=== PATIENT | male | born 1950 | race Caucasian/White ===

== ENCOUNTER 2018-07-05 18:50 | Inpatient (IN) ==
[2018-07-05] MEDS ORDERED: Sod Chloride 0.9% Inj 1,000 ML IV.SIG ONE ×2 (19:10→19:57)
--- NOTE | 2018-07-05 19:36 | ED ---
HPI General Chief complaint: Abdominal Pain Stated complaint: weakness and abdominal pain Time Seen by Provider: 07/05/18 19:10 Source: patient Mode of arrival: EMS Limitations: no limitations History of Present Illness HPI narrative: The patient is a 68 year old male who presents to the [facility] emergency department with a history of abdominal pain and diarrhea that he reports began 1 month ago. He reports that he had diarrhea approximately 20 times per day. He reports that the stool is light brown in color. He denies having any mucus or blood in his stool. He denies any recent foreign travel, camping, or unusual food intake. However, the patient does recall that in March he had a course of antibiotic for a dental infection. He denies having any nausea or vomiting associated with this. He reports that the abdominal pain is present in the lower abdomen and suprapubic area and is worse just before he has to move his bowels. He reports that the pain is a cramping/sharp sensation. He reports that it is coming and going. He reports having a subjective fever associated with this which was treated with Tylenol. He reports that he also took Imodium, however the symptoms recur with the Imodium wears off. He denies having any dysuria, urinary frequency, or urinary urgency. He denies having any prior history of similar symptoms. The patient is unsure who his primary care physician is. He has not seen a primary care physician for the last few years. He denies ever having colonoscopy previously. On review of systems otherwise, the patient denies having any cough , congestion, neck pain, chest pain, shortness of breath, or neurologic symptoms. Related Data Home Medications Medication Instructions Recorded Confirmed No Known Home Medications 07/05/18 07/05/18 Allergies Allergy/AdvReac Type Severity Reaction Status Date / Time No Known Allergies Allergy Verified 07/05/18 18:59 Review of Systems ROS: all other systems reviewed are negative [facility] Medical History Medical History Patient denies medical problems (Acute) Surgical History Surgical History No history of previous surgery (Acute) Social History Social History Substance History: No History of Abuse Second Hand Smoke Exposure: No Smoking Status: Never smoker How Often Do You Have a Drink Containing Alcohol: Never Recent Travel in [place] within the Last 8 Weeks: No Recent Out of Country Travel within the Last 8 Weeks: No Immunization History Tetanus Immunization: >5 Years Exam Const General: cooperative, no acute distress and well developed Nutritional Appearance: well nourished Orientation: alert, awake and oriented x3 [facility] Head: normocephalic and atraumatic Nose: no nasal discharge and no epistaxis Mouth: other Eyes Sclera: normal sclerae Pupils: PERRL Neck Neck: no meningeal signs, trachea midline and no JVD Resp Effort & Inspection: no use of accessory muscles Auscultation: clear to auscultation bilaterally Cardio Rate: tachycardic (Sinus tachycardia in the low 100s. No pulse deficits to the extremities on simultaneous auscultation and palpation of his radial artery) Rhythm: regular rhythm Heart Sounds: no gallops, no murmurs and no rubs GI Inspection: non-distended Palpation: soft, no hepatosplenomegaly, no guarding, not rigid and tender suprapubicly; not in the epigastrum, not in the LLQ, not in the RLQ, not in the LUQ, not in the RUQ, not at McBurney's point and with no rebound tenderness Back/Spine/Pelvis Back: no CVA tenderness Skin General: dry skin (warm) Neuro General: alert, awake, oriented x3 and other (Grossly nonfocal.) Speech: speech normal Motor: no movement abnormalities noted Extrem General: normal to inspection, no clubbing, no cyanosis and no edema Psych Mood: congruent mood Affect: blunted Judgment: judgment good Course Consultations Consultation #1: The patient's case including history, pertinent physical examination findings, and laboratory studies were discussed with Dr. Ba. It was agreed that the patient would be admitted to the hospitalist service. Initial Documented Vital Signs Temperature 98.9 F 07/05/18 18:59 Pulse Rate 99 H 07/05/18 18:59 Respiratory Rate 18 07/05/18 18:59 Blood Pressure 92/56 L 07/05/18 18:59 Pulse Oximetry 96 07/05/18 18:59 Last Documented Vital Signs Temperature 98.9 F 07/05/18 18:59 Pulse Rate 100 H 07/05/18 20:28 Respiratory Rate 18 07/05/18 20:28 Blood Pressure 92/62 L 07/05/18 20:28 Pulse Oximetry 96 07/05/18 20:28 Critical Care Time Critical Care Time: Yes Total Critical Care Time: 34 Attestation: Aggregate critical care time was 34 minutes. Time to perform other separately billable procedures was not included in the critical care time. My time did not include minutes spent treating any other patients simultaneously or on activities that did not directly contribute to the patient's treatment. The services I provided to this patient were to treat and/or prevent clinically significant deterioration that could result in: Cardiovascular collapse from sepsis, versus fluid overload with respiratory failure from crystalloid resuscitation. I provided critical care services requiring my management, as noted below: Chart data review, documentation time, medication orders and management, vital sign assessments/reviewing monitor data, ordering and reviewing lab tests, ordering and interpreting/reviewing x-rays and diagnostic studies, care of the patient and discussion of the patient with the admitting physicians. Medical Decision Making MDM Narrative Medical decision making narrative: During the course of the patient's emergency department visit, the patient's history, examination, and differential diagnosis were reviewed with the patient. The patient was placed on a monitoring specialist with oximetry and frequent blood pressure monitoring. The patient had IV access obtained and blood work sent for analysis. A diagnostic evaluation was started regarding the patient's abdominal pain and diarrhea. The patient was initially provided normal saline 1 L IV fluid bolus. The patient's diagnostic evaluation is remarkable for a white count of 27.7, the patient was started on broad-spectrum antibiotic coverage, blood cultures x2 were ordered. The patient was given Zosyn and Flagyl. The patient had a normal hemoglobin of 15.1, platelets 250 with neutrophils 81, bands 18toxic granulation present, PT 13.7, PTT 28.7, Chemistries remarkable for sodium of 131 , potassium 3.1, BUN 69, creatinine 1.75 consistent with dehydration, glucose 120. The patient was given a second liter of normal saline IV fluids, lactic acid was noted to be elevated at 2.3, protein corrected calcium is 7.7, cardiac enzymes are within normal limits. Total protein 5.4, albumin 1.5, lipase 48. Urinalysis shows 2 urobilinogen, hazy urine few mucus otherwise unremarkable. CHEST X-RAY: No infiltrate, pneumothorax or mediastinal widening. Shows no acute abnormality, CT scan of the abdomen and pelvis shows diffuse mural thickening and edema throughout the colon characteristic of a diffuse colitis. There is associated mild ascites, multiple small hepatic cyst, no obstruction. The patient's results were discussed with the patient, including the plan of care. I explained that further testing and/ or monitoring is indicated based on the patient's history, examination, and/ or laboratory findings. Therefore, I recommended admission for additional evaluation. The patient expressed understanding and was agreeable with this plan. The patient was admitted to the hospital in guarded condition and sent to a bed under the care of the [facility] service. Medical Screen Exam Complete: Yes Emergency Medical Condition: Yes Differential Diagnosis Differential Diagnosis: Diverticulitis, versus colitis, versus C. difficile colitis, versus prostatitis, versus ischemic bowel Medical Records Medical records reviewed: Yes I reviewed the patient's medical records. Lab Data Lab results reviewed: Yes I reviewed the patient's lab results. Result diagrams: 07/05/18 19:45 07/05/18 19:45 Lab Results 07/05/18 07/05/18 07/05/18 Range/Units 19:45 19:45 19:45 WBC 27.7 H (4.0-11.0) th/mm3 RBC 4.52 (4.50-5.90) mil/mm3 Hgb 15.1 (13.0-17.0) gm/dL Hct 43.3 (39.0-51.0) % MCV 95.8 (80.0-100.0) fL MCH 33.4 (27.0-34.0) pg MCHC 34.9 (32.0-36.0) % RDW 12.7 (11.6-17.2) % Plt Count 250 (150-450) th/mm3 MPV 6.7 L (7.0-11.0) fL Prelim Diff (Auto) Manual diff required WBC Differential Manual diff final Seg Neuts % (Manual) 81 H (16-70) % Band Neuts % (Manual) 18 H (0-6) % Monocytes % (Manual) 1 (0-8) % Abs Neuts (Manual) 27.4 H (1.8-7.7) th/mm3 Differential Comment . Toxic Granulation 1+ H (None) Platelet Estimate Normal (Normal) Platelet Morphology Normal (Normal) PT 13.7 H (9.8-11.6) sec INR 1.4 Ratio APTT 28.7 (24.3-30.1) sec Sodium 131 L (136-145) meq/L Potassium 3.1 L (3.5-5.1) meq/L Chloride 93 L (98-107) meq/L Carbon Dioxide 25.3 (21.0-32.0) meq/L Anion Gap 13 (5-15) meq/L BUN 69 H (7-18) mg/dL Creatinine 1.75 H (0.60-1.30) mg/dL Estimated GFR 39 L (>89) mL/min Random Glucose 120 H (74-106) mg/dL Lactic Acid (0.4-2.0) mmol/L Calcium 6.8 L* (8.5-10.1) mg/dL Prot Corrected Calcium 7.7 L (8.5-10.1) mg/dL Magnesium 2.5 (1.5-2.5) mg/dL Total Bilirubin 0.5 (0.2-1.0) mg/dL AST 28 (15-37) U/L ALT 25 (12-78) U/L Alkaline Phosphatase 93 (45-117) U/L Total Creatine Kinase 34 L (39-308) U/L Troponin I Less than 0.02 L (0.02-0.05) ng/mL Total Protein 5.4 L (6.4-8.2) g/dL Albumin 1.5 L (3.4-5.0) g/dL Lipase 48 L (73-393) U/L Urine Color (Yellw/Straw) Urine Clarity (Clear) Urine pH (5.0-8.5) Ur Specific [place] (1.002-1.035) Urine Protein (Neg-Trace) mg/dL Urine Glucose (UA) (Negative) mg/dL Urine Ketones (Negative) mg/dL Urine Occult Blood (Negative) Urine Nitrate (Negative) Urine Bilirubin (Negative) Urine Urobilinogen (Less than 2) mg/dL Ur Leukocyte Esterase (Negative) Urine RBC (0-3) /hpf Urine WBC (0-5) /hpf Ur Squamous Epith Cells (0-5) /hpf Hyaline Casts (0-3) /lpf Urine Mucus (Occasional) /lpf Micro UA Comment Ur Microscopic Review Urine Culture Comments 07/05/18 07/05/18 Range/Units 19:45 20:20 WBC (4.0-11.0) th/mm3 RBC (4.50-5.90) mil/mm3 Hgb (13.0-17.0) gm/dL Hct (39.0-51.0) % MCV (80.0-100.0) fL MCH (27.0-34.0) pg MCHC (32.0-36.0) % RDW (11.6-17.2) % Plt Count (150-450) th/mm3 MPV (7.0-11.0) fL Prelim Diff (Auto) WBC Differential Seg Neuts % (Manual) (16-70) % Band Neuts % (Manual) (0-6) % Monocytes % (Manual) (0-8) % Abs Neuts (Manual) (1.8-7.7) th/mm3 Differential Comment Toxic Granulation (None) Platelet Estimate (Normal) Platelet Morphology (Normal) PT (9.8-11.6) sec INR Ratio APTT (24.3-30.1) sec Sodium (136-145) meq/L Potassium (3.5-5.1) meq/L Chloride (98-107) meq/L Carbon Dioxide (21.0-32.0) meq/L Anion Gap (5-15) meq/L BUN (7-18) mg/dL Creatinine (0.60-1.30) mg/dL Estimated GFR (>89) mL/min Random Glucose (74-106) mg/dL Lactic Acid 2.3 H (0.4-2.0) mmol/L Calcium (8.5-10.1) mg/dL Prot Corrected Calcium (8.5-10.1) mg/dL Magnesium (1.5-2.5) mg/dL Total Bilirubin (0.2-1.0) mg/dL AST (15-37) U/L ALT (12-78) U/L Alkaline Phosphatase (45-117) U/L Total Creatine Kinase (39-308) U/L Troponin I (0.02-0.05) ng/mL Total Protein (6.4-8.2) g/dL Albumin (3.4-5.0) g/dL Lipase (73-393) U/L Urine Color Analy (Yellw/Straw) Urine Clarity Hazy H (Clear) Urine pH 5.0 (5.0-8.5) Ur Specific [place] 1.023 (1.002-1.035) Urine Protein Negative (Neg-Trace) mg/dL Urine Glucose (UA) Negative (Negative) mg/dL Urine Ketones Negative (Negative) mg/dL Urine Occult Blood Negative (Negative) Urine Nitrate Negative (Negative) Urine Bilirubin Negative (Negative) Urine Urobilinogen 2.0 H (Less than 2) mg/dL Ur Leukocyte Esterase Negative (Negative) Urine RBC 1 (0-3) /hpf Urine WBC 4 (0-5) /hpf Ur Squamous Epith Cells 1 (0-5) /hpf Hyaline Casts 27 (0-3) /lpf Urine Mucus Few H (Occasional) /lpf Micro UA Comment Culture not ind Ur Microscopic Review Not Reportable Urine Culture Comments Culture not ind Imaging Data Radiologist's impression: Abdomen/Pelvis CT 07/05/18 19:10 CONCLUSION: 1. Diffuse mural thickening and edema throughout the colon characteristic of a diffuse colitis. There is associated mild ascites. 2. Multiple small hepatic cysts. No obstruction. Chest X-Ray 07/05/18 19:10 CONCLUSION: No acute findings. ECG Data Attestation: I personally reviewed and interpreted this ECG as follows: Interpretation: The patient had a EKG done on arrival. The patient's EKG shows a sinus rhythm heart rate of 95, QRS duration 85 ms, QTC [address] segment elevation is noted. Discharge Plan Discharge Disposition Patient Disposition: 30 Still Patient Discharge Details Diagnosis: Colitis, Acute dehydration, SIRS (systemic inflammatory response syndrome) Physicians Team ED Provider: Santa Cole Primary Care Provider: Primary Care Kathrine Low Attending Provider: Blanca Ba Other Providers: [employer] Discharge Interventions Interventions: Vital Signs Last Done: 07/05/18 20:28 Status ED Status: Admitted Patient
--- NOTE | 2018-07-05 19:44 | XR ---
EXAM DATE: 07/05/2018 7:10 PM EDT AGE/SEX: 68 years / Male INDICATIONS: Evaluate for free air, abdomen pain CLINICAL DATA: This is the patient's initial encounter. Patient reports that signs and symptoms have been present for 1 month and indicates a pain score of 4/10. MEDICAL/SURGICAL HISTORY: None. None. COMPARISON: No prior exams available for comparison. FINDINGS: A single AP view of the chest demonstrates the lungs to be symmetrically aerated without evidence of mass, infiltrate or effusion. The cardiomediastinal contours are unremarkable. Osseous structures a re intact. CONCLUSION: No acute findings. Electronically signed by: Parth Dove MD 07/05/2018 7:43 PM EDT
[2018-07-05 19:56] LABS: Hematocrit 43.3 % (39.0-51.0); Hemoglobin 15.1 gm/dL (13.0-17.0); Mean Corpuscular HGB Conc 34.9 % (32.0-36.0); Mean Corpuscular Hemoglobin 33.4 pg (27.0-34.0); Mean Corpuscular Volume 95.8 fL (80.0-100.0); Mean Platelet Volume 6.7 fL (7.0-11.0); Platelet Count 250 th/mm3 (150-450); Red Blood Count 4.52 mil/mm3 (4.50-5.90); Red Cell Distribution Width 12.7 % (11.6-17.2); White Blood Count 27.7 th/mm3 (4.0-11.0)
[2018-07-05] MEDS ORDERED: Piperacil/Tazo 3.375 GM Premix 50 ML IV.SIG ONE (19:57)
[2018-07-05 20:05] LABS: Activated Partial Thrombo Time 28.7 sec (24.3-30.1); INR 1.4 Ratio; Prothrombin Time 13.7 sec (9.8-11.6)
[2018-07-05 20:17] LABS: Alanine Aminotransferase 25 U/L (12-78); Albumin 1.5 g/dL (3.4-5.0); Alkaline Phosphatase 93 U/L (45-117); Anion Gap 13 meq/L (5-15); Aspartate Aminotransferase 28 U/L (15-37); Blood Urea Nitrogen 69 mg/dL (7-18); Calcium 6.8 mg/dL (8.5-10.1); Carbon Dioxide 25.3 meq/L (21.0-32.0); Chloride 93 meq/L (98-107); Glomerular Filtration Rate 39 mL/min (>89); Glucose,Random 120 mg/dL (74-106); Lipase 48 U/L (73-393); Magnesium 2.5 mg/dL (1.5-2.5); Potassium 3.1 meq/L (3.5-5.1); Sodium 131 meq/L (136-145); Total Protein 5.4 g/dL (6.4-8.2)
[2018-07-05 20:25] LABS: Creatine Kinase 34 U/L (39-308)
[2018-07-05 20:31] LABS: Monocytes 1 % (0-8)
[2018-07-05 20:35] LABS: Platelet Estimate Normal (Normal); Platelet Morphology Normal (Normal); Toxic Granulation 1+
[2018-07-05 20:52] LABS: Bilirubin,Urine Negative (Negative); Clarity,Urine Hazy (Clear); Color,Urine Amber (Yellw/Straw); Glucose,Urine (UA) Negative (Negative); Hyaline Casts,Urine 27 /lpf (0-3); Leukocyte Esterase,Urine Negative (Negative); Mucus,Urine Few /lpf (Occasional); Nitrite,Urine Negative (Negative); Specific Gravity,Urine 1.023 (1.002-1.035); Squamous Epithelial Cell,Urine 1 /hpf (0-5)
--- NOTE | 2018-07-05 21:04 | CT ---
EXAM DATE: 07/05/2018 8:27 PM EDT AGE/SEX: 68 years / Male INDICATIONS: Lower abdominal pain and diarrhea. CLINICAL DATA: This is the patient's initial encounter. Patient reports that signs and symptoms have been present for 1 month and indicates a pain score of 5/10. MEDICAL/SURGICAL HISTORY: None. None. ORAL CONTRAST: No oral contrast ingested. RADIATION DOSE: 13.00 CTDI (mGy) COMPARISON: No prior exams available for comparison. TECHNIQUE: Multiple contiguous axial images were obtained through the abdomen and pelvis following b olus infusion of 46 ml Visipaque 320 (iodixanol) nonionic water-soluble contrast as a single exam d ose. No oral contrast ingested. Using automated exposure control and adjustment of the mA and/or kV according to patient size, radiation dose was kept as low as reasonably achievable to obtain optimal diagnostic quality images. DICOM format image data is available electronically for review and compar raul. FINDINGS: Lung bases are clear. Multiple small hepatic cysts present. Spleen, adrenals, kidneys and pancreas unremarkable. No calcifi ed gallstones or biliary ductal dilatation. There is diffuse mural thickening throughout the colon characteristic of a diffuse colitis. There is mild ascites. No small bowel obstruction. No free air. No pelvic masses or adenopathy. No acute bony abnormalities. CONCLUSION: 1. Diffuse mural thickening and edema throughout the colon characteristic of a diffuse colitis. Ther e is associated mild ascites. 2. Multiple small hepatic cysts. No obstruction. Electronically signed by: Parth Dove MD 07/05/2018 9:03 PM EDT
[2018-07-05] MEDS ORDERED: Morphine Sulfate Inj 2 MG/ML Vial IV.PUSH PRN (21:27)
[2018-07-05] MEDS ORDERED: Acetaminophen 325 MG Tablet PO PRN (21:28)
[2018-07-05] MEDS ORDERED: Bisacodyl 10 MG Supp RECTAL PRN (21:28)
--- NOTE | 2018-07-05 21:29 | P.HPIM ---
History of Present Illness Primary Care Physician: No Primary Care Physician History of Present Illness: This is a 68-year-old male with no significant PMH who presents the ER with complaints of abdominal pain in addition to diarrhea. States symptoms have been intermittent for the last 1mo, however now progressively worse w/ increased episodes of diarrhea today. Pain is generalized, cramping, intermittent, 7/10, non-radiating. Denies fever, chills, sick contacts or recent travel. Today reports approx 20 episodes of loose stool/diarrhea. No recent antibiotic use. On arrival, BP 92/56, HR 99, O2 sat 96% on RA, Afebrile. WBC 27.7, bands 18%. INR 1.4. K+ 3.1. Creatinine 1.75, no previous labs for comparison. Lactic Acid 2.3. Calcium 6.8. Troponin negative. Lipase 48. UA negative for UTI. C. difficile pending. CT Abdomen/ Pelvis diffuse mural thickening and edema throughout the colon consistent with colitis, associated mild ascites. CXR with no acute findings. S/p Zosyn/ Flagyl in ER. - Diagnosis (1) Sepsis (2) Colitis (3) NEGRITO (acute kidney injury) (4) Hypocalcemia Inpatient Certification: I certify that the inpatient services were ordered in accordance with Medicare regulations governing the order. This includes certification that hospital inpatient services are reasonable and necessary and in the case of services not specified as inpatient-only under 42 CFR 419.22(n), that they are appropriately provided as inpatient services in accordance to with the 2-midnight benchmark under 43 CFR 412.3(e) Estimated Total Length of Stay (Days): 2 Plans for Post Hospital Care: Not yet determined Review of Systems PAST FAMILY HISTORY: Reviewed. No h/o DM or CAD All other systems reviewed negative except as stated in HPI PMFSH - History History Provided By: Patient - Medical History Medical History: Medical History (Last Reviewed 07/05/18 @ 19:33 by Santa Cole MD) Patient denies medical problems - Surgical History Surgical History: Surgical History (Last Reviewed 07/05/18 @ 19:33 by Santa Cole MD) No history of previous surgery - Tobacco History Second Hand Smoke Exposure: No Smoking Status: Never smoker - Alcohol History How Often Do You Have a Drink Containing Alcohol: Never - Substance Use History Substance History: No History of Abuse - Travel History Recent Travel in the [place] Within the Last 8 Weeks: No Recent Travel Out of the Country Within the Last 8 Weeks: No - Immunization History Tetanus Immunization: >5 Years Medications and Allergies Active Medications: Active Medications Metronidazole/Sodium Chloride (Flagyl 500 Mg Inj) 100 mls @ 100 mls/hr IV.SIG ONCE ONE Stop: 07/05/18 21:36 Last Admin: 07/05/18 21:01 Dose: 100 mls/hr Sodium Chloride (Ns Flush) 2 ml IV.FLUSH PRN PRN PRN Reason: FLUSH AFTER USING IV ACCESS Allergies Allergy/AdvReac Type Severity Reaction Status Date / Time No Known Allergies Allergy Verified 07/05/18 18:59 Home Medications Medication Instructions Recorded Confirmed Type No Known Home Medications 07/05/18 07/05/18 History Exam Vital signs: Vital Signs 07/05/18 18:59 07/05/18 19:10 07/05/18 20:28 Temperature 98.9 F Pulse Rate 99 H 100 H Respiratory Rate 18 18 Blood Pressure 92/56 L 92/62 L Pulse Oximetry 96 97 96 Intake & Output 07/05/18 07/05/18 07/06/18 06:59 18:59 06:59 Intake Total 1050 / 1050 Balance 1050 / 1050 Weight 81.647 kg Intake: IV 1050 / 1050 Zosyn 3.375 GM Premix 50 ML @ 50 / 50 100 mls/hr IV.SIG ONCE ONE Rx#: [id number] NS Inj 1,000 ML @ Wide Open IV. 1000 / 1000 SIG BOLUS ONE Rx#:[id number] Narrative: PE: GENERAL: Pleasant elderly white male in no acute distress, appears weak/tired. SKIN: Focused skin assessment warm and dry. HEENT: PERRLA, EOMI. No scleral icterus or conjunctival pallor. No lid lag or facial droop. CARDIOVASCULAR: Regular rate and rhythm. No obvious murmurs to auscultation. No chest tenderness to palpation. RESPIRATORY: No obvious rhonchi or wheezing. Clear to auscultation. Breath sounds equal bilaterally. GASTROINTESTINAL: Abdomen soft, non-tender, nondistended. BS normal. MUSCULOSKELETAL: Extremities without clubbing, cyanosis, or edema. No obvious deformities. NEUROLOGICAL: Awake, alert and oriented x4. No focal neurologic deficits. Moving both upper and lower extremities spontaneously. PSYCHIATRIC: Appropriate mood and affect. Insight and judgment normal. Results - Labs CBC & Chem 7: 07/05/18 19:45 07/05/18 19:45 Labs: Short CBC 07/05/18 Range/Units 19:45 WBC 27.7 H (4.0-11.0) th/mm3 Hgb 15.1 (13.0-17.0) gm/dL Hct 43.3 (39.0-51.0) % Plt Count 250 (150-450) th/mm3 BMP 07/05/18 19:45 Sodium 131 L Potassium 3.1 L Chloride 93 L Carbon Dioxide 25.3 BUN 69 H Creatinine 1.75 H Calcium 6.8 L* Cardiac Enzymes 07/05/18 Range/Units 19:45 Total Creatine Kinase 34 L (39-308) U/L Troponin I Less than 0.02 L (0.02-0.05) ng/mL Liver Function 07/05/18 Range/Units 19:45 Total Bilirubin 0.5 (0.2-1.0) mg/dL AST 28 (15-37) U/L ALT 25 (12-78) U/L Alkaline Phosphatase 93 (45-117) U/L Albumin 1.5 L (3.4-5.0) g/dL Urine 07/05/18 Range/Units 20:20 Urine Color Analy (Yellw/Straw) Urine Clarity Hazy H (Clear) Urine pH 5.0 (5.0-8.5) Ur Specific [place] 1.023 (1.002-1.035) Urine Protein Negative (Neg-Trace) mg/dL Urine Glucose (UA) Negative (Negative) mg/dL - Imaging Impressions Abdomen/Pelvis CT 07/05/18 19:10 CONCLUSION: 1. Diffuse mural thickening and edema throughout the colon characteristic of a diffuse colitis. There is associated mild ascites. 2. Multiple small hepatic cysts. No obstruction. Chest X-Ray 07/05/18 19:10 CONCLUSION: No acute findings. Caprini VTE Risk Assessment Caprini VTE Risk Assessment: No/Low Risk (score <= 1) Caprini Risk Assessment Model: Point Value = 1 Point Value = 2 Point Value = 3 Point Value = 5 Age 41-60 Minor surgery BMI > 25 kg/m2 Swollen legs Varicose veins or History of unexplained or recurrent spontaneous Oral contraceptives or hormone replacement Sepsis (< 1 month) Serious lung disease, including pneumonia (< 1 month) Abnormal pulmonary function Acute myocardial infarction Congestive heart failure (< 1 month) History of inflammatory bowel disease Medical patient at bed rest Age 61-74 Arthroscopic surgery Major open surgery (> 45 min) Laparoscopic surgery (> 45 min) Malignancy Confined to bed (> 72 hours) Immobilizing plaster cast Central venous access Age >= 75 History of VTE Family history of VTE Factor V Leiden Prothrombin [id number] Lupus anticoagulant Anticardiolipin antibodies Elevated serum homocysteine Heparin-induced thrombocytopenia Other congenital or acquired thrombophilia Stroke (< 1 month) Elective arthroplasty Hip, pelvis, or leg fracture Acute spinal cord injury (< 1 month) Prophylaxis Regimen: Total Risk Factor Score Risk Level Prophylaxis Regimen 0-1 Low Early ambulation 2 Moderate Order ONE of the following: *Sequential Compression Device (SCD) *Heparin 5000 units SQ BID 3-4 Higher Order ONE of the following medications: *Heparin 5000 units SQ TID *Enoxaparin/Lovenox 40 mg SQ daily (WT < 150 kg, CrCl > 30 mL/min) *Enoxaparin/Lovenox 30 mg SQ daily (WT < 150 kg, CrCl > 10-29 mL/min) *Enoxaparin/Lovenox 30 mg SQ BID (WT < 150 kg, CrCl > 30 mL/min) AND/OR *Sequential Compression Device (SCD) 5 or more Highest Order ONE of the following medications: *Heparin 5000 units SQ TID (Preferred with Epidurals) *Enoxaparin/Lovenox 40 mg SQ daily (WT < 150 kg, CrCl > 30 mL/min) *Enoxaparin/Lovenox 30 mg SQ daily (WT < 150 kg, CrCl > 10-29 mL/min) *Enoxaparin/Lovenox 30 mg SQ BID (WT < 150 kg, CrCl > 30 mL/min) AND *Sequential Compression Device (SCD) Assessment and Plan - Assessment (1) Sepsis Code(s): A41.9 - Sepsis, unspecified organism Status: Acute (2) Colitis Code(s): K52.9 - Noninfective gastroenteritis and colitis, unspecified Status : Acute (3) NEGRITO (acute kidney injury) Code(s): N17.9 - Acute kidney failure, unspecified Status: Acute (4) Hypocalcemia Code(s): E83.51 - Hypocalcemia Status: Acute - Plan A/P: 1. Sepsis: HR 99, WBC 27, Bandemia 18%, Lactic Acid 2.3, Source-Colitis. S/p blood cultures, Zosyn/Flagyl in ER, will follow up cultures, continue IV Abx, repeat Lactic Acid, IVF for hydration, monitor BP closely in light of hypotension w/ BP 90's systolic. 2. Colitis: CT Abd/Pelvis w/ diffuse colitis, images reviewed, +diarrhea, C diff pending, will follow, continue w/ IV Abx, IVF for hydration, diet as tolerated. 3. NEGRITO: Creatinine 1.75, no previous labs for comparison, presumably new, IVF for hydration, monitor I/O, repeat labs in am. 4. Hypocalcemia: Ca 6.8, will give replacement and repeat in am. 5. DVT Prophylaxis: SCD/Teds 6. Social work for d/c planning as needed. 7. Case discussed w/ ER physician at length, labs/records/imaging reviewed by me.
[2018-07-05] MEDS ORDERED: Potassium Chloride 25 MEQ Effervescent Tablet PO ONE (21:42)
[2018-07-05] MEDS ORDERED: Calcium Gluconate Inj 1 GM in Sodium Chlor 0.9% Inj 100 ML IV.SIG ONE (22:00)
[2018-07-05] MEDS: Pantoprazole Inj 40 MG Vial IV.PUSH SCH (22:00)
[2018-07-05] MEDS: Sod Chloride 0.9% Inj 1,000 ML IV.CONT SCH (22:00)
[2018-07-06] MEDS: Sod Chloride 0.9% Inj 1,000 ML IV.CONT SCH ×3 (04:00→18:30)
[2018-07-06 07:02] LABS: Hematocrit 45.3 % (39.0-51.0); Hemoglobin 15.3 gm/dL (13.0-17.0); Mean Corpuscular HGB Conc 33.7 % (32.0-36.0); Mean Corpuscular Hemoglobin 33.1 pg (27.0-34.0); Mean Platelet Volume 6.7 fL (7.0-11.0); Platelet Count 242 th/mm3 (150-450); Red Blood Count 4.62 mil/mm3 (4.50-5.90); Red Cell Distribution Width 12.7 % (11.6-17.2); White Blood Count 28.7 th/mm3 (4.0-11.0)
[2018-07-06 07:30] LABS: Albumin 1.5 g/dL (3.4-5.0); Calcium 7.3 mg/dL (8.5-10.1); Potassium 3.9 meq/L (3.5-5.1); Total Protein 5.5 g/dL (6.4-8.2)
[2018-07-06 09:08] LABS: Monocytes 3 % (0-8); Platelet Estimate Normal (Normal); Platelet Morphology Normal (Normal)
[2018-07-06 09:09] LABS: RBC Morphology Normal (Normal)
[2018-07-06] MEDS: Senna/Docusate Sodium 8.6/50 MG Tablet PO SCH ×2 (10:09→21:00)
[2018-07-06] MEDS: Pantoprazole Inj 40 MG Vial IV.PUSH SCH ×2 (10:09→21:01)
--- NOTE | 2018-07-06 11:35 | P.PN ---
Subjective Interval history: Follow up for sepsis, colitis: pt. seen and examined, continues with significant watery stools, approximately 8-9. No abdominal pain. No nausea, no vomiting. States he wants to eat. Feels weak. No chest pain, no shortness of breath. Blood pressure remains low, 90/54, slightly tachycardic, 90s-100s. Febrile, temperature 100.1. Physical Exam Vital signs: Vital Signs 07/05/18 18:59 07/05/18 19:10 07/05/18 20:28 Temperature 98.9 F Pulse Rate 99 H 100 H Respiratory Rate 18 18 Blood Pressure 92/56 L 92/62 L Pulse Oximetry 96 97 96 07/05/18 21:28 07/05/18 23:07 07/05/18 23:08 Temperature 97.5 F L Pulse Rate 75 95 H Respiratory Rate 18 18 Blood Pressure 90/54 L 111/65 Pulse Oximetry 100 100 100 07/06/18 04:00 07/06/18 05:23 07/06/18 08:00 Temperature 100.1 F H 98.4 F Pulse Rate 105 H 96 H Respiratory Rate 18 20 20 Blood Pressure 100/56 L 90/54 L Pulse Oximetry 98 97 Intake & Output 07/05/18 07/06/18 07/06/18 18:59 06:59 18:59 Intake Total 3360 / 3360 Balance 3360 / 3360 Weight 81.647 kg 84.5 kg Intake: IV 3360 / 3360 NS Inj 1,000 ML @ 100 mls/hr IV 1000 / 1000 .CONT .Q10H [facility] Rx#:[id number] Calcium Gluconate Inj 1 GM In 110 / 110 NS Inj 100 ML @ 110 mls/hr IV. SIG ONCE ONE Rx#:[id number] Zosyn 3.375 GM Premix 50 ML @ 50 / 50 100 mls/hr IV.SIG ONCE ONE Rx#: [id number] NS Inj 1,000 ML @ Wide Open IV. 1999 SIG BOLUS ONE Rx#:[id number] Flagyl 500 MG Inj 100 ML @ 100 200 / 200 mls/hr IV.SIG Q8H [facility] Rx#: [id number] Other: # Voids 2 Date of Last Bowel Movement 07/05/18 07/06/18 # Bowel Movements 2 2 Weight On Admission 84.5 kg Narrative: GENERAL: Ill-appearing male. SKIN: Focused skin assessment warm and dry. HEENT: No scleral icterus or conjunctival pallor. No lid lag or facial droop. CARDIOVASCULAR: Regular rate and rhythm. No obvious murmurs to auscultation. No chest tenderness to palpation. RESPIRATORY: No obvious rhonchi or wheezing. Clear to auscultation. Breath sounds equal bilaterally. GASTROINTESTINAL: Abdomen soft, non-tender, nondistended. BS normal. MUSCULOSKELETAL: Extremities without clubbing, cyanosis, or edema. No obvious deformities. NEUROLOGICAL: Awake, alert and oriented x4. No focal neurologic deficits. Moving both upper and lower extremities spontaneously. PSYCHIATRIC: Appropriate mood and affect. Insight and judgment normal. Results - Labs CBC & Chem 7: 07/06/18 06:23 07/06/18 06:23 Laboratory Results - last 24 hr 07/05/18 07/05/18 07/05/18 19:45 19:45 19:45 WBC 27.7 H RBC 4.52 Hgb 15.1 Hct 43.3 MCV 95.8 MCH 33.4 MCHC 34.9 RDW 12.7 Plt Count 250 MPV 6.7 L Prelim Diff (Auto) Manual diff required WBC Differential Manual diff final Seg Neuts % (Manual) 81 H Band Neuts % (Manual) 18 H Monocytes % (Manual) 1 Abs Neuts (Manual) 27.4 H Differential Comment . Toxic Granulation 1+ H Platelet Estimate Normal Platelet Morphology Normal RBC Morphology PT 13.7 H INR 1.4 APTT 28.7 Sodium 131 L Potassium 3.1 L Chloride 93 L Carbon Dioxide 25.3 Anion Gap 13 BUN 69 H Creatinine 1.75 H Estimated GFR 39 L Random Glucose 120 H Lactic Acid Calcium 6.8 L* Prot Corrected Calcium 7.7 L Magnesium 2.5 Total Bilirubin 0.5 AST 28 ALT 25 Alkaline Phosphatase 93 Total Creatine Kinase 34 L Troponin I Less than 0.02 L Total Protein 5.4 L Albumin 1.5 L Lipase 48 L Urine Color Urine Clarity Urine pH Ur Specific [place] Urine Protein Urine Glucose (UA) Urine Ketones Urine Occult Blood Urine Nitrate Urine Bilirubin Urine Urobilinogen Ur Leukocyte Esterase Urine RBC Urine WBC Ur Squamous Epith Cells Hyaline Casts Urine Mucus Micro UA Comment Ur Microscopic Review Urine Culture Comments Stool C.difficile Ag Stool C.difficile Toxin Stl C.difficile DNA Amp St C. diff Tox Epid 027 07/05/18 07/05/18 07/05/18 19:45 20:20 20:20 WBC RBC Hgb Hct MCV MCH MCHC RDW Plt Count MPV Prelim Diff (Auto) WBC Differential Seg Neuts % (Manual) Band Neuts % (Manual) Monocytes % (Manual) Abs Neuts (Manual) Differential Comment Toxic Granulation Platelet Estimate Platelet Morphology RBC Morphology PT INR APTT Sodium Potassium Chloride Carbon Dioxide Anion Gap BUN Creatinine Estimated GFR Random Glucose Lactic Acid 2.3 H Calcium Prot Corrected Calcium Magnesium Total Bilirubin AST ALT Alkaline Phosphatase Total Creatine Kinase Troponin I Total Protein Albumin Lipase Urine Color Analy Urine Clarity Hazy H Urine pH 5.0 Ur Specific [place] 1.023 Urine Protein Negative Urine Glucose (UA) Negative Urine Ketones Negative Urine Occult Blood Negative Urine Nitrate Negative Urine Bilirubin Negative Urine Urobilinogen 2.0 H Ur Leukocyte Esterase Negative Urine RBC 1 Urine WBC 4 Ur Squamous Epith Cells 1 Hyaline Casts 27 Urine Mucus Few H Micro UA Comment Culture not ind Ur Microscopic Review Not Reportable Urine Culture Comments Culture not ind Stool C.difficile Ag Positive H Stool C.difficile Toxin Negative Stl C.difficile DNA Amp Positive H St C. diff Tox Epid 027 Negative 07/05/18 07/06/18 07/06/18 21:43 06:23 06:23 WBC 28.7 H RBC 4.62 Hgb 15.3 Hct 45.3 MCV 98.0 MCH 33.1 MCHC 33.7 RDW 12.7 Plt Count 242 MPV 6.7 L Prelim Diff (Auto) Manual diff required WBC Differential Manual diff final Seg Neuts % (Manual) 72 H Band Neuts % (Manual) 25 H Monocytes % (Manual) 3 Abs Neuts (Manual) 27.8 H Differential Comment . Toxic Granulation Platelet Estimate Normal Platelet Morphology Normal RBC Morphology Normal PT INR APTT Sodium 134 L Potassium 3.9 D Chloride 100 Carbon Dioxide 23.0 Anion Gap 11 BUN 64 H Creatinine 1.64 H Estimated GFR 42 L Random Glucose 103 Lactic Acid 2.2 H Calcium 7.3 L* Prot Corrected Calcium 8.2 L Magnesium Total Bilirubin 0.5 AST 31 ALT 23 Alkaline Phosphatase 106 Total Creatine Kinase Troponin I Total Protein 5.5 L Albumin 1.5 L Lipase Urine Color Urine Clarity Urine pH Ur Specific [place] Urine Protein Urine Glucose (UA) Urine Ketones Urine Occult Blood Urine Nitrate Urine Bilirubin Urine Urobilinogen Ur Leukocyte Esterase Urine RBC Urine WBC Ur Squamous Epith Cells Hyaline Casts Urine Mucus Micro UA Comment Ur Microscopic Review Urine Culture Comments Stool C.difficile Ag Stool C.difficile Toxin Stl C.difficile DNA Amp St C. diff Tox Epid 027 Microbiology 07/05/18 19:45 Blood - Peripheral Aerobic Blood Culture - Preliminary No growth in 1 day 07/05/18 19:45 Blood - Peripheral Anaerobic Blood Culture - Preliminary No growth in 1 day 07/05/18 19:40 Blood - Peripheral Aerobic Blood Culture - Preliminary No growth in 1 day 07/05/18 19:40 Blood - Peripheral Anaerobic Blood Culture - Preliminary No growth in 1 day 07/05/18 20:20 Stool Stool for WBCs - Final Rare WBC's - Imaging Impressions Abdomen/Pelvis CT 07/05/18 19:10 CONCLUSION: 1. Diffuse mural thickening and edema throughout the colon characteristic of a diffuse colitis. There is associated mild ascites. 2. Multiple small hepatic cysts. No obstruction. Chest X-Ray 07/05/18 19:10 CONCLUSION: No acute findings. Assessment and Plan - Assessment (1) Sepsis Code(s): A41.9 - Sepsis, unspecified organism Status: Acute (2) Colitis Code(s): K52.9 - Noninfective gastroenteritis and colitis, unspecified Status : Acute (3) NEGRITO (acute kidney injury) Code(s): N17.9 - Acute kidney failure, unspecified Status: Acute (4) Hypocalcemia Code(s): E83.51 - Hypocalcemia Status: Acute - Plan 68-year-old male with no significant PMH who presents the ER with complaints of abdominal pain in addition to diarrhea. States symptoms have been intermittent for the last 1mo, however now progressively worse w/ increased episodes of diarrhea today. Pain is generalized, cramping, intermittent, 7/10, non- radiating. Denies fever, chills, sick contacts or recent travel. Today reports approx 20 episodes of loose stool/diarrhea. No recent antibiotic use. On arrival, BP 92/56, HR 99, O2 sat 96% on RA, Afebrile. WBC 27.7, bands 18%. INR 1.4. K+ 3.1. Creatinine 1.75, no previous labs for comparison. Lactic Acid 2.3. Calcium 6.8. Troponin negative. Lipase 48. UA negative for UTI. C. difficile pending. CT Abdomen/Pelvis diffuse mural thickening and edema throughout the colon consistent with colitis, associated mild ascites. CXR with no acute findings. S/p Zosyn/Flagyl in ER. Sepsis-on admit HR 99, WBC 27, Bandemia 18%, Lactic Acid 2.3, Source-Colitis. S/p blood cultures, Zosyn/Flagyl in ER Remains with significant leukocytosis, fever overnight and hypotension 90/54. Lactic acid 2.2 -continue to follow cultures -repeat CBC and lactic acid in am -Continue with aggressive hydration, inc. IVF to 125/hr -Continue with empiric antibiotics-Levaquin, Flagyl Colitis-CT Abd/Pelvis w/ diffuse colitis, images reviewed, +diarrhea -Stool C. difficile antigen positive, toxin negative DNA positive. Negative for EPID 027 -Continue with Flagyl -Considering patient is symptomatic with significant leukocytosis and findings of colitis, we will add Vanco 250 mg p.o. 4 times daily We will add Lactinex 3 times daily -Replace electrolytes as needed -We will start on clear liquid diet NEGRITO- Creatinine 1.75 creat 1.64 today -continue IVF -follow BMP Hypocalcemia: Ca 6.8 S/P replacement -calcium better today DVT Prophylaxis: SCD/Teds Continue morphine as needed for pain management Antiemetics PRN Repeat labs in the morning Code Status: Full code Discussed Condition With: RN, pt., CM Discharge Planning: Not ready for dc, still with fever and leukocytosis
--- NOTE | 2018-07-06 16:46 | ECG ---
Date Performed: 07/05/2018 Time Performed: 19:56:49 PTAGE: 68 years EKG: Sinus rhythm POSSIBLE ANTERIOR MYOCARDIAL INFARCTION INFERIOR MYOCARDIAL INFARCTION ABNORMAL ECG NO PREVIOUS TRACING DOCTOR: Kelly Valverde Interpretating Date/Time 07/06/2018 16:42:07
[2018-07-06] MEDS: Lactobacillus Acidophilus/L. Spores Tablet PO SCH (18:28)
[2018-07-07] MEDS: Sod Chloride 0.9% Inj 1,000 ML IV.CONT SCH ×4 (00:04→17:09)
[2018-07-07 07:36] LABS: Hematocrit 38.4 % (39.0-51.0); Hemoglobin 13.1 gm/dL (13.0-17.0); Mean Corpuscular Hemoglobin 33.6 pg (27.0-34.0); Mean Platelet Volume 6.1 fL (7.0-11.0); Platelet Count 140 th/mm3 (150-450); Red Blood Count 3.88 mil/mm3 (4.50-5.90); Red Cell Distribution Width 12.7 % (11.6-17.2); White Blood Count 11.2 th/mm3 (4.0-11.0)
[2018-07-07 08:01] LABS: Calcium 6.7 mg/dL (8.5-10.1); Potassium 3.5 meq/L (3.5-5.1)
[2018-07-07 08:13] LABS: Total Protein 4.4 g/dL (6.4-8.2)
[2018-07-07] MEDS: Senna/Docusate Sodium 8.6/50 MG Tablet PO SCH (08:40)
[2018-07-07] MEDS: Pantoprazole Inj 40 MG Vial IV.PUSH SCH (09:22)
[2018-07-07] MEDS: Lactobacillus Acidophilus/L. Spores Tablet PO SCH ×3 (09:22→17:09)
--- NOTE | 2018-07-07 11:39 | P.PNIM ---
Subjective Interval history: Patient reports breathing is better. Less loose stools. No abdominal pain. He is feeling better and tolerating his diet. Physical Exam Vital signs: Vital Signs 07/06/18 12:00 07/06/18 16:00 07/06/18 20:00 Temperature 98.4 F 97.9 F 97.6 F Pulse Rate 101 H 105 H 99 H Respiratory Rate 20 20 18 Blood Pressure 96/52 L 100/64 95/54 L Pulse Oximetry 95 97 95 07/06/18 23:53 07/07/18 04:38 07/07/18 08:00 Temperature 97.7 F 97.9 F 97.6 F Pulse Rate 86 91 H 95 H Respiratory Rate 18 17 18 Blood Pressure 107/64 118/63 97/59 L Pulse Oximetry 97 96 98 Intake & Output 07/06/18 07/07/18 07/07/18 18:59 06:59 18:59 Intake Total 1100 / 1100 830 / 830 1000 / 1000 Balance 1100 / 1100 830 / 830 1000 / 1000 Weight 85 kg Intake: IV 1100 / 1100 350 / 350 1000 / 1000 NS Inj 1,000 ML @ 125 mls/hr IV 1000 / 1000 1000 / 1000 .CONT .Q8H [facility] Rx#:[id number] Levaquin 750 mg Premix Inj 150 150 / 150 ML @ 100 mls/hr IV.SIG Q24H [facility] Rx#:[id number] Flagyl 500 MG Inj 100 ML @ 100 100 / 100 200 / 200 mls/hr IV.SIG Q8H [facility] Rx#: [id number] Oral 480 / 480 Other: # Voids 2 7 Date of Last Bowel Movement 07/06/18 07/07/18 # Bowel Movements 11 7 Narrative: GENERAL: Well-nourished well-developed white male no acute distress SKIN: warm and dry. HEENT: No scleral icterus or conjunctival pallor. No lid lag or facial droop. CARDIOVASCULAR: Regular rate and rhythm. No obvious murmurs to auscultation. No chest tenderness to palpation. RESPIRATORY: No obvious rhonchi or wheezing. Clear to auscultation. Breath sounds equal bilaterally. GASTROINTESTINAL: Abdomen soft, non-tender, nondistended. Normoactive bowel sounds MUSCULOSKELETAL: Extremities without clubbing, cyanosis, or edema. No obvious deformities. NEUROLOGICAL: Awake, alert and oriented x4. No focal neurologic deficits. Moving both upper and lower extremities spontaneously. Results - Labs CBC & Chem 7: 07/07/18 07:25 07/07/18 07:25 Laboratory Results - last 24 hr 07/07/18 07/07/18 07/07/18 07:25 07:25 07:25 WBC 11.2 H RBC 3.88 L Hgb 13.1 D Hct 38.4 L MCV 99.0 MCH 33.6 MCHC 34.0 RDW 12.7 Plt Count 140 L D MPV 6.1 L Sodium 135 L Potassium 3.5 Chloride 103 Carbon Dioxide 23.0 Anion Gap 9 BUN 33 H Creatinine 0.99 Estimated GFR 75 L Random Glucose 96 Lactic Acid 1.1 Calcium 6.7 L* Prot Corrected Calcium 8.1 L Magnesium 2.0 Total Protein 4.4 L D Microbiology 07/05/18 19:40 Blood - Peripheral Aerobic Blood Culture - Preliminary Staphylococcus coag negative 07/05/18 19:40 Blood - Peripheral Anaerobic Blood Culture - Preliminary No growth in 2 days 07/05/18 19:45 Blood - Peripheral Aerobic Blood Culture - Preliminary No growth in 2 days 07/05/18 19:45 Blood - Peripheral Anaerobic Blood Culture - Preliminary No growth in 2 days 07/05/18 20:20 Stool Stool for WBCs - Final Rare WBC's Assessment and Plan - Assessment (1) Sepsis Code(s): A41.9 - Sepsis, unspecified organism Status: Acute (2) Colitis Code(s): K52.9 - Noninfective gastroenteritis and colitis, unspecified Status : Acute (3) NEGRITO (acute kidney injury) Code(s): N17.9 - Acute kidney failure, unspecified Status: Acute (4) Hypocalcemia Code(s): E83.51 - Hypocalcemia Status: Acute - Plan 68-year-old male with no significant PMH who presents the ER with complaints of abdominal pain in addition to diarrhea. States symptoms have been intermittent for the last 1mo, however now progressively worse w/ increased episodes of diarrhea today. Severe sepsis present on admission with tachycardia and leukocytosis HR 99, WBC 27, Bandemia 18%, Lactic Acid 2.3, Source-Colitis. S/p blood cultures, Zosyn/Flagyl Leukocytosis trending down. Lactic acid 2.2 trended down. -continue to follow cultures -Continue with aggressive hydration, inc. IVF to 125/hr -Continue with empiric antibiotics-Levaquin, Flagyl Colitis-CT Abd/Pelvis w/ diffuse colitis, images reviewed, +diarrhea -Stool C. difficile antigen positive, toxin negative DNA positive. Negative for EPID 027 -Continue with Flagyl and Levaquin -Considering patient is symptomatic with significant leukocytosis and findings of colitis, discharge vancomycin due to negative C. difficile toxin. We will add Lactinex 3 times daily -Replace electrolytes as needed -We will start on clear liquid diet advance to soft diet as tolerated. NEGRITO superimposed on chronic kidney disease stage II-creatinine trending down. Likely due to dehydration and diarrhea and sepsis. IV fluid hydration, avoid nephrotoxins. Monitor creatinine. Hypocalcemia: Protein corrected improved. S/P replacement DVT Prophylaxis: SCD/Teds Consult physical therapy Discharge Planning: Possible discharge to home in the next 1-2 days based on clinical status.
--- NOTE | 2018-07-07 12:31 | MB ---
cc: Clarence Bui MD DATE: 07/07/2018 REQUESTING PHYSICIAN: ZAKIYA Cramer. ATTENDING PHYSICIAN: Gris Willoughby MD HISTORY OF PRESENT ILLNESS: This is a 68-year-old white male who was admitted to the hospital on 07/07/2018 because of abdominal pain. The patient was complaining of weakness and abdominal pain. He reports having diarrhea over the past 3 weeks. He states to me that he has up to 10 stools a day and that he was taking Imodium and other antidiarrheal medicines, but it was not helping and he continues to have frequent diarrhea. The workup included blood cultures which were drawn on 07/05/2018 and 09/18 bottles are Staph coagulase negative. The patient's white count was up to 27.7 on admission and now is down to 11.2. He is afebrile. He had maximum temperature of 100.1 degrees yesterday. A CAT scan of the abdomen on 07/05/2018 showed diffuse mural thickening and edema throughout the colon characteristic of a diffuse colitis. Stool sent for C. difficile testing shows positive C. difficile antigen and C. difficile DNA amplification. C. difficile toxin is negative. The patient also had acute renal insufficiency with estimated GFR of 39 on 07/05/2018. He has received fluid rehydration and his estimated GFR is up to 35. He denies chills or fever. He states that his abdominal pain is much better and that he has mostly discomfort at the lower abdomen below the umbilicus. He denies back pain, or chills or sweats. He reports approximately 10-pound weight loss. PAST MEDICAL HISTORY: Denies past medical problems. ALLERGIES: ASPIRIN. MEDICATIONS: 1. Lactinex. 2. Flagyl. 3. P.o. vancomycin 4. Protonix. 5. Levaquin. SOCIAL HISTORY: No tobacco use. The patient is a former smoker, quit many years ago. No alcohol use. No illicit drugs. FAMILY HISTORY: Noncontributory. REVIEW OF SYSTEMS: All systems have been reviewed and are negative, except for features mentioned in history of present illness. PHYSICAL EXAMINATION: GENERAL: This is a slender, well-developed male who is in no acute distress. He is awake and alert and oriented. VITAL SIGNS: Temperature 96.7, BP 97/59, respirations 18, heart rate 95. HEENT: Head is atraumatic. Extraocular movements are grossly intact. Pupils reactive to light. No icterus. Oropharynx moist; no focal lesions. NECK: Supple without adenopathy. LUNGS: Clear to auscultation. HEART: Regular rate and rhythm. No murmurs, rubs or gallops. ABDOMEN: Bowel sounds present. Soft, minimal tenderness at the lower abdomen. RECTAL: Not performed. EXTREMITIES: No clubbing, cyanosis or edema. SKIN: No rash. NEUROLOGIC: Nonfocal. PSYCHIATRIC: Calm and cooperative. LABORATORY DATA: WBC 11.2, platelets 140, hemoglobin 13.1, creatinine 0.99, BUN 33, sodium 135. Liver function test normal. IMPRESSION: 1. Positive blood culture due to Staphylococcus coagulase negative in 1/4 bottles. I think this is likely contamination and not due to sepsis. 2. Diarrhea, along with leukocytosis and positive Clostridium difficile antigen, along with colitis on CT scan. 3. Leukocytosis secondary to colitis, which has improved. The patient continues to have very frequent diarrhea and it does not appear that he has received adequate antibiotics to control the Clostridium difficile. RECOMMENDATIONS: 1. Continue to treat the Clostridium difficile with Flagyl and vancomycin p.o. 2. Discontinue Levaquin. 3. Obtain stool for ova and parasite. 4. Consider gastroenterology input. Thank you for this consultation. The patient's progress well be monitored. MD MARICHUY Goff/jazzy , 12:02 PM , 12:16 PM
[2018-07-07] MEDS: metroNIDAZOLE 500 MG Tablet PO SCH ×2 (12:48→21:37)
--- NOTE | 2018-07-07 21:43 | ECHRPT ---
Indication: POSS SEPSIS, ENDOCARDITIS CONCLUSIONS Normal left ventricular size and wall thickness. The left ventricular systolic function is normal wi th an estimated ejection fraction in the range of 60-65%. No regional wall motion abnormalities are prese nt. No definite valvular abnormalities. BP: / HR: Rhythm: Sinus MEASUREMENTS (Male / Female) Normal Values Technical Quality:Fair 2D ECHO LV Diastolic Diameter PLAX 3.9 cm 4.2 - 5.9 / 3.9 - 5.3 cm LV Systolic Diameter PLAX 2.9 cm IVS Diastolic Thickness 1.3 cm 0.6 - 1.0 / 0.6 - 0.9 cm LVPW Diastolic Thickness 1.3 cm 0.6 - 1.0 / 0.6 - 0.9 cm LV Relative Wall Thickness 0.7 RV Internal Dim ED PLAX 2.9 cm LVOT Diameter 1.9 cm Aortic Root Diameter 3.1 cm LA Systolic Diameter LX 3.8 cm 3.0 - 4.0 / 2.7 - 3.8 cm M-MODE AV Cusp Separation MM 1.6 cm DOPPLER AV Peak Velocity 194.0 cm/s AV Peak Gradient 15.1 mmHg AV Mean Gradient 6.0 mmHg AV Velocity Time Integral 21.7 cm LVOT Peak Velocity 114.0 cm/s LVOT Peak Gradient 5.2 mmHg LVOT Velocity Time Integral 16.7 cm AV Area Cont Eq vti 2.2 cm AV Area Cont Eq pk 1.7 cm Mitral E Point Velocity 79.5 cm/s Mitral A Point Velocity 104.0 cm/s Mitral E to A Ratio 0.8 LV E' Lateral Velocity 12.7 cm/s Mitral E to LV E' Lateral Ratio 6.3 LV E' Septal Velocity 11.8 cm/s Mitral E to LV E' Septal Ratio 6.7 TR Peak Velocity 202.0 cm/s TR Peak Gradient 16.3 mmHg PV Peak Velocity 89.5 cm/s PV Peak Gradient 3.2 mmHg FINDINGS LEFT VENTRICLE Normal left ventricular size and wall thickness. The left ventricular systolic function is normal wi th an estimated ejection fraction in the range of 60-65%. No regional wall motion abnormalities are prese nt. RIGHT VENTRICLE Normal right ventricular size and systolic function. LEFT ATRIUM The left atrial size is normal. RIGHT ATRIUM The right atrial size is normal. ATRIAL SEPTUM No atrial level shunt is demonstrated by color flow Doppler interrogation. AORTA The aortic root and proximal ascending aorta are not well visualized. MITRAL VALVE Structurally normal mitral valve. No mitral valve stenosis or regurgitation. AORTIC VALVE Trileaflet aortic valve. No aortic valve stenosis or regurgitation. TRICUSPID VALVE There is trace tricuspid valve regurgitation. PULMONARY VALVE Trivial pulmonary valve regurgitation. VESSELS The inferior vena cava was not well visualized. PERICARDIUM No pericardial effusion. Junior Collier MD (Electronically Signed) Final Date:07 July 2018 21:42
[2018-07-08] MEDS: Sod Chloride 0.9% Inj 1,000 ML IV.CONT SCH ×2 (04:49→14:54)
[2018-07-08] MEDS: metroNIDAZOLE 500 MG Tablet PO SCH ×3 (05:15→21:29)
[2018-07-08] MEDS: Lactobacillus Acidophilus/L. Spores Tablet PO SCH ×3 (08:40→17:21)
[2018-07-08 09:46] LABS: Baso % (Auto) 0.1 % (0.0-2.0); Eos % (Auto) 0.4 % (0.0-4.0); Hematocrit 43.5 % (39.0-51.0); Hemoglobin 14.8 gm/dL (13.0-17.0); Lymph # (Auto) 0.6 th/mm3 (1.0-4.8); Lymph % (Auto) 5.9 % (9.0-44.0); Mean Corpuscular Hemoglobin 33.3 pg (27.0-34.0); Mean Corpuscular Volume 97.9 fL (80.0-100.0); Mean Platelet Volume 6.4 fL (7.0-11.0); Mono # (Auto) 0.6 th/mm3 (0.0-0.9); Mono % (Auto) 5.9 % (0.0-8.0); Neut # (Auto) 9.5 th/mm3 (1.8-7.7); Neut % (Auto) 87.7 % (16.0-70.0); Platelet Count 149 th/mm3 (150-450); Red Blood Count 4.44 mil/mm3 (4.50-5.90); Red Cell Distribution Width 12.9 % (11.6-17.2); White Blood Count 10.9 th/mm3 (4.0-11.0)
[2018-07-08 10:15] LABS: Calcium 6.9 mg/dL (8.5-10.1); Carbon Dioxide 19.8 meq/L (21.0-32.0); Potassium 3.4 meq/L (3.5-5.1)
[2018-07-08 10:29] LABS: Total Protein 4.9 g/dL (6.4-8.2)
--- NOTE | 2018-07-08 10:50 | P.PNIM ---
Subjective Interval history: Patient still complained of diarrhea however has decreased frequency. Continues to have nausea but tolerating p.o. He has not seen any blood in his stools. He has not had any associated abdominal pain with this. He is feeling better no complaints of fevers or chills. Physical Exam Vital signs: Vital Signs 07/07/18 12:00 07/07/18 16:00 07/07/18 19:59 Temperature 98.0 F 97.6 F 97.8 F Pulse Rate 104 H 83 94 H Respiratory Rate 20 18 17 Blood Pressure 102/63 109/61 107/61 Pulse Oximetry 98 97 95 07/07/18 20:00 07/08/18 00:08 07/08/18 04:00 Temperature 98.0 F Pulse Rate 91 H Respiratory Rate 18 17 18 Blood Pressure 115/68 Pulse Oximetry 96 07/08/18 08:00 Temperature 99.6 F Pulse Rate 106 H Respiratory Rate 15 Blood Pressure 99/58 L Pulse Oximetry 96 Intake & Output 07/07/18 07/08/18 07/08/18 18:59 06:59 18:59 Intake Total 2720 / 2720 1360 / 1360 Balance 2720 / 2720 1360 / 1360 Weight 85 kg Intake: IV 1999 1000 / 1000 NS Inj 1,000 ML @ 100 mls/hr IV 1999 / 1999 1000 / 1000 .CONT .Q10H [facility] Rx#:[id number] Oral 720 / 720 360 / 360 Other: # Voids 4 5 Date of Last Bowel Movement 07/07/18 07/07/18 07/08/18 # Bowel Movements 8 5 Narrative: GENERAL: Well-nourished well-developed white male no acute distress SKIN: warm and dry. CARDIOVASCULAR: Regular rate and rhythm. No obvious murmurs to auscultation. No chest tenderness to palpation. RESPIRATORY: No obvious rhonchi or wheezing. Clear to auscultation. Breath sounds equal bilaterally. GASTROINTESTINAL: Abdomen soft, non-tender, nondistended. Normoactive bowel sounds MUSCULOSKELETAL: Extremities without clubbing, cyanosis, or edema. No obvious deformities. NEUROLOGICAL: Awake, alert and oriented x4. No focal neurologic deficits. Results - Labs CBC & Chem 7: 07/08/18 09:20 07/08/18 09:20 Laboratory Results - last 24 hr 07/08/18 07/08/18 09:20 09:20 WBC 10.9 RBC 4.44 L Hgb 14.8 Hct 43.5 MCV 97.9 MCH 33.3 MCHC 34.0 RDW 12.9 Plt Count 149 L MPV 6.4 L Neut % (Auto) 87.7 H Lymph % (Auto) 5.9 L [place] % (Auto) 5.9 Eos % (Auto) 0.4 Baso % (Auto) 0.1 Neut # (Auto) 9.5 H Lymph # (Auto) 0.6 L [place] # (Auto) 0.6 Eos # (Auto) 0.0 Baso # (Auto) 0.0 WBC Differential . Differential Comment Auto diff final Sodium 137 Potassium 3.4 L Chloride 106 Carbon Dioxide 19.8 L Anion Gap 11 BUN 15 Creatinine 1.00 Estimated GFR 74 L Random Glucose 108 H Calcium 6.9 L* Prot Corrected Calcium 8.1 L Total Protein 4.9 L Microbiology 07/05/18 19:40 Blood - Peripheral Aerobic Blood Culture - Preliminary Staphylococcus coag negative 07/05/18 19:40 Blood - Peripheral Anaerobic Blood Culture - Preliminary No growth in 2 days 07/05/18 19:45 Blood - Peripheral Aerobic Blood Culture - Preliminary No growth in 2 days 07/05/18 19:45 Blood - Peripheral Anaerobic Blood Culture - Preliminary No growth in 2 days Assessment and Plan - Assessment (1) Sepsis Code(s): A41.9 - Sepsis, unspecified organism Status: Resolved (2) Colitis Code(s): K52.9 - Noninfective gastroenteritis and colitis, unspecified Status : Acute (3) NEGRITO (acute kidney injury) Code(s): N17.9 - Acute kidney failure, unspecified Status: Acute (4) Hypocalcemia Code(s): E83.51 - Hypocalcemia Status: Acute (5) Hypokalemia Code(s): E87.6 - Hypokalemia Status: Acute - Plan 68-year-old male with no significant PMH who presents the ER with complaints of abdominal pain in addition to diarrhea. States symptoms have been intermittent for the last 1mo, however now progressively worse w/ increased episodes of diarrhea today. Severe sepsis present on admission with tachycardia and leukocytosis HR 99, WBC 27, Bandemia 18%, Lactic Acid 2.3, Source-Colitis. S/p blood cultures, initially was on Zosyn/Flagyl Leukocytosis trending down. Lactic acid 2.2 trended down. -continue to follow cultures, blood culture showed 1 coag negative likely contaminant -Continue with aggressive hydration, inc. IVF to 125/hr -Continue with antibiotics-Flagyl and vancomycin per ID recommendations. Colitis-CT Abd/Pelvis w/ diffuse colitis, images reviewed, +diarrhea -Stool C. difficile antigen positive, toxin negative DNA positive. Negative for EPID 027 -Continue with Flagyl and vancomycin per ID due to diffuse colitis on CT despite having negative C. difficile toxin -Considering patient is symptomatic with significant leukocytosis and findings of colitis, Vanco was added to Flagyl regimen We will add Lactinex 3 times daily -Replace electrolytes as needed -We will start on clear liquid diet advance to soft diet as tolerated. Obtain GI consultation for evaluation for inpatient versus outpatient colonoscopy. NEGRITO superimposed on chronic kidney disease stage II-creatinine trending down. Likely due to dehydration and diarrhea and sepsis. IV fluid hydration, avoid nephrotoxins. Monitor creatinine. This continues to improve. Hypocalcemia: Protein corrected improved. S/P replacement Hypokalemiareplete DVT Prophylaxis: SCD/Teds Discharge Planning: Possible discharge to home in the next 1-2 days based on clinical status.
--- NOTE | 2018-07-08 12:23 | P.PNID ---
Subjective Remarks: Patient says he feels the same except the stools are about every 2 hours instead of every 1 hour. He denies abdominal pain. No fever. Nausea vomiting. Reports he would feel a lot better if the stools are formed. 68-year-old white male who was admitted to the hospital on 07/07/2018 because of abdominal pain. The patient was complaining of weakness and abdominal pain. He reports having diarrhea over the past 3 weeks. He states to me that he has up to 10 stools a day and that he was taking Imodium and other antidiarrheal medicines, but it was not helping and he continues to have frequent diarrhea. The workup included blood cultures which were drawn on 07/05/2018 and 09/18 bottles are Staph coagulase negative. The patient's white count was up to 27.7 on admission and now is down to 11.2. He is afebrile. He had maximum temperature of 100.1 degrees yesterday. CAT scan of the abdomen on 07/05/2018 showed diffuse mural thickening and edema throughout the colon characteristic of a diffuse colitis. Stool sent for C. difficile testing shows positive C. difficile antigen and C. difficile DNA amplification. C. difficile toxin is negative. The patient also had acute renal insufficiency with estimated GFR of 39 on 07/05/2018. Allergies/Adverse Reactions: Allergies No Known Allergies Allergy (Verified 07/05/18 18:59) Objective Vital Signs 07/07/18 16:00 07/07/18 19:59 07/07/18 20:00 Temperature 97.6 F 97.8 F Pulse Rate 83 94 H Respiratory Rate 18 17 18 Blood Pressure 109/61 107/61 Pulse Oximetry 97 95 07/08/18 00:08 07/08/18 04:00 07/08/18 08:00 Temperature 98.0 F 99.6 F Pulse Rate 91 H 106 H Respiratory Rate 17 18 15 Blood Pressure 115/68 99/58 L Pulse Oximetry 96 96 Intake & Output 07/07/18 07/08/18 07/08/18 18:59 06:59 18:59 Intake Total 2720 / 2720 1360 / 1360 Balance 2720 / 2720 1360 / 1360 Weight 85 kg Intake: IV 1999 / 1999 1000 / 1000 NS Inj 1,000 ML @ 100 mls/hr IV 1999 / 1999 1000 / 1000 .CONT .Q10H [facility] Rx#:[id number] Oral 720 / 720 360 / 360 Other: # Voids 4 5 Date of Last Bowel Movement 07/07/18 07/07/18 07/08/18 # Bowel Movements 8 5 07/05/18 19:45 Blood - Peripheral Aerobic Blood Culture - Preliminary No growth in 3 days 07/05/18 19:45 Blood - Peripheral Anaerobic Blood Culture - Preliminary No growth in 3 days 07/05/18 19:40 Blood - Peripheral Aerobic Blood Culture - Preliminary Staphylococcus coag negative 07/05/18 19:40 Blood - Peripheral Anaerobic Blood Culture - Preliminary No growth in 3 days 07/08/18 00:40 Stool Cryptosporidium Antigen - Pending 07/08/18 00:40 Stool Giardia Antigen (SANTI) - Pending 07/05/18 20:20 Stool Stool for WBCs - Final Rare WBC's Lab - Hematology Results 07/07/18 07/08/18 07:25 09:20 WBC 11.2 H 10.9 RBC 3.88 L 4.44 L Hgb 13.1 D 14.8 Hct 38.4 L 43.5 MCV 99.0 97.9 MCH 33.6 33.3 MCHC 34.0 34.0 RDW 12.7 12.9 Plt Count 140 L D 149 L MPV 6.1 L 6.4 L Neut % (Auto) 87.7 H Lymph % (Auto) 5.9 L [place] % (Auto) 5.9 Eos % (Auto) 0.4 Baso % (Auto) 0.1 Neut # (Auto) 9.5 H Lymph # (Auto) 0.6 L [place] # (Auto) 0.6 Eos # (Auto) 0.0 Baso # (Auto) 0.0 WBC Differential . Differential Comment Auto diff final Lab - Chemistry Results 07/07/18 07/07/18 07/08/18 07:25 07:25 09:20 Sodium 135 L 137 Potassium 3.5 3.4 L Chloride 103 106 Carbon Dioxide 23.0 19.8 L Anion Gap 9 11 BUN 33 H 15 Creatinine 0.99 1.00 Estimated GFR 75 L 74 L Random Glucose 96 108 H Lactic Acid 1.1 Calcium 6.7 L* 6.9 L* Prot Corrected Calcium 8.1 L 8.1 L Magnesium 2.0 Total Protein 4.4 L D 4.9 L Imaging: ITS Impressions Abdomen/Pelvis CT 07/05/18 19:10 CONCLUSION: 1. Diffuse mural thickening and edema throughout the colon characteristic of a diffuse colitis. There is associated mild ascites. 2. Multiple small hepatic cysts. No obstruction. Chest X-Ray 07/05/18 19:10 CONCLUSION: No acute findings. Physical Exam: PHYSICAL EXAMINATION: GENERAL: No acute distress. HEENT: Head is atraumatic. Extraocular movements are grossly intact. Pupils reactive to light. No icterus. Oropharynx moist; no focal lesions. NECK: Supple without adenopathy. LUNGS: Clear to auscultation. HEART: Regular rate and rhythm. No murmurs, rubs or gallops. ABDOMEN: Bowel sounds present. Soft, nontender. EXTREMITIES: No clubbing, cyanosis or edema. SKIN: No rash. NEUROLOGIC: Nonfocal. PSYCHIATRIC: Calm and cooperative. Assessment and Plan - Plan IMPRESSION: 1. Positive blood culture due to Staphylococcus coagulase negative in 1/4 bottles. I think this is likely contamination and not due to sepsis. 2. Diarrhea, along with leukocytosis and positive Clostridium difficile antigen, along with colitis on CT scan. 3. Leukocytosis secondary to colitis, which has improved. RECOMMENDATIONS: 1. Continue to treat the Clostridium difficile with Flagyl and vancomycin p.o. 2. Monitor stools parasites study 3. Consider gastroenterology input.
--- NOTE | 2018-07-08 12:53 | P.CONGI ---
History of Present Illness Consult date: 07/08/18 Consult reason: Colitis Chief complaint: colitis, dehydration History of Present Illness: This is a 5o year-old male with no significant past medical history who presented to the emergency department yesterday with complaints of diarrhea. He states that he has been having severe diarrhea for the past 3 weeks. States that he is having about a bowel movement an hour. Associated fecal urgency an incontinence. States that he researched his symptoms online and spoke with friends and he thought that he might have irritable bowel syndrome so he tried some of the treatments recommended to him. He states that he tried IB rosmery as well as Imodium and he is unsure of the other [id number] treatments. States minor relief in symptoms. Denies any hematochezia or melena. Denies any abdominal pain, nausea, vomiting. Does report some minor abdominal cramping associated with bowel movements. Has had a weight loss of approximately 10 pounds over the past 3 weeks but has had very poor p.o. intake and a lot of stool output. Denies any fevers or chills. Patient denies any recent travel, sick contacts, suspicious food ingestion. He denies any history of C. difficile. He does report being on clindamycin in March for previous tooth extraction. Patient has never had EGD or colonoscopy. He denies any family history significant for GI issues. <Anaya Arteaga - Last Filed: 07/08/18 12:45> Review of Systems Constitutional: Reports weight loss Gastrointestinal: Reports incontinent of stools, Reports loose stools, Denies abdominal pain, Denies black, tarry stools, Denies bloating, Denies bright, red blood in stools, Denies nausea, Denies vomiting <Anaya Arteaga - Last Filed: 07/08/18 12:45> PMFSH - History History Provided By: Patient - Medical History Medical History: Medical History (Last Reviewed 07/07/18 @ 09:23 by Eva Pulido) Patient denies medical problems - Surgical History Surgical History: Surgical History (Last Reviewed 07/07/18 @ 09:23 by Eva Pulido) No history of previous surgery - Tobacco History Second Hand Smoke Exposure: No Tobacco Use In Past 30 Days: No Smoking Status: Former smoker Tobacco Type: Cigarettes - Alcohol History How Often Do You Have a Drink Containing Alcohol: Never - Substance Use History Substance History: No History of Abuse - Travel History Recent Travel in the [place] Within the Last 8 Weeks: No Recent Travel Out of the Country Within the Last 8 Weeks: No - Immunization History Tetanus Immunization: Never Vaccinated Hx Influenza Vaccine This Season: No <RobAnaya lopez - Last Filed: 07/08/18 12:45> - Medical History Medical History: Medical History (Last Reviewed 07/07/18 @ 09:23 by Eva Pulido) Patient denies medical problems - Surgical History Surgical History: Surgical History (Last Reviewed 07/07/18 @ 09:23 by Eva Pulido) No history of previous surgery <Claudy Leigh - Last Filed: 07/08/18 21:23> Medications and Allergies Active Medications: Active Medications Acetaminophen (Tylenol) 650 mg PO Q4H PRN PRN Reason: Temp > 100.4 Al Hydroxide/Mg Hydroxide (Milk Of Magnesia Liq) 30 ml PO Q12H PRN PRN Reason: Mild Constipation Bisacodyl (Dulcolax Supp) 10 mg RECTAL DAILY PRN PRN Reason: SEVERE CONSITIPATION Sodium Chloride (Ns Inj) 1,000 mls @ 100 mls/hr IV.CONT .Q10H [facility] Last Infusion: 07/08/18 04:49 Dose: Infused Lactobacillus Acidophilus (Lactinex) 1 tab PO TID [facility] Last Admin: 07/08/18 08:40 Dose: 1 tab Lactulose (Lactulose Liq) 30 ml PO DAILY PRN PRN Reason: SEVERE CONSITIPATION Metronidazole (Flagyl) 500 mg PO Q8HR [facility] Last Admin: 07/08/18 05:15 Dose: 500 mg Morphine Sulfate (Morphine Inj) 2 mg IV.PUSH Q4H PRN PRN Reason: PAIN 6-10 Ondansetron HCl (Zofran Inj) 4 mg IV.PUSH Q6H PRN PRN Reason: NAUSEA OR VOMITING Pantoprazole Sodium (Protonix) 40 mg PO DAILY [facility] Last Admin: 07/08/18 08:40 Dose: 40 mg Sennosides (Senokot) 17.2 mg PO Q12H PRN PRN Reason: Moderate Constipation Sodium Chloride (Ns Flush) 2 ml IV.FLUSH PRN PRN PRN Reason: FLUSH AFTER USING IV ACCESS Vancomycin HCl (Vancomycin Po) 125 mg PO QID [facility] <Anaya Arteaga - Last Filed: 07/08/18 12:45> Active Medications: Active Medications Acetaminophen (Tylenol) 650 mg PO Q4H PRN PRN Reason: Temp > 100.4 Al Hydroxide/Mg Hydroxide (Milk Of Magnesia Liq) 30 ml PO Q12H PRN PRN Reason: Mild Constipation Bisacodyl (Dulcolax Supp) 10 mg RECTAL DAILY PRN PRN Reason: SEVERE CONSITIPATION Cholestyramine Resin (Questran 4 Gm Pkt) 4 gm PO BID [facility] Sodium Chloride (Ns Inj) 1,000 mls @ 100 mls/hr IV.CONT .Q10H [facility] Last Admin: 07/08/18 14:54 Dose: Not Given Lactobacillus Acidophilus (Lactinex) 1 tab PO TID [facility] Last Admin: 07/08/18 17:21 Dose: 1 tab Lactulose (Lactulose Liq) 30 ml PO DAILY PRN PRN Reason: SEVERE CONSITIPATION Metronidazole (Flagyl) 500 mg PO Q8HR [facility] Last Admin: 07/08/18 12:59 Dose: 500 mg Morphine Sulfate (Morphine Inj) 2 mg IV.PUSH Q4H PRN PRN Reason: PAIN 6-10 Ondansetron HCl (Zofran Inj) 4 mg IV.PUSH Q6H PRN PRN Reason: NAUSEA OR VOMITING Pantoprazole Sodium (Protonix) 40 mg PO DAILY [facility] Last Admin: 07/08/18 08:40 Dose: 40 mg Sennosides (Senokot) 17.2 mg PO Q12H PRN PRN Reason: Moderate Constipation Sodium Chloride (Ns Flush) 2 ml IV.FLUSH PRN PRN PRN Reason: FLUSH AFTER USING IV ACCESS Vancomycin HCl (Vancomycin Po) 125 mg PO QID [facility] Last Admin: 07/08/18 17:33 Dose: 125 mg <Claudy Leigh - Last Filed: 07/08/18 21:23> Allergies Allergy/AdvReac Type Severity Reaction Status Date / Time No Known Allergies Allergy Verified 07/05/18 18:59 Home Medications Medication Instructions Recorded Confirmed Type No Known Home Medications 07/05/18 07/05/18 History Exam Vital signs: Vital Signs 07/07/18 16:00 07/07/18 19:59 07/07/18 20:00 Temperature 97.6 F 97.8 F Pulse Rate 83 94 H Respiratory Rate 18 17 18 Blood Pressure 109/61 107/61 Pulse Oximetry 97 95 07/08/18 00:08 07/08/18 04:00 07/08/18 08:00 Temperature 98.0 F 99.6 F Pulse Rate 91 H 106 H Respiratory Rate 17 18 15 Blood Pressure 115/68 99/58 L Pulse Oximetry 96 96 Intake & Output 07/07/18 07/08/18 07/08/18 18:59 06:59 18:59 Intake Total 2720 / 2720 1360 / 1360 Balance 2720 / 2720 1360 / 1360 Weight 85 kg Intake: IV 1999 1000 / 1000 NS Inj 1,000 ML @ 100 mls/hr IV 1999 1000 / 1000 .CONT .Q10H [facility] Rx#:[id number] Oral 720 / 720 360 / 360 Other: # Voids 4 5 Date of Last Bowel Movement 07/07/18 07/07/18 07/08/18 # Bowel Movements 8 5 - Constitutional no acute distress - Routine HEENT Exam Head: Present: normocephalic, atraumatic - Routine Respiratory Exam Absent: accessory muscle use - Routine Cardiovascular Exam Present: RRR - Routine Abdominal Exam Present: soft, normoactive bowel sounds. Absent: tenderness, distended - Routine Skin Exam Present: dry, warm - Routine Neurological Exam Present: alert, oriented X3 <Anaya Arteaga - Last Filed: 07/08/18 12:45> Vital signs: Vital Signs 07/08/18 00:08 07/08/18 04:00 07/08/18 08:00 Temperature 98.0 F 99.6 F Pulse Rate 91 H 106 H Respiratory Rate 17 18 15 Blood Pressure 115/68 99/58 L Pulse Oximetry 96 96 07/08/18 12:00 07/08/18 16:00 07/08/18 17:26 Temperature 97.7 F 99.4 F Pulse Rate 106 H 100 H Respiratory Rate 15 16 Blood Pressure 112/63 86/52 L 112/67 Pulse Oximetry 97 96 Intake & Output 07/08/18 07/08/18 07/09/18 06:59 18:59 06:59 Intake Total 1360 / 1360 702 / 702 Balance 1360 / 1360 702 / 702 Weight 85 kg Intake: IV 1000 / 1000 NS Inj 1,000 ML @ 100 mls/hr IV 1000 / 1000 .CONT .Q10H [facility] Rx#:[id number] Oral 360 / 360 / 70 Other: # Voids 5 6 Date of Last Bowel Movement 07/07/18 07/08/18 # Bowel Movements 5 6 <Claudy Leigh - Last Filed: 07/08/18 21:23> Results - Labs CBC & Chem 7: 07/08/18 09:20 07/08/18 09:20 Labs: Laboratory Results - last 24 hr 07/08/18 07/08/18 09:20 09:20 WBC 10.9 RBC 4.44 L Hgb 14.8 Hct 43.5 MCV 97.9 MCH 33.3 MCHC 34.0 RDW 12.9 Plt Count 149 L MPV 6.4 L Neut % (Auto) 87.7 H Lymph % (Auto) 5.9 L [place] % (Auto) 5.9 Eos % (Auto) 0.4 Baso % (Auto) 0.1 Neut # (Auto) 9.5 H Lymph # (Auto) 0.6 L [place] # (Auto) 0.6 Eos # (Auto) 0.0 Baso # (Auto) 0.0 WBC Differential . Differential Comment Auto diff final Sodium 137 Potassium 3.4 L Chloride 106 Carbon Dioxide 19.8 L Anion Gap 11 BUN 15 Creatinine 1.00 Estimated GFR 74 L Random Glucose 108 H Calcium 6.9 L* Prot Corrected Calcium 8.1 L Total Protein 4.9 L <Anaya Arteaga - Last Filed: 07/08/18 12:45> - Labs CBC & Chem 7: 07/08/18 09:20 07/08/18 09:20 Labs: Laboratory Results - last 24 hr 07/08/18 07/08/18 07/08/18 09:20 09:20 09:20 WBC 10.9 RBC 4.44 L Hgb 14.8 Hct 43.5 MCV 97.9 MCH 33.3 MCHC 34.0 RDW 12.9 Plt Count 149 L MPV 6.4 L Neut % (Auto) 87.7 H Lymph % (Auto) 5.9 L [place] % (Auto) 5.9 Eos % (Auto) 0.4 Baso % (Auto) 0.1 Neut # (Auto) 9.5 H Lymph # (Auto) 0.6 L [place] # (Auto) 0.6 Eos # (Auto) 0.0 Baso # (Auto) 0.0 WBC Differential . Differential Comment Auto diff final Sodium 137 Potassium 3.4 L Chloride 106 Carbon Dioxide 19.8 L Anion Gap 11 BUN 15 Creatinine 1.00 Estimated GFR 74 L Random Glucose 108 H Calcium 6.9 L* Prot Corrected Calcium 8.1 L Total Protein 4.9 L TSH 3.220 <Claudy Leigh - Last Filed: 07/08/18 21:23> Assessment and Plan - Plan Assessment C. difficile colitis-patient reports 3-week history of diarrhea associated with fecal urgency and incontinence. Denies any hematochezia or melena. Does report some mild abdominal cramping associated with BMs. Denies any nausea, vomiting, abdominal pain. Does report about a 10 pound unintentional weight loss for the past 3 weeks, but has had very poor p.o. intake. Denies any fever or chills Patient denies any sick contacts, recent travel or ingestion of suspicious foods. Patient denies history of C. difficile. Of note, patient was on clindamycin in March for tooth extraction. Has never had EGD or colonoscopy. Denies family history significant for GI issues. CT abdomen/pelvis with IV contrast-> diffuse mural thickening and edema throughout the colon characteristic of a diffuse colitis. There is associated mild ascites. C. Diff positive, epid negative. Plan: Continue vancomycin Continue Flagyl Probiotics We will add cholestyramine Monitor for improvement of symptoms Recommend colonoscopy outpatient when C. difficile resolves Diet as tolerated Continue with supportive care Further recommendations to follow This patient has been seen and examined by myself and Dr. Leigh and this note was written on his behalf <Anaya Arteaga - Last Filed: 07/08/18 12:45> - Plan Patient seen and examined Agree with above Continue with current supportive care Monitor labs We will continue with antibiotics to include vancomycin and Flagyl for about 2 weeks following resolution of the diarrhea Patient will need outpatient colonoscopy in about 3-4 weeks possibly sooner if symptoms persist <Claudy Leigh - Last Filed: 07/08/18 21:23>
[2018-07-08] MEDS ORDERED: Vancomycin 25 MG/ML Oral Liq 100 mL Bottle PO SCH (13:00)
[2018-07-09] MEDS: Sod Chloride 0.9% Inj 1,000 ML IV.CONT SCH ×3 (04:38→19:22)
[2018-07-09] MEDS: metroNIDAZOLE 500 MG Tablet PO SCH (06:29)
[2018-07-09] MEDS: Lactobacillus Acidophilus/L. Spores Tablet PO SCH ×3 (08:43→17:09)
--- NOTE | 2018-07-09 09:53 | P.PNIM ---
Subjective Interval history: Still having multiple bouts of loose stools and frequency has not slowed down. Consistently still having diarrhea. Symptoms are not better. No abdominal pain. Still with nausea tolerating some diet. Does not feel well enough to go home today. Physical Exam Vital signs: Vital Signs 07/08/18 12:00 07/08/18 16:00 07/08/18 17:26 Temperature 97.7 F 99.4 F Pulse Rate 106 H 100 H Respiratory Rate 15 16 Blood Pressure 112/63 86/52 L 112/67 Pulse Oximetry 97 96 07/08/18 20:00 07/09/18 00:00 07/09/18 04:00 Temperature 98.3 F 98.7 F 102.2 F H Pulse Rate 111 H 96 H 120 H Respiratory Rate 20 22 22 Blood Pressure 117/74 102/56 L 104/62 Pulse Oximetry 95 99 93 L 07/09/18 08:00 Temperature 97.8 F Pulse Rate 96 H Respiratory Rate 17 Blood Pressure 103/64 Pulse Oximetry 94 L Intake & Output 07/08/18 07/09/18 07/09/18 18:59 06:59 18:59 Intake Total 702 / 702 220 / 220 1000 / 1000 Balance 702 / 702 220 / 220 1000 / 1000 Intake: IV 1000 / 1000 NS Inj 1,000 ML @ 100 mls/hr IV 1000 / 1000 .CONT .Q10H [facility] Rx#:[id number] Oral 702 / 702 220 / 220 Other: # Voids 6 3 Date of Last Bowel Movement 07/08/18 07/08/18 # Bowel Movements 6 Narrative: GENERAL: Well-nourished well-developed white male no acute distress SKIN: warm and dry. CARDIOVASCULAR: Regular rate and rhythm. No obvious murmurs to auscultation. No chest tenderness to palpation. RESPIRATORY: No obvious rhonchi or wheezing. Clear to auscultation. Breath sounds equal bilaterally. GASTROINTESTINAL: Abdomen soft, non-tender, nondistended. Normoactive bowel sounds MUSCULOSKELETAL: Extremities without clubbing, cyanosis, or edema. No obvious deformities. NEUROLOGICAL: Awake, alert and oriented x4. No focal neurologic deficits. Results - Labs CBC & Chem 7: 07/08/18 09:20 07/08/18 09:20 Laboratory Results - last 24 hr 07/08/18 07/08/18 07/08/18 09:20 09:20 09:20 WBC 10.9 RBC 4.44 L Hgb 14.8 Hct 43.5 MCV 97.9 MCH 33.3 MCHC 34.0 RDW 12.9 Plt Count 149 L MPV 6.4 L Neut % (Auto) 87.7 H Lymph % (Auto) 5.9 L [place] % (Auto) 5.9 Eos % (Auto) 0.4 Baso % (Auto) 0.1 Neut # (Auto) 9.5 H Lymph # (Auto) 0.6 L [place] # (Auto) 0.6 Eos # (Auto) 0.0 Baso # (Auto) 0.0 WBC Differential . Differential Comment Auto diff final Sodium 137 Potassium 3.4 L Chloride 106 Carbon Dioxide 19.8 L Anion Gap 11 BUN 15 Creatinine 1.00 Estimated GFR 74 L Random Glucose 108 H Calcium 6.9 L* Prot Corrected Calcium 8.1 L Total Protein 4.9 L TSH 3.220 Microbiology 07/05/18 19:40 Blood - Peripheral Aerobic Blood Culture - Final Staphylococcus hominis-hominis 07/05/18 19:40 Blood - Peripheral Anaerobic Blood Culture - Preliminary No growth in 3 days 07/05/18 19:45 Blood - Peripheral Aerobic Blood Culture - Preliminary No growth in 3 days 07/05/18 19:45 Blood - Peripheral Anaerobic Blood Culture - Preliminary No growth in 3 days Assessment and Plan - Assessment (1) Sepsis Code(s): A41.9 - Sepsis, unspecified organism Status: Resolved (2) Colitis Code(s): K52.9 - Noninfective gastroenteritis and colitis, unspecified Status : Acute (3) NEGRITO (acute kidney injury) Code(s): N17.9 - Acute kidney failure, unspecified Status: Acute (4) Hypocalcemia Code(s): E83.51 - Hypocalcemia Status: Acute (5) Hypokalemia Code(s): E87.6 - Hypokalemia Status: Acute - Plan 68-year-old male with no significant PMH who presents the ER with complaints of abdominal pain in addition to diarrhea. States symptoms have been intermittent for the last 1mo, however now progressively worse w/ increased episodes of diarrhea Severe sepsis present on admission with tachycardia and leukocytosis HR 99, WBC 27, Bandemia 18%, Lactic Acid 2.3, Source-Colitis. S/p blood cultures, initially was on Zosyn/Flagyl Leukocytosis trending down. Lactic acid 2.2 trended down. -continue to follow cultures, blood culture showed 1 coag negative likely contaminant -Continue with aggressive hydration, inc. IVF to 125/hr -Continue with antibiotics-Flagyl and vancomycin per ID recommendations. Colitis-CT Abd/Pelvis w/ diffuse colitis, images reviewed, +diarrhea -Stool C. difficile antigen positive, toxin negative DNA positive. Negative for EPID 027 Stools for O&P currently pending -Continue with Flagyl and vancomycin per ID due to diffuse colitis on CT despite having negative C. difficile toxin -Considering patient is symptomatic with significant leukocytosis and findings of colitis, Vanco was added to Flagyl regimen We will add Lactinex 3 times daily Questran was started by GI -Replace electrolytes as needed -We will start on clear liquid diet advance to soft diet as tolerated. GI recommended outpatient colonoscopy after colitis treated and resolves. NEGRITO superimposed on chronic kidney disease stage II-creatinine trending down. Likely due to dehydration and diarrhea and sepsis. IV fluid hydration, avoid nephrotoxins. Monitor creatinine. This continues to improve. Hypocalcemia: Protein corrected improved. S/P replacement Hypokalemiareplete DVT Prophylaxis: SCD/Teds Patient still feels weak and had fevers of 103 overnight and not ready to be discharged. Discharge Planning: Possible discharge to home in the next 1-2 days based on clinical status.
--- NOTE | 2018-07-09 10:49 | P.PNGI ---
Subjective Interval history: Pt is sitting on side of bed. States 3 loose BMs so far today. Denies nausea, vomiting, abdominal pain. States he is eating well. <Anaya Arteaga - Last Filed: 07/09/18 10:46> Physical Exam Vital signs: Vital Signs 07/08/18 12:00 07/08/18 16:00 07/08/18 17:26 Temperature 97.7 F 99.4 F Pulse Rate 106 H 100 H Respiratory Rate 15 16 Blood Pressure 112/63 86/52 L 112/67 Pulse Oximetry 97 96 07/08/18 20:00 07/09/18 00:00 07/09/18 04:00 Temperature 98.3 F 98.7 F 102.2 F H Pulse Rate 111 H 96 H 120 H Respiratory Rate 20 22 22 Blood Pressure 117/74 102/56 L 104/62 Pulse Oximetry 95 99 93 L 07/09/18 08:00 Temperature 97.8 F Pulse Rate 96 H Respiratory Rate 17 Blood Pressure 103/64 Pulse Oximetry 94 L Intake & Output 07/08/18 07/09/18 07/09/18 18:59 06:59 18:59 Intake Total 702 / 702 220 / 220 1000 / 1000 Balance 702 / 702 220 / 220 1000 / 1000 Intake: IV 1000 / 1000 NS Inj 1,000 ML @ 100 mls/hr IV 1000 / 1000 .CONT .Q10H [facility] Rx#:[id number] Oral 702 / 702 220 / 220 Other: # Voids 6 3 Date of Last Bowel Movement 07/08/18 07/08/18 # Bowel Movements 6 - Constitutional no acute distress - Routine HEENT Exam Head: Present: normocephalic, atraumatic - Routine Respiratory Exam Absent: accessory muscle use - Routine Abdominal Exam Present: soft, normoactive bowel sounds. Absent: tenderness, distended - Routine Skin Exam Present: dry, warm - Routine Neurological Exam Present: alert, oriented X3 <Anaya Arteaga - Last Filed: 07/09/18 10:46> Vital signs: Vital Signs 07/09/18 00:00 07/09/18 04:00 07/09/18 08:00 Temperature 98.7 F 102.2 F H 97.3 F L Pulse Rate 96 H 120 H 98 H Respiratory Rate 22 22 18 Blood Pressure 102/56 L 104/62 100/64 Pulse Oximetry 99 93 L 94 L 07/09/18 16:00 Temperature 97.4 F L Pulse Rate 88 Respiratory Rate 18 Blood Pressure 101/59 L Pulse Oximetry 97 Intake & Output 07/09/18 07/09/18 07/10/18 06:59 18:59 06:59 Intake Total 220 / 220 1840 / 1840 1000 / 1000 Balance 220 / 220 1840 / 1840 1000 / 1000 Intake: IV 1200 / 1200 1000 / 1000 NS Inj 1,000 ML @ 100 mls/hr IV 1000 / 1000 1000 / 1000 .CONT .Q10H [facility] Rx#:[id number] Flagyl 500 MG Inj 100 ML @ 100 200 / 200 mls/hr IV.SIG Q8H [facility] Rx#: [id number] Oral 220 / 220 640 / 640 Other: # Voids 3 5 Date of Last Bowel Movement 07/08/18 07/09/18 # Bowel Movements 9 <Claudy Leigh - Last Filed: 07/09/18 21:46> Results - Labs CBC & Chem 7: 07/08/18 09:20 07/08/18 09:20 Laboratory Results - last 24 hr 07/08/18 09:20 TSH 3.220 Microbiology 07/05/18 19:40 Blood - Peripheral Aerobic Blood Culture - Final Staphylococcus hominis-hominis 07/05/18 19:40 Blood - Peripheral Anaerobic Blood Culture - Preliminary No growth in 3 days 07/05/18 19:45 Blood - Peripheral Aerobic Blood Culture - Preliminary No growth in 3 days 07/05/18 19:45 Blood - Peripheral Anaerobic Blood Culture - Preliminary No growth in 3 days <Anaya Arteaga - Last Filed: 07/09/18 10:46> - Labs CBC & Chem 7: 07/09/18 20:54 07/08/18 09:20 Laboratory Results - last 24 hr 07/09/18 20:54 Hgb 13.7 Hct 40.4 Microbiology 07/05/18 19:45 Blood - Peripheral Aerobic Blood Culture - Preliminary No growth in 4 days 07/05/18 19:45 Blood - Peripheral Anaerobic Blood Culture - Preliminary No growth in 4 days 07/05/18 19:40 Blood - Peripheral Aerobic Blood Culture - Final Staphylococcus hominis-hominis 07/05/18 19:40 Blood - Peripheral Anaerobic Blood Culture - Preliminary No growth in 4 days <Claudy Leigh - Last Filed: 07/09/18 21:46> Assessment and Plan - Plan Assessment C. difficile colitis-patient reports 3-week history of diarrhea associated with fecal urgency and incontinence. Denies any hematochezia or melena. Does report some mild abdominal cramping associated with BMs. Denies any nausea, vomiting, abdominal pain. Does report about a 10 pound unintentional weight loss for the past 3 weeks, but has had very poor p.o. intake. Denies any fever or chills Patient denies any sick contacts, recent travel or ingestion of suspicious foods. Patient denies history of C. difficile. Of note, patient was on clindamycin in March for tooth extraction. Has never had EGD or colonoscopy. Denies family history significant for GI issues. CT abdomen/pelvis with IV contrast-> diffuse mural thickening and edema throughout the colon characteristic of a diffuse colitis. There is associated mild ascites. C. Diff positive, epid negative. (07/09) Pt still having some loose stools. Plan: Continue vancomycin Continue Flagyl Continue abx for 2 weeks Probiotics We will add cholestyramine Monitor for improvement of symptoms Outpatient colonoscopy in 3-4 weeks, sooner if symptoms persist Diet as tolerated Our service will sign off, continued abx for 2 weeks Follow up with GI outpatient This patient has been seen and examined by myself and Dr. Leigh and this note was written on his behalf <Anaya Arteaga - Last Filed: 07/09/18 10:46> - Plan Patient seen and examined Agree with above Continue with current supportive care Monitor labs Patient and nurse reports large bloody stool patient clinically stable and H&H appears to be unchanged at this point We will repeat labs in a.m. and pending those labs make some decisions whether to discharge home on C. difficile antibiotics or pursue a colonoscopy <Claudy Leigh - Last Filed: 07/09/18 21:46>
--- NOTE | 2018-07-09 12:53 | P.PNID ---
Subjective Remarks: Patient continues to have multiple bouts of stools. He says he feels frustrated. He rm had new episode of elevated temperature up to 102. Reports chills with the elevated temperature. He denies abdominal pain. Reports that he has no interest in food. Notes that the food smells and tastes bad. Reports he would feel a lot better if the stools are formed. 68-year-old white male who was admitted to the hospital on 07/07/2018 because of abdominal pain. The patient was complaining of weakness and abdominal pain. He reports having diarrhea over the past 3 weeks. He states to me that he has up to 10 stools a day and that he was taking Imodium and other antidiarrheal medicines, but it was not helping and he continues to have frequent diarrhea. The workup included blood cultures which were drawn on 07/05/2018 and 09/18 bottles are Staph coagulase negative. The patient's white count was up to 27.7 on admission and now is down to 11.2. He is afebrile. He had maximum temperature of 100.1 degrees yesterday. CAT scan of the abdomen on 07/05/2018 showed diffuse mural thickening and edema throughout the colon characteristic of a diffuse colitis. Stool sent for C. difficile testing shows positive C. difficile antigen and C. difficile DNA amplification. C. difficile toxin is negative. The patient also had acute renal insufficiency with estimated GFR of 39 on 07/05/2018. Allergies/Adverse Reactions: Allergies No Known Allergies Allergy (Verified 07/05/18 18:59) Objective Vital Signs 07/08/18 16:00 07/08/18 17:26 07/08/18 20:00 Temperature 99.4 F 98.3 F Pulse Rate 100 H 111 H Respiratory Rate 16 20 Blood Pressure 86/52 L 112/67 117/74 Pulse Oximetry 96 95 07/09/18 00:00 07/09/18 04:00 07/09/18 08:00 Temperature 98.7 F 102.2 F H 97.8 F Pulse Rate 96 H 120 H 96 H Respiratory Rate 22 22 17 Blood Pressure 102/56 L 104/62 103/64 Pulse Oximetry 99 93 L 94 L Intake & Output 07/08/18 07/09/18 07/09/18 18:59 06:59 18:59 Intake Total 702 / 702 220 / 220 1000 / 1000 Balance 702 / 702 220 / 220 1000 / 1000 Intake: IV 1000 / 1000 NS Inj 1,000 ML @ 100 mls/hr IV 1000 / 1000 .CONT .Q10H [facility] Rx#:[id number] Oral 702 / 702 / Other: # Voids 6 3 Date of Last Bowel Movement 07/08/18 07/08/18 # Bowel Movements 6 07/05/18 19:45 Blood - Peripheral Aerobic Blood Culture - Preliminary No growth in 4 days 07/05/18 19:45 Blood - Peripheral Anaerobic Blood Culture - Preliminary No growth in 4 days 07/05/18 19:40 Blood - Peripheral Aerobic Blood Culture - Final Staphylococcus hominis-hominis 07/05/18 19:40 Blood - Peripheral Anaerobic Blood Culture - Preliminary No growth in 4 days 07/08/18 00:40 Stool Cryptosporidium Antigen - Pending 07/08/18 00:40 Stool Giardia Antigen ([facility]I) - Pending 07/05/18 20:20 Stool Stool for WBCs - Final Rare WBC's Lab - Hematology Results 07/08/18 09:20 WBC 10.9 RBC 4.44 L Hgb 14.8 Hct 43.5 MCV 97.9 MCH 33.3 MCHC 34.0 RDW 12.9 Plt Count 149 L MPV 6.4 L Neut % (Auto) 87.7 H Lymph % (Auto) 5.9 L [place] % (Auto) 5.9 Eos % (Auto) 0.4 Baso % (Auto) 0.1 Neut # (Auto) 9.5 H Lymph # (Auto) 0.6 L [place] # (Auto) 0.6 Eos # (Auto) 0.0 Baso # (Auto) 0.0 WBC Differential . Differential Comment Auto diff final Lab - Chemistry Results 07/08/18 07/08/18 09:20 09:20 Sodium 137 Potassium 3.4 L Chloride 106 Carbon Dioxide 19.8 L Anion Gap 11 BUN 15 Creatinine 1.00 Estimated GFR 74 L Random Glucose 108 H Calcium 6.9 L* Prot Corrected Calcium 8.1 L Total Protein 4.9 L TSH 3.220 Imaging: ITS Impressions Abdomen/Pelvis CT 07/05/18 19:10 CONCLUSION: 1. Diffuse mural thickening and edema throughout the colon characteristic of a diffuse colitis. There is associated mild ascites. 2. Multiple small hepatic cysts. No obstruction. Chest X-Ray 07/05/18 19:10 CONCLUSION: No acute findings. Physical Exam: PHYSICAL EXAMINATION: GENERAL: No acute distress. HEENT: Head is atraumatic. Extraocular movements are grossly intact. Pupils reactive to light. No icterus. Oropharynx moist; no focal lesions. NECK: Supple without adenopathy. LUNGS: Clear to auscultation. HEART: Regular rate and rhythm. No murmurs, rubs or gallops. ABDOMEN: Bowel sounds present. Soft, nontender. EXTREMITIES: No clubbing, cyanosis or edema. SKIN: No rash. NEUROLOGIC: Nonfocal. PSYCHIATRIC: Calm and cooperative. Assessment and Plan - Plan IMPRESSION: 1. Positive blood culture due to Staphylococcus coagulase negative in 1/4 bottles. I think this is likely contamination and not due to sepsis. 2. Diarrhea, along with leukocytosis and positive Clostridium difficile antigen, along with colitis on CT scan. 3. Leukocytosis secondary to colitis. RECOMMENDATIONS: 1. Continue Flagyl. Agree with IV administration. 2. Increase vancomycin to 500 mg p.o. 4 times daily. 3. Monitor stools over and parasites.
[2018-07-09 21:21] LABS: Hematocrit 40.4 % (39.0-51.0); Hemoglobin 13.7 gm/dL (13.0-17.0)
[2018-07-10] MEDS: Sod Chloride 0.9% Inj 1,000 ML IV.CONT SCH ×3 (05:00→19:38)
[2018-07-10 07:44] LABS: Baso % (Auto) 0.1 % (0.0-2.0); Eos # (Auto) 0.1 th/mm3 (0.0-0.4); Eos % (Auto) 0.9 % (0.0-4.0); Hematocrit 39.2 % (39.0-51.0); Hemoglobin 13.3 gm/dL (13.0-17.0); Lymph # (Auto) 0.9 th/mm3 (1.0-4.8); Lymph % (Auto) 12.1 % (9.0-44.0); Mean Corpuscular HGB Conc 33.8 % (32.0-36.0); Mean Corpuscular Hemoglobin 33.4 pg (27.0-34.0); Mean Corpuscular Volume 98.7 fL (80.0-100.0); Mean Platelet Volume 6.6 fL (7.0-11.0); Mono # (Auto) 0.6 th/mm3 (0.0-0.9); Mono % (Auto) 8.5 % (0.0-8.0); Neut # (Auto) 5.9 th/mm3 (1.8-7.7); Neut % (Auto) 78.4 % (16.0-70.0); Platelet Count 111 th/mm3 (150-450); Red Blood Count 3.97 mil/mm3 (4.50-5.90); Red Cell Distribution Width 13.2 % (11.6-17.2); White Blood Count 7.5 th/mm3 (4.0-11.0)
[2018-07-10 08:13] LABS: Anion Gap 10 meq/L (5-15); Blood Urea Nitrogen 8 mg/dL (7-18); Calcium 7.1 mg/dL (8.5-10.1); Carbon Dioxide 19.8 meq/L (21.0-32.0); Chloride 108 meq/L (98-107); Glomerular Filtration Rate Greater Than 89 mL/min (>89); Glucose,Random 86 mg/dL (74-106); Potassium 3.5 meq/L (3.5-5.1); Sodium 138 meq/L (136-145)
[2018-07-10 08:53] LABS: Total Protein 4.3 g/dL (6.4-8.2)
[2018-07-10] MEDS: Lactobacillus Acidophilus/L. Spores Tablet PO SCH ×2 (10:21→14:42)
--- NOTE | 2018-07-10 11:09 | P.PNID ---
Subjective Remarks: Patient continues to have multiple bouts of loose stools. Denies abdominal pain. Temperature normal. Patient had one elevated temp of 102. Denies sweats or chills. 68-year-old white male who was admitted to the hospital on 07/07/2018 because of abdominal pain. The patient was complaining of weakness and abdominal pain. He reports having diarrhea over the past 3 weeks. He states to me that he has up to 10 stools a day and that he was taking Imodium and other antidiarrheal medicines, but it was not helping and he continues to have frequent diarrhea. The workup included blood cultures which were drawn on 07/05/2018 and 09/18 bottles are Staph coagulase negative. The patient's white count was up to 27.7 on admission and now is down to 11.2. He is afebrile. He had maximum temperature of 100.1 [address] CAT scan of the abdomen on 07/05/2018 showed diffuse mural thickening and edema throughout the colon characteristic of a diffuse colitis. Stool sent for C. difficile testing shows positive C. difficile antigen and C. difficile DNA amplification. C. difficile toxin is negative. The patient also had acute renal insufficiency with estimated GFR of 39 on 07/05/2018. Allergies/Adverse Reactions: Allergies No Known Allergies Allergy (Verified 07/05/18 18:59) Objective Vital Signs 07/09/18 16:00 07/09/18 20:00 07/10/18 06:34 Temperature 97.4 F L 97.5 F L Pulse Rate 88 126 H 105 H Respiratory Rate 18 20 Blood Pressure 101/59 L 117/84 Pulse Oximetry 97 95 07/10/18 08:00 Temperature 97.3 F L Pulse Rate 104 H Respiratory Rate 22 Blood Pressure 137/76 Pulse Oximetry 96 Intake & Output 07/09/18 07/10/18 07/10/18 18:59 06:59 18:59 Intake Total 1840 / 1840 1600 / 1600 Balance 1840 / 1840 1600 / 1600 Weight 91.4 kg Intake: IV 1200 / 1200 1600 / 1600 NS Inj 1,000 ML @ 100 mls/hr IV 1000 / 1000 1500 / 1500 .CONT .Q10H [facility] Rx#:[id number] Flagyl 500 MG Inj 100 ML @ 100 200 / 200 100 / 100 mls/hr IV.SIG Q8H [facility] Rx#: [id number] Oral 640 / 640 Other: # Voids 5 6 Date of Last Bowel Movement 07/08/18 07/09/18 # Bowel Movements 9 1 07/05/18 19:45 Blood - Peripheral Aerobic Blood Culture - Final No growth in 5 days 07/05/18 19:45 Blood - Peripheral Anaerobic Blood Culture - Final No growth in 5 days 07/05/18 19:40 Blood - Peripheral Aerobic Blood Culture - Final Staphylococcus hominis-hominis 07/05/18 19:40 Blood - Peripheral Anaerobic Blood Culture - Final No growth in 5 days 07/08/18 00:40 Stool Cryptosporidium Antigen - Final Negative - No Cryptosporicium antigen detected In selected cases of patients with a history of immunosuppression or foreign travel, a full ova and parasites examination may be desired. Contact the microbiology lab if full workup is indicated and subit another specimen for testing. 07/08/18 00:40 Stool Giardia Antigen (SANTI) - Final Negative - No Giardia Antigen detected In selected cases of patients with a history of immunosuppression or foreign travel, a full ova and parasites examination may be desired. Contact the microbiology lab if full workup is indicated and subit another specimen for testing. Lab - Hematology Results 07/09/18 07/10/18 20:54 06:02 WBC 7.5 RBC 3.97 L Hgb 13.7 13.3 Hct 40.4 39.2 MCV 98.7 MCH 33.4 MCHC 33.8 RDW 13.2 Plt Count 111 L MPV 6.6 L Neut % (Auto) 78.4 H Lymph % (Auto) 12.1 [place] % (Auto) 8.5 H Eos % (Auto) 0.9 Baso % (Auto) 0.1 Neut # (Auto) 5.9 Lymph # (Auto) 0.9 L [place] # (Auto) 0.6 Eos # (Auto) 0.1 Baso # (Auto) 0.0 WBC Differential . Differential Comment Auto diff final Lab - Chemistry Results 07/08/18 07/10/18 09:20 06:02 Sodium 138 Potassium 3.5 Chloride 108 H Carbon Dioxide 19.8 L Anion Gap 10 BUN 8 Creatinine 0.82 Estimated GFR Greater than 89 Random Glucose 86 Calcium 7.1 L* Prot Corrected Calcium 8.7 Total Protein 4.3 L D TSH 3.220 Imaging: ITS Impressions Abdomen/Pelvis CT 07/05/18 19:10 CONCLUSION: 1. Diffuse mural thickening and edema throughout the colon characteristic of a diffuse colitis. There is associated mild ascites. 2. Multiple small hepatic cysts. No obstruction. Chest X-Ray 07/05/18 19:10 CONCLUSION: No acute findings. Physical Exam: PHYSICAL EXAMINATION: GENERAL: No acute distress. HEENT: Head is atraumatic. Extraocular movements are grossly intact. Pupils reactive to light. No icterus. Oropharynx moist; no focal lesions. NECK: Supple without adenopathy. LUNGS: Clear breath sounds HEART: Regular rate and rhythm. No murmurs, rubs or gallops. ABDOMEN: Bowel sounds present. Soft, nontender. EXTREMITIES: No clubbing, cyanosis or edema. SKIN: No rash. NEUROLOGIC: Nonfocal. PSYCHIATRIC: Calm and cooperative. Assessment and Plan - Plan IMPRESSION: 1. Colitis, persistent diarrhea, along with leukocytosis and positive Clostridium difficile antigen, along with colitis on CT scan. Diarrhea not improving. 2. Positive blood culture due to Staphylococcus coagulase negative in 1/4 bottles. I think this is likely contamination and not due to sepsis. 3. Leukocytosis secondary to colitis. White blood cell count improved. RECOMMENDATIONS: 1. Continue Flagyl. 2. Continue vancomycin to 500 mg p.o. 4 times daily. 3. Monitor stools. 4. Monitor response to treatment. 5. Consider colonoscopy if he does not show improvement.
--- NOTE | 2018-07-10 12:23 | P.PNIM ---
Subjective Interval history: Follow-up abdominal pain, diarrhea, colitis and AK I. Patient seen and examined laying in bed, still complained of diarrhea x3 this morning. Patient denies any nausea or vomiting, denies any abdominal pain. Patient denies any fever or chills. Patient denies any headache or dizziness, chest pain or shortness of breath. Patient stated he will be happy if he will not have any more diarrhea. States that he has had diarrhea for a long time now and his tired of it. Physical Exam Vital signs: Vital Signs 07/09/18 16:00 07/09/18 20:00 07/10/18 06:34 Temperature 97.4 F L 97.5 F L Pulse Rate 88 126 H 105 H Respiratory Rate 18 20 Blood Pressure 101/59 L 117/84 Pulse Oximetry 97 95 07/10/18 08:00 Temperature 97.3 F L Pulse Rate 104 H Respiratory Rate 22 Blood Pressure 137/76 Pulse Oximetry 96 Intake & Output 07/09/18 07/10/18 07/10/18 18:59 06:59 18:59 Intake Total 1840 / 1840 1600 / 1600 Balance 1840 / 1840 1600 / 1600 Weight 91.4 kg Intake: IV 1200 / 1200 1600 / 1600 NS Inj 1,000 ML @ 100 mls/hr IV 1000 / 1000 1500 / 1500 .CONT .Q10H [facility] Rx#:[id number] Flagyl 500 MG Inj 100 ML @ 100 200 / 200 100 / 100 mls/hr IV.SIG Q8H [facility] Rx#: [id number] Oral 640 / 640 Other: # Voids 5 6 Date of Last Bowel Movement 07/08/18 07/09/18 # Bowel Movements 9 1 Narrative: GENERAL: Well-developed, well-nourished, male in no acute distress SKIN: Warm and dry. HEAD: Atraumatic. Normocephalic. EYES: Pupils equal and round. No scleral icterus. No injection or drainage. ENT: No nasal bleeding or discharge. Mucous membranes pink and moist. NECK: Trachea midline. No JVD. CARDIOVASCULAR: Regular rate and rhythm. RESPIRATORY: No accessory muscle use. Clear to auscultation. Breath sounds equal bilaterally. GASTROINTESTINAL: Abdomen obese, soft, non-tender, nondistended. Hepatic and splenic margins not palpable. MUSCULOSKELETAL: Extremities without clubbing, cyanosis, or edema. No obvious deformities. NEUROLOGICAL: Awake and alert x4. No obvious cranial nerve deficits. Motor grossly within normal limits. Moving all 4 extremities. Normal speech. PSYCHIATRIC: Appropriate mood and affect; insight and judgment normal. Results - Labs CBC & Chem 7: 07/10/18 06:02 07/10/18 06:02 Laboratory Results - last 24 hr 07/09/18 07/10/18 07/10/18 20:54 06:02 06:02 WBC 7.5 RBC 3.97 L Hgb 13.7 13.3 Hct 40.4 39.2 MCV 98.7 MCH 33.4 MCHC 33.8 RDW 13.2 Plt Count 111 L MPV 6.6 L Neut % (Auto) 78.4 H Lymph % (Auto) 12.1 [place] % (Auto) 8.5 H Eos % (Auto) 0.9 Baso % (Auto) 0.1 Neut # (Auto) 5.9 Lymph # (Auto) 0.9 L [place] # (Auto) 0.6 Eos # (Auto) 0.1 Baso # (Auto) 0.0 WBC Differential . Differential Comment Auto diff final Sodium 138 Potassium 3.5 Chloride 108 H Carbon Dioxide 19.8 L Anion Gap 10 BUN 8 Creatinine 0.82 Estimated GFR Greater than 89 Random Glucose 86 Calcium 7.1 L* Prot Corrected Calcium 8.7 Total Protein 4.3 L D Microbiology 07/05/18 19:45 Blood - Peripheral Aerobic Blood Culture - Final No growth in 5 days 07/05/18 19:45 Blood - Peripheral Anaerobic Blood Culture - Final No growth in 5 days 07/05/18 19:40 Blood - Peripheral Aerobic Blood Culture - Final Staphylococcus hominis-hominis 07/05/18 19:40 Blood - Peripheral Anaerobic Blood Culture - Final No growth in 5 days 07/08/18 00:40 Stool Cryptosporidium Antigen - Final Negative - No Cryptosporicium antigen detected In selected cases of patients with a history of immunosuppression or foreign travel, a full ova and parasites examination may be desired. Contact the microbiology lab if full workup is indicated and subit another specimen for testing. 07/08/18 00:40 Stool Giardia Antigen (SANTI) - Final Negative - No Giardia Antigen detected In selected cases of patients with a history of immunosuppression or foreign travel, a full ova and parasites examination may be desired. Contact the microbiology lab if full workup is indicated and subit another specimen for testing. Assessment and Plan - Assessment (1) Sepsis Code(s): A41.9 - Sepsis, unspecified organism Status: Resolved (2) Colitis Code(s): K52.9 - Noninfective gastroenteritis and colitis, unspecified Status : Acute (3) NEGRITO (acute kidney injury) Code(s): N17.9 - Acute kidney failure, unspecified Status: Acute (4) Hypocalcemia Code(s): E83.51 - Hypocalcemia Status: Acute (5) Hypokalemia Code(s): E87.6 - Hypokalemia Status: Acute - Plan 68-year-old male with no significant PMH who presents the ER with complaints of abdominal pain in addition to diarrhea. States symptoms have been intermittent for the last 1 mo, however now progressively worse w/ increased episodes of diarrhea Severe sepsis present on admission with tachycardia and leukocytosis HR 99, WBC 27, Bandemia 18%, Lactic Acid 2.3, Source-Colitis. S/p blood cultures, initially was on Zosyn/Flagyl Leukocytosis trending down. Lactic acid 2.2 trended down. -continue to follow cultures, blood culture showed 1 coag negative likely contaminant -Continue with aggressive hydration, inc. IVF to 125/hr -Continue with antibiotics-Flagyl and vancomycin per ID recommendations. -ID following: Recommended consider colonoscopy if patient symptoms not improving -Fever on 07/09/2018 102.2, had been afebrile since then, monitor temp Colitis-CT Abd/Pelvis w/ diffuse colitis, images reviewed, +diarrhea -Stool C. difficile antigen positive, toxin negative DNA positive. Negative for EPID 027 Stools for O&P currently pending -Continue with Flagyl and vancomycin per ID due to diffuse colitis on CT despite having negative C. difficile toxin -Considering patient is symptomatic with significant leukocytosis and findings of colitis, Vanco was added to Flagyl regimen continue Lactinex 3 times daily -Increase Questran dose -monitor and Replace electrolytes as needed -We will start on clear liquid diet advance to soft diet as tolerated. -GI following: recommended outpatient colonoscopy after colitis treated and resolves. NEGRITO superimposed on chronic kidney disease stage II/hypocalcemia/hypokalemia -creatinine improving, likely due to dehydration and diarrhea and sepsis. -Continue IV fluid hydration - avoid nephrotoxins - Monitor creatinine - Protein corrected calcium improved. -S/P replacement with calcium and potassium, replace as needed -Monitor BMP DVT Prophylaxis: SCD/Teds Code Status: full code Discussed Condition With: Patient, and nurse
--- NOTE | 2018-07-10 15:07 | P.PNGI ---
Subjective Interval history: Patient is sitting on side of the bed fairly restless and upset over uncontrolled diarrhea. States he has never been sick before and feels like he is getting no better. Leukocytosis has improved and normalized so patient does appear to be responding to medication. Patient notes some blood noted in his stools and volumes very and total diarrhea amounts. Continues lower abdominal cramping and some distention <Deborah Simms - Last Filed: 07/10/18 15:19> Physical Exam Vital signs: Vital Signs 07/09/18 16:00 07/09/18 20:00 07/10/18 06:34 Temperature 97.4 F L 97.5 F L Pulse Rate 88 126 H 105 H Respiratory Rate 18 20 Blood Pressure 101/59 L 117/84 Pulse Oximetry 97 95 07/10/18 08:00 07/10/18 12:00 Temperature 97.3 F L 97.9 F Pulse Rate 104 H 94 H Respiratory Rate 22 14 Blood Pressure 137/76 104/66 Pulse Oximetry 96 96 Intake & Output 07/09/18 07/10/18 07/10/18 18:59 06:59 18:59 Intake Total 1840 / 1840 1600 / 1600 500 / 500 Balance 1840 / 1840 1600 / 1600 500 / 500 Weight 91.4 kg Intake: IV 1200 / 1200 1600 / 1600 500 / 500 NS Inj 1,000 ML @ 100 mls/hr IV 1000 / 1000 1500 / 1500 500 / 500 .CONT .Q10H [facility] Rx#:[id number] Flagyl 500 MG Inj 100 ML @ 100 200 / 200 100 / 100 mls/hr IV.SIG Q8H [facility] Rx#: [id number] Oral 640 / 640 Other: # Voids 5 6 Date of Last Bowel Movement 07/08/18 07/09/18 # Bowel Movements 9 1 - Constitutional moderate distress, disheveled, agitated - Routine HEENT Exam Head: Present: normocephalic ENT: Present: mucous membranes dry - Routine Respiratory Exam Present: accessory muscle use - Routine Cardiovascular Exam Present: S1 (Even, unlabored at rest), S2 - Routine Abdominal Exam Present: soft (taut, lower abdominal cramping with diarrhea stools, mild distention) - Routine Skin Exam Present: pallor - Routine Neurological Exam Present: alert <Deborah Simms - Last Filed: 07/10/18 15:19> Vital signs: Vital Signs 07/10/18 06:34 07/10/18 08:00 07/10/18 12:00 Temperature 97.3 F L 97.9 F Pulse Rate 105 H 104 H 94 H Respiratory Rate 22 14 Blood Pressure 137/76 104/66 Pulse Oximetry 96 96 07/10/18 16:00 Temperature 97.8 F Pulse Rate 88 Respiratory Rate 18 Blood Pressure 110/64 Pulse Oximetry 96 Intake & Output 07/10/18 07/10/18 07/11/18 06:59 18:59 06:59 Intake Total 1600 / 1600 2300 / 2300 Balance 1600 / 1600 2300 / 2300 Weight 91.4 kg Intake: IV 1600 / 1600 500 / 500 NS Inj 1,000 ML @ 100 mls/hr IV 1500 / 1500 500 / 500 .CONT .Q10H [facility] Rx#:[id number] Flagyl 500 MG Inj 100 ML @ 100 100 / 100 mls/hr IV.SIG Q8H [facility] Rx#: [id number] Oral 1800 / 1800 Other: # Voids 6 3 Date of Last Bowel Movement 07/09/18 07/10/18 # Bowel Movements 1 10 <Claudy Leigh E - Last Filed: 07/10/18 21:56> Results - Labs CBC & Chem 7: 07/10/18 06:02 07/10/18 06:02 Laboratory Results - last 24 hr 07/09/18 07/10/18 07/10/18 20:54 06:02 06:02 WBC 7.5 RBC 3.97 L Hgb 13.7 13.3 Hct 40.4 39.2 MCV 98.7 MCH 33.4 MCHC 33.8 RDW 13.2 Plt Count 111 L MPV 6.6 L Neut % (Auto) 78.4 H Lymph % (Auto) 12.1 [place] % (Auto) 8.5 H Eos % (Auto) 0.9 Baso % (Auto) 0.1 Neut # (Auto) 5.9 Lymph # (Auto) 0.9 L [place] # (Auto) 0.6 Eos # (Auto) 0.1 Baso # (Auto) 0.0 WBC Differential . Differential Comment Auto diff final Sodium 138 Potassium 3.5 Chloride 108 H Carbon Dioxide 19.8 L Anion Gap 10 BUN 8 Creatinine 0.82 Estimated GFR Greater than 89 Random Glucose 86 Calcium 7.1 L* Prot Corrected Calcium 8.7 Total Protein 4.3 L D Microbiology 07/05/18 19:45 Blood - Peripheral Aerobic Blood Culture - Final No growth in 5 days 07/05/18 19:45 Blood - Peripheral Anaerobic Blood Culture - Final No growth in 5 days 07/05/18 19:40 Blood - Peripheral Aerobic Blood Culture - Final Staphylococcus hominis-hominis 07/05/18 19:40 Blood - Peripheral Anaerobic Blood Culture - Final No growth in 5 days 07/08/18 00:40 Stool Cryptosporidium Antigen - Final Negative - No Cryptosporicium antigen detected In selected cases of patients with a history of immunosuppression or foreign travel, a full ova and parasites examination may be desired. Contact the microbiology lab if full workup is indicated and subit another specimen for testing. 07/08/18 00:40 Stool Giardia Antigen (SANTI) - Final Negative - No Giardia Antigen detected In selected cases of patients with a history of immunosuppression or foreign travel, a full ova and parasites examination may be desired. Contact the microbiology lab if full workup is indicated and subit another specimen for testing. <Deborah Simms - Last Filed: 07/10/18 15:19> - Labs CBC & Chem 7: 07/10/18 06:02 07/10/18 06:02 Laboratory Results - last 24 hr 07/10/18 07/10/18 06:02 06:02 WBC 7.5 RBC 3.97 L Hgb 13.3 Hct 39.2 MCV 98.7 MCH 33.4 MCHC 33.8 RDW 13.2 Plt Count 111 L MPV 6.6 L Neut % (Auto) 78.4 H Lymph % (Auto) 12.1 [place] % (Auto) 8.5 H Eos % (Auto) 0.9 Baso % (Auto) 0.1 Neut # (Auto) 5.9 Lymph # (Auto) 0.9 L [place] # (Auto) 0.6 Eos # (Auto) 0.1 Baso # (Auto) 0.0 WBC Differential . Differential Comment Auto diff final Sodium 138 Potassium 3.5 Chloride 108 H Carbon Dioxide 19.8 L Anion Gap 10 BUN 8 Creatinine 0.82 Estimated GFR Greater than 89 Random Glucose 86 Calcium 7.1 L* Prot Corrected Calcium 8.7 Total Protein 4.3 L D Microbiology 07/05/18 19:45 Blood - Peripheral Aerobic Blood Culture - Final No growth in 5 days 07/05/18 19:45 Blood - Peripheral Anaerobic Blood Culture - Final No growth in 5 days 07/05/18 19:40 Blood - Peripheral Aerobic Blood Culture - Final Staphylococcus hominis-hominis 07/05/18 19:40 Blood - Peripheral Anaerobic Blood Culture - Final No growth in 5 days 07/08/18 00:40 Stool Cryptosporidium Antigen - Final Negative - No Cryptosporicium antigen detected In selected cases of patients with a history of immunosuppression or foreign travel, a full ova and parasites examination may be desired. Contact the microbiology lab if full workup is indicated and subit another specimen for testing. 07/08/18 00:40 Stool Giardia Antigen (SANTI) - Final Negative - No Giardia Antigen detected In selected cases of patients with a history of immunosuppression or foreign travel, a full ova and parasites examination may be desired. Contact the microbiology lab if full workup is indicated and subit another specimen for testing. - Imaging Impressions Abdomen/Pelvis CT 07/10/18 00:00 CONCLUSION: 1. Increased ascitic fluid compared to the recent study 5 days ago. 2. Diffuse mural wall thickening and edema throughout the colon consistent with colitis. This is not significantly changed. 3. New small bilateral pleural effusions right greater than left. 4. Multiple stable cystic structures in the liver. <Claudy Leigh - Last Filed: 07/10/18 21:56> Assessment and Plan - Plan - Plan Assessment C. difficile colitis-patient reports 3-week history of diarrhea associated with fecal urgency and incontinence. Denies any hematochezia or melena. Does report some mild abdominal cramping associated with BMs. Denies any nausea, vomiting, abdominal pain. Does report about a 10 pound unintentional weight loss for the past 3 weeks, but has had very poor p.o. intake. Denies any fever or chills Patient denies any sick contacts, recent travel or ingestion of suspicious foods. Patient denies history of C. difficile. Of note, patient was on clindamycin in March for tooth extraction. Has never had EGD or colonoscopy. Denies family history significant for GI issues. CT abdomen/pelvis with IV contrast-> diffuse mural thickening and edema throughout the colon characteristic of a diffuse colitis. There is associated mild ascites. C. Diff positive, epid negative. 07/10/2018 patient states that diarrhea is not improved at all that he continues to have one bowel movement at least every hour and does notice blood in the stool. Seems to have some increased anxiety around his uncontrolled diarrhea and states that he is never been sick or in the hospital in his life. Currently denies any nausea or vomiting but does note poor appetite. Leukocytosis now resolved currently WBC count 7.5 so appears to be responding to p.o. vancomycin and Flagyl. PT/INR 1.4. We will continue to monitor for diarrhea to stabilize and evaluate medications. Cholestyramine dose was increased today to 4 times a day will evaluate over the 24 hours whether this is effective. Patient will need colonoscopy , but needs improvement of symptoms of C. difficile as well as these diarrhea stools Mild coagulopathy PT/INR 1.4 with some mild ascites noted on initial CT. will consider home treatment of his C. difficile once diarrheal stools are trending down. Hepatic cyst seen on CT scan could represent some fatty liver disease or hepatocellular disease. Plan: Diet, regular diet was DC'd and placed patient back on clear liquids for some bowel rest Vancomycin p.o., Flagyl IV Added Pepto-Bismol before meals and at bedtime Monitor labs with special attention to any acute drops in hemoglobin Will repeat CT scan for comparison with IV contrast Further recommendations to follow Patient was seen per myself and Dr. Leigh, his behalf <Deborah Simms - Last Filed: 07/10/18 15:19> - Plan Patient seen and examined Agree with above history and physical Monitor labs Continue with current supportive care We will need to pursue a colonoscopy so is to verify because of colitis I have a suspicion this may be ulcerative colitis rather than C. difficile <Claudy Leigh - Last Filed: 07/10/18 21:56>
--- NOTE | 2018-07-10 15:58 | P.PN ---
Subjective Interval history: NOT SEEN Physical Exam Vital signs: Vital Signs 07/09/18 16:00 07/09/18 20:00 07/10/18 06:34 Temperature 97.4 F L 97.5 F L Pulse Rate 88 126 H 105 H Respiratory Rate 18 20 Blood Pressure 101/59 L 117/84 Pulse Oximetry 97 95 07/10/18 08:00 07/10/18 12:00 Temperature 97.3 F L 97.9 F Pulse Rate 104 H 94 H Respiratory Rate 22 14 Blood Pressure 137/76 104/66 Pulse Oximetry 96 96 Intake & Output 07/09/18 07/10/18 07/10/18 18:59 06:59 18:59 Intake Total 1840 / 1840 1600 / 1600 500 / 500 Balance 1840 / 1840 1600 / 1600 500 / 500 Weight 91.4 kg Intake: IV 1200 / 1200 1600 / 1600 500 / 500 NS Inj 1,000 ML @ 100 mls/hr IV 1000 / 1000 1500 / 1500 500 / 500 .CONT .Q10H [facility] Rx#:[id number] Flagyl 500 MG Inj 100 ML @ 100 200 / 200 100 / 100 mls/hr IV.SIG Q8H [facility] Rx#: [id number] Oral 640 / 640 Other: # Voids 5 6 Date of Last Bowel Movement 07/08/18 07/09/18 # Bowel Movements 9 1 Narrative: GENERAL: Well-developed, well-nourished, male in no acute distress SKIN: Warm and dry. CARDIOVASCULAR: Regular rate and rhythm. RESPIRATORY: No accessory muscle use. Clear to auscultation. Breath sounds equal bilaterally. GASTROINTESTINAL: Abdomen obese, soft, non-tender, nondistended. MUSCULOSKELETAL: Extremities without clubbing, cyanosis, or edema. No obvious deformities. NEUROLOGICAL: Awake and alert x4. No obvious cranial nerve deficits. Motor grossly within normal limits. Moving all 4 extremities. Normal speech. PSYCHIATRIC: Appropriate mood and affect; insight and judgment normal. Results - Labs CBC & Chem 7: 07/10/18 06:02 07/10/18 06:02 Laboratory Results - last 24 hr 07/09/18 07/10/18 07/10/18 20:54 06:02 06:02 WBC 7.5 RBC 3.97 L Hgb 13.7 13.3 Hct 40.4 39.2 MCV 98.7 MCH 33.4 MCHC 33.8 RDW 13.2 Plt Count 111 L MPV 6.6 L Neut % (Auto) 78.4 H Lymph % (Auto) 12.1 [place] % (Auto) 8.5 H Eos % (Auto) 0.9 Baso % (Auto) 0.1 Neut # (Auto) 5.9 Lymph # (Auto) 0.9 L [place] # (Auto) 0.6 Eos # (Auto) 0.1 Baso # (Auto) 0.0 WBC Differential . Differential Comment Auto diff final Sodium 138 Potassium 3.5 Chloride 108 H Carbon Dioxide 19.8 L Anion Gap 10 BUN 8 Creatinine 0.82 Estimated GFR Greater than 89 Random Glucose 86 Calcium 7.1 L* Prot Corrected Calcium 8.7 Total Protein 4.3 L D Microbiology 07/05/18 19:45 Blood - Peripheral Aerobic Blood Culture - Final No growth in 5 days 07/05/18 19:45 Blood - Peripheral Anaerobic Blood Culture - Final No growth in 5 days 07/05/18 19:40 Blood - Peripheral Aerobic Blood Culture - Final Staphylococcus hominis-hominis 07/05/18 19:40 Blood - Peripheral Anaerobic Blood Culture - Final No growth in 5 days 07/08/18 00:40 Stool Cryptosporidium Antigen - Final Negative - No Cryptosporicium antigen detected In selected cases of patients with a history of immunosuppression or foreign travel, a full ova and parasites examination may be desired. Contact the microbiology lab if full workup is indicated and subit another specimen for testing. 07/08/18 00:40 Stool Giardia Antigen (SANTI) - Final Negative - No Giardia Antigen detected In selected cases of patients with a history of immunosuppression or foreign travel, a full ova and parasites examination may be desired. Contact the microbiology lab if full workup is indicated and subit another specimen for testing. - Imaging ITS Impressions Abdomen/Pelvis CT 07/05/18 19:10 CONCLUSION: 1. Diffuse mural thickening and edema throughout the colon characteristic of a diffuse colitis. There is associated mild ascites. 2. Multiple small hepatic cysts. No obstruction. Chest X-Ray 07/05/18 19:10 CONCLUSION: No acute findings. - Procedures none Assessment and Plan - Assessment (1) Sepsis Code(s): A41.9 - Sepsis, unspecified organism Status: Resolved (2) Colitis Code(s): K52.9 - Noninfective gastroenteritis and colitis, unspecified Status : Acute (3) NEGRITO (acute kidney injury) Code(s): N17.9 - Acute kidney failure, unspecified Status: Acute (4) Hypocalcemia Code(s): E83.51 - Hypocalcemia Status: Acute (5) Hypokalemia Code(s): E87.6 - Hypokalemia Status: Acute - Plan 68-year-old male with no significant PMH who presents the ER with complaints of abdominal pain in addition to diarrhea. States symptoms have been intermittent for the last 1 mo, however now progressively worse w/ increased episodes of diarrhea Severe sepsis present on admission with tachycardia and leukocytosis HR 99, WBC 27, Bandemia 18%, Lactic Acid 2.3, Source-Colitis. S/p blood cultures, initially was on Zosyn/Flagyl Leukocytosis trending down. Lactic acid 2.2 trended down. -continue to follow cultures, blood culture showed 1 coag negative likely contaminant -Continue with aggressive hydration, inc. IVF to 125/hr -Continue with antibiotics-Flagyl and vancomycin per ID recommendations. -consider colonoscopy if patient symptoms not improving Colitis-CT Abd/Pelvis w/ diffuse colitis, images reviewed, +diarrhea -Stool C. difficile antigen positive, toxin negative DNA positive. Negative for EPID 027 Stools for O&P currently pending -Continue with Flagyl and vancomycin per ID due to diffuse colitis on CT despite having negative C. difficile toxin continue Lactinex 3 times daily -Increase Questran dose -monitor and Replace electrolytes as needed -We will start on clear liquid diet advance to soft diet as tolerated. -GI following: recommended outpatient colonoscopy after colitis treated and resolves. NEGRITO superimposed on chronic kidney disease stage II/hypocalcemia/hypokalemia -creatinine improving, likely due to dehydration and diarrhea and sepsis. -Continue IV fluid hydration - avoid nephrotoxins - Monitor creatinine - Protein corrected calcium improved. -S/P replacement with calcium and potassium, replace as needed -Monitor BMP DVT Prophylaxis: SCD/Teds Discharge Planning: [facility]
--- NOTE | 2018-07-10 16:20 | CT ---
EXAM DATE: 07/10/2018 4:13 PM EDT AGE/SEX: 68 years / Male INDICATIONS: Diarrhea CLINICAL DATA: This is the patient's subsequent encounter. Patient reports that signs and symptoms h ave been present for 4 - 6 days and indicates a pain score of 0/10. MEDICAL/SURGICAL HISTORY: None. None. ORAL CONTRAST: No oral contrast ingested. RADIATION DOSE: 13.70 CTDI (mGy) COMPARISON: [facility] – [place], CT ABDOMEN & PELVIS W CONTRAST, 07/05/2018. . TECHNIQUE: Multiple contiguous axial images were obtained through the abdomen and pelvis following b olus infusion of 95ML ml Omnipaque 350 (iohexol) nonionic water-soluble contrast as a single exam d ose. No oral contrast ingested. Using automated exposure control and adjustment of the mA and/or kV according to patient size, radiation dose was kept as low as reasonably achievable to obtain optimal diagnostic quality images. DICOM format image data is available electronically for review and compar raul. FINDINGS: Lower Lungs: There are small bilateral pleural effusions right greater than left. Liver: The liver has a homogeneous density with multiple stable cystic lesions. Ascitic fluid is agai n noted along the lateral aspect of the liver. The gallbladder remains unremarkable. There is no dila tion of the biliary tree. Spleen: Homogeneous density without enlargement. Pancreas: Unremarkable without mass or calcification. Kidneys: Normal in size and shape. No evidence of mass or hydronephrosis. Adrenal Glands: Unremarkable. Aorta: The aorta and proximal iliac vessels are grossly unremarkable without aneurysmal dilation. Bowel/Mesentery: No oral contrast was given limiting the sensitivity. There is increased ascitic flu id compared to the prior study with fluid in both paracolic gutters and pelvis. There are scattered d iverticuli again noted. There is mild diffuse mural wall thickening and edema throughout the colon wi th no focal mass. The small bowel remains unremarkable with several small air-fluid levels. Abdominal Wall: Intact. Retroperitoneum: No evidence of adenopathy in the retrocrural, para-aortic, or deep pelvic regions. Bladder: Contours are smooth. Reproductive Organs: No abnormal masses or calcifications seen. Inguinal: The inguinal region is unremarkable without evidence of adenopathy. Bony Structures: Unremarkable. CONCLUSION: 1. Increased ascitic fluid compared to the recent study 5 days ago. 2. Diffuse mural wall thickening and edema throughout the colon consistent with colitis. This is not significantly changed. 3. New small bilateral pleural effusions right greater than left. 4. Multiple stable cystic structures in the liver. Electronically signed by: Cain Junior MD 07/10/2018 4:19 PM EDT
[2018-07-10] MEDS: Bismuth Subsalicylate Susp 240 ML Bottle PO SCH ×2 (21:38→21:40)
[2018-07-11] MEDS: Sod Chloride 0.9% Inj 1,000 ML IV.CONT SCH ×2 (05:57→15:37)
[2018-07-11 06:44] LABS: Anion Gap 9 meq/L (5-15); Blood Urea Nitrogen 6 mg/dL (7-18); Calcium 6.9 mg/dL (8.5-10.1); Chloride 109 meq/L (98-107); Glomerular Filtration Rate Greater Than 89 mL/min (>89); Glucose,Random 87 mg/dL (74-106); Magnesium 1.3 mg/dL (1.5-2.5); Potassium 3.5 meq/L (3.5-5.1); Sodium 138 meq/L (136-145)
[2018-07-11] MEDS: Lactobacillus Acidophilus/L. Spores Tablet PO SCH ×4 (07:07→18:50)
[2018-07-11 07:14] LABS: Total Protein 4.5 g/dL (6.4-8.2)
[2018-07-11] MEDS: Bismuth Subsalicylate Susp 240 ML Bottle PO SCH ×4 (08:12→21:06)
[2018-07-11] MEDS ORDERED: Magnesium Sulfate Inj 4 GM in Sodium Chlor 0.9% Inj 92 ML IV.SIG ONE ×2 (09:09→15:00)
--- NOTE | 2018-07-11 11:30 | P.PNIM ---
Subjective Interval history: This is a 68-year-old male with no significant PMH who presents the ER with complaints of abdominal pain in addition to diarrhea. States symptoms have been intermittent for the last 1mo, however now progressively worse w/ increased episodes of diarrhea today. Pain is generalized, cramping, intermittent, 7/10, non-radiating. Denies fever, chills, sick contacts or recent travel. Today reports approx 20 episodes of loose stool/diarrhea. No recent antibiotic use. On arrival, BP 92/56, HR 99, O2 sat 96% on RA, Afebrile. WBC 27.7, bands 18%. INR 1.4. K+ 3.1. Creatinine 1.75, no previous labs for comparison. Lactic Acid 2.3. Calcium 6.8. Troponin negative. Lipase 48. UA negative for UTI. C. difficile pending. CT Abdomen/ Pelvis diffuse mural thickening and edema throughout the colon consistent with colitis, associated mild ascites. CXR with no acute findings. S/p Zosyn/ Flagyl in ER. 10- Follow up for sepsis, colitis: pt. seen and examined, continues with significant watery stools, approximately 8-9. No abdominal pain. No nausea, no vomiting. States he wants to eat. Feels weak. No chest pain, no shortness of breath. Blood pressure remains low, 90/54, slightly tachycardic, 90s-100s. Febrile, temperature 100.1. 10-23 Patient reports breathing is better. Less loose stools. No abdominal pain. He is feeling better and tolerating his diet. 10-24 Patient still complained of diarrhea however has decreased frequency. Continues to have nausea but tolerating p.o. He has not seen any blood in his stools. He has not had any associated abdominal pain with this. He is feeling better no complaints of fevers or chills. 10-25 Still having multiple bouts of loose stools and frequency has not slowed down. Consistently still having diarrhea. Symptoms are not better. No abdominal pain. Still with nausea tolerating some diet. Does not feel well enough to go home today. 10-26 Follow-up abdominal pain, diarrhea, colitis and AK I. Patient seen and examined laying in bed, still complained of diarrhea x3 this morning. Patient denies any nausea or vomiting, denies any abdominal pain. Patient denies any fever or chills. Patient denies any headache or dizziness, chest pain or shortness of breath. Patient stated he will be happy if he will not have any more diarrhea. States that he has had diarrhea for a long time now and his tired of it. 07-11 case discussed with gastroenterology. They are backing down on his diet back to clear liquids States he still having diarrhea almost every hour Denies any nausea or vomiting. Abdominal pain at this time denies chills Discussed with patient and RN and gastroenterology Physical Exam Vital signs: Vital Signs 07/10/18 12:00 07/10/18 16:00 07/11/18 00:00 Temperature 97.9 F 97.8 F 98.3 F Pulse Rate 94 H 88 107 H Respiratory Rate 14 18 18 Blood Pressure 104/66 110/64 102/62 Pulse Oximetry 96 96 94 L 07/11/18 04:00 07/11/18 08:00 Temperature 97.9 F 97.9 F Pulse Rate 102 H 100 H Respiratory Rate 18 17 Blood Pressure 99/58 L 113/69 Pulse Oximetry 96 100 Intake & Output 07/10/18 07/11/18 07/11/18 18:59 06:59 18:59 Intake Total 2300 / 2300 1600 / 1600 Balance 2300 / 2300 1600 / 1600 Weight 91.4 kg Intake: IV 500 / 500 1100 / 1100 NS Inj 1,000 ML @ 100 mls/hr IV 500 / 500 1000 / 1000 .CONT .Q10H [facility] Rx#:[id number] Flagyl 500 MG Inj 100 ML @ 100 100 / 100 mls/hr IV.SIG Q8H [facility] Rx#: [id number] Oral 1800 / 1800 500 / 500 Other: # Voids 3 4 Date of Last Bowel Movement 07/10/18 07/11/18 # Bowel Movements 10 4 Narrative: GENERAL: Well-developed, well-nourished, male in no acute distress SKIN: Warm and dry. CARDIOVASCULAR: Regular rate and rhythm. RESPIRATORY: No accessory muscle use. Clear to auscultation. Breath sounds equal bilaterally. GASTROINTESTINAL: Abdomen obese, soft, non-tender, nondistended. MUSCULOSKELETAL: Extremities without clubbing, cyanosis, or edema. No obvious deformities. NEUROLOGICAL: Awake and alert x4. No obvious cranial nerve deficits. Motor grossly within normal limits. Moving all 4 extremities. Normal speech. PSYCHIATRIC: Appropriate mood and affect; insight and judgment normal. Results - Labs CBC & Chem 7: 07/10/18 06:02 07/11/18 05:45 Laboratory Results - last 24 hr 07/11/18 05:45 Sodium 138 Potassium 3.5 Chloride 109 H Carbon Dioxide 20.0 L Anion Gap 9 BUN 6 L Creatinine 0.78 Estimated GFR Greater than 89 Random Glucose 87 Calcium 6.9 L* Prot Corrected Calcium 8.3 L Magnesium 1.3 L Total Protein 4.5 L Microbiology 07/05/18 19:45 Blood - Peripheral Aerobic Blood Culture - Final No growth in 5 days 07/05/18 19:45 Blood - Peripheral Anaerobic Blood Culture - Final No growth in 5 days 07/05/18 19:40 Blood - Peripheral Aerobic Blood Culture - Final Staphylococcus hominis-hominis 07/05/18 19:40 Blood - Peripheral Anaerobic Blood Culture - Final No growth in 5 days 07/08/18 00:40 Stool Cryptosporidium Antigen - Final Negative - No Cryptosporicium antigen detected In selected cases of patients with a history of immunosuppression or foreign travel, a full ova and parasites examination may be desired. Contact the microbiology lab if full workup is indicated and subit another specimen for testing. 07/08/18 00:40 Stool Giardia Antigen (SANTI) - Final Negative - No Giardia Antigen detected In selected cases of patients with a history of immunosuppression or foreign travel, a full ova and parasites examination may be desired. Contact the microbiology lab if full workup is indicated and subit another specimen for testing. - Imaging Impressions Abdomen/Pelvis CT 07/10/18 00:00 CONCLUSION: 1. Increased ascitic fluid compared to the recent study 5 days ago. 2. Diffuse mural wall thickening and edema throughout the colon consistent with colitis. This is not significantly changed. 3. New small bilateral pleural effusions right greater than left. 4. Multiple stable cystic structures in the liver. - Procedures none Assessment and Plan - Assessment (1) Sepsis Code(s): A41.9 - Sepsis, unspecified organism Status: Resolved (2) Colitis Code(s): K52.9 - Noninfective gastroenteritis and colitis, unspecified Status : Acute (3) NEGRITO (acute kidney injury) Code(s): N17.9 - Acute kidney failure, unspecified Status: Acute (4) Hypocalcemia Code(s): E83.51 - Hypocalcemia Status: Acute (5) Hypokalemia Code(s): E87.6 - Hypokalemia Status: Acute - Plan 68-year-old male with no significant PMH who presents the ER with complaints of abdominal pain in addition to diarrhea. States symptoms have been intermittent for the last 1 mo, however now progressively worse w/ increased episodes of diarrhea Severe sepsis present on admission with tachycardia and leukocytosis HR 99, WBC 27, Bandemia 18%, Lactic Acid 2.3, Source-Colitis. S/p blood cultures, initially was on Zosyn/Flagyl Leukocytosis trending down. Lactic acid 2.2 trended down. -continue to follow cultures, blood culture showed 1 coag negative likely contaminant -Continue with aggressive hydration, inc. IVF to 125/hr -Continue with antibiotics-Flagyl and vancomycin per ID recommendations. -ID following: Recommended consider colonoscopy if patient symptoms not improving -Fever on 07/09/2018 102.2, had been afebrile since then, monitor temp Colitis-CT Abd/Pelvis w/ diffuse colitis, images reviewed, +diarrhea -Stool C. difficile antigen positive, toxin negative DNA positive. Negative for EPID 027 Stools for O&P currently pending -Continue with Flagyl and vancomycin per ID due to diffuse colitis on CT despite having negative C. difficile toxin -Considering patient is symptomatic with significant leukocytosis and findings of colitis, Vanco orally was added to Flagyl regimen continue Lactinex 3 times daily -Increase Questran dose -monitor and Replace electrolytes as needed -We will start on clear liquid diet advance to soft diet as tolerated. -GI following: recommended outpatient colonoscopy after colitis treated and resolves. -Diet decreased back to liquid diet per gastroenterology Concern about possible ulcerative colitis NEGRITO superimposed on chronic kidney disease stage II/hypocalcemia/hypokalemia -creatinine improving, likely due to dehydration and diarrhea and sepsis. -Continue IV fluid hydration - avoid nephrotoxins - Monitor creatinine - Protein corrected calcium improved. -S/P replacement with calcium and potassium, replace as needed -Monitor BMP DVT Prophylaxis: SCD/Teds Code Status: Full code Discussed Condition With: RN and patient and case management Discharge Planning: Once cleared by gastroenterology and infectious disease
--- NOTE | 2018-07-11 14:45 | P.DCO ---
- Diagnosis (1) Colitis Status: Acute (2) NEGRITO (acute kidney injury) Status: Acute (3) Hypocalcemia Status: Acute (4) Hypokalemia Status: Acute - Physical Therapy Order: Evaluate and treat, Improve ambulation, Strength and gait training - Home Health Nursing Order: Nursing assessment with vital signs - Case Management Consult No - Certification I have seen patient Paul Gibson on 07/11/18. My clinical findings support the need for the requested home health care services because: Limited mobility due to disease progression, Medication compliance is questionable, Limited ability to care for self, Impaired cognition/judgement, High risk of falls I certify that my clinical findings support that this patient is homebound because: Impaired cognitive ability/safety, Hx COPD - exertion dyspnea/weakness, Unsteady gait/balance, Need for psychosocial assistance
--- NOTE | 2018-07-11 15:20 | P.PNGI ---
Subjective Interval history: Resting in the bed alert answering simple questions does note that he slipped last night for the first time all night since admission Still having loose stools 6 noted this a.m. loose brown with yellow colored and consistent Physical Exam Vital signs: Vital Signs 07/10/18 16:00 07/11/18 00:00 07/11/18 04:00 Temperature 97.8 F 98.3 F 97.9 F Pulse Rate 88 107 H 102 H Respiratory Rate 18 18 18 Blood Pressure 110/64 102/62 99/58 L Pulse Oximetry 96 94 L 96 07/11/18 08:00 07/11/18 12:00 Temperature 97.9 F 97.6 F Pulse Rate 100 H 95 H Respiratory Rate 17 18 Blood Pressure 113/69 106/73 Pulse Oximetry 100 94 L Intake & Output 07/10/18 07/11/18 07/11/18 18:59 06:59 18:59 Intake Total 2300 / 2300 1600 / 1600 Balance 2300 / 2300 1600 / 1600 Weight 91.4 kg Intake: IV 500 / 500 1100 / 1100 NS Inj 1,000 ML @ 100 mls/hr IV 500 / 500 1000 / 1000 .CONT .Q10H [facility] Rx#:[id number] Flagyl 500 MG Inj 100 ML @ 100 100 / 100 mls/hr IV.SIG Q8H [facility] Rx#: [id number] Oral 1800 / 1800 500 / 500 Other: # Voids 3 4 Date of Last Bowel Movement 07/10/18 07/11/18 # Bowel Movements 10 4 Results - Labs CBC & Chem 7: 07/10/18 06:02 07/11/18 05:45 Laboratory Results - last 24 hr 07/11/18 05:45 Sodium 138 Potassium 3.5 Chloride 109 H Carbon Dioxide 20.0 L Anion Gap 9 BUN 6 L Creatinine 0.78 Estimated GFR Greater than 89 Random Glucose 87 Calcium 6.9 L* Prot Corrected Calcium 8.3 L Magnesium 1.3 L Total Protein 4.5 L - Imaging Impressions Abdomen/Pelvis CT 07/10/18 00:00 CONCLUSION: 1. Increased ascitic fluid compared to the recent study 5 days ago. 2. Diffuse mural wall thickening and edema throughout the colon consistent with colitis. This is not significantly changed. 3. New small bilateral pleural effusions right greater than left. 4. Multiple stable cystic structures in the liver. - Procedures none Assessment and Plan - Plan C. difficile colitis-patient reports 3-week history of diarrhea associated with fecal urgency and incontinence. Denies any hematochezia or melena. Does report some mild abdominal cramping associated with BMs. Denies any nausea, vomiting, abdominal pain. Does report about a 10 pound unintentional weight loss for the past 3 weeks, but has had very poor p.o. intake. Denies any fever or chills Patient denies any sick contacts, recent travel or ingestion of suspicious foods. Patient denies history of C. difficile. Of note, patient was on clindamycin in March for tooth extraction. Has never had EGD or colonoscopy. Denies family history significant for GI issues. CT abdomen/pelvis with IV contrast-> diffuse mural thickening and edema throughout the colon characteristic of a diffuse colitis. There is associated mild ascites. C. Diff positive, epid negative. 07/10/2018 patient states that diarrhea is not improved at all that he continues to have one bowel movement at least every hour and does notice blood in the stool. Seems to have some increased anxiety around his uncontrolled diarrhea and states that he is never been sick or in the hospital in his life. Currently denies any nausea or vomiting but does note poor appetite. Leukocytosis now resolved currently WBC count 7.5 so appears to be responding to p.o. vancomycin and Flagyl. PT/INR 1.4. We will continue to monitor for diarrhea to stabilize and evaluate medications. Cholestyramine dose was increased today to 4 times a day will evaluate over the 24 hours whether this is effective. Patient will need colonoscopy , but needs improvement of symptoms of C. difficile as well as these diarrhea stools Mild coagulopathy PT/INR 1.4 with some mild ascites noted on initial CT. will consider home treatment of his C. difficile once diarrheal stools are trending down. Hepatic cyst seen on CT scan could represent some fatty liver disease or hepatocellular disease. 07/11/2018, patient states very small gradual improvement noted in number of stools. Patient was able to sleep last night without being awakened but does note at least 6 small stools over the a.m.. Denies any abdominal pain no nausea no vomiting No EtOH abuse but does note an occasional beer. No alcohol in the past [address] scan shows continued colitis throughout colon, patient will need colonoscopy when he is medically stable hopefully sometime next week To evaluate further colitis, ischemic, versus ulcerative versus C. difficile Plan: Diet, clear liquids Vancomycin p.o., Flagyl IV, Pepto-Bismol Colonoscopy hopefully around the first of the week when patient is able to prep and stable Monitor labs Document number of diarrhea stools Supportive care Encourage up in chair and some mobility is much as patient can tolerate Patient was seen per myself and Dr. Yanes, note was written on his behalf
[2018-07-12] MEDS: Sod Chloride 0.9% Inj 1,000 ML IV.CONT SCH ×3 (01:37→19:00)
[2018-07-12 05:22] LABS: Baso % (Auto) 0.8 % (0.0-2.0); Eos # (Auto) 0.1 th/mm3 (0.0-0.4); Eos % (Auto) 1.4 % (0.0-4.0); Hematocrit 37.4 % (39.0-51.0); Hemoglobin 12.5 gm/dL (13.0-17.0); Lymph # (Auto) 1.5 th/mm3 (1.0-4.8); Lymph % (Auto) 34.1 % (9.0-44.0); Mean Corpuscular HGB Conc 33.5 % (32.0-36.0); Mean Corpuscular Hemoglobin 33.1 pg (27.0-34.0); Mean Corpuscular Volume 98.9 fL (80.0-100.0); Mean Platelet Volume 6.3 fL (7.0-11.0); Mono # (Auto) 0.5 th/mm3 (0.0-0.9); Mono % (Auto) 10.7 % (0.0-8.0); Neut # (Auto) 2.3 th/mm3 (1.8-7.7); Platelet Count 115 th/mm3 (150-450); Red Blood Count 3.78 mil/mm3 (4.50-5.90); Red Cell Distribution Width 13.1 % (11.6-17.2); White Blood Count 4.3 th/mm3 (4.0-11.0)
[2018-07-12 05:50] LABS: Eosinophils 2 % (0-4); Lymphocytes 13 % (9-44); Monocytes 3 % (0-8); Platelet Morphology Normal (Normal); RBC Morphology Normal (Normal)
[2018-07-12 05:54] LABS: Alanine Aminotransferase 9 U/L (12-78); Albumin 1.3 g/dL (3.4-5.0); Alkaline Phosphatase 35 U/L (45-117); Anion Gap 8 meq/L (5-15); Aspartate Aminotransferase 13 U/L (15-37); Blood Urea Nitrogen 5 mg/dL (7-18); Calcium 6.9 mg/dL (8.5-10.1); Carbon Dioxide 20.9 meq/L (21.0-32.0); Chloride 113 meq/L (98-107); Free T4 (Free Thyroxine) 1.07 ng/dL (0.76-1.46); Glomerular Filtration Rate Greater Than 89 mL/min (>89); Glucose,Random 87 mg/dL (74-106); Magnesium 1.7 mg/dL (1.5-2.5); Phosphorus 2.3 mg/dL (2.5-4.9); Sodium 142 meq/L (136-145); Total Protein 4.3 g/dL (6.4-8.2)
[2018-07-12] MEDS: Bismuth Subsalicylate Susp 240 ML Bottle PO SCH ×4 (09:25→21:19)
[2018-07-12] MEDS: Lactobacillus Acidophilus/L. Spores Tablet PO SCH ×3 (09:26→17:21)
--- NOTE | 2018-07-12 13:39 | P.PNIM ---
Subjective Interval history: This is a 68-year-old male with no significant PMH who presents the ER with complaints of abdominal pain in addition to diarrhea. States symptoms have been intermittent for the last 1mo, however now progressively worse w/ increased episodes of diarrhea today. Pain is generalized, cramping, intermittent, 7/10, non-radiating. Denies fever, chills, sick contacts or recent travel. Today reports approx 20 episodes of loose stool/diarrhea. No recent antibiotic use. On arrival, BP 92/56, HR 99, O2 sat 96% on RA, Afebrile. WBC 27.7, bands 18%. INR 1.4. K+ 3.1. Creatinine 1.75, no previous labs for comparison. Lactic Acid 2.3. Calcium 6.8. Troponin negative. Lipase 48. UA negative for UTI. C. difficile pending. CT Abdomen/ Pelvis diffuse mural thickening and edema throughout the colon consistent with colitis, associated mild ascites. CXR with no acute findings. S/p Zosyn/ Flagyl in ER. 10- Follow up for sepsis, colitis: pt. seen and examined, continues with significant watery stools, approximately 8-9. No abdominal pain. No nausea, no vomiting. States he wants to eat. Feels weak. No chest pain, no shortness of breath. Blood pressure remains low, 90/54, slightly tachycardic, 90s-100s. Febrile, temperature 100.1. 10-23 Patient reports breathing is better. Less loose stools. No abdominal pain. He is feeling better and tolerating his diet. 10-24 Patient still complained of diarrhea however has decreased frequency. Continues to have nausea but tolerating p.o. He has not seen any blood in his stools. He has not had any associated abdominal pain with this. He is feeling better no complaints of fevers or chills. 10-25 Still having multiple bouts of loose stools and frequency has not slowed down. Consistently still having diarrhea. Symptoms are not better. No abdominal pain. Still with nausea tolerating some diet. Does not feel well enough to go home today. 10-26 Follow-up abdominal pain, diarrhea, colitis and [place] I. Patient seen and examined laying in bed, still complained of diarrhea x3 this morning. Patient denies any nausea or vomiting, denies any abdominal pain. Patient denies any fever or chills. Patient denies any headache or dizziness, chest pain or shortness of breath. Patient stated he will be happy if he will not have any more diarrhea. States that he has had diarrhea for a long time now and his tired of it. 07-11 case discussed with gastroenterology. They are backing down on his diet back to clear liquids States he still having diarrhea almost every hour Denies any nausea or vomiting. Abdominal pain at this time denies chills Discussed with patient and RN and gastroenterology 07-12 STILL HAVING DIARR[facility] DW RN AND PT AND GI TO HAVE COLONOSCOPY THIS WEEK CONCERNS FOR INFLAMMATORY BOWEL DISEASE AM LABS Physical Exam Vital signs: Vital Signs 07/11/18 20:00 07/12/18 00:00 07/12/18 04:00 Temperature 97.6 F 98.1 F 97.3 F L Pulse Rate 83 86 89 Respiratory Rate 22 20 20 Blood Pressure 122/72 97/55 L 105/69 Pulse Oximetry 98 97 95 07/12/18 08:00 07/12/18 12:00 Temperature 97.6 F 98.2 F Pulse Rate 99 H 96 H Respiratory Rate 17 17 Blood Pressure 107/73 116/73 Pulse Oximetry 94 L 96 Intake & Output 07/11/18 07/12/18 07/12/18 18:59 06:59 18:59 Intake Total 2079 / 2080 1720 / 1720 1100 / 1100 Balance 2079 / 2080 1720 / 1720 1100 / 1100 Weight 93.3 kg Intake: IV 100 / 100 1400 / 1400 1100 / 1100 NS Inj 1,000 ML @ 100 mls/hr IV 1000 / 1000 1000 / 1000 .CONT .Q10H [facility] Rx#:[id number] Magnesium Sulfate Inj 4 GM In 200 / 200 NS Inj 92 ML @ 25 mls/hr IV.SIG ONCE ONE Rx#:[id number] Flagyl 500 MG Inj 100 ML @ 100 100 / 100 200 / 200 100 / 100 mls/hr IV.SIG Q8H [facility] Rx#: [id number] Oral 1979 / 1979 320 / 320 Other: # Voids 10 4 Date of Last Bowel Movement 07/11/18 07/11/18 # Bowel Movements 10 2 Narrative: GENERAL: Well-developed, well-nourished, male in no acute distress SKIN: Warm and dry. CARDIOVASCULAR: Regular rate and rhythm. RESPIRATORY: No accessory muscle use. Clear to auscultation. Breath sounds equal bilaterally. GASTROINTESTINAL: Abdomen obese, soft, non-tender, nondistended. MUSCULOSKELETAL: Extremities without clubbing, cyanosis, or edema. No obvious deformities. NEUROLOGICAL: Awake and alert x4. No obvious cranial nerve deficits. Motor grossly within normal limits. Moving all 4 extremities. Normal speech. PSYCHIATRIC: Appropriate mood and affect; insight and judgment normal. Results - Labs CBC & Chem 7: 07/12/18 04:27 07/12/18 04:21 Laboratory Results - last 24 hr 07/12/18 07/12/18 04:21 04:27 WBC 4.3 RBC 3.78 L Hgb 12.5 L Hct 37.4 L MCV 98.9 MCH 33.1 MCHC 33.5 RDW 13.1 Plt Count 115 L MPV 6.3 L Prelim Diff (Auto) Slide review pending Neut % (Auto) 53.0 Lymph % (Auto) 34.1 [place] % (Auto) 10.7 H Eos % (Auto) 1.4 Baso % (Auto) 0.8 Neut # (Auto) 2.3 Lymph # (Auto) 1.5 [place] # (Auto) 0.5 Eos # (Auto) 0.1 Baso # (Auto) 0.0 WBC Differential Manual diff final Seg Neuts % (Manual) 76 H Band Neuts % (Manual) 6 Lymphocytes % (Manual) 13 Monocytes % (Manual) 3 Eosinophils % (Manual) 2 Abs Neuts (Manual) 3.5 Differential Comment . Platelet Estimate Low L Platelet Morphology Normal RBC Morphology Normal Sodium 142 Potassium 4.0 Chloride 113 H Carbon Dioxide 20.9 L Anion Gap 8 BUN 5 L Creatinine 0.74 Estimated GFR Greater than 89 Random Glucose 87 Calcium 6.9 L* Prot Corrected Calcium 8.4 L Phosphorus 2.3 L Magnesium 1.7 Total Bilirubin 0.3 AST 13 L ALT 9 L Alkaline Phosphatase 35 L Total Protein 4.3 L Albumin 1.3 L TSH 3.830 H Free T4 1.07 - Imaging ITS Impressions Chest X-Ray 07/05/18 19:10 CONCLUSION: No acute findings. Abdomen/Pelvis CT 07/10/18 00:00 CONCLUSION: 1. Increased ascitic fluid compared to the recent study 5 days ago. 2. Diffuse mural wall thickening and edema throughout the colon consistent with colitis. This is not significantly changed. 3. New small bilateral pleural effusions right greater than left. 4. Multiple stable cystic structures in the liver. Assessment and Plan - Assessment (1) Colitis Code(s): K52.9 - Noninfective gastroenteritis and colitis, unspecified Status : Acute (2) NEGRITO (acute kidney injury) Code(s): N17.9 - Acute kidney failure, unspecified Status: Acute (3) Hypocalcemia Code(s): E83.51 - Hypocalcemia Status: Acute (4) Hypokalemia Code(s): E87.6 - Hypokalemia Status: Acute (5) Sepsis Code(s): A41.9 - Sepsis, unspecified organism Status: Resolved - Plan 68-year-old male with no significant PMH who presents the ER with complaints of abdominal pain in addition to diarrhea. States symptoms have been intermittent for the last 1 mo, however now progressively worse w/ increased episodes of diarrhea Severe sepsis present on admission with tachycardia and leukocytosis HR 99, WBC 27, Bandemia 18%, Lactic Acid 2.3, Source-Colitis. S/p blood cultures, initially was on Zosyn/Flagyl Leukocytosis trending down. Lactic acid 2.2 trended down. -continue to follow cultures, blood culture showed 1 coag negative likely contaminant -Continue with aggressive hydration, inc. IVF to 125/hr -Continue with antibiotics-Flagyl and vancomycin per ID recommendations. -ID following: Recommended consider colonoscopy if patient symptoms not improving -Fever on 07/09/2018 102.2, had been afebrile since then, monitor temp Colitis-CT Abd/Pelvis w/ diffuse colitis, images reviewed, +diarrhea -Stool C. difficile antigen positive, toxin negative DNA positive. Negative for EPID 027 Stools for O&P currently pending -Continue with Flagyl and vancomycin per ID due to diffuse colitis on CT despite having negative C. difficile toxin -Considering patient is symptomatic with significant leukocytosis and findings of colitis, Vanco orally was added to Flagyl regimen continue Lactinex 3 times daily -Increase Questran dose -monitor and Replace electrolytes as needed -We will start on clear liquid diet advance to soft diet as tolerated. -GI following: recommended outpatient colonoscopy after colitis treated and resolves. -Diet decreased back to liquid diet per gastroenterology FOR COLONOSCOPY THIS WEEK WITH GI Concern about possible ulcerative colitis NEGRITO superimposed on chronic kidney disease stage II/hypocalcemia/hypokalemia -creatinine improving, likely due to dehydration and diarrhea and sepsis. -Continue IV fluid hydration - avoid nephrotoxins - Monitor creatinine - Protein corrected calcium improved. -S/P replacement with calcium and potassium, replace as needed -Monitor BMP DVT Prophylaxis: SCD/Teds AM LABS DW RN AND PT AND GI Code Status: FULL CODE Discussed Condition With: RN AND PT AND GI AND CM Discharge Planning: Once cleared by gastroenterology and infectious disease
[2018-07-12] MEDS ORDERED: PEG 3350/E-Lyte Soln 4000 ML Bottle PO ONE (15:00)
--- NOTE | 2018-07-12 15:13 | P.PNGI ---
Subjective Interval history: Patient continues with diarrhea multiple times a day states at least every hour lower abdominal cramping minimal and no other overt abdominal pain, minimal responsiveness to medical management, no obvious nausea or vomiting Physical Exam Vital signs: Vital Signs 07/11/18 20:00 07/12/18 00:00 07/12/18 04:00 Temperature 97.6 F 98.1 F 97.3 F L Pulse Rate 83 86 89 Respiratory Rate 22 20 20 Blood Pressure 122/72 97/55 L 105/69 Pulse Oximetry 98 97 95 07/12/18 08:00 07/12/18 12:00 Temperature 97.6 F 98.2 F Pulse Rate 99 H 96 H Respiratory Rate 17 17 Blood Pressure 107/73 116/73 Pulse Oximetry 94 L 96 Intake & Output 07/11/18 07/12/18 07/12/18 18:59 06:59 18:59 Intake Total 2079 / 2080 1720 / 1720 1100 / 1100 Balance 2080 / 2080 1720 / 1720 1100 / 1100 Weight 93.3 kg Intake: IV 100 / 100 1400 / 1400 1100 / 1100 NS Inj 1,000 ML @ 100 mls/hr IV 1000 / 1000 1000 / 1000 .CONT .Q10H [facility] Rx#:[id number] Magnesium Sulfate Inj 4 GM In 200 / 200 NS Inj 92 ML @ 25 mls/hr IV.SIG ONCE ONE Rx#:[id number] Flagyl 500 MG Inj 100 ML @ 100 100 / 100 200 / 200 100 / 100 mls/hr IV.SIG Q8H [facility] Rx#: [id number] Oral 1979 / 1979 320 / 320 Other: # Voids 10 4 Date of Last Bowel Movement 07/11/18 07/11/18 # Bowel Movements 10 2 - Constitutional mild distress, cachectic, disheveled - Routine HEENT Exam Head: Present: normocephalic ENT: Present: mucous membranes moist - Routine Respiratory Exam Present: accessory muscle use (No shortness of breath) - Routine Abdominal Exam Present: soft (Round, audible bowel sounds, mild distention) Results - Labs CBC & Chem 7: 07/12/18 04:27 07/12/18 04:21 Laboratory Results - last 24 hr 07/12/18 07/12/18 07/12/18 04:21 04:21 04:27 WBC 4.3 RBC 3.78 L Hgb 12.5 L Hct 37.4 L MCV 98.9 MCH 33.1 MCHC 33.5 RDW 13.1 Plt Count 115 L MPV 6.3 L Prelim Diff (Auto) Slide review pending Neut % (Auto) 53.0 Lymph % (Auto) 34.1 [place] % (Auto) 10.7 H Eos % (Auto) 1.4 Baso % (Auto) 0.8 Neut # (Auto) 2.3 Lymph # (Auto) 1.5 [place] # (Auto) 0.5 Eos # (Auto) 0.1 Baso # (Auto) 0.0 WBC Differential Manual diff final Seg Neuts % (Manual) 76 H Band Neuts % (Manual) 6 Lymphocytes % (Manual) 13 Monocytes % (Manual) 3 Eosinophils % (Manual) 2 Abs Neuts (Manual) 3.5 Differential Comment . Platelet Estimate Low L Platelet Morphology Normal RBC Morphology Normal Sodium 142 Potassium 4.0 Chloride 113 H Carbon Dioxide 20.9 L Anion Gap 8 BUN 5 L Creatinine 0.74 Estimated GFR Greater than 89 Random Glucose 87 Hemoglobin A1c 6.0 Calcium 6.9 L* Prot Corrected Calcium 8.4 L Phosphorus 2.3 L Magnesium 1.7 Total Bilirubin 0.3 AST 13 L ALT 9 L Alkaline Phosphatase 35 L Total Protein 4.3 L Albumin 1.3 L TSH 3.830 H Free T4 1.07 Assessment and Plan - Plan C. difficile colitis-patient reports 3-week history of diarrhea associated with fecal urgency and incontinence. Denies any hematochezia or melena. Does report some mild abdominal cramping associated with BMs. Denies any nausea, vomiting, abdominal pain. Does report about a 10 pound unintentional weight loss for the past 3 weeks, but has had very poor p.o. intake. Denies any fever or chills Patient denies any sick contacts, recent travel or ingestion of suspicious foods. Patient denies history of C. difficile. Of note, patient was on clindamycin in March for tooth extraction. Has never had EGD or colonoscopy. Denies family history significant for GI issues. CT abdomen/pelvis with IV contrast-> diffuse mural thickening and edema throughout the colon characteristic of a diffuse colitis. There is associated mild ascites. C. Diff positive, epid negative. 07/10/2018 patient states that diarrhea is not improved at all that he continues to have one bowel movement at least every hour and does notice blood in the stool. Seems to have some increased anxiety around his uncontrolled diarrhea and states that he is never been sick or in the hospital in his life. Currently denies any nausea or vomiting but does note poor appetite. Leukocytosis now resolved currently WBC count 7.5 so appears to be responding to p.o. vancomycin and Flagyl. PT/INR 1.4. We will continue to monitor for diarrhea to stabilize and evaluate medications. Cholestyramine dose was increased today to 4 times a day will evaluate over the 24 hours whether this is effective. Patient will need colonoscopy , but needs improvement of symptoms of C. difficile as well as these diarrhea stools Mild coagulopathy PT/INR 1.4 with some mild ascites noted on initial CT. will consider home treatment of his C. difficile once diarrheal stools are trending down. Hepatic cyst seen on CT scan could represent some fatty liver disease or hepatocellular disease. 07/11/2018, patient states very small gradual improvement noted in number of stools. Patient was able to sleep last night without being awakened but does note at least 6 small stools over the a.m.. Denies any abdominal pain no nausea no vomiting No EtOH abuse but does note an occasional beer. No alcohol in the past [address] scan shows continued colitis throughout colon, patient will need colonoscopy when he is medically stable hopefully sometime next week To evaluate further colitis, ischemic, versus ulcerative versus C. difficile 07/12/2018 current hemoglobin 12.5, WBC count normal. Minimal response to current medications and medical management. Discussed with patient the need for colonoscopy to further evaluate and do colon biopsies. Patient agrees. Was able to get up and take a shower today but will continue IV fluids when patient is resting in the bed Plan: Diet, clear liquids Consent for colonoscopy in a.m. Rachel ruiz to start this p.m. N.p.o. at midnight Continue same meds vancomycin p.o., Flagyl, Pepto-Bismol Monitor labs, intake and output Supportive care Further recommendations to follow Patient was seen per myself and Dr. Medina, note was written on his behalf
[2018-07-13] MEDS: Sod Chloride 0.9% Inj 1,000 ML IV.CONT SCH ×5 (01:12→23:25)
[2018-07-13] MEDS ORDERED: Chlorhexidine Gluconate 2% 1 Pack (2 Cloths) TOPICAL ONE (03:32)
--- NOTE | 2018-07-13 09:35 | P.PNGI ---
Subjective Interval history: Patient still having diarrhea, abdominal discomfort, tolerated prep Physical Exam Vital signs: Vital Signs 07/12/18 12:00 07/12/18 16:00 07/12/18 19:59 Temperature 98.2 F 98.0 F Pulse Rate 96 H 104 H 104 H Respiratory Rate 17 17 Blood Pressure 116/73 118/78 Pulse Oximetry 96 97 07/12/18 20:00 07/13/18 00:00 07/13/18 00:01 Temperature 97.6 F 97.8 F Pulse Rate 105 H 101 H 103 H Respiratory Rate 22 22 Blood Pressure 96/69 L 118/85 Pulse Oximetry 99 96 07/13/18 03:50 Temperature Pulse Rate 96 H Respiratory Rate Blood Pressure Pulse Oximetry Intake & Output 07/12/18 07/13/18 07/13/18 18:59 06:59 18:59 Intake Total 2920 / 2920 480 / 480 Output Total 6 / 6 Balance 2920 / 2920 474 / 474 Weight 96 kg Intake: IV 1820 / 1820 480 / 480 NS Inj 1,000 ML @ 100 mls/hr IV 1620 / 1620 380 / 380 .CONT .Q10H [facility] Rx#:[id number] Flagyl 500 MG Inj 100 ML @ 100 200 / 200 100 / 100 mls/hr IV.SIG Q8H [facility] Rx#: [id number] Oral 1100 / 1100 Output: Urine 6 / 6 Other: # Voids 5 Date of Last Bowel Movement 07/12/18 # Bowel Movements 5 7 - Constitutional no acute distress - Routine HEENT Exam Head: Present: normocephalic, atraumatic Eye: Present: EOMI, PERRL ENT: Present: mucous membranes moist - Routine Neck Exam Present: supple, full ROM - Routine Respiratory Exam Present: decreased breath sounds - Routine Cardiovascular Exam Present: RRR, S1, S2 - Routine Abdominal Exam Present: soft, tenderness, guarding Comments: Positive bowel sounds - Routine Extremities Exam Present: full ROM - Routine Neurological Exam Present: alert, oriented X3 - Detailed Neurological Exam: Coma Scale Verbal Response: Oriented Results - Labs CBC & Chem 7: 07/12/18 04:27 07/12/18 04:21 Laboratory Results - last 24 hr 07/12/18 04:21 Hemoglobin A1c 6.0 Assessment and Plan - Plan C. difficile colitis-patient reports 3-week history of diarrhea associated with fecal urgency and incontinence. Denies any hematochezia or melena. Does report some mild abdominal cramping associated with BMs. Denies any nausea, vomiting, abdominal pain. Does report about a 10 pound unintentional weight loss for the past 3 weeks, but has had very poor p.o. intake. Denies any fever or chills Patient denies any sick contacts, recent travel or ingestion of suspicious foods. Patient denies history of C. difficile. Of note, patient was on clindamycin in March for tooth extraction. Has never had EGD or colonoscopy. Denies family history significant for GI issues. CT abdomen/pelvis with IV contrast-> diffuse mural thickening and edema throughout the colon characteristic of a diffuse colitis. There is associated mild ascites. C. Diff positive, epid negative. 07/10/2018 patient states that diarrhea is not improved at all that he continues to have one bowel movement at least every hour and does notice blood in the stool. Seems to have some increased anxiety around his uncontrolled diarrhea and states that he is never been sick or in the hospital in his life. Currently denies any nausea or vomiting but does note poor appetite. Leukocytosis now resolved currently WBC count 7.5 so appears to be responding to p.o. vancomycin and Flagyl. PT/INR 1.4. We will continue to monitor for diarrhea to stabilize and evaluate medications. Cholestyramine dose was increased today to 4 times a day will evaluate over the 24 hours whether this is effective. Patient will need colonoscopy , but needs improvement of symptoms of C. difficile as well as these diarrhea stools Mild coagulopathy PT/INR 1.4 with some mild ascites noted on initial CT. will consider home treatment of his C. difficile once diarrheal stools are trending down. Hepatic cyst seen on CT scan could represent some fatty liver disease or hepatocellular disease. 07/11/2018, patient states very small gradual improvement noted in number of stools. Patient was able to sleep last night without being awakened but does note at least 6 small stools over the a.m.. Denies any abdominal pain no nausea no vomiting No EtOH abuse but does note an occasional beer. No alcohol in the past [address] scan shows continued colitis throughout colon, patient will need colonoscopy when he is medically stable hopefully sometime next week To evaluate further colitis, ischemic, versus ulcerative versus C. difficile 07/12/2018 current hemoglobin 12.5, WBC count normal. Minimal response to current medications and medical management. Discussed with patient the need for colonoscopy to further evaluate and do colon biopsies. Patient agrees. Was able to get up and take a shower today but will continue IV fluids when patient is resting in the bed 07/13/2018 patient still having diarrhea, still having abdominal cramping, he had colonoscopy today which shows severe diffuse colitis consistent with C. difficile, patient is having abdominal discomfort Plan: Diet, full liquids We will add Dificid because with a severe colitis and continue to have diarrhea after 4 days of treatment I do not think the vancomycin is working properly, will DC Flagyl but will continue vancomycin Supportive care Further recommendations to follow
--- NOTE | 2018-07-13 09:37 | P.PCN ---
Date of procedure: 07/13/18 Procedure: THANK YOU FOR THE REFERRAL Indication; severe diarrhea, despite treatment for C. difficile Procedure Performed; Colonoscopy with biopsy After informing the patient about procedure and possible complications consent was signed. history and physical were updated. Patient was taken to the procedure room and placed in position. Time out was completed. Adequate sedation was performed by anesthesia provider. Colonoscopy, rectal exam was performed the scope was placed in the rectum advanced under video guide to the cecum which was identifed by ileo-cecal valve and appendiceal orifice, then the scope withdrawal slowly with examination of the mucosa to the rectum and retro-flexion was performed, the scope was withdrawal without any immediate complication Findings; Colon severe colitis throughout the colon typical for C. difficile, very inflamed and congested mucosa biopsy was done from the sigmoid Rectum changes consistent with C. difficile Recommendations; 1- Supportive care 2- ok to transfer to recovery area then discharge per protocol 3- colonoscopy in 3 years 4-full liquid diet 5-Hemoccult on a yearly basis by primary care physician 6-we will add Dificid since the patient does not seem to be responding well to Vanco and Flagyl, will stop the Flagyl
[2018-07-13 09:42] LABS: Baso # (Auto) 0.1 th/mm3 (0.0-0.2); Baso % (Auto) 1.4 % (0.0-2.0); Eos # (Auto) 0.1 th/mm3 (0.0-0.4); Eos % (Auto) 1.5 % (0.0-4.0); Hemoglobin 12.9 gm/dL (13.0-17.0); Lymph # (Auto) 1.8 th/mm3 (1.0-4.8); Mean Corpuscular HGB Conc 34.9 % (32.0-36.0); Mean Corpuscular Hemoglobin 33.4 pg (27.0-34.0); Mean Corpuscular Volume 95.9 fL (80.0-100.0); Mean Platelet Volume 6.4 fL (7.0-11.0); Mono # (Auto) 0.4 th/mm3 (0.0-0.9); Mono % (Auto) 11.1 % (0.0-8.0); Neut # (Auto) 1.4 th/mm3 (1.8-7.7); Platelet Count 141 th/mm3 (150-450); Red Blood Count 3.86 mil/mm3 (4.50-5.90); Red Cell Distribution Width 13.1 % (11.6-17.2); White Blood Count 3.8 th/mm3 (4.0-11.0)
[2018-07-13 10:35] LABS: Albumin 1.4 g/dL (3.4-5.0); Calcium 6.9 mg/dL (8.5-10.1); Carbon Dioxide 20.5 meq/L (21.0-32.0); Magnesium 1.4 mg/dL (1.5-2.5); Phosphorus 2.4 mg/dL (2.5-4.9); Total Protein 4.4 g/dL (6.4-8.2)
[2018-07-13 10:38] LABS: Platelet Morphology Normal (Normal); Toxic Granulation 1+
--- NOTE | 2018-07-13 13:57 | P.PNID ---
Subjective Remarks: Patient continues to have multiple bouts of loose stools. Says the stool frequency is the same. GI procedure performed. Severe colitis noted. Denies abdominal pain. No fever. Denies sweats or chills. 68-year-old white male who was admitted to the hospital on 07/07/2018 because of abdominal pain. The patient was complaining of weakness and abdominal pain. He reports having diarrhea over the past 3 weeks. He states to me that he has up to 10 stools a day and that he was taking Imodium and other antidiarrheal medicines, but it was not helping and he continues to have frequent diarrhea. The workup included blood cultures which were drawn on 07/05/2018 and 09/18 bottles are Staph coagulase negative. The patient's white count was up to 27.7 on admission and now is down to 11.2. He is afebrile. He had maximum temperature of 100.1 degrees yesterday. CAT scan of the abdomen on 07/05/2018 showed diffuse mural thickening and edema throughout the colon characteristic of a diffuse colitis. Stool sent for C. difficile testing shows positive C. difficile antigen and C. difficile DNA amplification. C. difficile toxin is negative. The patient also had acute renal insufficiency with estimated GFR of 39 on 07/05/2018. Allergies/Adverse Reactions: Allergies No Known Allergies Allergy (Verified 07/05/18 18:59) Objective Vital Signs 07/12/18 16:00 07/12/18 19:59 07/12/18 20:00 Temperature 98.0 F 97.6 F Pulse Rate 104 H 104 H 105 H Respiratory Rate 17 22 Blood Pressure 118/78 96/69 L Pulse Oximetry 97 99 07/13/18 00:00 07/13/18 00:01 07/13/18 03:50 Temperature 97.8 F Pulse Rate 101 H 103 H 96 H Respiratory Rate 22 Blood Pressure 118/85 Pulse Oximetry 96 07/13/18 08:00 Temperature 97.7 F Pulse Rate 100 H Respiratory Rate 20 Blood Pressure 109/69 Pulse Oximetry 96 Intake & Output 07/12/18 07/13/18 07/13/18 18:59 06:59 18:59 Intake Total 2920 / 2920 480 / 480 100 / 100 Output Total 6 / 6 Balance 2920 / 2920 474 / 474 100 / 100 Weight 96 kg Intake: IV 1820 / 1820 480 / 480 NS Inj 1,000 ML @ 100 mls/hr IV 1620 / 1620 380 / 380 .CONT .Q10H [facility] Rx#:[id number] Flagyl 500 MG Inj 100 ML @ 100 200 / 200 100 / 100 mls/hr IV.SIG Q8H [facility] Rx#: [id number] Oral 1100 / 1100 Anesthesia Amount 100 / 100 Output: Urine 6 / 6 Other: # Voids 5 Date of Last Bowel Movement 07/12/18 # Bowel Movements 5 7 07/05/18 19:45 Blood - Peripheral Aerobic Blood Culture - Final No growth in 5 days 07/05/18 19:45 Blood - Peripheral Anaerobic Blood Culture - Final No growth in 5 days 07/05/18 19:40 Blood - Peripheral Aerobic Blood Culture - Final Staphylococcus hominis-hominis 07/05/18 19:40 Blood - Peripheral Anaerobic Blood Culture - Final No growth in 5 days Lab - Hematology Results 07/12/18 07/13/18 04:27 07:29 WBC 4.3 3.8 L RBC 3.78 L 3.86 L Hgb 12.5 L 12.9 L Hct 37.4 L 37.0 L MCV 98.9 95.9 MCH 33.1 33.4 MCHC 33.5 34.9 RDW 13.1 13.1 Plt Count 115 L 141 L MPV 6.3 L 6.4 L Prelim Diff (Auto) Slide review pending Slide review pending Neut % (Auto) 53.0 38.0 Lymph % (Auto) 34.1 48.0 H [place] % (Auto) 10.7 H 11.1 H Eos % (Auto) 1.4 1.5 Baso % (Auto) 0.8 1.4 Neut # (Auto) 2.3 1.4 L Lymph # (Auto) 1.5 1.8 [place] # (Auto) 0.5 0.4 Eos # (Auto) 0.1 0.1 Baso # (Auto) 0.0 0.1 WBC Differential Manual diff final . Diff Scan Auto diff confirmed Seg Neuts % (Manual) 76 H Band Neuts % (Manual) 6 Lymphocytes % (Manual) 13 Monocytes % (Manual) 3 Eosinophils % (Manual) 2 Abs Neuts (Manual) 3.5 Differential Comment . . Toxic Granulation 1+ H Platelet Estimate Low L Low L Platelet Morphology Normal Normal RBC Morphology Normal Lab - Chemistry Results 07/12/18 07/12/18 07/13/18 04:21 04:21 07:29 Sodium 142 143 Potassium 4.0 4.0 Chloride 113 H 112 H Carbon Dioxide 20.9 L 20.5 L Anion Gap 8 11 BUN 5 L 5 L Creatinine 0.74 0.85 Estimated GFR Greater than 89 89 Random Glucose 87 77 Hemoglobin A1c 6.0 Calcium 6.9 L* 6.9 L* Prot Corrected Calcium 8.4 L 8.4 L Phosphorus 2.3 L 2.4 L Magnesium 1.7 1.4 L Total Bilirubin 0.3 0.4 AST 13 L 14 L ALT 9 L 10 L Alkaline Phosphatase 35 L 37 L Total Protein 4.3 L 4.4 L Albumin 1.3 L 1.4 L TSH 3.830 H Free T4 1.07 Imaging: ITS Impressions Chest X-Ray 07/05/18 19:10 CONCLUSION: No acute findings. Abdomen/Pelvis CT 07/10/18 00:00 CONCLUSION: 1. Increased ascitic fluid compared to the recent study 5 days ago. 2. Diffuse mural wall thickening and edema throughout the colon consistent with colitis. This is not significantly changed. 3. New small bilateral pleural effusions right greater than left. 4. Multiple stable cystic structures in the liver. Physical Exam: PHYSICAL EXAMINATION: GENERAL: No acute distress. HEENT: No icterus. Oropharynx moist; no focal lesions. NECK: Supple without adenopathy. LUNGS: Clear breath sounds HEART: Regular rate and rhythm. No murmurs, rubs or gallops. ABDOMEN: Bowel sounds present. Soft, nontender. EXTREMITIES: No clubbing, cyanosis or edema. SKIN: No rash. NEUROLOGIC: Nonfocal. PSYCHIATRIC: Calm and cooperative. Assessment and Plan - Plan IMPRESSION: 1. Severe colitis, persistent diarrhea, along with leukocytosis and positive Clostridium difficile antigen, along with colitis on CT scan. Diarrhea not improving. 2. Positive blood culture due to Staphylococcus coagulase negative in 1/4 bottles. I think this is likely contamination and not due to sepsis. 3. Leukocytosis secondary to colitis. White blood cell count improved. RECOMMENDATIONS: 1. Continue Dificid 2. Continue vancomycin to 500 mg p.o. 4 times daily. 3. Monitor stools. 4. Monitor response to treatment.
--- NOTE | 2018-07-13 14:02 | P.PNIM ---
Subjective Interval history: This is a 68-year-old male with no significant PMH who presents the ER with complaints of abdominal pain in addition to diarrhea. States symptoms have been intermittent for the last 1mo, however now progressively worse w/ increased episodes of diarrhea today. Pain is generalized, cramping, intermittent, 7/10, non-radiating. Denies fever, chills, sick contacts or recent travel. Today reports approx 20 episodes of loose stool/diarrhea. No recent antibiotic use. On arrival, BP 92/56, HR 99, O2 sat 96% on RA, Afebrile. WBC 27.7, bands 18%. INR 1.4. K+ 3.1. Creatinine 1.75, no previous labs for comparison. Lactic Acid 2.3. Calcium 6.8. Troponin negative. Lipase 48. UA negative for UTI. C. difficile pending. CT Abdomen/ Pelvis diffuse mural thickening and edema throughout the colon consistent with colitis, associated mild ascites. CXR with no acute findings. S/p Zosyn/ Flagyl in ER. 10- Follow up for sepsis, colitis: pt. seen and examined, continues with significant watery stools, approximately 8-9. No abdominal pain. No nausea, no vomiting. States he wants to eat. Feels weak. No chest pain, no shortness of breath. Blood pressure remains low, 90/54, slightly tachycardic, 90s-100s. Febrile, temperature 100.1. 10-23 Patient reports breathing is better. Less loose stools. No abdominal pain. He is feeling better and tolerating his diet. 10-24 Patient still complained of diarrhea however has decreased frequency. Continues to have nausea but tolerating p.o. He has not seen any blood in his stools. He has not had any associated abdominal pain with this. He is feeling better no complaints of fevers or chills. 10-25 Still having multiple bouts of loose stools and frequency has not slowed down. Consistently still having diarrhea. Symptoms are not better. No abdominal pain. Still with nausea tolerating some diet. Does not feel well enough to go home today. 10-26 Follow-up abdominal pain, diarrhea, colitis and [place] I. Patient seen and examined laying in bed, still complained of diarrhea x3 this morning. Patient denies any nausea or vomiting, denies any abdominal pain. Patient denies any fever or chills. Patient denies any headache or dizziness, chest pain or shortness of breath. Patient stated he will be happy if he will not have any more diarrhea. States that he has had diarrhea for a long time now and his tired of it. 07-11 case discussed with gastroenterology. They are backing down on his diet back to clear liquids States he still having diarrhea almost every hour Denies any nausea or vomiting. Abdominal pain at this time denies chills Discussed with patient and RN and gastroenterology 07-12 STILL HAVING DIARRHEA DW RN AND PT AND GI TO HAVE COLONOSCOPY THIS WEEK CONCERNS FOR INFLAMMATORY BOWEL DISEASE AM LABS 07-13 COLONOSCOPY SHOWED SEVERE C.DIFFICILE COLITIS- STARTED ON DIFICID AND CONTINUED ON VANCO PER GI FLAGYL STOPPED AM LABS DW RN AND ID AND CM AND PATIENT Physical Exam Vital signs: Vital Signs 07/12/18 16:00 07/12/18 19:59 07/12/18 20:00 Temperature 98.0 F 97.6 F Pulse Rate 104 H 104 H 105 H Respiratory Rate 17 22 Blood Pressure 118/78 96/69 L Pulse Oximetry 97 99 07/13/18 00:00 07/13/18 00:01 07/13/18 03:50 Temperature 97.8 F Pulse Rate 101 H 103 H 96 H Respiratory Rate 22 Blood Pressure 118/85 Pulse Oximetry 96 07/13/18 08:00 Temperature 97.7 F Pulse Rate 100 H Respiratory Rate 20 Blood Pressure 109/69 Pulse Oximetry 96 Intake & Output 07/12/18 07/13/18 07/13/18 18:59 06:59 18:59 Intake Total 2920 / 2920 480 / 480 100 / 100 Output Total 6 / 6 Balance 2920 / 2920 474 / 474 100 / 100 Weight 96 kg Intake: IV 1820 / 1820 480 / 480 NS Inj 1,000 ML @ 100 mls/hr IV 1620 / 1620 380 / 380 .CONT .Q10H [facility] Rx#:[id number] Flagyl 500 MG Inj 100 ML @ 100 200 / 200 100 / 100 mls/hr IV.SIG Q8H [facility] Rx#: [id number] Oral 1100 / 1100 Anesthesia Amount 100 / 100 Output: Urine 6 / 6 Other: # Voids 5 Date of Last Bowel Movement 07/12/18 # Bowel Movements 5 7 Narrative: GENERAL: Well-developed, well-nourished, male in no acute distress SKIN: Warm and dry. CARDIOVASCULAR: Regular rate and rhythm. RESPIRATORY: No accessory muscle use. Clear to auscultation. Breath sounds equal bilaterally. GASTROINTESTINAL: Abdomen obese, soft, non-tender, nondistended. MUSCULOSKELETAL: Extremities without clubbing, cyanosis, or edema. No obvious deformities. NEUROLOGICAL: Awake and alert x4. No obvious cranial nerve deficits. Motor grossly within normal limits. Moving all 4 extremities. Normal speech. PSYCHIATRIC: Appropriate mood and affect; insight and judgment normal. Results - Labs CBC & Chem 7: 07/13/18 07:29 07/13/18 07:29 Laboratory Results - last 24 hr 07/12/18 07/13/18 07/13/18 04:21 07: 07:29 WBC 3.8 L RBC 3.86 L Hgb 12.9 L Hct 37.0 L MCV 95.9 MCH 33.4 MCHC 34.9 RDW 13.1 Plt Count 141 L MPV 6.4 L Prelim Diff (Auto) Slide review pending Neut % (Auto) 38.0 Lymph % (Auto) 48.0 H [place] % (Auto) 11.1 H Eos % (Auto) 1.5 Baso % (Auto) 1.4 Neut # (Auto) 1.4 L Lymph # (Auto) 1.8 [place] # (Auto) 0.4 Eos # (Auto) 0.1 Baso # (Auto) 0.1 WBC Differential . Diff Scan Auto diff confirmed Differential Comment . Toxic Granulation 1+ H Platelet Estimate Low L Platelet Morphology Normal Sodium 143 Potassium 4.0 Chloride 112 H Carbon Dioxide 20.5 L Anion Gap 11 BUN 5 L Creatinine 0.85 Estimated GFR 89 Random Glucose 77 Hemoglobin A1c 6.0 Calcium 6.9 L* Prot Corrected Calcium 8.4 L Phosphorus 2.4 L Magnesium 1.4 L Total Bilirubin 0.4 AST 14 L ALT 10 L Alkaline Phosphatase 37 L Total Protein 4.4 L Albumin 1.4 L - Imaging ITS Impressions Chest X-Ray 07/05/18 19:10 CONCLUSION: No acute findings. Abdomen/Pelvis CT 07/10/18 00:00 CONCLUSION: 1. Increased ascitic fluid compared to the recent study 5 days ago. 2. Diffuse mural wall thickening and edema throughout the colon consistent with colitis. This is not significantly changed. 3. New small bilateral pleural effusions right greater than left. 4. Multiple stable cystic structures in the liver. - Procedures Date of procedure: 07/13/18 Procedure: THANK YOU FOR THE REFERRAL Indication; severe diarrhea, despite treatment for C. difficile Procedure Performed; Colonoscopy with biopsy After informing the patient about procedure and possible complications consent was signed. history and physical were updated. Patient was taken to the procedure room and placed in position. Time out was completed. Adequate sedation was performed by anesthesia provider. Colonoscopy, rectal exam was performed the scope was placed in the rectum advanced under video guide to the cecum which was identifed by ileo-cecal valve and appendiceal orifice, then the scope withdrawal slowly with examination of the mucosa to the rectum and retro-flexion was performed, the scope was withdrawal without any immediate complication Findings; Colon severe colitis throughout the colon typical for C. difficile, very inflamed and congested mucosa biopsy was done from the sigmoid Rectum changes consistent with C. difficile Recommendations; 1- Supportive care 2- ok to transfer to recovery area then discharge per protocol 3- colonoscopy in 3 years 4-full liquid diet 5-Hemoccult on a yearly basis by primary care physician 6-we will add Dificid since the patient does not seem to be responding well to Vanco and Flagyl, will stop the Flagyl Documented By: Hadley Yanes MD Assessment and Plan - Assessment (1) Colitis Code(s): K52.9 - Noninfective gastroenteritis and colitis, unspecified Status : Acute (2) NEGRITO (acute kidney injury) Code(s): N17.9 - Acute kidney failure, unspecified Status: Acute (3) Hypocalcemia Code(s): E83.51 - Hypocalcemia Status: Acute (4) Hypokalemia Code(s): E87.6 - Hypokalemia Status: Acute (5) Sepsis Code(s): A41.9 - Sepsis, unspecified organism Status: Resolved - Plan 68-year-old male with no significant PMH who presents the ER with complaints of abdominal pain in addition to diarrhea. States symptoms have been intermittent for the last 1 mo, however now progressively worse w/ increased episodes of diarrhea Severe sepsis present on admission with tachycardia and leukocytosis HR 99, WBC 27, Bandemia 18%, Lactic Acid 2.3, Source-Colitis. S/p blood cultures, initially was on Zosyn/Flagyl Leukocytosis trending down. Lactic acid 2.2 trended down. -continue to follow cultures, blood culture showed 1 coag negative likely contaminant -Continue with aggressive hydration, inc. IVF to 125/hr -Continue with antibiotics-Flagyl and vancomycin per ID recommendations. -ID following: Recommended consider colonoscopy if patient symptoms not improving -Fever on 07/09/2018 102.2, had been afebrile since then, monitor temp Colitis-CT Abd/Pelvis w/ diffuse colitis, images reviewed, +diarrhea -Stool C. difficile antigen positive, toxin negative DNA positive. Negative for EPID 027 Stools for O&P currently pending -Continue with Flagyl and vancomycin per ID due to diffuse colitis on CT despite having negative C. difficile toxin -Considering patient is symptomatic with significant leukocytosis and findings of colitis, Vanco orally was added to Flagyl regimen continue Lactinex 3 times daily -Increase Questran dose -monitor and Replace electrolytes as needed -We will start on clear liquid diet advance to soft diet as tolerated. -GI following: recommended outpatient colonoscopy after colitis treated and resolves. -Diet decreased back to liquid diet per gastroenterology SEVERE C.DIFFICILE COLITIS PER GI ON COLONOSCOPY-START DIFICID AND CONTINUE VANCO ORALLY HAD COLONOSCOPY 07-13 SEVERE C. DIFFICILE COLITIS Concern about possible ulcerative colitis--RULED OUT NEGRITO superimposed on chronic kidney disease stage II/hypocalcemia/hypokalemia -creatinine improving, likely due to dehydration and diarrhea and sepsis. -Continue IV fluid hydration - avoid nephrotoxins - Monitor creatinine - Protein corrected calcium improved. -S/P replacement with calcium and potassium, replace as needed -Monitor BMP DVT Prophylaxis: SCD/Teds AM LABS DW RN AND PT AND GI Code Status: FULL CODE Discussed Condition With: RN AND PT AND CM AND GI AND ID Discharge Planning: Once cleared by gastroenterology and infectious disease
[2018-07-13] MEDS: Bismuth Subsalicylate Susp 240 ML Bottle PO SCH ×4 (14:07→22:36)
[2018-07-13] MEDS: Lactobacillus Acidophilus/L. Spores Tablet PO SCH ×3 (14:08→19:49)
[2018-07-14 07:23] LABS: Baso # (Auto) 0.1 th/mm3 (0.0-0.2); Baso % (Auto) 1.3 % (0.0-2.0); Eos # (Auto) 0.1 th/mm3 (0.0-0.4); Hematocrit 38.5 % (39.0-51.0); Hemoglobin 13.3 gm/dL (13.0-17.0); Lymph % (Auto) 39.1 % (9.0-44.0); Mean Corpuscular HGB Conc 34.7 % (32.0-36.0); Mean Corpuscular Hemoglobin 33.9 pg (27.0-34.0); Mean Corpuscular Volume 97.7 fL (80.0-100.0); Mean Platelet Volume 6.3 fL (7.0-11.0); Mono # (Auto) 0.5 th/mm3 (0.0-0.9); Mono % (Auto) 8.8 % (0.0-8.0); Neut # (Auto) 2.6 th/mm3 (1.8-7.7); Neut % (Auto) 49.8 % (16.0-70.0); Platelet Count 149 th/mm3 (150-450); Red Blood Count 3.94 mil/mm3 (4.50-5.90); Red Cell Distribution Width 13.2 % (11.6-17.2); White Blood Count 5.2 th/mm3 (4.0-11.0)
[2018-07-14 07:48] LABS: Albumin 1.5 g/dL (3.4-5.0); Anion Gap 10 meq/L (5-15); Aspartate Aminotransferase 19 U/L (15-37); Blood Urea Nitrogen 4 mg/dL (7-18); Carbon Dioxide 19.6 meq/L (21.0-32.0); Chloride 112 meq/L (98-107); Glomerular Filtration Rate Greater Than 89 mL/min (>89); Glucose,Random 72 mg/dL (74-106); Magnesium 1.3 mg/dL (1.5-2.5); Potassium 3.9 meq/L (3.5-5.1); Sodium 142 meq/L (136-145)
[2018-07-14 07:49] LABS: Alanine Aminotransferase 11 U/L (12-78); Alkaline Phosphatase 42 U/L (45-117); Phosphorus 2.7 mg/dL (2.5-4.9); Total Protein 4.6 g/dL (6.4-8.2)
[2018-07-14 08:14] LABS: Platelet Morphology Normal (Normal); Toxic Granulation 1+
[2018-07-14] MEDS: Sod Chloride 0.9% Inj 1,000 ML IV.CONT SCH ×3 (08:31→20:02)
[2018-07-14] MEDS: Bismuth Subsalicylate Susp 240 ML Bottle PO SCH ×4 (08:33→20:06)
[2018-07-14] MEDS: Lactobacillus Acidophilus/L. Spores Tablet PO SCH ×3 (08:33→17:54)
--- NOTE | 2018-07-14 12:43 | P.PNGI ---
Subjective Interval history: Patient laying supine in bed, reports generalized weakness but less frequency loose stools and denies abdominal pain <Cynthia Calles - Last Filed: 07/14/18 12:44> Physical Exam Vital signs: Vital Signs 07/13/18 20:00 07/14/18 00:00 07/14/18 08:00 Temperature 97.9 F 97.9 F 98.1 F Pulse Rate 101 H 105 H 99 H Respiratory Rate 18 18 14 Blood Pressure 118/70 127/74 114/75 Pulse Oximetry 100 96 97 07/14/18 11:51 Temperature 98.2 F Pulse Rate 95 H Respiratory Rate 14 Blood Pressure 102/58 L Pulse Oximetry 97 Intake & Output 07/13/18 07/14/18 07/14/18 18:59 06:59 18:59 Intake Total 1100 / 1100 1000 / 1000 1999 Balance 1100 / 1100 1000 / 1000 1999 Weight 95.3 kg Intake: IV 1000 / 1000 1000 / 1000 1999 NS Inj 1,000 ML @ 100 mls/hr IV 1000 / 1000 1000 / 1000 1999 .CONT .Q10H [facility] Rx#:[id number] Anesthesia Amount 100 / 100 Other: # Voids 2 Date of Last Bowel Movement 07/13/18 07/13/18 # Bowel Movements 1 - Constitutional no acute distress - Routine HEENT Exam Head: Present: normocephalic - Routine Respiratory Exam Present: CTA bilaterally. Absent: accessory muscle use - Routine Abdominal Exam Present: soft, normoactive bowel sounds. Absent: tenderness, guarding, firm - Routine Extremities Exam Present: edema - Routine Skin Exam Present: dry, warm - Routine Neurological Exam Present: alert - Routine Psychiatric Exam Present: normal affect, cooperative <Cynthia Calles - Last Filed: 07/14/18 12:44> Vital signs: Vital Signs 07/13/18 20:00 07/14/18 00:00 07/14/18 08:00 Temperature 97.9 F 97.9 F 98.1 F Pulse Rate 101 H 105 H 99 H Respiratory Rate 18 18 14 Blood Pressure 118/70 127/74 114/75 Pulse Oximetry 100 96 97 07/14/18 11:51 07/14/18 16:00 Temperature 98.2 F 97.7 F Pulse Rate 95 H 106 H Respiratory Rate 14 18 Blood Pressure 102/58 L 122/74 Pulse Oximetry 97 94 L Intake & Output 07/13/18 07/14/18 07/14/18 18:59 06:59 18:59 Intake Total 1100 / 1100 1000 / 1000 1999 Balance 1100 / 1100 1000 / 1000 1999 Weight 95.3 kg Intake: IV 1000 / 1000 1000 / 1000 1999 NS Inj 1,000 ML @ 100 mls/hr IV 1000 / 1000 1000 / 1000 1999 .CONT .Q10H [facility] Rx#:[id number] Anesthesia Amount 100 / 100 Other: # Voids 2 Date of Last Bowel Movement 07/13/18 07/13/18 # Bowel Movements 1 <Hadley Yanes - Last Filed: 07/14/18 16:57> Results - Labs CBC & Chem 7: 07/14/18 06:02 07/14/18 06:02 Laboratory Results - last 24 hr 07/14/18 07/14/18 06:02 06:02 WBC 5.2 RBC 3.94 L Hgb 13.3 Hct 38.5 L MCV 97.7 MCH 33.9 MCHC 34.7 RDW 13.2 Plt Count 149 L MPV 6.3 L Prelim Diff (Auto) Slide review pending Neut % (Auto) 49.8 Lymph % (Auto) 39.1 [place] % (Auto) 8.8 H Eos % (Auto) 1.0 Baso % (Auto) 1.3 Neut # (Auto) 2.6 Lymph # (Auto) 2.0 [place] # (Auto) 0.5 Eos # (Auto) 0.1 Baso # (Auto) 0.1 WBC Differential . Diff Scan Auto diff confirmed Differential Comment . Toxic Granulation 1+ H Platelet Estimate Low L Platelet Morphology Normal Sodium 142 Potassium 3.9 Chloride 112 H Carbon Dioxide 19.6 L Anion Gap 10 BUN 4 L Creatinine 0.82 Estimated GFR Greater than 89 Random Glucose 72 L Calcium 7.0 L* Prot Corrected Calcium 8.4 L Phosphorus 2.7 Magnesium 1.3 L Total Bilirubin 0.4 AST 19 ALT 11 L Alkaline Phosphatase 42 L Total Protein 4.6 L Albumin 1.5 L - Procedures Date of procedure: 07/13/18 Procedure: THANK YOU FOR THE REFERRAL Indication; severe diarrhea, despite treatment for C. difficile Procedure Performed; Colonoscopy with biopsy After informing the patient about procedure and possible complications consent was signed. history and physical were updated. Patient was taken to the procedure room and placed in position. Time out was completed. Adequate sedation was performed by anesthesia provider. Colonoscopy, rectal exam was performed the scope was placed in the rectum advanced under video guide to the cecum which was identifed by ileo-cecal valve and appendiceal orifice, then the scope withdrawal slowly with examination of the mucosa to the rectum and retro-flexion was performed, the scope was withdrawal without any immediate complication Findings; Colon severe colitis throughout the colon typical for C. difficile, very inflamed and congested mucosa biopsy was done from the sigmoid Rectum changes consistent with C. difficile Recommendations; 1- Supportive care 2- ok to transfer to recovery area then discharge per protocol 3- colonoscopy in 3 years 4-full liquid diet 5-Hemoccult on a yearly basis by primary care physician 6-we will add Dificid since the patient does not seem to be responding well to Vanco and Flagyl, will stop the Flagyl Documented By: Hadley Yanes MD <Cynthia Calles - Last Filed: 07/14/18 12:44> - Labs CBC & Chem 7: 07/14/18 06:02 07/14/18 06:02 Laboratory Results - last 24 hr 07/14/18 07/14/18 06:02 06:02 WBC 5.2 RBC 3.94 L Hgb 13.3 Hct 38.5 L MCV 97.7 MCH 33.9 MCHC 34.7 RDW 13.2 Plt Count 149 L MPV 6.3 L Prelim Diff (Auto) Slide review pending Neut % (Auto) 49.8 Lymph % (Auto) 39.1 [place] % (Auto) 8.8 H Eos % (Auto) 1.0 Baso % (Auto) 1.3 Neut # (Auto) 2.6 Lymph # (Auto) 2.0 [place] # (Auto) 0.5 Eos # (Auto) 0.1 Baso # (Auto) 0.1 WBC Differential . Diff Scan Auto diff confirmed Differential Comment . Toxic Granulation 1+ H Platelet Estimate Low L Platelet Morphology Normal Sodium 142 Potassium 3.9 Chloride 112 H Carbon Dioxide 19.6 L Anion Gap 10 BUN 4 L Creatinine 0.82 Estimated GFR Greater than 89 Random Glucose 72 L Calcium 7.0 L* Prot Corrected Calcium 8.4 L Phosphorus 2.7 Magnesium 1.3 L Total Bilirubin 0.4 AST 19 ALT 11 L Alkaline Phosphatase 42 L Total Protein 4.6 L Albumin 1.5 L <Hadley Yanes - Last Filed: 07/14/18 16:57> Assessment and Plan - Plan C. difficile colitis-patient reports 3-week history of diarrhea associated with fecal urgency and incontinence. Denies any hematochezia or melena. Does report some mild abdominal cramping associated with BMs. Denies any nausea, vomiting, abdominal pain. Does report about a 10 pound unintentional weight loss for the past 3 weeks, but has had very poor p.o. intake. Denies any fever or chills Patient denies any sick contacts, recent travel or ingestion of suspicious foods. Patient denies history of C. difficile. Of note, patient was on clindamycin in March for tooth extraction. Has never had EGD or colonoscopy. Denies family history significant for GI issues. CT abdomen/pelvis with IV contrast-> diffuse mural thickening and edema throughout the colon characteristic of a diffuse colitis. There is associated mild ascites. C. Diff positive, epid negative. 07/10/2018 patient states that diarrhea is not improved at all that he continues to have one bowel movement at least every hour and does notice blood in the stool. Seems to have some increased anxiety around his uncontrolled diarrhea and states that he is never been sick or in the hospital in his life. Currently denies any nausea or vomiting but does note poor appetite. Leukocytosis now resolved currently WBC count 7.5 so appears to be responding to p.o. vancomycin and Flagyl. PT/INR 1.4. We will continue to monitor for diarrhea to stabilize and evaluate medications. Cholestyramine dose was increased today to 4 times a day will evaluate over the 24 hours whether this is effective. Patient will need colonoscopy , but needs improvement of symptoms of C. difficile as well as these diarrhea stools Mild coagulopathy PT/INR 1.4 with some mild ascites noted on initial CT. will consider home treatment of his C. difficile once diarrheal stools are trending down. Hepatic cyst seen on CT scan could represent some fatty liver disease or hepatocellular disease. 07/11/2018, patient states very small gradual improvement noted in number of stools. Patient was able to sleep last night without being awakened but does note at least 6 small stools over the a.m.. Denies any abdominal pain no nausea no vomiting No EtOH abuse but does note an occasional beer. No alcohol in the past [address] scan shows continued colitis throughout colon, patient will need colonoscopy when he is medically stable hopefully sometime next week To evaluate further colitis, ischemic, versus ulcerative versus C. difficile 07/12/2018 current hemoglobin 12.5, WBC count normal. Minimal response to current medications and medical management. Discussed with patient the need for colonoscopy to further evaluate and do colon biopsies. Patient agrees. Was able to get up and take a shower today but will continue IV fluids when patient is resting in the bed 07/13/2018 patient still having diarrhea, still having abdominal cramping, he had colonoscopy today which shows severe diffuse colitis consistent with C. difficile, patient is having abdominal discomfort 07/14/2018-patient reports less frequency of diarrhea, denies any abdominal cramping at this time. Colonoscopy results discussed with patient. Diffuse colitis consistent with C. difficile. Flagyl discontinued Dificid started, vancomycin ongoing. Hemoglobin 13.3 hematocrit 38.5 WBC 5.2 Plan: -Full liquid diet -Continue vancomycin -Dificid -PPI, Lactinex, Questran, antiemetic -IV hydration -Monitor labs -Patient advised to have repeat colonoscopy in 3 years and to have Hemoccult done yearly -Supportive care -Further recommendations to follow based on patient status and findings This patient has been seen by myself and Dr. Yanes and this note is written on his behalf - Attending Attestation <Cynthia Calles - Last Filed: 07/14/18 12:44> - Plan Patient was seen and examined, agree with above note, still having significant diarrhea and cramping, seems to be doing a little bit better since starting the Dificid he only had 2 doses, will continue with the current antibiotic, continue hydration and supportive care <Hadley Yanes - Last Filed: 07/14/18 16:57>
--- NOTE | 2018-07-14 16:57 | P.PNIM ---
Subjective Interval history: Follow-up sepsis abdominal pain, diarrhea, C. difficile colitis, [place] I. Patient seen and examined laying in bed, stated still having some diarrhea not as much as before. Patient stated had 6-8 times went for diarrhea today. Denies any abdominal pain, denies any nausea or vomiting. Patient denies any headache or dizziness, denies any fever or chills. Patient stated unable to eat food stated the food does not taste good and does not want any gravy on his food just want to have dry food. Stated does not want any liquid food. Physical Exam Vital signs: Vital Signs 07/13/18 20:00 07/14/18 00:00 07/14/18 08:00 Temperature 97.9 F 97.9 F 98.1 F Pulse Rate 101 H 105 H 99 H Respiratory Rate 18 18 14 Blood Pressure 118/70 127/74 114/75 Pulse Oximetry 100 96 97 07/14/18 11:51 Temperature 98.2 F Pulse Rate 95 H Respiratory Rate 14 Blood Pressure 102/58 L Pulse Oximetry 97 Intake & Output 07/13/18 07/14/18 07/14/18 18:59 06:59 18:59 Intake Total 1100 / 1100 1000 / 1000 1999 / 1999 Balance 1100 / 1100 1000 / 1000 1999 Weight 95.3 kg Intake: IV 1000 / 1000 1000 / 1000 1999 / 1999 NS Inj 1,000 ML @ 100 mls/hr IV 1000 / 1000 1000 / 1000 1999 .CONT .Q10H [facility] Rx#:[id number] Anesthesia Amount 100 / 100 Other: # Voids 2 Date of Last Bowel Movement 07/13/18 07/13/18 # Bowel Movements 1 Narrative: GENERAL: Well-developed, well-nourished, male in no acute distress SKIN: Warm and dry. HEAD: Atraumatic. Normocephalic. EYES: Pupils equal and round. No scleral icterus. No injection or drainage. ENT: No nasal bleeding or discharge. Mucous membranes pink and moist. NECK: Trachea midline. No JVD. CARDIOVASCULAR: Regular rate and rhythm. RESPIRATORY: No accessory muscle use. Clear to auscultation. Breath sounds equal bilaterally. GASTROINTESTINAL: Abdomen soft, non-tender, nondistended. Hepatic and splenic margins not palpable. MUSCULOSKELETAL: Extremities without clubbing, cyanosis, or edema. No obvious deformities. NEUROLOGICAL: Awake and alert. No obvious cranial nerve deficits. Motor grossly within normal limits. Generalized weakness, moving all 4 extremities normal speech. PSYCHIATRIC: Appropriate mood and affect; insight and judgment normal. Results - Labs CBC & Chem 7: 07/14/18 06:02 07/14/18 06:02 Laboratory Results - last 24 hr 07/14/18 07/14/18 06:02 06:02 WBC 5.2 RBC 3.94 L Hgb 13.3 Hct 38.5 L MCV 97.7 MCH 33.9 MCHC 34.7 RDW 13.2 Plt Count 149 L MPV 6.3 L Prelim Diff (Auto) Slide review pending Neut % (Auto) 49.8 Lymph % (Auto) 39.1 [place] % (Auto) 8.8 H Eos % (Auto) 1.0 Baso % (Auto) 1.3 Neut # (Auto) 2.6 Lymph # (Auto) 2.0 [place] # (Auto) 0.5 Eos # (Auto) 0.1 Baso # (Auto) 0.1 WBC Differential . Diff Scan Auto diff confirmed Differential Comment . Toxic Granulation 1+ H Platelet Estimate Low L Platelet Morphology Normal Sodium 142 Potassium 3.9 Chloride 112 H Carbon Dioxide 19.6 L Anion Gap 10 BUN 4 L Creatinine 0.82 Estimated GFR Greater than 89 Random Glucose 72 L Calcium 7.0 L* Prot Corrected Calcium 8.4 L Phosphorus 2.7 Magnesium 1.3 L Total Bilirubin 0.4 AST 19 ALT 11 L Alkaline Phosphatase 42 L Total Protein 4.6 L Albumin 1.5 L - Procedures Date of procedure: 07/13/18 Procedure: THANK YOU FOR THE REFERRAL Indication; severe diarrhea, despite treatment for C. difficile Procedure Performed; Colonoscopy with biopsy After informing the patient about procedure and possible complications consent was signed. history and physical were updated. Patient was taken to the procedure room and placed in position. Time out was completed. Adequate sedation was performed by anesthesia provider. Colonoscopy, rectal exam was performed the scope was placed in the rectum advanced under video guide to the cecum which was identifed by ileo-cecal valve and appendiceal orifice, then the scope withdrawal slowly with examination of the mucosa to the rectum and retro-flexion was performed, the scope was withdrawal without any immediate complication Findings; Colon severe colitis throughout the colon typical for C. difficile, very inflamed and congested mucosa biopsy was done from the sigmoid Rectum changes consistent with C. difficile Recommendations; 1- Supportive care 2- ok to transfer to recovery area then discharge per protocol 3- colonoscopy in 3 years 4-full liquid diet 5-Hemoccult on a yearly basis by primary care physician 6-we will add Dificid since the patient does not seem to be responding well to Vanco and Flagyl, will stop the Flagyl Documented By: Hadley Yanes MD Assessment and Plan - Assessment (1) Colitis Code(s): K52.9 - Noninfective gastroenteritis and colitis, unspecified Status : Acute (2) NEGRITO (acute kidney injury) Code(s): N17.9 - Acute kidney failure, unspecified Status: Acute (3) Hypocalcemia Code(s): E83.51 - Hypocalcemia Status: Acute (4) Hypokalemia Code(s): E87.6 - Hypokalemia Status: Acute - Plan 68-year-old male with no significant PMH who presents the ER with complaints of abdominal pain in addition to diarrhea. States symptoms have been intermittent for the last 1 mo, however now progressively worse w/ increased episodes of diarrhea Severe sepsis present on admission with tachycardia and leukocytosis HR 99, WBC 27, Bandemia 18%, Lactic Acid 2.3, Source-Colitis. S/p blood cultures, initially was on Zosyn/Flagyl Leukocytosis trending down. Lactic acid 2.2 trended down. -continue to follow cultures, blood culture showed 1 coag negative likely contaminant -Continue with aggressive hydration, inc. IVF to 125/hr -Continue with antibiotics-Flagyl and vancomycin per ID recommendations. -ID following: Recommended consider colonoscopy if patient symptoms not improving -Fever on 07/09/2018 102.2, had been afebrile since then, monitor temp Severe C. difficile colitis -Status post colonoscopy 07/13/18 -CT Abd/Pelvis w/ diffuse colitis, images reviewed, +diarrhea -Stool C. difficile antigen positive, toxin negative DNA positive. Negative for EPID 027 Stools for O&P currently pending -Considering patient is symptomatic with significant leukocytosis and findings of colitis, continue Vanco and discontinue Flagyl per GI recommendation continue Lactinex 3 times daily -Increase Questran dose -monitor and Replace electrolytes as needed -We will start on clear liquid diet advance to soft diet as tolerated. -GI following: Status post colonoscopy, resulted severe C. difficile colitis -Start Dificid and continue vancomycin orally per GI recommendation NEGRITO superimposed on chronic kidney disease stage II/hypocalcemia/hypokalemia -creatinine improving, likely due to dehydration and diarrhea and sepsis. -Continue IV fluid hydration - avoid nephrotoxins - Monitor creatinine - Protein corrected calcium improved. -S/P replacement with calcium and potassium, replace as needed -Monitor BMP DVT Prophylaxis: SCD/Teds Code Status: Full code Discussed Condition With: Patient and nurse
[2018-07-15] MEDS: Sod Chloride 0.9% Inj 1,000 ML IV.CONT SCH ×2 (06:39→15:27)
[2018-07-15] MEDS: Lactobacillus Acidophilus/L. Spores Tablet PO SCH ×3 (08:21→17:25)
[2018-07-15] MEDS: Bismuth Subsalicylate Susp 240 ML Bottle PO SCH ×4 (08:23→21:25)
--- NOTE | 2018-07-15 11:25 | P.PNGI ---
Subjective Interval history: Patient is awake alert resting in the bed answering simple questions less anxiety noted today No nausea no vomiting <HartwickDeborah - Last Filed: 07/15/18 15:32> Physical Exam Vital signs: Vital Signs 07/14/18 11:51 07/14/18 16:00 07/14/18 20:00 Temperature 98.2 F 97.7 F 97.6 F Pulse Rate 95 H 106 H 104 H Respiratory Rate 14 18 21 Blood Pressure 102/58 L 122/74 113/81 Pulse Oximetry 97 94 L 97 07/15/18 00:00 07/15/18 08:00 Temperature 98.1 F 97.4 F L Pulse Rate 89 95 H Respiratory Rate 18 17 Blood Pressure 119/73 120/68 Pulse Oximetry 95 95 Intake & Output 07/14/18 07/15/18 07/15/18 18:59 06:59 18:59 Intake Total 1999 2700 / 2700 Balance 1999 2700 / 2700 Weight 95.3 kg Intake: IV 1999 NS Inj 1,000 ML @ 100 mls/hr IV 1999 .CONT .Q10H [facility] Rx#:[id number] Oral 700 / 700 Other: # Voids 6 Date of Last Bowel Movement 07/14/18 07/14/18 07/15/18 # Bowel Movements 6 - Constitutional no acute distress, cooperative - Routine HEENT Exam Head: Present: normocephalic - Routine Neck Exam Present: supple - Routine Respiratory Exam Present: accessory muscle use (No shortness of breath at rest) - Routine Cardiovascular Exam Present: S1, S2 - Routine Abdominal Exam Present: soft, normoactive bowel sounds (No obvious tenderness minimal distention) <Deborah Simms - Last Filed: 07/15/18 15:32> Vital signs: Vital Signs 07/14/18 16:00 07/14/18 20:00 07/15/18 00:00 Temperature 97.7 F 97.6 F 98.1 F Pulse Rate 106 H 104 H 89 Respiratory Rate 18 21 18 Blood Pressure 122/74 113/81 119/73 Pulse Oximetry 94 L 97 95 07/15/18 08:00 07/15/18 12:00 Temperature 97.4 F L 98.1 F Pulse Rate 95 H 92 H Respiratory Rate 17 17 Blood Pressure 120/68 100/60 Pulse Oximetry 95 94 L Intake & Output 07/14/18 07/15/18 07/15/18 18:59 06:59 18:59 Intake Total 1999 2700 / 2700 950 / 950 Balance 1999 2700 / 2700 950 / 950 Weight 95.3 kg Intake: IV 1999 950 / 950 NS Inj 1,000 ML @ 100 mls/hr IV 1999 750 / 750 .CONT .Q10H [facility] Rx#:[id number] Magnesium Sulfate 1 gm/D5W 100 200 / 200 ml Premix 100 ML @ 100 mls/hr IV.SIG Q1H [facility] Rx#:[id number] Oral 700 / 700 Other: # Voids 6 Date of Last Bowel Movement 07/14/18 07/14/18 07/15/18 # Bowel Movements 6 <Hadley Yanes - Last Filed: 07/15/18 15:40> Results - Labs CBC & Chem 7: 07/14/18 06:02 07/14/18 06:02 - Procedures Date of procedure: 07/13/18 Procedure: THANK YOU FOR THE REFERRAL Indication; severe diarrhea, despite treatment for C. difficile Procedure Performed; Colonoscopy with biopsy After informing the patient about procedure and possible complications consent was signed. history and physical were updated. Patient was taken to the procedure room and placed in position. Time out was completed. Adequate sedation was performed by anesthesia provider. Colonoscopy, rectal exam was performed the scope was placed in the rectum advanced under video guide to the cecum which was identifed by ileo-cecal valve and appendiceal orifice, then the scope withdrawal slowly with examination of the mucosa to the rectum and retro-flexion was performed, the scope was withdrawal without any immediate complication Findings; Colon severe colitis throughout the colon typical for C. difficile, very inflamed and congested mucosa biopsy was done from the sigmoid Rectum changes consistent with C. difficile Recommendations; 1- Supportive care 2- ok to transfer to recovery area then discharge per protocol 3- colonoscopy in 3 years 4-full liquid diet 5-Hemoccult on a yearly basis by primary care physician 6-we will add Dificid since the patient does not seem to be responding well to Vanco and Flagyl, will stop the Flagyl Documented By: Hadley Yanes MD <Deborah Simms - Last Filed: 07/15/18 15:32> - Labs CBC & Chem 7: 07/14/18 06:02 07/14/18 06:02 <Hadley Yanes - Last Filed: 07/15/18 15:40> Assessment and Plan - Plan C. difficile colitis-patient reports 3-week history of diarrhea associated with fecal urgency and incontinence. Denies any hematochezia or melena. Does report some mild abdominal cramping associated with BMs. Denies any nausea, vomiting, abdominal pain. Does report about a 10 pound unintentional weight loss for the past 3 weeks, but has had very poor p.o. intake. Denies any fever or chills Patient denies any sick contacts, recent travel or ingestion of suspicious foods. Patient denies history of C. difficile. Of note, patient was on clindamycin in March for tooth extraction. Has never had EGD or colonoscopy. Denies family history significant for GI issues. CT abdomen/pelvis with IV contrast-> diffuse mural thickening and edema throughout the colon characteristic of a diffuse colitis. There is associated mild ascites. C. Diff positive, epid negative. 07/10/2018 patient states that diarrhea is not improved at all that he continues to have one bowel movement at least every hour and does notice blood in the stool. Seems to have some increased anxiety around his uncontrolled diarrhea and states that he is never been sick or in the hospital in his life. Currently denies any nausea or vomiting but does note poor appetite. Leukocytosis now resolved currently WBC count 7.5 so appears to be responding to p.o. vancomycin and Flagyl. PT/INR 1.4. We will continue to monitor for diarrhea to stabilize and evaluate medications. Cholestyramine dose was increased today to 4 times a day will evaluate over the 24 hours whether this is effective. Patient will need colonoscopy , but needs improvement of symptoms of C. difficile as well as these diarrhea stools Mild coagulopathy PT/INR 1.4 with some mild ascites noted on initial CT. will consider home treatment of his C. difficile once diarrheal stools are trending down. Hepatic cyst seen on CT scan could represent some fatty liver disease or hepatocellular disease. 07/11/2018, patient states very small gradual improvement noted in number of stools. Patient was able to sleep last night without being awakened but does note at least 6 small stools over the a.m.. Denies any abdominal pain no nausea no vomiting No EtOH abuse but does note an occasional beer. No alcohol in the past [address] scan shows continued colitis throughout colon, patient will need colonoscopy when he is medically stable hopefully sometime next week To evaluate further colitis, ischemic, versus ulcerative versus C. difficile 07/12/2018 current hemoglobin 12.5, WBC count normal. Minimal response to current medications and medical management. Discussed with patient the need for colonoscopy to further evaluate and do colon biopsies. Patient agrees. Was able to get up and take a shower today but will continue IV fluids when patient is resting in the bed 07/13/2018 patient still having diarrhea, still having abdominal cramping, he had colonoscopy today which shows severe diffuse colitis consistent with C. difficile, patient is having abdominal discomfort 07/14/2018-patient reports less frequency of diarrhea, denies any abdominal cramping at this time. Colonoscopy results discussed with patient. Diffuse colitis consistent with C. difficile. Flagyl discontinued Dificid started, vancomycin ongoing. Hemoglobin 13.3 hematocrit 38.5 WBC 5.2 07/15/2018 patient continues to have diarrhea stools, observed in the bedside commode to be draining and medium brown/orange. States abdominal pain is gradually improving, 6 BMs noted over the past 24 hours. Current hemoglobin 13.2 no obvious bleeding WBC count 5.2 patient is on third day of Dificid and p.o. vancomycin. Mild minimal improvement with Dificid but will continue to monitor. Noted per colonoscopy patient to have severe atypical colitis with typical colitis noted in the rectal area 07/13/2018. Plan Diet full liquids, continue bowel rest Vancomycin p.o. Dificid PPI Continue Questran and Lactinex for now Biopsies pending from colonoscopy reminded patient to repeat colonoscopy in 3 years and to have Hemoccult done yearly Monitor labs Patient was seen per myself and Dr. Yanes, note was written on his behalf <Deborah Simms - Last Filed: 07/15/18 15:32> - Attending Attestation Patient was seen and examined, agree with above note, slightly improving diarrhea but still significant, no abdominal pain, we will continue the vancomycin and Dificid <Hadley Yanes - Last Filed: 07/15/18 15:40>
--- NOTE | 2018-07-15 11:43 | P.PNIM ---
Subjective Interval history: Follow-up sepsis abdominal pain, diarrhea, C. difficile colitis, NEGRITO. Patient seen and examined sitting in the bed stated feeling a lot better, diarrhea improving stated he was going less than before. Patient denies any abdominal pain, nausea or vomiting. Patient denies any fever or chills. Patient complains about lower extremity edema stated he had never had edema leg discussed IV fluid to discontinue however encourage patient to drink a lot of water and increase p.o. diet to replace diarrhea losses. Patient verbalized understanding and agreed. Physical Exam Vital signs: Vital Signs 07/14/18 11:51 07/14/18 16:00 07/14/18 20:00 Temperature 98.2 F 97.7 F 97.6 F Pulse Rate 95 H 106 H 104 H Respiratory Rate 14 18 21 Blood Pressure 102/58 L 122/74 113/81 Pulse Oximetry 97 94 L 97 07/15/18 00:00 07/15/18 08:00 Temperature 98.1 F 97.4 F L Pulse Rate 89 95 H Respiratory Rate 18 17 Blood Pressure 119/73 120/68 Pulse Oximetry 95 95 Intake & Output 07/14/18 07/15/18 07/15/18 18:59 06:59 18:59 Intake Total 1999 2700 / 2700 Balance 1999 2700 / 2700 Weight 95.3 kg Intake: IV 1999 NS Inj 1,000 ML @ 100 mls/hr IV 1999 .CONT .Q10H [facility] Rx#:[id number] Oral 700 / 700 Other: # Voids 6 Date of Last Bowel Movement 07/14/18 07/14/18 07/15/18 # Bowel Movements 6 Results - Labs CBC & Chem 7: 07/14/18 06:02 07/14/18 06:02 - Procedures Date of procedure: 07/13/18 Procedure: THANK YOU FOR THE REFERRAL Indication; severe diarrhea, despite treatment for C. difficile Procedure Performed; Colonoscopy with biopsy After informing the patient about procedure and possible complications consent was signed. history and physical were updated. Patient was taken to the procedure room and placed in position. Time out was completed. Adequate sedation was performed by anesthesia provider. Colonoscopy, rectal exam was performed the scope was placed in the rectum advanced under video guide to the cecum which was identifed by ileo-cecal valve and appendiceal orifice, then the scope withdrawal slowly with examination of the mucosa to the rectum and retro-flexion was performed, the scope was withdrawal without any immediate complication Findings; Colon severe colitis throughout the colon typical for C. difficile, very inflamed and congested mucosa biopsy was done from the sigmoid Rectum changes consistent with C. difficile Recommendations; 1- Supportive care 2- ok to transfer to recovery area then discharge per protocol 3- colonoscopy in 3 years 4-full liquid diet 5-Hemoccult on a yearly basis by primary care physician 6-we will add Dificid since the patient does not seem to be responding well to Vanco and Flagyl, will stop the Flagyl Documented By: Hadley Yanes MD Assessment and Plan - Assessment (1) Colitis Code(s): K52.9 - Noninfective gastroenteritis and colitis, unspecified Status : Acute (2) NEGRITO (acute kidney injury) Code(s): N17.9 - Acute kidney failure, unspecified Status: Acute (3) Hypocalcemia Code(s): E83.51 - Hypocalcemia Status: Acute (4) Hypokalemia Code(s): E87.6 - Hypokalemia Status: Acute - Plan 68-year-old male with no significant PMH who presents the ER with complaints of abdominal pain in addition to diarrhea. States symptoms have been intermittent for the last 1 mo, however now progressively worse w/ increased episodes of diarrhea Severe sepsis present on admission with tachycardia and leukocytosis HR 99, WBC 27, Bandemia 18%, Lactic Acid 2.3, Source-Colitis. S/p blood cultures, initially was on Zosyn/Flagyl Leukocytosis trending down. Lactic acid 2.2 trended down. -continue to follow cultures, blood culture showed 1 coag negative likely contaminant -Continue with aggressive hydration, inc. IVF to 125/hr -Continue with antibiotics-Flagyl and vancomycin per ID recommendations. -ID following: Recommended consider colonoscopy if patient symptoms not improving -Fever on 07/09/2018 102.2, had been afebrile since then, monitor temp Severe C. difficile colitis -Status post colonoscopy 07/13/18 -CT Abd/Pelvis w/ diffuse colitis, images reviewed, +diarrhea -Stool C. difficile antigen positive, toxin negative DNA positive. Negative for EPID 027 Stools for O&P currently pending -Considering patient is symptomatic with significant leukocytosis and findings of colitis, continue Vanco and discontinue Flagyl per GI recommendation continue Lactinex 3 times daily -Increase Questran dose -monitor and Replace electrolytes as needed -We will start on clear liquid diet advance to soft diet as tolerated. -GI following: Status post colonoscopy, resulted severe C. difficile colitis -Start Dificid and continue vancomycin orally per GI recommendation NEGRITO superimposed on chronic kidney disease stage II/hypocalcemia/hypokalemia -creatinine improving, likely due to dehydration and diarrhea and sepsis. -Continue IV fluid hydration - avoid nephrotoxins - Monitor creatinine - Protein corrected calcium improved. -S/P replacement with calcium and potassium, replace as needed -Monitor BMP DVT Prophylaxis: SCD/Teds
[2018-07-15] MEDS ORDERED: Magnesium Sulfate Inj 2 GM in Sodium Chlor 0.9% Inj 96 ML IV.SIG ONE (12:02)
[2018-07-15] MEDS: Mag Sulf 1 gm/100 ml Premix 100 ML IV.SIG SCH ×2 (13:12→13:19)
--- NOTE | 2018-07-15 13:49 | P.PNID ---
Subjective Remarks: Patient says that the stools has slowed down. Less frequent. Complains that his legs are swollen. Denies abdominal pain. No fever. Denies sweats or chills. GI procedure noted severe colitis. 68-year-old white male who was admitted to the hospital on 07/07/2018 because of abdominal pain. The patient was complaining of weakness and abdominal pain. He reports having diarrhea over the past 3 weeks. He states to me that he has up to 10 stools a day and that he was taking Imodium and other antidiarrheal medicines, but it was not helping and he continues to have frequent diarrhea. The workup included blood cultures which were drawn on 07/05/2018 and 09/18 bottles are Staph coagulase negative. The patient's white count was up to 27.7 on admission and now is down to 11.2. He is afebrile. He had maximum temperature of 100.1 degrees yesterday. CAT scan of the abdomen on 07/05/2018 showed diffuse mural thickening and edema throughout the colon characteristic of a diffuse colitis. Stool sent for C. difficile testing shows positive C. difficile antigen and C. difficile DNA amplification. C. difficile toxin is negative. The patient also had acute renal insufficiency with estimated GFR of 39 on 07/05/2018. Antibiotics: Vanco PO Dificid PO. Allergies/Adverse Reactions: Allergies No Known Allergies Allergy (Verified 07/05/18 18:59) Objective Vital Signs 07/14/18 16:00 07/14/18 20:00 07/15/18 00:00 Temperature 97.7 F 97.6 F 98.1 F Pulse Rate 106 H 104 H 89 Respiratory Rate 18 21 18 Blood Pressure 122/74 113/81 119/73 Pulse Oximetry 94 L 97 95 07/15/18 08:00 Temperature 97.4 F L Pulse Rate 95 H Respiratory Rate 17 Blood Pressure 120/68 Pulse Oximetry 95 Intake & Output 07/14/18 07/15/18 07/15/18 18:59 06:59 18:59 Intake Total 1999 2700 / 2700 100 / 100 Balance 1999 2700 / 2700 100 / 100 Weight 95.3 kg Intake: IV 1999 100 / 100 NS Inj 1,000 ML @ 100 mls/hr IV 1999 .CONT .Q10H [facility] Rx#:[id number] Magnesium Sulfate 1 gm/D5W 100 100 / 100 ml Premix 100 ML @ 100 mls/hr IV.SIG Q1H [facility] Rx#:[id number] Oral 700 / 700 Other: # Voids 6 Date of Last Bowel Movement 07/14/18 07/14/18 07/15/18 # Bowel Movements 6 Lab - Hematology Results 07/14/18 06:02 WBC 5.2 RBC 3.94 L Hgb 13.3 Hct 38.5 L MCV 97.7 MCH 33.9 MCHC 34.7 RDW 13.2 Plt Count 149 L MPV 6.3 L Prelim Diff (Auto) Slide review pending Neut % (Auto) 49.8 Lymph % (Auto) 39.1 [place] % (Auto) 8.8 H Eos % (Auto) 1.0 Baso % (Auto) 1.3 Neut # (Auto) 2.6 Lymph # (Auto) 2.0 [place] # (Auto) 0.5 Eos # (Auto) 0.1 Baso # (Auto) 0.1 WBC Differential . Diff Scan Auto diff confirmed Differential Comment . Toxic Granulation 1+ H Platelet Estimate Low L Platelet Morphology Normal Lab - Chemistry Results 07/14/18 06:02 Sodium 142 Potassium 3.9 Chloride 112 H Carbon Dioxide 19.6 L Anion Gap 10 BUN 4 L Creatinine 0.82 Estimated GFR Greater than 89 Random Glucose 72 L Calcium 7.0 L* Prot Corrected Calcium 8.4 L Phosphorus 2.7 Magnesium 1.3 L Total Bilirubin 0.4 AST 19 ALT 11 L Alkaline Phosphatase 42 L Total Protein 4.6 L Albumin 1.5 L Imaging: ITS Impressions Chest X-Ray 07/05/18 19:10 CONCLUSION: No acute findings. Abdomen/Pelvis CT 07/10/18 00:00 CONCLUSION: 1. Increased ascitic fluid compared to the recent study 5 days ago. 2. Diffuse mural wall thickening and edema throughout the colon consistent with colitis. This is not significantly changed. 3. New small bilateral pleural effusions right greater than left. 4. Multiple stable cystic structures in the liver. Physical Exam: PHYSICAL EXAMINATION: GENERAL: No acute distress. HEENT: No icterus. Oropharynx moist; no focal lesions. NECK: Supple without adenopathy. LUNGS: Breath sounds clear. HEART: Regular rate and rhythm. No murmurs, rubs or gallops. ABDOMEN: Bowel sounds present. Soft, nontender. EXTREMITIES: No clubbing, cyanosis or edema. SKIN: No rash. NEUROLOGIC: Nonfocal. PSYCHIATRIC: Calm and cooperative. Assessment and Plan - Plan IMPRESSION: 1. Severe colitis, persistent diarrhea, along with leukocytosis and positive Clostridium difficile antigen, along with colitis on CT scan. Diarrhea not improving. 2. Positive blood culture due to Staphylococcus coagulase negative in 1/4 bottles. I think this is likely contamination and not due to sepsis. 3. Leukocytosis secondary to colitis. White blood cell count improved. 4. Pedal edema from IV fluids. RECOMMENDATIONS: 1. Continue Dificid 2. Continue vancomycin 500 mg p.o. 4 times daily. 3. Monitor stools. 4. Monitor response to treatment. 5. Consider advancing diet to solids.
[2018-07-15] MEDS: Magnesium Oxide 400 MG Tablet PO SCH (21:30)
[2018-07-16] MEDS: Lactobacillus Acidophilus/L. Spores Tablet PO SCH ×3 (09:03→17:00)
[2018-07-16] MEDS: Magnesium Oxide 400 MG Tablet PO SCH ×2 (09:04→18:37)
[2018-07-16] MEDS: Bismuth Subsalicylate Susp 240 ML Bottle PO SCH ×4 (09:05→20:13)
--- NOTE | 2018-07-16 14:06 | P.PNGI ---
Subjective Interval history: Patient sitting up in bed watching TV. Denies any nausea or vomiting, states loose watery stools last frequency. Request diet advancement. Physical Exam Vital signs: Vital Signs 07/15/18 16:00 07/15/18 20:00 07/16/18 08:00 Temperature 98.0 F 97.6 F 97.1 F L Pulse Rate 99 H 111 H 89 Respiratory Rate 17 18 16 Blood Pressure 116/70 115/81 114/74 Pulse Oximetry 95 95 96 Intake & Output 07/15/18 07/16/18 07/16/18 18:59 06:59 18:59 Intake Total 2750 / 2750 Balance 2750 / 2750 Weight 94.8 kg Intake: IV 950 / 950 NS Inj 1,000 ML @ 100 mls/hr IV 750 / 750 .CONT .Q10H [facility] Rx#:[id number] Magnesium Sulfate 1 gm/D5W 100 200 / 200 ml Premix 100 ML @ 100 mls/hr IV.SIG Q1H [facility] Rx#:[id number] Oral 1800 / 1800 Other: # Voids 3 2 Date of Last Bowel Movement 07/15/18 07/15/18 # Bowel Movements 5 - Constitutional no acute distress - Routine HEENT Exam Head: Present: normocephalic - Routine Respiratory Exam Present: CTA bilaterally. Absent: accessory muscle use - Routine Cardiovascular Exam Present: RRR - Routine Abdominal Exam Present: soft, normoactive bowel sounds. Absent: tenderness, distended, guarding, firm - Routine Extremities Exam Present: full ROM - Routine Skin Exam Present: dry, warm - Routine Neurological Exam Present: alert, oriented X3 - Routine Psychiatric Exam Present: normal affect, cooperative Results - Labs CBC & Chem 7: 07/14/18 06:02 07/14/18 06:02 Laboratory Results - last 24 hr 07/16/18 06:49 Magnesium 1.6 - Procedures Date of procedure: 07/13/18 Procedure: THANK YOU FOR THE REFERRAL Indication; severe diarrhea, despite treatment for C. difficile Procedure Performed; Colonoscopy with biopsy After informing the patient about procedure and possible complications consent was signed. history and physical were updated. Patient was taken to the procedure room and placed in position. Time out was completed. Adequate sedation was performed by anesthesia provider. Colonoscopy, rectal exam was performed the scope was placed in the rectum advanced under video guide to the cecum which was identifed by ileo-cecal valve and appendiceal orifice, then the scope withdrawal slowly with examination of the mucosa to the rectum and retro-flexion was performed, the scope was withdrawal without any immediate complication Findings; Colon severe colitis throughout the colon typical for C. difficile, very inflamed and congested mucosa biopsy was done from the sigmoid Rectum changes consistent with C. difficile Recommendations; 1- Supportive care 2- ok to transfer to recovery area then discharge per protocol 3- colonoscopy in 3 years 4-full liquid diet 5-Hemoccult on a yearly basis by primary care physician 6-we will add Dificid since the patient does not seem to be responding well to Vanco and Flagyl, will stop the Flagyl Documented By: Hadley Yanes MD Assessment and Plan - Plan C. difficile colitis-patient reports 3-week history of diarrhea associated with fecal urgency and incontinence. Denies any hematochezia or melena. Does report some mild abdominal cramping associated with BMs. Denies any nausea, vomiting, abdominal pain. Does report about a 10 pound unintentional weight loss for the past 3 weeks, but has had very poor p.o. intake. Denies any fever or chills Patient denies any sick contacts, recent travel or ingestion of suspicious foods. Patient denies history of C. difficile. Of note, patient was on clindamycin in March for tooth extraction. Has never had EGD or colonoscopy. Denies family history significant for GI issues. CT abdomen/pelvis with IV contrast-> diffuse mural thickening and edema throughout the colon characteristic of a diffuse colitis. There is associated mild ascites. C. Diff positive, epid negative. 07/10/2018 patient states that diarrhea is not improved at all that he continues to have one bowel movement at least every hour and does notice blood in the stool. Seems to have some increased anxiety around his uncontrolled diarrhea and states that he is never been sick or in the hospital in his life. Currently denies any nausea or vomiting but does note poor appetite. Leukocytosis now resolved currently WBC count 7.5 so appears to be responding to p.o. vancomycin and Flagyl. PT/INR 1.4. We will continue to monitor for diarrhea to stabilize and evaluate medications. Cholestyramine dose was increased today to 4 times a day will evaluate over the 24 hours whether this is effective. Patient will need colonoscopy , but needs improvement of symptoms of C. difficile as well as these diarrhea stools Mild coagulopathy PT/INR 1.4 with some mild ascites noted on initial CT. will consider home treatment of his C. difficile once diarrheal stools are trending down. Hepatic cyst seen on CT scan could represent some fatty liver disease or hepatocellular disease. 07/11/2018, patient states very small gradual improvement noted in number of stools. Patient was able to sleep last night without being awakened but does note at least 6 small stools over the a.m.. Denies any abdominal pain no nausea no vomiting No EtOH abuse but does note an occasional beer. No alcohol in the past [address] scan shows continued colitis throughout colon, patient will need colonoscopy when he is medically stable hopefully sometime next week To evaluate further colitis, ischemic, versus ulcerative versus C. difficile 07/12/2018 current hemoglobin 12.5, WBC count normal. Minimal response to current medications and medical management. Discussed with patient the need for colonoscopy to further evaluate and do colon biopsies. Patient agrees. Was able to get up and take a shower today but will continue IV fluids when patient is resting in the bed 07/13/2018 patient still having diarrhea, still having abdominal cramping, he had colonoscopy today which shows severe diffuse colitis consistent with C. difficile, patient is having abdominal discomfort 07/14/2018-patient reports less frequency of diarrhea, denies any abdominal cramping at this time. Colonoscopy results discussed with patient. Diffuse colitis consistent with C. difficile. Flagyl discontinued Dificid started, vancomycin ongoing. Hemoglobin 13.3 hematocrit 38.5 WBC 5.2 07/15/2018 patient continues to have diarrhea stools, observed in the bedside commode to be draining and medium brown/orange. States abdominal pain is gradually improving, 6 BMs noted over the past 24 hours. Current hemoglobin 13.2 no obvious bleeding WBC count 5.2 patient is on third day of Dificid and p.o. vancomycin. Mild minimal improvement with Dificid but will continue to monitor. Noted per colonoscopy patient to have severe atypical colitis with typical colitis noted in the rectal area 07/13/2018. 07/16/2018-patient states diarrhea persists, patient reports less frequency, 5 stools recorded as output, denies abdominal pain. Patient states he was able to get up and shower today. 07/14/2018 hemoglobin 13.3 hematocrit 38.5 WBC 5.2. Patient currently on Dificid and vancomycin p.o. Plan -Full liquid diet-advancing to soft diet -Continue vancomycin and Dificid -Continue PPI -Questran and Lactinex biopsies pending -Monitor labs -Monitor output -Supportive care -Further recommendations to follow Patient was seen per myself and Dr. Yanes, note was written on his behalf - Attending Attestation Dr. Yanes
--- NOTE | 2018-07-16 17:23 | P.PNIM ---
Subjective Interval history: Follow-up sepsis,abdominal pain, diarrhea, C. difficile colitis, NEGRITO. Patient seen and examined laying in bed, complains of diarrhea still states that it is getting better have about 5 to 6 loose stools today. Patient denies any nausea or vomiting, patient denies any abdominal pain only complaint of loose stool that has never stopped since he came here. Patient complained about unable to eat much, complains do not like the food. Patient denies any headache pain, chest pain or shortness of breath. Patient denies any fever or chills. Discussed discharge planning, patient stated she he do not want to go home with diarrhea. However he refused to go to SNF or rehab. Patient had numerous personal complaints about the care and issues, discussed will send case reviewer to address concern. Physical Exam Vital signs: Vital Signs 07/15/18 20:00 07/16/18 08:00 07/16/18 12:00 Temperature 97.6 F 97.1 F L 97.5 F L Pulse Rate 111 H 89 89 Respiratory Rate 18 16 16 Blood Pressure 115/81 114/74 98/59 L Pulse Oximetry 95 96 97 Intake & Output 07/15/18 07/16/18 07/16/18 18:59 06:59 18:59 Intake Total 2750 / 2750 Balance 2750 / 2750 Weight 94.8 kg Intake: IV 950 / 950 NS Inj 1,000 ML @ 100 mls/hr IV 750 / 750 .CONT .Q10H [facility] Rx#:[id number] Magnesium Sulfate 1 gm/D5W 100 200 / 200 ml Premix 100 ML @ 100 mls/hr IV.SIG Q1H [facility] Rx#:[id number] Oral 1800 / 1800 Other: # Voids 3 2 Date of Last Bowel Movement 07/15/18 07/15/18 # Bowel Movements 5 Narrative: GENERAL: Well-developed, well-nourished, male in no acute distress SKIN: Warm and dry. HEAD: Atraumatic. Normocephalic. EYES: Pupils equal and round. No scleral icterus. No injection or drainage. ENT: No nasal bleeding or discharge. Mucous membranes pink and moist. NECK: Trachea midline. No JVD. CARDIOVASCULAR: Regular rate and rhythm. RESPIRATORY: No accessory muscle use. Clear to auscultation. Breath sounds equal bilaterally. GASTROINTESTINAL: Abdomen soft, non-tender, nondistended. Hepatic and splenic margins not palpable. MUSCULOSKELETAL: Extremities without clubbing, cyanosis, or edema. No obvious deformities. NEUROLOGICAL: Awake and alert. No obvious cranial nerve deficits. Motor grossly within normal limits. Generalized weakness, moving all 4 extremities normal speech. PSYCHIATRIC: Anxious mood and affect; insight and judgment poor Results - Labs CBC & Chem 7: 07/14/18 06:02 07/14/18 06:02 Laboratory Results - last 24 hr 07/16/18 06:49 Magnesium 1.6 - Procedures Date of procedure: 07/13/18 Procedure: THANK YOU FOR THE REFERRAL Indication; severe diarrhea, despite treatment for C. difficile Procedure Performed; Colonoscopy with biopsy After informing the patient about procedure and possible complications consent was signed. history and physical were updated. Patient was taken to the procedure room and placed in position. Time out was completed. Adequate sedation was performed by anesthesia provider. Colonoscopy, rectal exam was performed the scope was placed in the rectum advanced under video guide to the cecum which was identifed by ileo-cecal valve and appendiceal orifice, then the scope withdrawal slowly with examination of the mucosa to the rectum and retro-flexion was performed, the scope was withdrawal without any immediate complication Findings; Colon severe colitis throughout the colon typical for C. difficile, very inflamed and congested mucosa biopsy was done from the sigmoid Rectum changes consistent with C. difficile Recommendations; 1- Supportive care 2- ok to transfer to recovery area then discharge per protocol 3- colonoscopy in 3 years 4-full liquid diet 5-Hemoccult on a yearly basis by primary care physician 6-we will add Dificid since the patient does not seem to be responding well to Vanco and Flagyl, will stop the Flagyl Documented By: Hadley Yanes MD Assessment and Plan - Assessment (1) Colitis Code(s): K52.9 - Noninfective gastroenteritis and colitis, unspecified Status : Acute (2) NEGRITO (acute kidney injury) Code(s): N17.9 - Acute kidney failure, unspecified Status: Acute (3) Hypocalcemia Code(s): E83.51 - Hypocalcemia Status: Acute (4) Hypokalemia Code(s): E87.6 - Hypokalemia Status: Acute - Plan 68-year-old male with no significant PMH who presents the ER with complaints of abdominal pain in addition to diarrhea. States symptoms have been intermittent for the last 1 mo, however now progressively worse w/ increased episodes of diarrhea Severe sepsis present on admission with tachycardia and leukocytosis HR 99, WBC 27, Bandemia 18%, Lactic Acid 2.3, likely due to severe colitis. S/p blood cultures, initially was on Zosyn/Flagyl Leukocytosis trending down. Lactic acid 2.2 trended down. -continue to follow cultures, blood culture showed 1 coag negative likely contaminant -Continue with aggressive hydration, inc. IVF to 125/hr -Continue with antibiotics-Flagyl and vancomycin per ID recommendations. -Fever on 07/09/2018 102.2, had been afebrile since then, monitor temp -ID following: Recommended continue Dificid and vancomycin p.o. -Leukocytosis secondary to colitis, monitor CBC Severe C. difficile colitis -Status post colonoscopy 07/13/18 -CT Abd/Pelvis w/ diffuse colitis, images reviewed, +diarrhea -Stool C. difficile antigen positive, toxin negative DNA positive. Negative for EPID 027 Stools for O&P currently pending -Considering patient is symptomatic with significant leukocytosis and findings of colitis, continue Vanco and discontinue Flagyl per GI recommendation -monitor and Replace electrolytes as needed -GI following: Status post colonoscopy, resulted severe C. difficile colitis -Continue Dificid and continue vancomycin orally per GI recommendation -continue Lactinex 3 times daily -continue Questran dose -Advance diet as tolerated NEGRITO superimposed on chronic kidney disease stage II/hypocalcemia/hypokalemia -creatinine improving, likely due to dehydration and diarrhea and sepsis. -Continue IV fluid hydration - avoid nephrotoxins - Monitor creatinine - Protein corrected calcium improved. -S/P replacement with calcium and potassium, replace as needed -Monitor BMP Hypomagnesemia Likely from GI losses -Replace IV magnesium -Started magnesium p.o. 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
[2018-07-16] MEDS ORDERED: Magnesium Sulfate Inj 2 GM in Sodium Chlor 0.9% Inj 96 ML IV.SIG ONE (18:00)
[2018-07-17 08:27] LABS: Baso # (Auto) 0.1 th/mm3 (0.0-0.2); Baso % (Auto) 1.7 % (0.0-2.0); Eos # (Auto) 0.1 th/mm3 (0.0-0.4); Eos % (Auto) 3.2 % (0.0-4.0); Hematocrit 34.9 % (39.0-51.0); Hemoglobin 12.2 gm/dL (13.0-17.0); Lymph # (Auto) 1.8 th/mm3 (1.0-4.8); Lymph % (Auto) 53.6 % (9.0-44.0); Mean Corpuscular Hemoglobin 34.1 pg (27.0-34.0); Mean Corpuscular Volume 97.5 fL (80.0-100.0); Mean Platelet Volume 6.7 fL (7.0-11.0); Mono # (Auto) 0.4 th/mm3 (0.0-0.9); Mono % (Auto) 10.7 % (0.0-8.0); Neut % (Auto) 30.8 % (16.0-70.0); Platelet Count 159 th/mm3 (150-450); Red Blood Count 3.58 mil/mm3 (4.50-5.90); Red Cell Distribution Width 13.6 % (11.6-17.2); White Blood Count 3.3 th/mm3 (4.0-11.0)
[2018-07-17 08:56] LABS: Anion Gap 8 meq/L (5-15); Blood Urea Nitrogen 3 mg/dL (7-18); Calcium 7.3 mg/dL (8.5-10.1); Carbon Dioxide 22.8 meq/L (21.0-32.0); Chloride 112 meq/L (98-107); Glomerular Filtration Rate Greater Than 89 mL/min (>89); Glucose,Random 79 mg/dL (74-106); Magnesium 1.8 mg/dL (1.5-2.5); Sodium 143 meq/L (136-145)
[2018-07-17 09:11] LABS: Total Protein 4.7 g/dL (6.4-8.2)
[2018-07-17] MEDS: Lactobacillus Acidophilus/L. Spores Tablet PO SCH ×3 (09:28→17:25)
[2018-07-17] MEDS: Magnesium Oxide 400 MG Tablet PO SCH ×3 (09:28→17:25)
[2018-07-17] MEDS: Furosemide 20 MG Tablet PO SCH (09:28)
[2018-07-17] MEDS: Bismuth Subsalicylate Susp 240 ML Bottle PO SCH ×4 (09:29→21:39)
--- NOTE | 2018-07-17 14:36 | P.PNID ---
Subjective Remarks: Patient still having stools. Complains that his legs are still swollen. Denies abdominal pain. No fever. No nausea or vomiting. Denies sweats or chills. GI procedure noted severe colitis. 68-year-old white male who was admitted to the hospital on 07/07/2018 because of abdominal pain. The patient was complaining of weakness and abdominal pain. He reports having diarrhea over the past 3 weeks. He states to me that he has up to 10 stools a day and that he was taking Imodium and other antidiarrheal medicines, but it was not helping and he continues to have frequent diarrhea. The workup included blood cultures which were drawn on 07/05/2018 and 09/18 bottles are Staph coagulase negative. The patient's white count was up to 27.7 on admission and now is down to 11.2. He is afebrile. He had maximum temperature of 100.1 degrees yesterday. CAT scan of the abdomen on 07/05/2018 showed diffuse mural thickening and edema throughout the colon characteristic of a diffuse colitis. Stool sent for C. difficile testing shows positive C. difficile antigen and C. difficile DNA amplification. C. difficile toxin is negative. The patient also had acute renal insufficiency with estimated GFR of 39 on 07/05/2018. Antibiotics: Vanco PO Dificid PO. Allergies/Adverse Reactions: Allergies No Known Allergies Allergy (Verified 07/05/18 18:59) Objective Vital Signs 07/16/18 16:00 07/16/18 20:00 07/17/18 08:00 Temperature 97.2 F L 97.5 F L 97.1 F L Pulse Rate 88 90 87 Respiratory Rate 17 18 16 Blood Pressure 143/69 H 113/72 126/80 Pulse Oximetry 95 95 96 07/17/18 12:00 Temperature 97.7 F Pulse Rate 98 H Respiratory Rate 16 Blood Pressure 111/74 Pulse Oximetry 95 Intake & Output 07/16/18 07/17/18 07/17/18 18:59 06:59 18:59 Intake Total 2035 3100 / 3100 Balance 2035 3100 / 3100 Weight 94.8 kg Intake: IV 100 / 100 Magnesium Sulfate Inj 2 GM In 100 / 100 NS Inj 96 ML @ 50 mls/hr IV.SIG ONCE ONE Rx#:[id number] Oral 2035 3000 / 3000 Other: # Voids 10 4 Date of Last Bowel Movement 07/16/18 07/16/18 # Bowel Movements 10 4 Lab - Hematology Results 07/17/18 06:38 WBC 3.3 L RBC 3.58 L Hgb 12.2 L Hct 34.9 L MCV 97.5 MCH 34.1 H MCHC 35.0 RDW 13.6 Plt Count 159 MPV 6.7 L Prelim Diff (Auto) Slide review pending Neut % (Auto) 30.8 Lymph % (Auto) 53.6 H Holt % (Auto) 10.7 H Eos % (Auto) 3.2 Baso % (Auto) 1.7 Neut # (Auto) 1.0 L Lymph # (Auto) 1.8 Holt # (Auto) 0.4 Eos # (Auto) 0.1 Baso # (Auto) 0.1 WBC Differential . Diff Scan Auto diff confirmed Differential Comment . Lab - Chemistry Results 07/16/18 07/17/18 06:49 06:38 Sodium 143 Potassium 4.0 Chloride 112 H Carbon Dioxide 22.8 Anion Gap 8 BUN 3 L Creatinine 0.76 Estimated GFR Greater than 89 Random Glucose 79 Calcium 7.3 L* Prot Corrected Calcium 8.7 Magnesium 1.6 1.8 Total Protein 4.7 L Imaging: ITS Impressions Chest X-Ray 07/05/18 19:10 CONCLUSION: No acute findings. Abdomen/Pelvis CT 07/10/18 00:00 CONCLUSION: 1. Increased ascitic fluid compared to the recent study 5 days ago. 2. Diffuse mural wall thickening and edema throughout the colon consistent with colitis. This is not significantly changed. 3. New small bilateral pleural effusions right greater than left. 4. Multiple stable cystic structures in the liver. Physical Exam: PHYSICAL EXAMINATION: GENERAL: No acute distress. HEENT: No icterus. Oropharynx moist; no focal lesions. NECK: Supple without adenopathy. LUNGS: Breath sounds clear. HEART: Regular rate and rhythm. No murmurs, rubs or gallops. ABDOMEN: Bowel sounds present. Soft, nontender. EXTREMITIES: No clubbing, cyanosis or edema. SKIN: No rash. NEUROLOGIC: Nonfocal. PSYCHIATRIC: Calm and cooperative. Assessment and Plan - Plan IMPRESSION: 1. Severe colitis, persistent diarrhea, along with leukocytosis and positive Clostridium difficile antigen, along with colitis on CT scan. Diarrhea not improving. 2. Positive blood culture due to Staphylococcus coagulase negative in 1/4 bottles. I think this is likely contamination and not due to sepsis. 3. Leukocytosis secondary to colitis. White blood cell count improved. 4. Pedal edema from IV fluids. RECOMMENDATIONS: 1. Continue Dificid day 5. 2. Continue vancomycin to 500 mg p.o. 4 times daily. 3. Monitor stools. 4. Monitor response to treatment.
--- NOTE | 2018-07-17 15:43 | P.PNGI ---
Subjective Interval history: Patient ambulating in room Reports 4-5 loose stools today States tolerating meals well without any nausea or vomiting <Cynthia Calles - Last Filed: 07/17/18 16:24> Physical Exam Vital signs: Vital Signs 07/16/18 16:00 07/16/18 20:00 07/17/18 08:00 Temperature 97.2 F L 97.5 F L 97.1 F L Pulse Rate 88 90 87 Respiratory Rate 17 18 16 Blood Pressure 143/69 H 113/72 126/80 Pulse Oximetry 95 95 96 07/17/18 12:00 Temperature 97.7 F Pulse Rate 98 H Respiratory Rate 16 Blood Pressure 111/74 Pulse Oximetry 95 Intake & Output 07/16/18 07/17/18 07/17/18 18:59 06:59 18:59 Intake Total 2035 3100 / 3100 Balance 2035 3100 / 3100 Weight 94.8 kg Intake: IV 100 / 100 Magnesium Sulfate Inj 2 GM In 100 / 100 NS Inj 96 ML @ 50 mls/hr IV.SIG ONCE ONE Rx#:[id number] Oral 2035 3000 / 3000 Other: # Voids 10 4 Date of Last Bowel Movement 07/16/18 07/16/18 # Bowel Movements 10 4 - Constitutional no acute distress - Routine HEENT Exam Head: Present: normocephalic - Routine Respiratory Exam Present: CTA bilaterally. Absent: accessory muscle use - Routine Abdominal Exam Present: soft, normoactive bowel sounds. Absent: tenderness, distended, guarding, firm - Routine Extremities Exam Present: edema, full ROM - Routine Skin Exam Present: dry, warm - Routine Neurological Exam Present: alert, oriented X3 - Routine Psychiatric Exam Present: normal affect, cooperative <Cynthia Calles - Last Filed: 07/17/18 16:24> Vital signs: Vital Signs 07/16/18 20:00 07/17/18 08:00 07/17/18 12:00 Temperature 97.5 F L 97.1 F L 97.7 F Pulse Rate 90 87 98 H Respiratory Rate 18 16 16 Blood Pressure 113/72 126/80 111/74 Pulse Oximetry 95 96 95 Intake & Output 07/16/18 07/17/18 07/17/18 18:59 06:59 18:59 Intake Total 2035 3100 / 3100 Balance 2035 3100 / 3100 Weight 94.8 kg Intake: IV 100 / 100 Magnesium Sulfate Inj 2 GM In 100 / 100 NS Inj 96 ML @ 50 mls/hr IV.SIG ONCE ONE Rx#:[id number] Oral 2035 3000 / 3000 Other: # Voids 10 4 Date of Last Bowel Movement 07/16/18 07/16/18 # Bowel Movements 10 4 <Claudy Leigh E - Last Filed: 07/17/18 17:00> Results - Labs CBC & Chem 7: 07/17/18 06:38 07/17/18 06:38 Laboratory Results - last 24 hr 07/17/18 07/17/18 06:38 06:38 WBC 3.3 L RBC 3.58 L Hgb 12.2 L Hct 34.9 L MCV 97.5 MCH 34.1 H MCHC 35.0 RDW 13.6 Plt Count 159 MPV 6.7 L Prelim Diff (Auto) Slide review pending Neut % (Auto) 30.8 Lymph % (Auto) 53.6 H [place] % (Auto) 10.7 H Eos % (Auto) 3.2 Baso % (Auto) 1.7 Neut # (Auto) 1.0 L Lymph # (Auto) 1.8 [place] # (Auto) 0.4 Eos # (Auto) 0.1 Baso # (Auto) 0.1 WBC Differential . Diff Scan Auto diff confirmed Differential Comment . Sodium 143 Potassium 4.0 Chloride 112 H Carbon Dioxide 22.8 Anion Gap 8 BUN 3 L Creatinine 0.76 Estimated GFR Greater than 89 Random Glucose 79 Calcium 7.3 L* Prot Corrected Calcium 8.7 Magnesium 1.8 Total Protein 4.7 L - Procedures Date of procedure: 07/13/18 Procedure: THANK YOU FOR THE REFERRAL Indication; severe diarrhea, despite treatment for C. difficile Procedure Performed; Colonoscopy with biopsy After informing the patient about procedure and possible complications consent was signed. history and physical were updated. Patient was taken to the procedure room and placed in position. Time out was completed. Adequate sedation was performed by anesthesia provider. Colonoscopy, rectal exam was performed the scope was placed in the rectum advanced under video guide to the cecum which was identifed by ileo-cecal valve and appendiceal orifice, then the scope withdrawal slowly with examination of the mucosa to the rectum and retro-flexion was performed, the scope was withdrawal without any immediate complication Findings; Colon severe colitis throughout the colon typical for C. difficile, very inflamed and congested mucosa biopsy was done from the sigmoid Rectum changes consistent with C. difficile Recommendations; 1- Supportive care 2- ok to transfer to recovery area then discharge per protocol 3- colonoscopy in 3 years 4-full liquid diet 5-Hemoccult on a yearly basis by primary care physician 6-we will add Dificid since the patient does not seem to be responding well to Vanco and Flagyl, will stop the Flagyl Documented By: Hadley Yanes MD <Cynthia Calles - Last Filed: 07/17/18 16:24> - Labs CBC & Chem 7: 07/17/18 06:38 07/17/18 06:38 Laboratory Results - last 24 hr 07/17/18 07/17/18 06:38 06:38 WBC 3.3 L RBC 3.58 L Hgb 12.2 L Hct 34.9 L MCV 97.5 MCH 34.1 H MCHC 35.0 RDW 13.6 Plt Count 159 MPV 6.7 L Prelim Diff (Auto) Slide review pending Neut % (Auto) 30.8 Lymph % (Auto) 53.6 H [place] % (Auto) 10.7 H Eos % (Auto) 3.2 Baso % (Auto) 1.7 Neut # (Auto) 1.0 L Lymph # (Auto) 1.8 [place] # (Auto) 0.4 Eos # (Auto) 0.1 Baso # (Auto) 0.1 WBC Differential . Diff Scan Auto diff confirmed Differential Comment . Sodium 143 Potassium 4.0 Chloride 112 H Carbon Dioxide 22.8 Anion Gap 8 BUN 3 L Creatinine 0.76 Estimated GFR Greater than 89 Random Glucose 79 Calcium 7.3 L* Prot Corrected Calcium 8.7 Magnesium 1.8 Total Protein 4.7 L <Claudy Leigh - Last Filed: 07/17/18 17:00> Assessment and Plan - Plan C. difficile colitis-patient reports 3-week history of diarrhea associated with fecal urgency and incontinence. Denies any hematochezia or melena. Does report some mild abdominal cramping associated with BMs. Denies any nausea, vomiting, abdominal pain. Does report about a 10 pound unintentional weight loss for the past 3 weeks, but has had very poor p.o. intake. Denies any fever or chills Patient denies any sick contacts, recent travel or ingestion of suspicious foods. Patient denies history of C. difficile. Of note, patient was on clindamycin in March for tooth extraction. Has never had EGD or colonoscopy. Denies family history significant for GI issues. CT abdomen/pelvis with IV contrast-> diffuse mural thickening and edema throughout the colon characteristic of a diffuse colitis. There is associated mild ascites. C. Diff positive, epid negative. 07/10/2018 patient states that diarrhea is not improved at all that he continues to have one bowel movement at least every hour and does notice blood in the stool. Seems to have some increased anxiety around his uncontrolled diarrhea and states that he is never been sick or in the hospital in his life. Currently denies any nausea or vomiting but does note poor appetite. Leukocytosis now resolved currently WBC count 7.5 so appears to be responding to p.o. vancomycin and Flagyl. PT/INR 1.4. We will continue to monitor for diarrhea to stabilize and evaluate medications. Cholestyramine dose was increased today to 4 times a day will evaluate over the 24 hours whether this is effective. Patient will need colonoscopy , but needs improvement of symptoms of C. difficile as well as these diarrhea stools Mild coagulopathy PT/INR 1.4 with some mild ascites noted on initial CT. will consider home treatment of his C. difficile once diarrheal stools are trending down. Hepatic cyst seen on CT scan could represent some fatty liver disease or hepatocellular disease. 07/11/2018, patient states very small gradual improvement noted in number of stools. Patient was able to sleep last night without being awakened but does note at least 6 small stools over the a.m.. Denies any abdominal pain no nausea no vomiting No EtOH abuse but does note an occasional beer. No alcohol in the past [address] scan shows continued colitis throughout colon, patient will need colonoscopy when he is medically stable hopefully sometime next week To evaluate further colitis, ischemic, versus ulcerative versus C. difficile 07/12/2018 current hemoglobin 12.5, WBC count normal. Minimal response to current medications and medical management. Discussed with patient the need for colonoscopy to further evaluate and do colon biopsies. Patient agrees. Was able to get up and take a shower today but will continue IV fluids when patient is resting in the bed 07/13/2018 patient still having diarrhea, still having abdominal cramping, he had colonoscopy today which shows severe diffuse colitis consistent with C. difficile, patient is having abdominal discomfort 07/14/2018-patient reports less frequency of diarrhea, denies any abdominal cramping at this time. Colonoscopy results discussed with patient. Diffuse colitis consistent with C. difficile. Flagyl discontinued Dificid started, vancomycin ongoing. Hemoglobin 13.3 hematocrit 38.5 WBC 5.2 07/15/2018 patient continues to have diarrhea stools, observed in the bedside commode to be draining and medium brown/orange. States abdominal pain is gradually improving, 6 BMs noted over the past 24 hours. Current hemoglobin 13.2 no obvious bleeding WBC count 5.2 patient is on third day of Dificid and p.o. vancomycin. Mild minimal improvement with Dificid but will continue to monitor. Noted per colonoscopy patient to have severe atypical colitis with typical colitis noted in the rectal area 07/13/2018. 07/16/2018-patient states diarrhea persists, patient reports less frequency, 5 stools recorded as output, denies abdominal pain. Patient states he was able to get up and shower today. 07/14/2018 hemoglobin 13.3 hematocrit 38.5 WBC 5.2. Patient currently on Dificid and vancomycin p.o. 07/17/2018-patient reporting 4-5 stools loose and brown today, denies any abdominal pain. States tolerating diet well without any nausea or vomiting. Hemoglobin 12.2 hematocrit 34.9 platelet count 159. Colon biopsy pathology report-- COLON, SIGMOID, BIOPSY: ACUTE COLITIS WITH ULCERATION, PSEUDOMEMBRANE FORMATION AND MUCOSAL VASCULAR MICROTHROMBI; PSEUDOMEMBRANOUS COLITIS VERSUS ISCHEMIC COLITIS. Plan -Soft diet -Vancomycin and Dificid -PPI -Questran and Lactinex -Monitor labs -Monitor output -Supportive care -Further recommendations to follow Patient was seen per myself and Dr. Leigh note was written on his behalf - Attending Attestation Dr. Leigh <Cynthia Calles - Last Filed: 07/17/18 16:24> - Plan Patient seen and examined Agree with above Monitor labs Continue with current supportive care Patient appears to be doing better overall will defer to infectious disease for treatment of C. difficile <Claudy Leigh - Last Filed: 07/17/18 17:00>
--- NOTE | 2018-07-17 16:35 | P.PNIM ---
Subjective Interval history: Follow-up sepsis,abdominal pain, diarrhea, C. difficile colitis, NEGRITO. Patient seen and examined sitting on the side of the bed, stated feeling better. Patient stated stool/diarrhea has been better today it is less. When asked, many times he go to the bathroom for diarrhea patient stated "every hour". Patient denies any abdominal pain, nausea or vomiting. Patient denies any headache or dizziness, denies any chest pain or shortness of breath, denies any fever or chills. Discussed with nursing to monitor stools. Physical Exam Vital signs: Vital Signs 07/16/18 20:00 07/17/18 08:00 07/17/18 12:00 Temperature 97.5 F L 97.1 F L 97.7 F Pulse Rate 90 87 98 H Respiratory Rate 18 16 16 Blood Pressure 113/72 126/80 111/74 Pulse Oximetry 95 96 95 Intake & Output 07/16/18 07/17/18 07/17/18 18:59 06:59 18:59 Intake Total 2035 3100 / 3100 Balance 2035 3100 / 3100 Weight 94.8 kg Intake: IV 100 / 100 Magnesium Sulfate Inj 2 GM In 100 / 100 NS Inj 96 ML @ 50 mls/hr IV.SIG ONCE ONE Rx#:[id number] Oral 2035 3000 / 3000 Other: # Voids 10 4 Date of Last Bowel Movement 07/16/18 07/16/18 # Bowel Movements 10 4 Narrative: GENERAL: Well-developed, well-nourished, male in no acute distress SKIN: Warm and dry. HEAD: Atraumatic. Normocephalic. EYES: Pupils equal and round. No scleral icterus. No injection or drainage. ENT: No nasal bleeding or discharge. Mucous membranes pink and moist. NECK: Trachea midline. No JVD. CARDIOVASCULAR: Regular rate and rhythm. RESPIRATORY: No accessory muscle use. Clear to auscultation. Breath sounds equal bilaterally. GASTROINTESTINAL: Abdomen soft, non-tender, nondistended. Hepatic and splenic margins not palpable. MUSCULOSKELETAL: Extremities without clubbing, cyanosis, or edema. No obvious deformities. NEUROLOGICAL: Awake and alert. No obvious cranial nerve deficits. Motor grossly within normal limits. Generalized weakness, moving all 4 extremities normal speech. PSYCHIATRIC: irritable mood and affect Results - Labs CBC & Chem 7: 07/17/18 06:38 07/17/18 06:38 Laboratory Results - last 24 hr 07/17/18 07/17/18 06:38 06:38 WBC 3.3 L RBC 3.58 L Hgb 12.2 L Hct 34.9 L MCV 97.5 MCH 34.1 H MCHC 35.0 RDW 13.6 Plt Count 159 MPV 6.7 L Prelim Diff (Auto) Slide review pending Neut % (Auto) 30.8 Lymph % (Auto) 53.6 H [place] % (Auto) 10.7 H Eos % (Auto) 3.2 Baso % (Auto) 1.7 Neut # (Auto) 1.0 L Lymph # (Auto) 1.8 [place] # (Auto) 0.4 Eos # (Auto) 0.1 Baso # (Auto) 0.1 WBC Differential . Diff Scan Auto diff confirmed Differential Comment . Sodium 143 Potassium 4.0 Chloride 112 H Carbon Dioxide 22.8 Anion Gap 8 BUN 3 L Creatinine 0.76 Estimated GFR Greater than 89 Random Glucose 79 Calcium 7.3 L* Prot Corrected Calcium 8.7 Magnesium 1.8 Total Protein 4.7 L - Procedures Date of procedure: 07/13/18 Procedure: THANK YOU FOR THE REFERRAL Indication; severe diarrhea, despite treatment for C. difficile Procedure Performed; Colonoscopy with biopsy After informing the patient about procedure and possible complications consent was signed. history and physical were updated. Patient was taken to the procedure room and placed in position. Time out was completed. Adequate sedation was performed by anesthesia provider. Colonoscopy, rectal exam was performed the scope was placed in the rectum advanced under video guide to the cecum which was identifed by ileo-cecal valve and appendiceal orifice, then the scope withdrawal slowly with examination of the mucosa to the rectum and retro-flexion was performed, the scope was withdrawal without any immediate complication Findings; Colon severe colitis throughout the colon typical for C. difficile, very inflamed and congested mucosa biopsy was done from the sigmoid Rectum changes consistent with C. difficile Recommendations; 1- Supportive care 2- ok to transfer to recovery area then discharge per protocol 3- colonoscopy in 3 years 4-full liquid diet 5-Hemoccult on a yearly basis by primary care physician 6-we will add Dificid since the patient does not seem to be responding well to Vanco and Flagyl, will stop the Flagyl Documented By: Hadley Yanes MD Assessment and Plan - Assessment (1) Colitis Code(s): K52.9 - Noninfective gastroenteritis and colitis, unspecified Status : Acute (2) NEGRITO (acute kidney injury) Code(s): N17.9 - Acute kidney failure, unspecified Status: Acute (3) Hypocalcemia Code(s): E83.51 - Hypocalcemia Status: Acute (4) Hypokalemia Code(s): E87.6 - Hypokalemia Status: Acute - Plan 68-year-old male with no significant PMH who presents the ER with complaints of abdominal pain in addition to diarrhea. States symptoms have been intermittent for the last 1 mo, however now progressively worse w/ increased episodes of diarrhea Severe sepsis present on admission with tachycardia and leukocytosis HR 99, WBC 27, Bandemia 18%, Lactic Acid 2.3, likely due to severe colitis. S/p blood cultures, initially was on Zosyn/Flagyl Leukocytosis trending down, secondary to colitis, improved WBC today is 5.2, Lactic acid 2.2 trended down to 1.1. -continue to follow cultures, blood culture no growth for 5 days -s/p aggressive hydration, IVF to 125/hr, discontinued on 07/15 due to persistent lower extremity edema -Fever on 07/09/2018 102.2, had been afebrile since then, monitor temp -ID following: Recommended continue Dificid and vancomycin p.o. -monitor CBC, BMP Severe C. difficile colitis -Status post colonoscopy 07/13/18 -CT Abd/Pelvis w/ diffuse colitis, images reviewed, +diarrhea -Stool C. difficile antigen positive, toxin negative DNA positive. Negative for EPID 027 -Stools for O&P negative -monitor and Replace electrolytes as needed -GI following: Status post colonoscopy, resulted severe C. difficile colitis -Continue Dificid and vancomycin orally per GI recommendation -continue Lactinex 3 times daily -continue Questran dose -Advance diet as tolerated -still complaining of diarrhea, stated every hour today. Discussed with nursing to monitor stools NEGRITO superimposed on chronic kidney disease stage II/hypocalcemia/hypokalemia -creatinine improving, likely due to dehydration and diarrhea and sepsis. -s/p IV fluid hydration - avoid nephrotoxins - Monitor creatinine, Creatinine 0.76 today 07/17/18 - Protein corrected calcium improved. -S/P replacement with calcium and potassium, replace as needed -Monitor BMP Hypomagnesemia Likely from GI losses -Replace IV magnesium -Started magnesium p.o. daily -Monitor magnesium level Bilateral lower extremity edema -likely due to IV fluid, and immobility/NEGRITO -DC IV fluid -Monitor, no SOB, no rales or crackles -Increase ambulation -add lasix and kcl x 3 days -monitor BMP, monitor response DVT Prophylaxis: SCD/Teds, increase ambulation Code Status: full code Discussed Condition With: patient, nurse Tar[employer] Expert, MDR ID: Dr. Bui Discharge Planning: Plan to discharge home when cleared with ID and GI and stools improved
[2018-07-18 08:19] LABS: Anion Gap 8 meq/L (5-15); Blood Urea Nitrogen 3 mg/dL (7-18); Calcium 7.2 mg/dL (8.5-10.1); Carbon Dioxide 25.4 meq/L (21.0-32.0); Chloride 111 meq/L (98-107); Glomerular Filtration Rate Greater Than 89 mL/min (>89); Glucose,Random 74 mg/dL (74-106); Sodium 144 meq/L (136-145)
[2018-07-18 08:33] LABS: Total Protein 5.1 g/dL (6.4-8.2)
[2018-07-18] MEDS: Lactobacillus Acidophilus/L. Spores Tablet PO SCH ×3 (09:03→17:58)
[2018-07-18] MEDS: Magnesium Oxide 400 MG Tablet PO SCH ×3 (09:04→17:59)
[2018-07-18] MEDS: Furosemide 20 MG Tablet PO SCH ×2 (09:04→21:05)
[2018-07-18] MEDS: Bismuth Subsalicylate Susp 240 ML Bottle PO SCH ×4 (09:05→21:10)
--- NOTE | 2018-07-18 13:10 | P.PNGI ---
Subjective Interval history: Pt is resting in bed, no real improvement, still going frequently, states firming up some what. No nausea, no vomiting no abd pain, no bleeding. <Lidia Gant - Last Filed: 07/18/18 12:58> Physical Exam Vital signs: Vital Signs 07/17/18 16:00 07/17/18 20:00 07/18/18 04:00 Temperature 98 F 97.9 F 97.4 F L Pulse Rate 102 H 96 H 85 Respiratory Rate 16 18 18 Blood Pressure 120/76 118/72 113/75 Pulse Oximetry 98 99 97 07/18/18 08:00 Temperature 98.3 F Pulse Rate 88 Respiratory Rate 17 Blood Pressure 116/68 Pulse Oximetry 99 Intake & Output 07/17/18 07/18/18 07/18/18 18:59 06:59 18:59 Intake Total 1752 / 1752 480 / 480 Output Total 85 / 85 100 / 100 Balance 1667 / 1667 380 / 380 Weight 90 kg Intake: Oral 1752 / 1752 480 / 480 Output: Stool 75 / 75 100 / 100 Urine/Stool Mix Other: # Voids 10 2 Date of Last Bowel Movement 07/17/18 # Bowel Movements 6 # Incontinent Bowel Movements 0 Narrative: GENERAL: Well-developed, well-nourished, in no acute distress SKIN: Warm and dry. NECK: Trachea midline. No JVD. CARDIOVASCULAR: Regular rate and rhythm. RESPIRATORY: No accessory muscle use. Clear to auscultation. Breath sounds equal bilaterally. GASTROINTESTINAL: Abdomen soft, non-tender, nondistended. Hepatic and splenic margins not palpable. MUSCULOSKELETAL: Extremities without clubbing, cyanosis, or edema. No obvious deformities. NEUROLOGICAL: Awake and alert X3. PSYCHIATRIC: irritable mood and affect <Lidia Gant - Last Filed: 07/18/18 12:58> Vital signs: Vital Signs 07/17/18 16:00 07/17/18 20:00 07/18/18 04:00 Temperature 98 F 97.9 F 97.4 F L Pulse Rate 102 H 96 H 85 Respiratory Rate 16 18 18 Blood Pressure 120/76 118/72 113/75 Pulse Oximetry 98 99 97 07/18/18 08:00 Temperature 98.3 F Pulse Rate 88 Respiratory Rate 17 Blood Pressure 116/68 Pulse Oximetry 99 Intake & Output 07/17/18 07/18/18 07/18/18 18:59 06:59 18:59 Intake Total 1752 / 1752 480 / 480 Output Total 85 / 85 100 / 100 Balance 1667 / 1667 380 / 380 Weight 90 kg Intake: Oral 1752 / 1752 480 / 480 Output: Stool 75 / 75 100 / 100 Urine/Stool Mix Other: # Voids 10 2 Date of Last Bowel Movement 07/17/18 # Bowel Movements 6 # Incontinent Bowel Movements 0 <Alyx Resendiz - Last Filed: 07/18/18 14:00> Results - Labs CBC & Chem 7: 07/17/18 06:38 07/18/18 06:09 Laboratory Results - last 24 hr 07/18/18 06:09 Sodium 144 Potassium 4.0 Chloride 111 H Carbon Dioxide 25.4 Anion Gap 8 BUN 3 L Creatinine 0.75 Estimated GFR Greater than 89 Random Glucose 74 Calcium 7.2 L* Prot Corrected Calcium 8.3 L Total Protein 5.1 L - Procedures Date of procedure: 07/13/18 Procedure: THANK YOU FOR THE REFERRAL Indication; severe diarrhea, despite treatment for C. difficile Procedure Performed; Colonoscopy with biopsy After informing the patient about procedure and possible complications consent was signed. history and physical were updated. Patient was taken to the procedure room and placed in position. Time out was completed. Adequate sedation was performed by anesthesia provider. Colonoscopy, rectal exam was performed the scope was placed in the rectum advanced under video guide to the cecum which was identifed by ileo-cecal valve and appendiceal orifice, then the scope withdrawal slowly with examination of the mucosa to the rectum and retro-flexion was performed, the scope was withdrawal without any immediate complication Findings; Colon severe colitis throughout the colon typical for C. difficile, very inflamed and congested mucosa biopsy was done from the sigmoid Rectum changes consistent with C. difficile Recommendations; 1- Supportive care 2- ok to transfer to recovery area then discharge per protocol 3- colonoscopy in 3 years 4-full liquid diet 5-Hemoccult on a yearly basis by primary care physician 6-we will add Dificid since the patient does not seem to be responding well to Vanco and Flagyl, will stop the Flagyl Documented By: Hadley Yanes MD <Lidia Gant - Last Filed: 07/18/18 12:58> - Labs CBC & Chem 7: 07/17/18 06:38 07/18/18 06:09 Laboratory Results - last 24 hr 07/18/18 06:09 Sodium 144 Potassium 4.0 Chloride 111 H Carbon Dioxide 25.4 Anion Gap 8 BUN 3 L Creatinine 0.75 Estimated GFR Greater than 89 Random Glucose 74 Calcium 7.2 L* Prot Corrected Calcium 8.3 L Total Protein 5.1 L <Alyx Resendiz - Last Filed: 07/18/18 14:00> Assessment and Plan - Plan - C. difficile colitis- first episode, no real improvement, no Vanco and Difficid, ID on the case CT abdomen/pelvis with IV contrast-> diffuse mural thickening and edema throughout the colon characteristic of a diffuse colitis. There is associated mild ascites. Colonoscopy on 07/13/18 Colon severe colitis throughout the colon typical for C. difficile, very inflamed and congested mucosa biopsy was done from the sigmoid Rectum changes consistent with C. difficile COLON, SIGMOID, BIOPSY: ACUTE COLITIS WITH ULCERATION, PSEUDOMEMBRANE FORMATION AND MUCOSAL VASCULAR MICROTHROMBI; PSEUDOMEMBRANOUS COLITIS VERSUS ISCHEMIC COLITIS. - Positive blood culture due to Staphylococcus - ID thinks possible contamination - Leukocytosis secondary to colitis.Improved Plan: - MAYANK - Cont. to monitor stools out put - Cont. Vanco and Difficid - ID on the case - Supportive care - Pt seen and examined by Dr. resendiz and myself and this note is written on her behalf. <Lidia Gant - Last Filed: 07/18/18 12:58> - Attending Attestation seen, examined agree with above <Alyx Resendiz - Last Filed: 07/18/18 14:00>
--- NOTE | 2018-07-18 16:16 | P.PNIM ---
Subjective Interval history: Follow-up sepsis,abdominal pain, diarrhea, C. difficile colitis, NEGRITO. Patient seen and examined, just get out of the bathroom however he flushed the toilet. Patient denies any diarrhea at this time stated just voided. Patient stated bowel movement seems getting better. Patient denies any abdominal pain, nausea or vomiting.. Patient denies any headache or dizziness, denies any chest pain or shortness of breath, denies any fever or chills. Patient concerned about what is going on with him, and how the diarrhea came about. Asked if the antibiotic he took last February cost him to have this diarrhea and C. difficile. Discussed the side effects of medication. Answers questions and concerns. Physical Exam Vital signs: Vital Signs 07/17/18 16:00 07/17/18 20:00 07/18/18 04:00 Temperature 98 F 97.9 F 97.4 F L Pulse Rate 102 H 96 H 85 Respiratory Rate 16 18 18 Blood Pressure 120/76 118/72 113/75 Pulse Oximetry 98 99 97 07/18/18 08:00 07/18/18 12:00 Temperature 98.3 F 98.3 F Pulse Rate 88 92 H Respiratory Rate 17 18 Blood Pressure 116/68 120/79 Pulse Oximetry 99 98 Intake & Output 07/17/18 07/18/18 07/18/18 18:59 06:59 18:59 Intake Total 1752 / 1752 480 / 480 Output Total 85 / 85 100 / 100 Balance 1667 / 1667 380 / 380 Weight 90 kg Intake: Oral 1752 / 1752 480 / 480 Output: Stool 75 / 75 100 / 100 Urine/Stool Mix Other: # Voids 10 2 Date of Last Bowel Movement 07/17/18 # Bowel Movements 6 # Incontinent Bowel Movements 0 Narrative: GENERAL: Well developed, well-nourished, male in no acute distress SKIN: Warm and dry. HEAD: Atraumatic. Normocephalic. EYES: Pupils equal and round. No scleral icterus. No injection or drainage. ENT: No nasal bleeding or discharge. Mucous membranes pink and moist. NECK: Trachea midline. No JVD. CARDIOVASCULAR: Regular rate and rhythm. RESPIRATORY: No accessory muscle use. Clear to auscultation. Breath sounds equal bilaterally. GASTROINTESTINAL: Abdomen soft, non-tender, nondistended. Hepatic and splenic margins not palpable. MUSCULOSKELETAL: Extremities without clubbing, cyanosis, or edema. No obvious deformities. NEUROLOGICAL: Awake and alert and oriented x3. No obvious cranial nerve deficits. Motor grossly within normal limits. Five out of 5 muscle strength in the arms and legs. Normal speech. PSYCHIATRIC: Irritable mood and affect Results - Labs CBC & Chem 7: 07/17/18 06:38 07/18/18 06:09 Laboratory Results - last 24 hr 07/18/18 06:09 Sodium 144 Potassium 4.0 Chloride 111 H Carbon Dioxide 25.4 Anion Gap 8 BUN 3 L Creatinine 0.75 Estimated GFR Greater than 89 Random Glucose 74 Calcium 7.2 L* Prot Corrected Calcium 8.3 L Total Protein 5.1 L - Procedures Date of procedure: 07/13/18 Procedure: THANK YOU FOR THE REFERRAL Indication; severe diarrhea, despite treatment for C. difficile Procedure Performed; Colonoscopy with biopsy After informing the patient about procedure and possible complications consent was signed. history and physical were updated. Patient was taken to the procedure room and placed in position. Time out was completed. Adequate sedation was performed by anesthesia provider. Colonoscopy, rectal exam was performed the scope was placed in the rectum advanced under video guide to the cecum which was identifed by ileo-cecal valve and appendiceal orifice, then the scope withdrawal slowly with examination of the mucosa to the rectum and retro-flexion was performed, the scope was withdrawal without any immediate complication Findings; Colon severe colitis throughout the colon typical for C. difficile, very inflamed and congested mucosa biopsy was done from the sigmoid Rectum changes consistent with C. difficile Recommendations; 1- Supportive care 2- ok to transfer to recovery area then discharge per protocol 3- colonoscopy in 3 years 4-full liquid diet 5-Hemoccult on a yearly basis by primary care physician 6-we will add Dificid since the patient does not seem to be responding well to Vanco and Flagyl, will stop the Flagyl Documented By: Hadley Yanes MD Assessment and Plan - Assessment (1) Colitis Code(s): K52.9 - Noninfective gastroenteritis and colitis, unspecified Status : Acute (2) NEGRITO (acute kidney injury) Code(s): N17.9 - Acute kidney failure, unspecified Status: Acute (3) Hypocalcemia Code(s): E83.51 - Hypocalcemia Status: Acute (4) Hypokalemia Code(s): E87.6 - Hypokalemia Status: Acute - Plan 68-year-old male with no significant PMH who presents the ER with complaints of abdominal pain in addition to diarrhea. States symptoms have been intermittent for the last 1 mo, however now progressively worse w/ increased episodes of diarrhea Severe sepsis present on admission with tachycardia and leukocytosis HR 99, WBC 27, Bandemia 18%, Lactic Acid 2.3, likely due to severe colitis. S/p blood cultures, initially was on Zosyn/Flagyl Leukocytosis trending down, secondary to colitis, improved WBC today is 5.2, Lactic acid 2.2 trended down to 1.1. -continue to follow cultures, blood culture no growth for 5 days -s/p aggressive hydration, IVF to 125/hr, discontinued on 07/15 due to persistent lower extremity edema -Fever on 07/09/2018 102.2, had been afebrile since then, monitor temp -ID following: Appreciate recommendation -continue Dificid x 10 days (20 doses), started on 07/13/18 -continue vancomycin p.o. -monitor CBC, BMP Severe C. difficile colitis -Status post colonoscopy 07/13/18 -CT Abd/Pelvis w/ diffuse colitis, images reviewed, +diarrhea -Stool C. difficile antigen positive, toxin negative DNA positive. Negative for EPID 027 -Stools for O&P negative -monitor and Replace electrolytes as needed -GI following: Status post colonoscopy, resulted severe C. difficile colitis -Continue Dificid x 20 doses (Started on 07/13/18) and vancomycin orally per GI recommendation -continue Lactinex 3 times daily -continue Questran dose -Advance diet as tolerated -Patient stated it is getting better and slowing down. -Nurse reported total stool for 12 hours about 275 mL total, emptied the hat 3 x (75ml +100 ml +100 mL). Discussed with nursing to continue monitor stools. Continue to monitor stools. NEGRITO superimposed on chronic kidney disease stage II/hypocalcemia/hypokalemia -creatinine improving, likely due to dehydration and diarrhea and sepsis. -s/p IV fluid hydration - avoid nephrotoxins - Monitor creatinine, Creatinine 0.75 today 07/18/18 - Protein corrected calcium improved. -S/P replacement with calcium and potassium, replace as needed -stable, Monitor BMP Hypomagnesemia Likely from GI losses -Replace IV magnesium -Started magnesium p.o. daily -Monitor magnesium level, 1.8 on 07/17/18 -monitor Mg level Bilateral lower extremity edema - pitting 1+ Lower extremity edema, bilateral -likely due to IV fluid, and immobility/NEGRITO -DC IV fluid -Monitor, no SOB, no rales or crackles -Increase ambulation -increase lasix to bid and kcl x 3 more days -monitor BMP, monitor response DVT Prophylaxis: SCD/Teds, increase ambulation Code Status: full code Discussed Condition With: patient and nurse Discharge Planning: Plan to discharge home when cleared with ID and GI and stools improved
[2018-07-19] MEDS: Bismuth Subsalicylate Susp 240 ML Bottle PO SCH ×4 (08:36→20:37)
[2018-07-19] MEDS: Lactobacillus Acidophilus/L. Spores Tablet PO SCH ×3 (08:37→17:21)
[2018-07-19] MEDS: Furosemide 20 MG Tablet PO SCH ×2 (08:37→20:37)
[2018-07-19] MEDS: Magnesium Oxide 400 MG Tablet PO SCH ×3 (08:40→17:21)
[2018-07-19 10:18] LABS: Anion Gap 9 meq/L (5-15); Blood Urea Nitrogen 3 mg/dL (7-18); Calcium 7.4 mg/dL (8.5-10.1); Carbon Dioxide 24.5 meq/L (21.0-32.0); Chloride 108 meq/L (98-107); Glomerular Filtration Rate Greater Than 89 mL/min (>89); Glucose,Random 80 mg/dL (74-106); Potassium 4.2 meq/L (3.5-5.1); Sodium 141 meq/L (136-145)
[2018-07-19 10:45] LABS: Total Protein 5.2 g/dL (6.4-8.2)
--- NOTE | 2018-07-19 15:02 | P.PNIM ---
Subjective Interval history: Follow-up sepsis,abdominal pain, diarrhea, C. difficile colitis, NEGRITO. Patient seen and examined laying in bed, family/landlord at bedside, patient more calm and cooperative at this time without any complaints or agitation. Patient stated he is feeling better, Derrek is getting formed. Patient denies any abdominal pain, nausea, vomiting. Patient denies any headache or dizziness, denies any chest pain or shortness of breath, denies any fever or chills. Nurse reported stool is getting formed, and frequency is getting less estimate of 300 mL all morning today at least 10 hours period. Discussed discharge planning in a day or 2, patient patient agreed, hoping to get out of here before Friday to be able to void. However concerned about the medication, patient stated she be able to take medications at home, however stated he do not have insurance to pay for the medication. Patient also concerned about primary care, stated he has no established primary care was not able to see a primary care before. States that he had problems seeing one before. Also discussed home health care, patient stated neonatal social worker informed him that he is not qualified for home health care. Physical Exam Vital signs: Vital Signs 07/18/18 16:00 07/18/18 20:00 07/19/18 08:00 Temperature 97.3 F L 97.6 F 97.6 F Pulse Rate 79 96 H 76 Respiratory Rate 17 17 18 Blood Pressure 118/69 111/71 120/79 Pulse Oximetry 95 96 96 Intake & Output 07/18/18 07/19/18 07/19/18 19:59 06:59 18:59 Output Total Balance Weight Output: Stool Other: Date of Last Bowel Movement 07/19/18 Narrative: GENERAL: Well developed, well-nourished, male in no acute distress SKIN: Warm and dry. HEAD: Atraumatic. Normocephalic. EYES: Pupils equal and round. No scleral icterus. No injection or drainage. ENT: No nasal bleeding or discharge. Mucous membranes pink and moist. NECK: Trachea midline. No JVD. CARDIOVASCULAR: Regular rate and rhythm. RESPIRATORY: No accessory muscle use. Clear to auscultation. Breath sounds equal bilaterally. GASTROINTESTINAL: Abdomen soft, non-tender, nondistended. Hepatic and splenic margins not palpable. MUSCULOSKELETAL: Extremities without clubbing, cyanosis, or edema. No obvious deformities. NEUROLOGICAL: Awake and alert and oriented x3. No obvious cranial nerve deficits. Motor grossly within normal limits. Five out of 5 muscle strength in the arms and legs. Normal speech. PSYCHIATRIC: Flat mood and affect, pleasant and cooperative today Results - Labs CBC & Chem 7: 07/17/18 06:38 07/19/18 08:26 Laboratory Results - last 24 hr 07/19/18 08:26 Sodium 141 Potassium 4.2 Chloride 108 H Carbon Dioxide 24.5 Anion Gap 9 BUN 3 L Creatinine 0.71 Estimated GFR Greater than 89 Random Glucose 80 Calcium 7.4 L* Prot Corrected Calcium 8.5 Total Protein 5.2 L - Procedures Date of procedure: 07/13/18 Procedure: THANK YOU FOR THE REFERRAL Indication; severe diarrhea, despite treatment for C. difficile Procedure Performed; Colonoscopy with biopsy After informing the patient about procedure and possible complications consent was signed. history and physical were updated. Patient was taken to the procedure room and placed in position. Time out was completed. Adequate sedation was performed by anesthesia provider. Colonoscopy, rectal exam was performed the scope was placed in the rectum advanced under video guide to the cecum which was identifed by ileo-cecal valve and appendiceal orifice, then the scope withdrawal slowly with examination of the mucosa to the rectum and retro-flexion was performed, the scope was withdrawal without any immediate complication Findings; Colon severe colitis throughout the colon typical for C. difficile, very inflamed and congested mucosa biopsy was done from the sigmoid Rectum changes consistent with C. difficile Recommendations; 1- Supportive care 2- ok to transfer to recovery area then discharge per protocol 3- colonoscopy in 3 years 4-full liquid diet 5-Hemoccult on a yearly basis by primary care physician 6-we will add Dificid since the patient does not seem to be responding well to Vanco and Flagyl, will stop the Flagyl Documented By: Hadley Yanes MD Assessment and Plan - Assessment (1) Colitis Code(s): K52.9 - Noninfective gastroenteritis and colitis, unspecified Status : Acute (2) NEGRITO (acute kidney injury) Code(s): N17.9 - Acute kidney failure, unspecified Status: Acute (3) Hypocalcemia Code(s): E83.51 - Hypocalcemia Status: Acute (4) Hypokalemia Code(s): E87.6 - Hypokalemia Status: Acute - Plan 68-year-old male with no significant PMH who presents the ER with complaints of abdominal pain in addition to diarrhea. States symptoms have been intermittent for the last 1 mo, however now progressively worse w/ increased episodes of diarrhea Severe sepsis present on admission with tachycardia and leukocytosis HR 99, WBC 27, Bandemia 18%, Lactic Acid 2.3, likely due to severe colitis. S/p blood cultures, initially was on Zosyn/Flagyl Leukocytosis trending down, secondary to colitis, improved WBC today is 5.2, Lactic acid 2.2 trended down to 1.1. -continue to follow cultures, blood culture no growth for 5 days -s/p aggressive hydration, IVF to 125/hr, discontinued on 07/15 due to persistent lower extremity edema -Fever on 07/09/2018 102.2, had been afebrile since then, monitor temp -ID following: Appreciate recommendation -continue Dificid x 10 days (20 doses), started on 07/13/18 -continue vancomycin p.o. -monitor CBC, BMP Severe C. difficile colitis -Status post colonoscopy 07/13/18 -CT Abd/Pelvis w/ diffuse colitis, images reviewed, +diarrhea -Stool C. difficile antigen positive, toxin negative DNA positive. Negative for EPID 027 -Stools for O&P negative -monitor and Replace electrolytes as needed -GI following: Status post colonoscopy, resulted severe C. difficile colitis -Continue Dificid x 20 doses (Started on 07/13/18) and vancomycin orally per GI recommendation -continue Lactinex 3 times daily -continue Questran dose -Advance diet as tolerated -Patient stated it is getting better and slowing down. -on 07/18 Nurse reported total stool for 12 hours about 275 mL total, emptied the hat 3 x (75ml +100 ml +100 mL). -on 07/19 stools getting slightly formed, not watery, and less frequent, with total 300 ml during daytime, about 10 hour period -Discussed with nursing to continue monitor stools. NEGRITO superimposed on chronic kidney disease stage II/hypocalcemia/hypokalemia -creatinine improving, likely due to dehydration and diarrhea and sepsis. -s/p IV fluid hydration - avoid nephrotoxins - Monitor creatinine, Creatinine 0.71 today 07/19/18 - Protein corrected calcium improved. -S/P replacement with calcium and potassium, replace as needed -stable, Monitor BMP Hypomagnesemia Likely from GI losses -Replace IV magnesium -Started magnesium p.o. daily -Monitor magnesium level, 1.8 on 07/17/18 -monitor Mg level Bilateral lower extremity edema - pitting 1+ Lower extremity edema, bilateral -likely due to IV fluid, and immobility/NEGRITO -DC IV fluid -Monitor, no SOB, no rales or crackles -Increase ambulation -increase lasix to bid and kcl x 3 more days, plan to discharge on low daily dose lasix and Potassium -monitor BMP, and weight, monitor response -weight on admission 84.5 kg, today 07/19/18 89.6, DVT Prophylaxis: SCD/Teds, increase ambulation Code Status: full code Discussed Condition With: patient and nurse Discharge Planning: Plan to discharge home when cleared with ID and GI and stools improved
--- NOTE | 2018-07-19 16:29 | P.PNGI ---
Subjective Interval history: Pt is asleep, awakes to me calling his name, states stool are forming and less frequent. No nausea, no vomiting, no abd pain, no bleeding. <Lidia Gant - Last Filed: 07/19/18 16:26> Physical Exam Vital signs: Vital Signs 07/18/18 20:00 07/19/18 08:00 Temperature 97.6 F 97.6 F Pulse Rate 96 H 76 Respiratory Rate 17 18 Blood Pressure 111/71 120/79 Pulse Oximetry 96 96 Intake & Output 07/18/18 07/19/18 07/19/18 19:59 06:59 18:59 Output Total Balance Weight Output: Stool Other: Date of Last Bowel Movement 07/19/18 Narrative: GENERAL: Well developed, well-nourished, in no acute distress SKIN: Warm and dry. NECK: Trachea midline. No JVD. CARDIOVASCULAR: Regular rate and rhythm. RESPIRATORY: No accessory muscle use. Clear to auscultation. Breath sounds equal bilaterally. GASTROINTESTINAL: Abdomen soft, non-tender, nondistended. MUSCULOSKELETAL: Extremities without clubbing, cyanosis, or edema. No obvious deformities. NEUROLOGICAL: Awake and alert and oriented x3. PSYCHIATRIC: more pleasant and cooperative today <Lidia Gant - Last Filed: 07/19/18 16:26> Vital signs: Vital Signs 07/19/18 08:00 07/19/18 16:00 Temperature 97.6 F 97.1 F L Pulse Rate 76 84 Respiratory Rate 18 17 Blood Pressure 120/79 124/77 Pulse Oximetry 96 96 Intake & Output 07/19/18 07/19/18 07/20/18 06:59 18:59 06:59 Intake Total 3000 / 3000 Output Total 350 / 350 Balance 2650 / 2650 Weight Intake: Oral 3000 / 3000 Output: Stool 350 / 350 Other: # Voids 4 Date of Last Bowel Movement 07/19/18 <Alyx Resendiz - Last Filed: 07/19/18 19:29> Results - Labs CBC & Chem 7: 07/17/18 06:38 07/19/18 08:26 Laboratory Results - last 24 hr 07/19/18 08:26 Sodium 141 Potassium 4.2 Chloride 108 H Carbon Dioxide 24.5 Anion Gap 9 BUN 3 L Creatinine 0.71 Estimated GFR Greater than 89 Random Glucose 80 Calcium 7.4 L* Prot Corrected Calcium 8.5 Total Protein 5.2 L - Procedures Date of procedure: 07/13/18 Procedure: THANK YOU FOR THE REFERRAL Indication; severe diarrhea, despite treatment for C. difficile Procedure Performed; Colonoscopy with biopsy After informing the patient about procedure and possible complications consent was signed. history and physical were updated. Patient was taken to the procedure room and placed in position. Time out was completed. Adequate sedation was performed by anesthesia provider. Colonoscopy, rectal exam was performed the scope was placed in the rectum advanced under video guide to the cecum which was identifed by ileo-cecal valve and appendiceal orifice, then the scope withdrawal slowly with examination of the mucosa to the rectum and retro-flexion was performed, the scope was withdrawal without any immediate complication Findings; Colon severe colitis throughout the colon typical for C. difficile, very inflamed and congested mucosa biopsy was done from the sigmoid Rectum changes consistent with C. difficile Recommendations; 1- Supportive care 2- ok to transfer to recovery area then discharge per protocol 3- colonoscopy in 3 years 4-full liquid diet 5-Hemoccult on a yearly basis by primary care physician 6-we will add Dificid since the patient does not seem to be responding well to Vanco and Flagyl, will stop the Flagyl Documented By: Hadley Yanes MD <Lidia Gant - Last Filed: 07/19/18 16:26> - Labs CBC & Chem 7: 07/17/18 06:38 07/19/18 08:26 Laboratory Results - last 24 hr 07/19/18 08:26 Sodium 141 Potassium 4.2 Chloride 108 H Carbon Dioxide 24.5 Anion Gap 9 BUN 3 L Creatinine 0.71 Estimated GFR Greater than 89 Random Glucose 80 Calcium 7.4 L* Prot Corrected Calcium 8.5 Total Protein 5.2 L <Alyx Resendiz - Last Filed: 07/19/18 19:29> Assessment and Plan - Plan - C. difficile colitis- first episode, endorses improvement today, on Vanco and Difficid, ID on the case CT abdomen/pelvis with IV contrast-> diffuse mural thickening and edema throughout the colon characteristic of a diffuse colitis. There is associated mild ascites. Colonoscopy on 07/13/18 Colon severe colitis throughout the colon typical for C. difficile, very inflamed and congested mucosa biopsy was done from the sigmoid Rectum changes consistent with C. difficile COLON, SIGMOID, BIOPSY: ACUTE COLITIS WITH ULCERATION, PSEUDOMEMBRANE FORMATION AND MUCOSAL VASCULAR MICROTHROMBI; PSEUDOMEMBRANOUS COLITIS VERSUS ISCHEMIC COLITIS. - Positive blood culture due to Staphylococcus - ID thinks possible contamination - Leukocytosis secondary to colitis.Improved Plan: - MAYANK - Cont. to monitor stools out put - Cont. Vanco and Difficid - ID on the case - Supportive care - Pt seen and examined by Dr. resendiz and myself and this note is written on her behalf. <Lidia Gant - Last Filed: 07/19/18 16:26> - Attending Attestation seen, examined agree with above <Alyx Resendiz - Last Filed: 07/19/18 19:29>
[2018-07-20] MEDS: Furosemide 20 MG Tablet PO SCH (09:21)
[2018-07-20] MEDS: Lactobacillus Acidophilus/L. Spores Tablet PO SCH ×3 (09:21→17:27)
[2018-07-20] MEDS: Magnesium Oxide 400 MG Tablet PO SCH ×3 (09:22→17:27)
[2018-07-20] MEDS: Bismuth Subsalicylate Susp 240 ML Bottle PO SCH ×4 (09:22→22:15)
--- NOTE | 2018-07-20 14:19 | P.PNID ---
Subjective Remarks: Patient has loose stools. States that he was getting up frequently during the night to have stools. Stools currently gelatinous. Complains that his legs are still swollen. No abdominal pain. No fever. No nausea or vomiting. GI procedure noted severe colitis. 68-year-old white male who was admitted to the hospital on 07/07/2018 because of abdominal pain. The patient was complaining of weakness and abdominal pain. He reports having diarrhea over the past 3 weeks. He states to me that he has up to 10 stools a day and that he was taking Imodium and other antidiarrheal medicines, but it was not helping and he continues to have frequent diarrhea. The workup included blood cultures which were drawn on 07/05/2018 and 09/18 bottles are Staph coagulase negative. The patient's white count was up to 27.7 on admission and now is down to 11.2. He is afebrile. He had maximum temperature of 100.1 degrees yesterday. CAT scan of the abdomen on 07/05/2018 showed diffuse mural thickening and edema throughout the colon characteristic of a diffuse colitis. Stool sent for C. difficile testing shows positive C. difficile antigen and C. difficile DNA amplification. C. difficile toxin is negative. The patient also had acute renal insufficiency with estimated GFR of 39 on 07/05/2018. Antibiotics: Vanco PO Dificid PO. Allergies/Adverse Reactions: Allergies No Known Allergies Allergy (Verified 07/05/18 18:59) Objective Vital Signs 07/19/18 16:00 07/19/18 20:00 07/20/18 00:00 Temperature 97.1 F L 97.4 F L 97.7 F Pulse Rate 84 97 H 88 Respiratory Rate 17 18 18 Blood Pressure 124/77 127/70 129/81 Pulse Oximetry 96 95 98 07/20/18 08:00 07/20/18 12:00 Temperature 97.9 F 97.6 F Pulse Rate 100 H 87 Respiratory Rate 16 16 Blood Pressure 128/76 96/58 L Pulse Oximetry 97 95 Intake & Output 07/19/18 07/20/18 07/20/18 18:59 06:59 18:59 Intake Total 3000 / 3000 480 / 480 Output Total 350 / 350 150 / 150 Balance 2650 / 2650 480 / 480 -150 / -150 Weight 89.6 kg Intake: Oral 3000 / 3000 480 / 480 Output: Stool 350 / 350 150 / 150 Other: # Voids 4 3 Date of Last Bowel Movement 07/19/18 07/19/18 07/20/18 Lab - Chemistry Results 07/19/18 08:26 Sodium 141 Potassium 4.2 Chloride 108 H Carbon Dioxide 24.5 Anion Gap 9 BUN 3 L Creatinine 0.71 Estimated GFR Greater than 89 Random Glucose 80 Calcium 7.4 L* Prot Corrected Calcium 8.5 Total Protein 5.2 L Imaging: ITS Impressions Chest X-Ray 07/05/18 19:10 CONCLUSION: No acute findings. Abdomen/Pelvis CT 07/10/18 00:00 CONCLUSION: 1. Increased ascitic fluid compared to the recent study 5 days ago. 2. Diffuse mural wall thickening and edema throughout the colon consistent with colitis. This is not significantly changed. 3. New small bilateral pleural effusions right greater than left. 4. Multiple stable cystic structures in the liver. Physical Exam: PHYSICAL EXAMINATION: GENERAL: No acute distress. HEENT: No icterus. Oropharynx moist; no focal lesions. NECK: Supple without adenopathy. LUNGS: Breath sounds clear. HEART: Regular rate and rhythm. No murmurs, rubs or gallops. ABDOMEN: Bowel sounds present. Soft, nontender. EXTREMITIES: No clubbing, cyanosis. 2+ edema. SKIN: No rash. NEUROLOGIC: Nonfocal. PSYCHIATRIC: Calm and cooperative. Assessment and Plan - Plan IMPRESSION: 1. Severe colitis, persistent diarrhea, along with leukocytosis and positive Clostridium difficile antigen, along with colitis on CT scan. Diarrhea not improving. 2. Positive blood culture due to Staphylococcus coagulase negative in 1/4 bottles. I think this is likely contamination and not due to sepsis. 3. Leukocytosis secondary to colitis. White blood cell count improved. 4. Pedal edema from IV fluids. RECOMMENDATIONS: 1. Continue Dificid until completion. 2. Continue vancomycin 500 mg p.o. 4 times daily he will need to continue vancomycin taper. 3. Monitor stools. 4. Monitor response to treatment.
--- NOTE | 2018-07-20 14:57 | P.PNGI ---
Subjective Interval history: Patient appears to be quite anxious today and states that he feels like he is going backwards again beginning to have increased diarrheal stools again and feels like diuretics have aggravated his colitis. No abdominal pain notes colitis worsened after eating. Current hemoglobin 12.2 , WBC count 3.3, <Deborah Simms - Last Filed: 07/20/18 14:57> Physical Exam Vital signs: Vital Signs 07/19/18 16:00 07/19/18 20:00 07/20/18 00:00 Temperature 97.1 F L 97.4 F L 97.7 F Pulse Rate 84 97 H 88 Respiratory Rate 17 18 18 Blood Pressure 124/77 127/70 129/81 Pulse Oximetry 96 95 98 07/20/18 08:00 07/20/18 12:00 Temperature 97.9 F 97.6 F Pulse Rate 100 H 87 Respiratory Rate 16 16 Blood Pressure 128/76 96/58 L Pulse Oximetry 97 95 Intake & Output 07/19/18 07/20/18 07/20/18 18:59 06:59 18:59 Intake Total 3000 / 3000 480 / 480 Output Total 350 / 350 150 / 150 Balance 2650 / 2650 480 / 480 -150 / -150 Weight 89.6 kg Intake: Oral 3000 / 3000 480 / 480 Output: Stool 350 / 350 150 / 150 Other: # Voids 4 3 Date of Last Bowel Movement 07/19/18 07/19/18 07/20/18 - Constitutional moderate distress, chronically ill appearing, disheveled, agitated (Mild over current condition) - Routine HEENT Exam Head: Present: normocephalic ENT: Present: mucous membranes dry - Routine Neck Exam Present: supple - Routine Respiratory Exam Present: accessory muscle use (Even, unlabored at rest) - Routine Cardiovascular Exam Present: S1, S2 - Routine Abdominal Exam Present: normoactive bowel sounds (Soft bowel sounds, mild abdominal distention , no abdominal pain, loose stools aggravated after eating) - Routine Extremities Exam Present: edema (Lower extremity 1+) <Deborah Simms - Last Filed: 07/20/18 14:57> Vital signs: Vital Signs 07/19/18 20:00 07/20/18 00:00 07/20/18 08:00 Temperature 97.4 F L 97.7 F 97.9 F Pulse Rate 97 H 88 100 H Respiratory Rate 18 18 16 Blood Pressure 127/70 129/81 128/76 Pulse Oximetry 95 98 97 07/20/18 12:00 07/20/18 16:00 Temperature 97.6 F 97.9 F Pulse Rate 87 79 Respiratory Rate 16 16 Blood Pressure 96/58 L 98/56 L Pulse Oximetry 95 96 Intake & Output 07/19/18 07/20/18 07/20/18 18:59 06:59 18:59 Intake Total 3000 / 3000 480 / 480 Output Total 350 / 350 150 / 150 Balance 2650 / 2650 480 / 480 -150 / -150 Weight 89.6 kg Intake: Oral 3000 / 3000 480 / 480 Output: Stool 350 / 350 150 / 150 Other: # Voids 4 3 Date of Last Bowel Movement 07/19/18 07/19/18 07/20/18 <Alyx Patrick - Last Filed: 07/20/18 18:19> Results - Labs CBC & Chem 7: 07/17/18 06:38 07/19/18 08:26 - Procedures Date of procedure: 07/13/18 Procedure: THANK YOU FOR THE REFERRAL Indication; severe diarrhea, despite treatment for C. difficile Procedure Performed; Colonoscopy with biopsy After informing the patient about procedure and possible complications consent was signed. history and physical were updated. Patient was taken to the procedure room and placed in position. Time out was completed. Adequate sedation was performed by anesthesia provider. Colonoscopy, rectal exam was performed the scope was placed in the rectum advanced under video guide to the cecum which was identifed by ileo-cecal valve and appendiceal orifice, then the scope withdrawal slowly with examination of the mucosa to the rectum and retro-flexion was performed, the scope was withdrawal without any immediate complication Findings; Colon severe colitis throughout the colon typical for C. difficile, very inflamed and congested mucosa biopsy was done from the sigmoid Rectum changes consistent with C. difficile Recommendations; 1- Supportive care 2- ok to transfer to recovery area then discharge per protocol 3- colonoscopy in 3 years 4-full liquid diet 5-Hemoccult on a yearly basis by primary care physician 6-we will add Dificid since the patient does not seem to be responding well to Vanco and Flagyl, will stop the Flagyl Documented By: Hadley Yanes MD <Deborah Simms - Last Filed: 07/20/18 14:57> - Labs CBC & Chem 7: 07/17/18 06:38 07/19/18 08:26 <Alyx Patrick - Last Filed: 07/20/18 18:19> Assessment and Plan - Plan - C. difficile colitis- first episode, endorses improvement today, on Vanco and Difficid, ID on the case CT abdomen/pelvis with IV contrast-> diffuse mural thickening and edema throughout the colon characteristic of a diffuse colitis. There is associated mild ascites. Colonoscopy on 07/13/18 Colon severe colitis throughout the colon typical for C. difficile, very inflamed and congested mucosa biopsy was done from the sigmoid Rectum changes consistent with C. difficile COLON, SIGMOID, BIOPSY: ACUTE COLITIS WITH ULCERATION, PSEUDOMEMBRANE FORMATION AND MUCOSAL VASCULAR MICROTHROMBI; PSEUDOMEMBRANOUS COLITIS VERSUS ISCHEMIC COLITIS. - Positive blood culture due to Staphylococcus - ID thinks possible contamination - Leukocytosis secondary to colitis.Improved 07/20/2018 initially patient felt better over the past 24-48 hours but states now his diarrhea has worsened again aggregating factors after eating. Denies any abdominal pain, but notes lower extremity edema, status post IV fluids hydration and diuretics. Remains on vancomycin p.o. and Dificid for now. Patient was hoping to go home and be able to manage on an outpatient basis , diarrhea loose stools have worsened again over the past 24 hours patient states he did not get much rest last night. Appreciate ID input. May need to consider in the future fecal transplant after exhausting medical management. Consider other options including ischemic colitis. Plan Diet as tolerated encourage patient to eat small amounts 4-6 times a day, and encouraged hydration Intake and output Vancomycin p.o. Dificid continue until 07/22/2018, treatment regimen Monitor labs Supportive care Patient was seen per myself and Dr. Patrick, note was written on her behalf <Deborah Simms - Last Filed: 07/20/18 14:57> - Attending Attestation seen, examined agree with above <Alyx Patrick - Last Filed: 07/20/18 18:19>
--- NOTE | 2018-07-20 15:56 | P.PNIM ---
Subjective Interval history: Follow-up sepsis,abdominal pain, diarrhea, C. difficile colitis, NEGRITO. Patient seen and examined sitting on the side of the bed, eating lunch. Patient stated not getting better yet and having more diarrhea. When checked the stool in the hot it showed formed green stool with the consistency of soft much potato. Stool is not watery. Nurse documented and reported stool is getting formed. Patient denies any headache or dizziness, denies any abdominal pain, nausea, vomiting, denies any fever or chills. Denies any chest pain or shortness of breath. Patient worried about the lower extremity edema. Physical Exam Vital signs: Vital Signs 07/19/18 16:00 07/19/18 20:00 07/20/18 00:00 Temperature 97.1 F L 97.4 F L 97.7 F Pulse Rate 84 97 H 88 Respiratory Rate 17 18 18 Blood Pressure 124/77 127/70 129/81 Pulse Oximetry 96 95 98 07/20/18 08:00 07/20/18 12:00 Temperature 97.9 F 97.6 F Pulse Rate 100 H 87 Respiratory Rate 16 16 Blood Pressure 128/76 96/58 L Pulse Oximetry 97 95 Intake & Output 07/19/18 07/20/18 07/20/18 18:59 06:59 18:59 Intake Total 3000 / 3000 480 / 480 Output Total 350 / 350 150 / 150 Balance 2650 / 2650 480 / 480 -150 / -150 Weight 89.6 kg Intake: Oral 3000 / 3000 480 / 480 Output: Stool 350 / 350 150 / 150 Other: # Voids 4 3 Date of Last Bowel Movement 07/19/18 07/19/18 07/20/18 Narrative: GENERAL: Well developed, well-nourished, male in no acute distress SKIN: Warm and dry. HEAD: Atraumatic. Normocephalic. EYES: Pupils equal and round. No scleral icterus. No injection or drainage. ENT: No nasal bleeding or discharge. Mucous membranes pink and moist. NECK: Trachea midline. No JVD. CARDIOVASCULAR: Regular rate and rhythm. RESPIRATORY: No accessory muscle use. Clear to auscultation. Breath sounds equal bilaterally. GASTROINTESTINAL: Abdomen soft, non-tender, nondistended. Hepatic and splenic margins not palpable. MUSCULOSKELETAL: Extremities without clubbing, cyanosis, or edema. No obvious deformities. NEUROLOGICAL: Awake and alert and oriented x3. No obvious cranial nerve deficits. Motor grossly within normal limits. Five out of 5 muscle strength in the arms and legs. Normal speech. PSYCHIATRIC: irritable mood and affect Results - Labs CBC & Chem 7: 07/17/18 06:38 07/19/18 08:26 - Procedures Date of procedure: 07/13/18 Procedure: THANK YOU FOR THE REFERRAL Indication; severe diarrhea, despite treatment for C. difficile Procedure Performed; Colonoscopy with biopsy After informing the patient about procedure and possible complications consent was signed. history and physical were updated. Patient was taken to the procedure room and placed in position. Time out was completed. Adequate sedation was performed by anesthesia provider. Colonoscopy, rectal exam was performed the scope was placed in the rectum advanced under video guide to the cecum which was identifed by ileo-cecal valve and appendiceal orifice, then the scope withdrawal slowly with examination of the mucosa to the rectum and retro-flexion was performed, the scope was withdrawal without any immediate complication Findings; Colon severe colitis throughout the colon typical for C. difficile, very inflamed and congested mucosa biopsy was done from the sigmoid Rectum changes consistent with C. difficile Recommendations; 1- Supportive care 2- ok to transfer to recovery area then discharge per protocol 3- colonoscopy in 3 years 4-full liquid diet 5-Hemoccult on a yearly basis by primary care physician 6-we will add Dificid since the patient does not seem to be responding well to Vanco and Flagyl, will stop the Flagyl Documented By: Hadley Yanes MD Assessment and Plan - Assessment (1) Colitis Code(s): K52.9 - Noninfective gastroenteritis and colitis, unspecified Status : Acute (2) NEGRITO (acute kidney injury) Code(s): N17.9 - Acute kidney failure, unspecified Status: Acute (3) Hypocalcemia Code(s): E83.51 - Hypocalcemia Status: Acute (4) Hypokalemia Code(s): E87.6 - Hypokalemia Status: Acute - Plan 68-year-old male with no significant PMH who presents the ER with complaints of abdominal pain in addition to diarrhea. States symptoms have been intermittent for the last 1 mo, however now progressively worse w/ increased episodes of diarrhea Severe sepsis present on admission with tachycardia and leukocytosis HR 99, WBC 27, Bandemia 18%, Lactic Acid 2.3, likely due to severe colitis. S/p blood cultures, initially was on Zosyn/Flagyl Leukocytosis trending down, secondary to colitis, improved WBC today is 5.2, Lactic acid 2.2 trended down to 1.1. -continue to follow cultures, blood culture no growth for 5 days -s/p aggressive hydration, IVF to 125/hr, discontinued on 07/15 due to persistent lower extremity edema -Fever on 07/09/2018 102.2, had been afebrile since then, monitor temp -ID following: Appreciate recommendation -continue Dificid x 10 days (20 doses), started on 07/13/18 -continue vancomycin p.o. tapering dose, per ID recommendation -monitor CBC, BMP Severe C. difficile colitis -Status post colonoscopy 07/13/18 -CT Abd/Pelvis w/ diffuse colitis, images reviewed, +diarrhea -Stool C. difficile antigen positive, toxin negative DNA positive. Negative for EPID 027 -Stools for O&P negative -monitor and Replace electrolytes as needed -GI following: Status post colonoscopy, resulted severe C. difficile colitis -Continue Dificid x 20 doses (Started on 07/13/18) and vancomycin orally per GI recommendation -continue Lactinex 3 times daily -continue Questran dose -Advance diet as tolerated -Patient stated it is getting better and slowing down. -on 07/18 Nurse reported total stool for 12 hours about 275 mL total, emptied the hat 3 x (75ml +100 ml +100 mL). -on 07/19 stools getting slightly formed, not watery, and less frequent, with total 300 ml during daytime, about 10 hour period -on 07/20 stools slightly formed, soft mash potato consistency, not watery, greenish -Discussed with nursing to continue monitor stools. NEGRITO superimposed on chronic kidney disease stage II/hypocalcemia/hypokalemia -creatinine improving, likely due to dehydration and diarrhea and sepsis. -s/p IV fluid hydration - avoid nephrotoxins - Monitor creatinine, Creatinine 0.71 today 07/19/18 - Protein corrected calcium improved. -S/P replacement with calcium and potassium, replace as needed -stable, Monitor BMP Hypomagnesemia Likely from GI losses -Replace IV magnesium -Started magnesium p.o. daily -Monitor magnesium level, 1.8 on 07/17/18 -monitor Mg level Bilateral lower extremity edema - pitting 1+ Lower extremity edema, bilateral, improving -likely due to IV fluid, and immobility/NEGRITO -IV fluid discontinued on 07/14 -Monitor, no SOB, no rales or crackles -Increase ambulation -discontinue lasix and Potassium -monitor BMP, and weight, monitor response -weight on admission 84.5 kg, today 07/20/18 89.6kg, DVT Prophylaxis: SCD/Teds, increase ambulation Code Status: full code Discussed Condition With: patient and nurse Discharge Planning: Plan to discharge home when cleared with ID and GI and stools improved
[2018-07-21 07:35] LABS: Hematocrit 34.4 % (39.0-51.0); Hemoglobin 11.5 gm/dL (13.0-17.0); Mean Corpuscular HGB Conc 33.5 % (32.0-36.0); Mean Corpuscular Hemoglobin 32.8 pg (27.0-34.0); Mean Corpuscular Volume 97.8 fL (80.0-100.0); Platelet Count 218 th/mm3 (150-450); Red Blood Count 3.52 mil/mm3 (4.50-5.90); Red Cell Distribution Width 13.6 % (11.6-17.2); White Blood Count 4.4 th/mm3 (4.0-11.0)
[2018-07-21 08:09] LABS: Anion Gap 7 meq/L (5-15); Blood Urea Nitrogen 4 mg/dL (7-18); Calcium 7.7 mg/dL (8.5-10.1); Carbon Dioxide 25.7 meq/L (21.0-32.0); Chloride 108 meq/L (98-107); Glomerular Filtration Rate Greater Than 89 mL/min (>89); Glucose,Random 84 mg/dL (74-106); Potassium 3.6 meq/L (3.5-5.1); Sodium 141 meq/L (136-145)
[2018-07-21] MEDS: Bismuth Subsalicylate Susp 240 ML Bottle PO SCH ×4 (08:25→21:21)
[2018-07-21] MEDS: Magnesium Oxide 400 MG Tablet PO SCH ×3 (08:26→17:52)
[2018-07-21] MEDS: Lactobacillus Acidophilus/L. Spores Tablet PO SCH ×3 (08:26→17:52)
--- NOTE | 2018-07-21 14:15 | P.PNIM ---
Subjective Interval history: Follow-up sepsis,abdominal pain, diarrhea, C. difficile colitis, NEGRITO. Patient seen and examined sitting on the side of the bed, nurse at bedside. Patient more pleasant today, stated he is feeling better, stated the bowel is getting formed and getting less. Patient also stated the edema is getting better. Patient denies any headache or dizziness, denies any pain, chest pain or shortness of breath, patient denies any abdominal pain, nausea, or vomiting. Patient denies any fever or chills. Physical Exam Vital signs: Vital Signs 07/20/18 16:00 07/20/18 20:00 07/21/18 00:00 Temperature 97.9 F 97.6 F 97.8 F Pulse Rate 79 84 82 Respiratory Rate 16 18 18 Blood Pressure 98/56 L 114/71 118/74 Pulse Oximetry 96 96 96 07/21/18 08:00 07/21/18 12:00 Temperature 98 F 97.1 F L Pulse Rate 91 H 91 H Respiratory Rate 17 16 Blood Pressure 116/73 111/69 Pulse Oximetry 95 96 Intake & Output 07/20/18 07/21/18 07/21/18 18:59 06:59 18:59 Intake Total 1302 / 1302 760 / 760 Output Total 150 / 150 250 / 250 Balance 1152 / 1152 760 / 760 -250 / -250 Weight 89 kg Intake: Oral 1302 / 1302 760 / 760 Output: Stool 150 / 150 250 / 250 Other: # Voids 10 4 Date of Last Bowel Movement 07/20/18 07/20/18 07/21/18 # Bowel Movements 4 3 Narrative: GENERAL: Well developed, well-nourished, male in no acute distress SKIN: Warm and dry. HEAD: Atraumatic. Normocephalic. EYES: Pupils equal and round. No scleral icterus. No injection or drainage. ENT: No nasal bleeding or discharge. Mucous membranes pink and moist. NECK: Trachea midline. No JVD. CARDIOVASCULAR: Regular rate and rhythm. RESPIRATORY: No accessory muscle use. Clear to auscultation. Breath sounds equal bilaterally. GASTROINTESTINAL: Abdomen soft, non-tender, nondistended. Hepatic and splenic margins not palpable. MUSCULOSKELETAL: Extremities without clubbing, cyanosis, or edema. No obvious deformities. NEUROLOGICAL: Awake and alert and oriented x3. No obvious cranial nerve deficits. Motor grossly within normal limits. Five out of 5 muscle strength in the arms and legs. Normal speech. PSYCHIATRIC: irritable mood and affect Results - Labs CBC & Chem 7: 07/21/18 06:55 07/21/18 06:55 Laboratory Results - last 24 hr 07/21/18 07/21/18 06:55 06:55 WBC 4.4 RBC 3.52 L Hgb 11.5 L Hct 34.4 L MCV 97.8 MCH 32.8 MCHC 33.5 RDW 13.6 Plt Count 218 D MPV 6.0 L Sodium 141 Potassium 3.6 Chloride 108 H Carbon Dioxide 25.7 Anion Gap 7 BUN 4 L Creatinine 0.80 Estimated GFR Greater than 89 Random Glucose 84 Calcium 7.7 L - Procedures Date of procedure: 07/13/18 Procedure: THANK YOU FOR THE REFERRAL Indication; severe diarrhea, despite treatment for C. difficile Procedure Performed; Colonoscopy with biopsy After informing the patient about procedure and possible complications consent was signed. history and physical were updated. Patient was taken to the procedure room and placed in position. Time out was completed. Adequate sedation was performed by anesthesia provider. Colonoscopy, rectal exam was performed the scope was placed in the rectum advanced under video guide to the cecum which was identifed by ileo-cecal valve and appendiceal orifice, then the scope withdrawal slowly with examination of the mucosa to the rectum and retro-flexion was performed, the scope was withdrawal without any immediate complication Findings; Colon severe colitis throughout the colon typical for C. difficile, very inflamed and congested mucosa biopsy was done from the sigmoid Rectum changes consistent with C. difficile Recommendations; 1- Supportive care 2- ok to transfer to recovery area then discharge per protocol 3- colonoscopy in 3 years 4-full liquid diet 5-Hemoccult on a yearly basis by primary care physician 6-we will add Dificid since the patient does not seem to be responding well to Vanco and Flagyl, will stop the Flagyl Documented By: Hadley Yanes MD Assessment and Plan - Assessment (1) Colitis Code(s): K52.9 - Noninfective gastroenteritis and colitis, unspecified Status : Acute (2) NEGRITO (acute kidney injury) Code(s): N17.9 - Acute kidney failure, unspecified Status: Acute (3) Hypocalcemia Code(s): E83.51 - Hypocalcemia Status: Acute (4) Hypokalemia Code(s): E87.6 - Hypokalemia Status: Acute - Plan 68-year-old male with no significant PMH who presents the ER with complaints of abdominal pain in addition to diarrhea. States symptoms have been intermittent for the last 1 mo, however now progressively worse w/ increased episodes of diarrhea Severe sepsis present on admission with tachycardia and leukocytosis HR 99, WBC 27, Bandemia 18%, Lactic Acid 2.3, likely due to severe colitis. S/p blood cultures, initially was on Zosyn/Flagyl Leukocytosis trending down, secondary to colitis, improved WBC today is 5.2, Lactic acid 2.2 trended down to 1.1. -continue to follow cultures, blood culture no growth for 5 days -s/p aggressive hydration, IVF to 125/hr, discontinued on 07/15 due to persistent lower extremity edema -Fever on 07/09/2018 102.2, had been afebrile since then, monitor temp -ID following: Appreciate recommendation -continue Dificid x 10 days (20 doses), started on 07/13/18 -continue vancomycin p.o. tapering dose, per ID recommendation -monitor CBC, BMP Severe C. difficile colitis -Status post colonoscopy 07/13/18 -CT Abd/Pelvis w/ diffuse colitis, images reviewed, +diarrhea -Stool C. difficile antigen positive, toxin negative DNA positive. Negative for EPID 027 -Stools for O&P negative -monitor and Replace electrolytes as needed -GI following: Status post colonoscopy, resulted severe C. difficile colitis -Continue Dificid x 20 doses (Started on 07/13/18) until 07/22/2018 -continue vancomycin orally 500 mg PO 4xday with tapering dose: per GI recommendation: -continue Lactinex 3 times daily -continue Questran dose -Advance diet as tolerated -on 07/18 Nurse reported total stool for 12 hours about 275 mL total, emptied the hat 3 x (75ml +100 ml +100 mL). -on 07/19 stools getting slightly formed, not watery, and less frequent, with total 300 ml during daytime, about 10 hour period -on 07/20 stools slightly formed, soft mash potato consistency, not watery, greenish -stool improving consistency -on 07/21 stool stools more formed, harder than much potato consistency, not watery, greenish brown per nurse report -Discussed with nursing to continue monitor stools. NEGRITO superimposed on chronic kidney disease stage II/hypocalcemia/hypokalemia -creatinine improving, likely due to dehydration and diarrhea and sepsis. -s/p IV fluid hydration - avoid nephrotoxins - Monitor creatinine, Creatinine 0.71 today 07/19/18 - Protein corrected calcium improved. -S/P replacement with calcium and potassium, replace as needed -stable, Monitor BMP Hypomagnesemia Likely from GI losses -Replace IV magnesium -Started magnesium p.o. daily -Monitor magnesium level, 1.8 on 07/17/18 -monitor Mg level Bilateral lower extremity edema - pitting 1+ Lower extremity edema, bilateral, improving -likely due to IV fluid, and immobility/NEGRITO -IV fluid discontinued on 07/14 -Monitor, no SOB, no rales or crackles -Increase ambulation -discontinue lasix and Potassium -monitor BMP, and weight, monitor response -weight on admission 84.5 kg, today 07/21/18 89kg, -Edema improving DVT Prophylaxis: SCD/Teds, increase ambulation Code Status: full code Discussed Condition With: patient and nurse Discharge Planning: Plan to discharge home when cleared with ID and GI
--- NOTE | 2018-07-21 14:38 | P.PNGI ---
Subjective Interval history: Patient states last bowel movements and seems to notice some form again with his stools. Encourage patient to call nurse after each BM so intake and output can be established and accurate. No abdominal pain eating 60-70% of his meals, <Deborah Simms - Last Filed: 07/21/18 14:30> Physical Exam Vital signs: Vital Signs 07/20/18 16:00 07/20/18 20:00 07/21/18 00:00 Temperature 97.9 F 97.6 F 97.8 F Pulse Rate 79 84 82 Respiratory Rate 16 18 18 Blood Pressure 98/56 L 114/71 118/74 Pulse Oximetry 96 96 96 07/21/18 08:00 07/21/18 12:00 Temperature 98 F 97.1 F L Pulse Rate 91 H 91 H Respiratory Rate 17 16 Blood Pressure 116/73 111/69 Pulse Oximetry 95 96 Intake & Output 07/20/18 07/21/18 07/21/18 18:59 06:59 18:59 Intake Total 1302 / 1302 760 / 760 Output Total 150 / 150 250 / 250 Balance 1152 / 1152 760 / 760 -250 / -250 Weight 89 kg Intake: Oral 1302 / 1302 760 / 760 Output: Stool 150 / 150 250 / 250 Other: # Voids 10 4 Date of Last Bowel Movement 07/20/18 07/20/18 07/21/18 # Bowel Movements 4 3 - Constitutional mild distress, chronically ill appearing, disheveled - Routine HEENT Exam Head: Present: normocephalic ENT: Present: mucous membranes dry - Routine Neck Exam Present: supple - Routine Respiratory Exam Present: accessory muscle use (No obvious shortness of breath at rest) - Routine Cardiovascular Exam Present: S1, S2 - Routine Abdominal Exam Present: soft (Round, minimal lower abdominal distention, soft bowel sounds) - Routine Skin Exam Present: intact (Mild lower extremity edema with lower extremities elevated) <Deborah Simms - Last Filed: 07/21/18 14:30> Vital signs: Vital Signs 07/20/18 20:00 07/21/18 00:00 07/21/18 08:00 Temperature 97.6 F 97.8 F 98 F Pulse Rate 84 82 91 H Respiratory Rate 18 18 17 Blood Pressure 114/71 118/74 116/73 Pulse Oximetry 96 96 95 07/21/18 12:00 07/21/18 16:00 Temperature 97.1 F L 97.9 F Pulse Rate 91 H 92 H Respiratory Rate 16 16 Blood Pressure 111/69 109/71 Pulse Oximetry 96 96 Intake & Output 07/21/18 07/21/18 07/22/18 06:59 18:59 06:59 Intake Total 760 / 760 Output Total 250 / 250 Balance 760 / 760 -250 / -250 Weight 89 kg Intake: Oral 760 / 760 Output: Stool 250 / 250 Other: # Voids 4 Date of Last Bowel Movement 07/20/18 07/21/18 # Bowel Movements 3 <Alyx Patrick - Last Filed: 07/21/18 19:08> Results - Labs CBC & Chem 7: 07/21/18 06:55 07/21/18 06:55 Laboratory Results - last 24 hr 07/21/18 07/21/18 06:55 06:55 WBC 4.4 RBC 3.52 L Hgb 11.5 L Hct 34.4 L MCV 97.8 MCH 32.8 MCHC 33.5 RDW 13.6 Plt Count 218 D MPV 6.0 L Sodium 141 Potassium 3.6 Chloride 108 H Carbon Dioxide 25.7 Anion Gap 7 BUN 4 L Creatinine 0.80 Estimated GFR Greater than 89 Random Glucose 84 Calcium 7.7 L - Procedures Date of procedure: 07/13/18 Procedure: THANK YOU FOR THE REFERRAL Indication; severe diarrhea, despite treatment for C. difficile Procedure Performed; Colonoscopy with biopsy After informing the patient about procedure and possible complications consent was signed. history and physical were updated. Patient was taken to the procedure room and placed in position. Time out was completed. Adequate sedation was performed by anesthesia provider. Colonoscopy, rectal exam was performed the scope was placed in the rectum advanced under video guide to the cecum which was identifed by ileo-cecal valve and appendiceal orifice, then the scope withdrawal slowly with examination of the mucosa to the rectum and retro-flexion was performed, the scope was withdrawal without any immediate complication Findings; Colon severe colitis throughout the colon typical for C. difficile, very inflamed and congested mucosa biopsy was done from the sigmoid Rectum changes consistent with C. difficile Recommendations; 1- Supportive care 2- ok to transfer to recovery area then discharge per protocol 3- colonoscopy in 3 years 4-full liquid diet 5-Hemoccult on a yearly basis by primary care physician 6-we will add Dificid since the patient does not seem to be responding well to Vanco and Flagyl, will stop the Flagyl Documented By: Hadley Yanes MD <Deborah Simms - Last Filed: 07/21/18 14:30> - Labs CBC & Chem 7: 07/21/18 06:55 07/21/18 06:55 Laboratory Results - last 24 hr 07/21/18 07/21/18 06:55 06:55 WBC 4.4 RBC 3.52 L Hgb 11.5 L Hct 34.4 L MCV 97.8 MCH 32.8 MCHC 33.5 RDW 13.6 Plt Count 218 D MPV 6.0 L Sodium 141 Potassium 3.6 Chloride 108 H Carbon Dioxide 25.7 Anion Gap 7 BUN 4 L Creatinine 0.80 Estimated GFR Greater than 89 Random Glucose 84 Calcium 7.7 L <Alyx Patrick - Last Filed: 07/21/18 19:08> Assessment and Plan - Plan - C. difficile colitis- first episode, endorses improvement today, on Vanco and Difficid, ID on the case CT abdomen/pelvis with IV contrast-> diffuse mural thickening and edema throughout the colon characteristic of a diffuse colitis. There is associated mild ascites. Colonoscopy on 07/13/18 Colon severe colitis throughout the colon typical for C. difficile, very inflamed and congested mucosa biopsy was done from the sigmoid Rectum changes consistent with C. difficile COLON, SIGMOID, BIOPSY: ACUTE COLITIS WITH ULCERATION, PSEUDOMEMBRANE FORMATION AND MUCOSAL VASCULAR MICROTHROMBI; PSEUDOMEMBRANOUS COLITIS VERSUS ISCHEMIC COLITIS. - Positive blood culture due to Staphylococcus - ID thinks possible contamination - Leukocytosis secondary to colitis.Improved 07/20/2018 initially patient felt better over the past 24-48 hours but states now his diarrhea has worsened again aggregating factors after eating. Denies any abdominal pain, but notes lower extremity edema, status post IV fluids hydration and diuretics. Remains on vancomycin p.o. and Dificid for now. Patient was hoping to go home and be able to manage on an outpatient basis , diarrhea loose stools have worsened again over the past 24 hours patient states he did not get much rest last night. Appreciate ID input. May need to consider in the future fecal transplant after exhausting medical management. Consider other options including ischemic colitis. 07/21/2018 current hemoglobin 11.5 WBC count 4.4 no current leukocytosis. Patient continues on p.o. vancomycin, Dificid, treatment regimen completed on according to the record. Patient notes today some improvement with stools beginning to thicken, unknown number of diarrhea stools in a day since patient is using bedside commode. Encourage patient to call staff so we can keep up with number of stools. Continue to encourage hydration, increase dietary fiber when at home and to abstain from greasy foods. Encouraged antireflux precautions which includes to fluids slowly, no eating late at night. Soft easily digested foods. Patient feels discharge planning options within the next day or 2, and follow-up with GI outpatient for further C. difficile management. Appreciate ID input. Plan Diet as tolerated, nongreasy spicy foods, increase fiber Dificid dose to continue through and reevaluated Vancomycin p.o. dose continue Monitor labs Monitor number of stools in a 24-hour. Monitor for any obvious rectal bleeding and monitor labs Supportive care Patient was seen per myself and Dr. Patrick, note was written on her behalf <Deborah Simms - Last Filed: 07/21/18 14:30> - Attending Attestation seen, examined agree with above <Alyx Patrick - Last Filed: 07/21/18 19:08>
[2018-07-22] MEDS: Lactobacillus Acidophilus/L. Spores Tablet PO SCH ×3 (10:07→17:35)
[2018-07-22] MEDS: Magnesium Oxide 400 MG Tablet PO SCH ×3 (10:07→17:35)
[2018-07-22] MEDS: Bismuth Subsalicylate Susp 240 ML Bottle PO SCH ×4 (10:08→20:19)
--- NOTE | 2018-07-22 14:56 | P.PNIM ---
Subjective Interval history: Follow-up sepsis,abdominal pain, diarrhea, C. difficile colitis, NEGRITO. Patient seen and examined laying in bed, stated stool is not doing good, worsening, back on diarrhea. Stated the other day is better 2 days ago was formed. Patient denies any abdominal pain, nausea, vomiting, fever or chills. Patient denies any chest pain or shortness of breath. Discussed discharge planning with patient when cleared with ID and GI, and discussed antibiotic long-term treatment with vancomycin tapering dose. Patient worried about the stool having diarrhea still when he goes home and would not know what to do. Discussed the patient establish primary care patient. Patient stated he does not seen any doctor before. Discussed to establish with primary care and GI doctor. Physical Exam Vital signs: Vital Signs 07/21/18 16:00 07/21/18 20:00 07/22/18 07:42 Temperature 97.9 F 97.9 F 98.2 F Pulse Rate 92 H 84 97 H Respiratory Rate 16 19 18 Blood Pressure 109/71 117/72 115/77 Pulse Oximetry 96 96 98 07/22/18 11:32 Temperature 97.6 F Pulse Rate 82 Respiratory Rate 16 Blood Pressure 114/71 Pulse Oximetry 98 Intake & Output 07/21/18 07/22/18 07/22/18 18:59 06:59 18:59 Intake Total 1440 / 1440 2500 / 2500 Output Total 250 / 250 450 / 450 150 / 150 Balance 1190 / 1190 2049 / 2049 -150 / -150 Weight 86.9 kg Intake: Oral 1440 / 1440 2500 / 2500 Output: Stool 250 / 250 450 / 450 150 / 150 Other: # Voids 7 5 1 Date of Last Bowel Movement 07/21/18 07/22/18 # Bowel Movements 5 5 2 Narrative: GENERAL: Well developed, well-nourished, male in no acute distress SKIN: Warm and dry. HEAD: Atraumatic. Normocephalic. EYES: Pupils equal and round. No scleral icterus. No injection or drainage. ENT: No nasal bleeding or discharge. Mucous membranes pink and moist. NECK: Trachea midline. No JVD. CARDIOVASCULAR: Regular rate and rhythm. RESPIRATORY: No accessory muscle use. Clear to auscultation. Breath sounds equal bilaterally. GASTROINTESTINAL: Abdomen soft, non-tender, nondistended. Hepatic and splenic margins not palpable. MUSCULOSKELETAL: Extremities without clubbing, cyanosis, trace edema. No obvious deformities. NEUROLOGICAL: Awake and alert and oriented x3. No obvious cranial nerve deficits. Motor grossly within normal limits. Five out of 5 muscle strength in the arms and legs. Normal speech. PSYCHIATRIC: irritable mood and affect Results - Labs CBC & Chem 7: 07/21/18 06:55 07/21/18 06:55 - Procedures Date of procedure: 07/13/18 Procedure: THANK YOU FOR THE REFERRAL Indication; severe diarrhea, despite treatment for C. difficile Procedure Performed; Colonoscopy with biopsy After informing the patient about procedure and possible complications consent was signed. history and physical were updated. Patient was taken to the procedure room and placed in position. Time out was completed. Adequate sedation was performed by anesthesia provider. Colonoscopy, rectal exam was performed the scope was placed in the rectum advanced under video guide to the cecum which was identifed by ileo-cecal valve and appendiceal orifice, then the scope withdrawal slowly with examination of the mucosa to the rectum and retro-flexion was performed, the scope was withdrawal without any immediate complication Findings; Colon severe colitis throughout the colon typical for C. difficile, very inflamed and congested mucosa biopsy was done from the sigmoid Rectum changes consistent with C. difficile Recommendations; 1- Supportive care 2- ok to transfer to recovery area then discharge per protocol 3- colonoscopy in 3 years 4-full liquid diet 5-Hemoccult on a yearly basis by primary care physician 6-we will add Dificid since the patient does not seem to be responding well to Vanco and Flagyl, will stop the Flagyl Documented By: Hadley Yanes MD Assessment and Plan - Assessment (1) Colitis Code(s): K52.9 - Noninfective gastroenteritis and colitis, unspecified Status : Acute (2) NEGRITO (acute kidney injury) Code(s): N17.9 - Acute kidney failure, unspecified Status: Acute (3) Hypocalcemia Code(s): E83.51 - Hypocalcemia Status: Acute (4) Hypokalemia Code(s): E87.6 - Hypokalemia Status: Acute - Plan 68-year-old male with no significant PMH who presents the ER with complaints of abdominal pain in addition to diarrhea. States symptoms have been intermittent for the last 1 mo, however now progressively worse w/ increased episodes of diarrhea Severe sepsis present on admission with tachycardia and leukocytosis HR 99, WBC 27, Bandemia 18%, Lactic Acid 2.3, likely due to severe colitis. S/p blood cultures, initially was on Zosyn/Flagyl Leukocytosis trending down, secondary to colitis, improved WBC today is 5.2, Lactic acid 2.2 trended down to 1.1. -continue to follow cultures, blood culture no growth for 5 days -s/p aggressive hydration, IVF to 125/hr, discontinued on 07/15 due to persistent lower extremity edema -Fever on 07/09/2018 102.2, had been afebrile since then, monitor temp -ID following: Appreciate recommendation -continue Dificid x 10 days (20 doses), started on 07/13/18 -continue vancomycin p.o. tapering dose, per ID recommendation -monitor CBC, BMP Severe C. difficile colitis -Status post colonoscopy 07/13/18 -CT Abd/Pelvis w/ diffuse colitis, images reviewed, +diarrhea -Stool C. difficile antigen positive, toxin negative DNA positive. Negative for EPID 027 -Stools for O&P negative -monitor and Replace electrolytes as needed -GI following: Status post colonoscopy, resulted severe C. difficile colitis -Continue Dificid x 20 doses (Started on 07/13/18) until 07/22/2018 -continue vancomycin orally 500 mg PO 4xday with tapering dose: per GI recommendation: -continue Lactinex 3 times daily -continue Questran dose -Advance diet as tolerated -on 07/18 Nurse reported total stool for 12 hours about 275 mL total, emptied the hat 3 x (75ml +100 ml +100 mL). -on 07/19 stools getting slightly formed, not watery, and less frequent, with total 300 ml during daytime, about 10 hour period -on 07/20 stools slightly formed, soft mash potato consistency, not watery, greenish -stool improving consistency -on 07/21 stool stools more formed, harder than much potato consistency, not watery, greenish brown per nurse report -Stool improving, consistency of soft forming stool, greenish brown.No abdominal pain, nausea,or vomiting -Discussed with nursing to continue monitor stools. NEGRITO superimposed on chronic kidney disease stage II/hypocalcemia/hypokalemia -creatinine improving, likely due to dehydration and diarrhea and sepsis. -s/p IV fluid hydration - avoid nephrotoxins - Monitor creatinine, Creatinine 0.80 07/21/18 - Protein corrected calcium improved. -S/P replacement with calcium and potassium, replace as needed -stable, Monitor BMP Hypomagnesemia Likely from GI losses -Replace IV magnesium -Started magnesium p.o. daily -Monitor magnesium level, 1.8 on 07/17/18 -monitor Mg level Bilateral lower extremity edema - was pitting 1+ Lower extremity edema, bilateral, improving, today trace -likely due to IV fluid, and immobility/NEGRITO -IV fluid discontinued on 07/14 -Monitor, no SOB, no rales or crackles -Increase ambulation, bilateral pedro hose -s/p lasix and Potassium -monitor BMP, and weight, monitor response -weight on admission 84.5 kg, today 07/22/18 86.9kg, -Edema improving, trace DVT Prophylaxis: SCD/Teds, increase ambulation Code Status: full code Discussed Condition With: patient and nurse MDR Discharge Planning: Plan to discharge home when cleared with ID and GI Plan to discharge on Tapering dose Vancomycin per ID recommendation
--- NOTE | 2018-07-22 17:48 | P.PNGI ---
Subjective Interval history: Patient is resting in bed, RN at bedside States that the hospital food is terrible and he has to plug his nose in order to tolerate it States that he has had multiple episodes of diarrhea last night into early this morning Dates that his stool seems to be more formed and less diarrhea today He does report associated abdominal cramping with bowel movements Denies any other abdominal pain Denies any nausea or vomiting <Anaya Arteaga - Last Filed: 07/22/18 17:42> Physical Exam Vital signs: Vital Signs 07/21/18 20:00 07/22/18 07:42 07/22/18 11:32 Temperature 97.9 F 98.2 F 97.6 F Pulse Rate 84 97 H 82 Respiratory Rate 19 18 16 Blood Pressure 117/72 115/77 114/71 Pulse Oximetry 96 98 98 07/22/18 16:00 Temperature 97.2 F L Pulse Rate 84 Respiratory Rate 18 Blood Pressure 105/67 Pulse Oximetry 95 Intake & Output 07/21/18 07/22/18 07/22/18 18:59 06:59 18:59 Intake Total 1440 / 1440 2500 / 2500 Output Total 250 / 250 450 / 450 150 / 150 Balance 1190 / 1190 2049 / 2049 -150 / -150 Weight 86.9 kg Intake: Oral 1440 / 1440 2500 / 2500 Output: Stool 250 / 250 450 / 450 150 / 150 Other: # Voids 7 5 1 Date of Last Bowel Movement 07/21/18 07/22/18 # Bowel Movements 5 5 2 - Constitutional no acute distress - Routine HEENT Exam Head: Present: normocephalic, atraumatic - Routine Respiratory Exam Absent: accessory muscle use - Routine Abdominal Exam Present: soft, normoactive bowel sounds. Absent: tenderness, distended - Routine Skin Exam Present: dry, warm - Routine Neurological Exam Present: alert, oriented X3 <Anaya Arteaga - Last Filed: 07/22/18 17:42> Vital signs: Vital Signs 07/21/18 20:00 07/22/18 07:42 07/22/18 11:32 Temperature 97.9 F 98.2 F 97.6 F Pulse Rate 84 97 H 82 Respiratory Rate 19 18 16 Blood Pressure 117/72 115/77 114/71 Pulse Oximetry 96 98 98 07/22/18 16:00 Temperature 97.2 F L Pulse Rate 84 Respiratory Rate 18 Blood Pressure 105/67 Pulse Oximetry 95 Intake & Output 07/22/18 07/22/18 07/23/18 06:59 18:59 06:59 Intake Total 2500 / 2500 1200 / 1200 Output Total 450 / 450 150 / 150 Balance 2049 / 2049 1050 / 1050 Weight 86.9 kg Intake: Oral 2500 / 2500 1200 / 1200 Output: Stool 450 / 450 150 / 150 Other: # Voids 5 3 Date of Last Bowel Movement 07/22/18 # Bowel Movements 5 1 <Alyx Patrick - Last Filed: 07/22/18 19:40> Results - Labs CBC & Chem 7: 07/21/18 06:55 07/21/18 06:55 - Procedures Date of procedure: 07/13/18 Procedure: THANK YOU FOR THE REFERRAL Indication; severe diarrhea, despite treatment for C. difficile Procedure Performed; Colonoscopy with biopsy After informing the patient about procedure and possible complications consent was signed. history and physical were updated. Patient was taken to the procedure room and placed in position. Time out was completed. Adequate sedation was performed by anesthesia provider. Colonoscopy, rectal exam was performed the scope was placed in the rectum advanced under video guide to the cecum which was identifed by ileo-cecal valve and appendiceal orifice, then the scope withdrawal slowly with examination of the mucosa to the rectum and retro-flexion was performed, the scope was withdrawal without any immediate complication Findings; Colon severe colitis throughout the colon typical for C. difficile, very inflamed and congested mucosa biopsy was done from the sigmoid Rectum changes consistent with C. difficile Recommendations; 1- Supportive care 2- ok to transfer to recovery area then discharge per protocol 3- colonoscopy in 3 years 4-full liquid diet 5-Hemoccult on a yearly basis by primary care physician 6-we will add Dificid since the patient does not seem to be responding well to Vanco and Flagyl, will stop the Flagyl Documented By: Hadley Yanes MD <Anaya Arteaga - Last Filed: 07/22/18 17:42> - Labs CBC & Chem 7: 07/21/18 06:55 07/21/18 06:55 <Alyx Patrick - Last Filed: 07/22/18 19:40> Assessment and Plan - Plan Assessment: C. Diff colitis, epid negative Patient reported a 3-week history of diarrhea associated with fecal urgency and incontinence. Also reports some associated abdominal cramping with bowel movements. Colonoscopy (07/13): Severe colitis throughout the colon typical for C. difficile, very inflamed and congested mucosa, biopsy was done from the sigmoid colon. Rectum changes consistent with C. difficile. Pathology (sigmoid colon) acute colitis with ulceration, pseudomembrane formation and mucosal vascular microthrombi; pseudomembranous colitis versus ischemic colitis. CT abdomen/pelvis with IV contrast (07/10) increased ascitic fluid compared to the recent study 5 days ago. Diffuse mural wall thickening and edema throughout colon consistent with colitis. This is not significantly changed. Multiple stable cystic structures in the liver. Patient is currently on Dificid, oral vancomycin, probiotics and Questran. -Sepsis, present on admissionseems to be resolving. Infectious diseases following Plan Monitor stool output Deficit Oral vancomycin Questran Probiotics Appreciate ID input Encourage p.o. intake Further recommendations based on course This patient has been seen and examined by myself and Dr. Patrick and this note is written on her behalf <Anaya Arteaga - Last Filed: 07/22/18 17:42> - Attending Attestation seen, examined agree with above we can add Asacol 2 tb po tid refusing to go home if still loose stools <Alyx Patrick - Last Filed: 07/22/18 19:40>
[2018-07-23] MEDS: Lactobacillus Acidophilus/L. Spores Tablet PO SCH ×3 (08:38→17:21)
[2018-07-23] MEDS: Mesalamine 800 MG Tablet DR PO SCH ×3 (08:39→17:21)
[2018-07-23] MEDS: Magnesium Oxide 400 MG Tablet PO SCH ×3 (08:40→17:22)
[2018-07-23] MEDS: Bismuth Subsalicylate Susp 240 ML Bottle PO SCH ×4 (08:40→21:29)
--- NOTE | 2018-07-23 10:05 | P.PNIM ---
Subjective Interval history: f/u; c-diff colitis in no acute distress. no fever or abdominal pain. but still with diarrhea; had multiple loose BM's over night. Physical Exam Vital signs: Vital Signs 07/22/18 11:32 07/22/18 16:00 07/22/18 20:00 Temperature 97.6 F 97.2 F L 97.7 F Pulse Rate 82 84 80 Respiratory Rate 18 Blood Pressure 114/71 105/67 117/71 Pulse Oximetry 98 95 95 Intake & Output 07/22/18 07/23/18 07/23/18 18:59 06:59 18:59 Intake Total 1200 / 1200 Output Total 150 / 150 250 / 250 140 / 140 Balance 1050 / 1050 -250 / -250 -140 / -140 Weight 74.2 kg Intake: Oral 1200 / 1200 Output: Urine 100 / 100 Stool 150 / 150 250 / 250 40 / 40 Other: # Voids 3 Date of Last Bowel Movement 07/22/18 07/23/18 07/23/18 # Bowel Movements 1 4 - Constitutional no acute distress - Routine Respiratory Exam Present: CTA bilaterally - Routine Cardiovascular Exam Present: RRR - Routine Abdominal Exam Present: soft - Routine Extremities Exam Comments: no pedal edema. - Routine Neurological Exam Present: alert, oriented X3 Results - Labs CBC & Chem 7: 07/21/18 06:55 07/21/18 06:55 - Procedures Date of procedure: 07/13/18 Procedure: THANK YOU FOR THE REFERRAL Indication; severe diarrhea, despite treatment for C. difficile Procedure Performed; Colonoscopy with biopsy After informing the patient about procedure and possible complications consent was signed. history and physical were updated. Patient was taken to the procedure room and placed in position. Time out was completed. Adequate sedation was performed by anesthesia provider. Colonoscopy, rectal exam was performed the scope was placed in the rectum advanced under video guide to the cecum which was identifed by ileo-cecal valve and appendiceal orifice, then the scope withdrawal slowly with examination of the mucosa to the rectum and retro-flexion was performed, the scope was withdrawal without any immediate complication Findings; Colon severe colitis throughout the colon typical for C. difficile, very inflamed and congested mucosa biopsy was done from the sigmoid Rectum changes consistent with C. difficile Recommendations; 1- Supportive care 2- ok to transfer to recovery area then discharge per protocol 3- colonoscopy in 3 years 4-full liquid diet 5-Hemoccult on a yearly basis by primary care physician 6-we will add Dificid since the patient does not seem to be responding well to Vanco and Flagyl, will stop the Flagyl Documented By: Hadley Yanes MD Assessment and Plan - Assessment (1) Colitis Code(s): K52.9 - Noninfective gastroenteritis and colitis, unspecified Status : Acute (2) NEGRITO (acute kidney injury) Code(s): N17.9 - Acute kidney failure, unspecified Status: Acute (3) Hypocalcemia Code(s): E83.51 - Hypocalcemia Status: Acute (4) Hypokalemia Code(s): E87.6 - Hypokalemia Status: Acute - Plan 68-year-old male with no significant PMH who presents the ER with complaints of abdominal pain in addition to diarrhea. States symptoms have been intermittent for the last 1 mo, however now progressively worse w/ increased episodes of diarrhea Severe sepsis present on admission with tachycardia and leukocytosis HR 99, WBC 27, Bandemia 18%, Lactic Acid 2.3, likely due to severe colitis. S/p blood cultures, initially was on Zosyn/Flagyl - blood culture no growth for 5 days -treated with Dificid x 10 days (20 doses), started on 07/13/18 -continue vancomycin p.o. tapering dose, per ID recommendation -monitor CBC, BMP Severe C. difficile colitis -Status post colonoscopy 07/13/18 -CT Abd/Pelvis w/ diffuse colitis, images reviewed, +diarrhea -Stool C. difficile antigen positive, toxin negative DNA positive. Negative for EPID 027 -Stools for O&P negative -monitor and Replace electrolytes as needed -GI following: Status post colonoscopy, resulted severe C. difficile colitis -treated with Dificid and currently on oral Vanco -continue Lactinex 3 times daily -continue Questran dose -added Asacol- per GI NEGRITO superimposed on chronic kidney disease stage II/hypocalcemia/hypokalemia -creatinine improving, likely due to dehydration and diarrhea and sepsis. -s/p IV fluid hydration - avoid nephrotoxins - Monitor creatinine Hypomagnesemia -replaced. DVT Prophylaxis: SCD/Teds, increase ambulation Discharge Planning: dc home with [facility]- when diarrhea has improved.
--- NOTE | 2018-07-23 11:48 | P.PNGI ---
Subjective Interval history: Patient laying supine in bed resting with eyes closed Reported multiple episodes of loose stool last evening, denies formation of stools denies bleeding Denies abdominal pain or nausea vomiting <CallesIsela franklinCynthia - Last Filed: 07/23/18 11:43> Physical Exam Vital signs: Vital Signs 07/22/18 16:00 07/22/18 20:00 Temperature 97.2 F L 97.7 F Pulse Rate 84 80 Respiratory Rate 18 18 Blood Pressure 105/67 117/71 Pulse Oximetry 95 95 Intake & Output 07/22/18 07/23/18 07/23/18 18:59 06:59 18:59 Intake Total 1200 / 1200 Output Total 150 / 150 250 / 250 140 / 140 Balance 1050 / 1050 -250 / -250 -140 / -140 Weight 74.2 kg Intake: Oral 1200 / 1200 Output: Urine 100 / 100 Stool 150 / 150 250 / 250 40 / 40 Other: # Voids 3 Date of Last Bowel Movement 07/22/18 07/23/18 07/23/18 # Bowel Movements 1 4 - Constitutional no acute distress - Routine HEENT Exam Head: Present: normocephalic - Routine Respiratory Exam Present: CTA bilaterally. Absent: accessory muscle use - Routine Cardiovascular Exam Present: RRR - Routine Abdominal Exam Present: soft, normoactive bowel sounds. Absent: tenderness, distended, guarding, firm - Routine Skin Exam Present: dry, warm - Routine Neurological Exam Present: alert <Isela Callescey - Last Filed: 07/23/18 11:43> Vital signs: Vital Signs 07/23/18 12:00 07/23/18 16:00 Temperature 98.9 F 97.1 F L Pulse Rate 95 H 86 Respiratory Rate 18 18 Blood Pressure 106/63 116/71 Pulse Oximetry 98 98 Intake & Output 07/23/18 07/23/18 07/24/18 06:59 18:59 06:59 Output Total 250 / 250 220 / 220 40 / 40 Balance -250 / -250 -220 / -220 -40 / -40 Weight 74.2 kg Output: Urine 100 / 100 Stool 250 / 250 120 / 120 40 / 40 Other: # Voids 6 Date of Last Bowel Movement 07/23/18 07/23/18 # Bowel Movements 4 6 <Alyx Patrick - Last Filed: 07/23/18 21:48> Results - Labs CBC & Chem 7: 07/21/18 06:55 07/21/18 06:55 - Procedures Date of procedure: 07/13/18 Procedure: THANK YOU FOR THE REFERRAL Indication; severe diarrhea, despite treatment for C. difficile Procedure Performed; Colonoscopy with biopsy After informing the patient about procedure and possible complications consent was signed. history and physical were updated. Patient was taken to the procedure room and placed in position. Time out was completed. Adequate sedation was performed by anesthesia provider. Colonoscopy, rectal exam was performed the scope was placed in the rectum advanced under video guide to the cecum which was identifed by ileo-cecal valve and appendiceal orifice, then the scope withdrawal slowly with examination of the mucosa to the rectum and retro-flexion was performed, the scope was withdrawal without any immediate complication Findings; Colon severe colitis throughout the colon typical for C. difficile, very inflamed and congested mucosa biopsy was done from the sigmoid Rectum changes consistent with C. difficile Recommendations; 1- Supportive care 2- ok to transfer to recovery area then discharge per protocol 3- colonoscopy in 3 years 4-full liquid diet 5-Hemoccult on a yearly basis by primary care physician 6-we will add Dificid since the patient does not seem to be responding well to Vanco and Flagyl, will stop the Flagyl Documented By: Hadley Yanes MD <Cynthia Calles - Last Filed: 07/23/18 11:43> - Labs CBC & Chem 7: 07/21/18 06:55 07/21/18 06:55 <Alyx Patrick - Last Filed: 07/23/18 21:48> Assessment and Plan - Plan Assessment: C. Diff colitis, epid negative Patient reported a 3-week history of diarrhea associated with fecal urgency and incontinence. Also reports some associated abdominal cramping with bowel movements. Colonoscopy (07/13): Severe colitis throughout the colon typical for C. difficile, very inflamed and congested mucosa, biopsy was done from the sigmoid colon. Rectum changes consistent with C. difficile. Pathology (sigmoid colon) acute colitis with ulceration, pseudomembrane formation and mucosal vascular microthrombi; pseudomembranous colitis versus ischemic colitis. CT abdomen/pelvis with IV contrast (07/10) increased ascitic fluid compared to the recent study 5 days ago. Diffuse mural wall thickening and edema throughout colon consistent with colitis. This is not significantly changed. Multiple stable cystic structures in the liver. Patient is currently on Dificid, oral vancomycin, probiotics and Questran. -Sepsis, present on admissionseems to be resolving. Infectious diseases following 07/23/2018 C. difficile colitis Patient continues to report multiple bouts of loose stools. Reports 4-5 loose stools this a.m. Denies nausea vomiting, abdominal pain. Denies any noted bleeding. Plan -Regular diet -Vancomycin -Questran/Lactinex -PPI -Asacol -Continue to monitor output -IV hydration if needed -Supportive care -Further recommendations to follow This patient has been seen and examined by myself and Dr. Patrick and this note is written on her behalf - Attending Attestation Dr. Patrick <Cynthia Calles - Last Filed: 07/23/18 11:43> - Attending Attestation agree with above <Alyx Patrick - Last Filed: 07/23/18 21:48>
--- NOTE | 2018-07-24 09:22 | P.PNIM ---
Subjective Interval history: f/u; c-diff colitis in no acute distress. no abdominal pain, nausea or fever. but still with diarrhea which hasn't improved as much. no other complaints. Physical Exam Vital signs: Vital Signs 07/23/18 12:00 07/23/18 16:00 07/23/18 20:00 Temperature 98.9 F 97.1 F L 98.1 F Pulse Rate 95 H 86 92 H Respiratory Rate 18 18 18 Blood Pressure 106/63 116/71 112/77 Pulse Oximetry 98 98 98 07/24/18 08:00 Temperature 97.7 F Pulse Rate 91 H Respiratory Rate 16 Blood Pressure 120/74 Pulse Oximetry 96 Intake & Output 07/23/18 07/24/18 07/24/18 18:59 06:59 18:59 Output Total 220 / 220 40 / 40 Balance -220 / -220 -40 / -40 Weight 74.3 kg Output: Urine 100 / 100 Stool 120 / 120 40 / 40 Other: # Voids 6 2 Date of Last Bowel Movement 07/23/18 07/23/18 # Bowel Movements 6 - Constitutional no acute distress - Routine Respiratory Exam Present: CTA bilaterally - Routine Cardiovascular Exam Present: RRR - Routine Abdominal Exam Present: soft - Routine Extremities Exam Comments: no pedal edema. - Routine Neurological Exam Present: alert, oriented X3 Results - Labs CBC & Chem 7: 07/24/18 10:24 07/24/18 10:24 - Procedures Date of procedure: 07/13/18 Procedure: THANK YOU FOR THE REFERRAL Indication; severe diarrhea, despite treatment for C. difficile Procedure Performed; Colonoscopy with biopsy After informing the patient about procedure and possible complications consent was signed. history and physical were updated. Patient was taken to the procedure room and placed in position. Time out was completed. Adequate sedation was performed by anesthesia provider. Colonoscopy, rectal exam was performed the scope was placed in the rectum advanced under video guide to the cecum which was identifed by ileo-cecal valve and appendiceal orifice, then the scope withdrawal slowly with examination of the mucosa to the rectum and retro-flexion was performed, the scope was withdrawal without any immediate complication Findings; Colon severe colitis throughout the colon typical for C. difficile, very inflamed and congested mucosa biopsy was done from the sigmoid Rectum changes consistent with C. difficile Recommendations; 1- Supportive care 2- ok to transfer to recovery area then discharge per protocol 3- colonoscopy in 3 years 4-full liquid diet 5-Hemoccult on a yearly basis by primary care physician 6-we will add Dificid since the patient does not seem to be responding well to Vanco and Flagyl, will stop the Flagyl Documented By: Hadley Yanes MD Assessment and Plan - Assessment (1) Colitis Code(s): K52.9 - Noninfective gastroenteritis and colitis, unspecified Status : Acute (2) NEGRITO (acute kidney injury) Code(s): N17.9 - Acute kidney failure, unspecified Status: Acute (3) Hypocalcemia Code(s): E83.51 - Hypocalcemia Status: Acute (4) Hypokalemia Code(s): E87.6 - Hypokalemia Status: Acute - Plan 68-year-old male with no significant PMH who presents the ER with complaints of abdominal pain in addition to diarrhea. States symptoms have been intermittent for the last 1 mo, however now progressively worse w/ increased episodes of diarrhea Severe sepsis present on admission with tachycardia and leukocytosis HR 99, WBC 27, Bandemia 18%, Lactic Acid 2.3, likely due to severe colitis. S/p blood cultures, initially was on Zosyn/Flagyl - blood culture no growth for 5 days -treated with Dificid x 10 days (20 doses), started on 07/13/18 -continue vancomycin p.o. tapering dose, per ID recommendation -monitor CBC, BMP Severe C. difficile colitis -Status post colonoscopy 07/13/18 -CT Abd/Pelvis w/ diffuse colitis, images reviewed, +diarrhea -Stool C. difficile antigen positive, toxin negative DNA positive. Negative for EPID 027 -Stools for O&P negative -monitor and Replace electrolytes as needed -GI following: Status post colonoscopy, resulted severe C. difficile colitis -treated with Dificid and currently on oral Vanco -continue Lactinex 3 times daily -continue Questran dose -added Asacol- per GI NEGRITO superimposed on chronic kidney disease stage II/hypocalcemia/hypokalemia -creatinine improving, likely due to dehydration and diarrhea and sepsis. -s/p IV fluid hydration - avoid nephrotoxins - Monitor creatinine Hypomagnesemia -replaced. DVT Prophylaxis: SCD/Teds, increase ambulation Discharge Planning: dc home with [facility]- when diarrhea has improved.
[2018-07-24] MEDS: Mesalamine 800 MG Tablet DR PO SCH ×3 (10:18→17:52)
[2018-07-24] MEDS: Magnesium Oxide 400 MG Tablet PO SCH ×3 (10:19→17:53)
[2018-07-24] MEDS: Lactobacillus Acidophilus/L. Spores Tablet PO SCH ×3 (10:19→17:53)
[2018-07-24] MEDS: Bismuth Subsalicylate Susp 240 ML Bottle PO SCH ×4 (10:20→21:55)
[2018-07-24 11:47] LABS: Baso # (Auto) 0.1 th/mm3 (0.0-0.2); Baso % (Auto) 1.8 % (0.0-2.0); Eos # (Auto) 0.3 th/mm3 (0.0-0.4); Eos % (Auto) 4.6 % (0.0-4.0); Hematocrit 35.8 % (39.0-51.0); Hemoglobin 12.4 gm/dL (13.0-17.0); Lymph # (Auto) 2.3 th/mm3 (1.0-4.8); Mean Corpuscular HGB Conc 34.6 % (32.0-36.0); Mean Corpuscular Hemoglobin 33.4 pg (27.0-34.0); Mean Corpuscular Volume 96.6 fL (80.0-100.0); Mean Platelet Volume 6.6 fL (7.0-11.0); Mono # (Auto) 0.8 th/mm3 (0.0-0.9); Neut # (Auto) 3.5 th/mm3 (1.8-7.7); Neut % (Auto) 49.6 % (16.0-70.0); Platelet Count 263 th/mm3 (150-450); Red Blood Count 3.71 mil/mm3 (4.50-5.90); Red Cell Distribution Width 13.7 % (11.6-17.2); White Blood Count 7.1 th/mm3 (4.0-11.0)
[2018-07-24 12:11] LABS: Calcium 8.1 mg/dL (8.5-10.1)
--- NOTE | 2018-07-24 15:11 | P.PNID ---
Subjective Remarks: Patient says that the stools has slowed down. He is concerned that the diarrhea may flare up again as it has done before. Notes that even pills were coming through the stools yesterday. Leg swelling has improved and there is no longer is edema. Denies abdominal pain. No fever. Denies sweats or chills. GI procedure noted severe colitis. 68-year-old white male who was admitted to the hospital on 07/07/2018 because of abdominal pain. The patient was complaining of weakness and abdominal pain. He reports having diarrhea over the past 3 weeks. He states to me that he has up to 10 stools a day and that he was taking Imodium and other antidiarrheal medicines, but it was not helping and he continues to have frequent diarrhea. The workup included blood cultures which were drawn on 07/05/2018 and 09/18 bottles are Staph coagulase negative. The patient's white count was up to 27.7 on admission and now is down to 11.2. He is afebrile. He had maximum temperature of 100.1 degrees yesterday. CAT scan of the abdomen on 07/05/2018 showed diffuse mural thickening and edema throughout the colon characteristic of a diffuse colitis. Stool sent for C. difficile testing shows positive C. difficile antigen and C. difficile DNA amplification. C. difficile toxin is negative. The patient also had acute renal insufficiency with estimated GFR of 39 on 07/05/2018. Antibiotics: Vanco PO Dificid PO. Allergies/Adverse Reactions: Allergies No Known Allergies Allergy (Verified 07/05/18 18:59) Objective Vital Signs 07/23/18 16:00 07/23/18 20:00 07/24/18 08:00 Temperature 97.1 F L 98.1 F 97.7 F Pulse Rate 86 92 H 91 H Respiratory Rate 18 18 16 Blood Pressure 116/71 112/77 120/74 Pulse Oximetry 98 98 96 07/24/18 12:00 Temperature 97.6 F Pulse Rate 101 H Respiratory Rate 18 Blood Pressure 102/66 Pulse Oximetry 97 Intake & Output 07/23/18 07/24/18 07/24/18 18:59 06:59 18:59 Output Total 220 / 220 40 / 40 Balance -220 / -220 -40 / -40 Weight 74.3 kg Output: Urine 100 / 100 Stool 120 / 120 40 / 40 Other: # Voids 6 2 Date of Last Bowel Movement 07/23/18 07/23/18 # Bowel Movements 6 Lab - Hematology Results 07/24/18 10:24 WBC 7.1 RBC 3.71 L Hgb 12.4 L Hct 35.8 L MCV 96.6 MCH 33.4 MCHC 34.6 RDW 13.7 Plt Count 263 MPV 6.6 L Neut % (Auto) 49.6 Lymph % (Auto) 32.0 [place] % (Auto) 12.0 H Eos % (Auto) 4.6 H Baso % (Auto) 1.8 Neut # (Auto) 3.5 Lymph # (Auto) 2.3 [place] # (Auto) 0.8 Eos # (Auto) 0.3 Baso # (Auto) 0.1 WBC Differential . Differential Comment Auto diff final Lab - Chemistry Results 07/24/18 10:24 Sodium 141 Potassium 4.0 Chloride 107 Carbon Dioxide 25.0 Anion Gap 9 BUN 6 L Creatinine 0.89 Estimated GFR 85 L Random Glucose 94 Calcium 8.1 L Imaging: ITS Impressions Chest X-Ray 07/05/18 19:10 CONCLUSION: No acute findings. Abdomen/Pelvis CT 07/10/18 00:00 CONCLUSION: 1. Increased ascitic fluid compared to the recent study 5 days ago. 2. Diffuse mural wall thickening and edema throughout the colon consistent with colitis. This is not significantly changed. 3. New small bilateral pleural effusions right greater than left. 4. Multiple stable cystic structures in the liver. Physical Exam: PHYSICAL EXAMINATION: GENERAL: No acute distress. HEENT: No icterus. Oropharynx moist; no focal lesions. NECK: Supple without adenopathy. LUNGS: Breath sounds clear. HEART: Regular rate and rhythm. No murmurs, rubs or gallops. ABDOMEN: Bowel sounds present. Soft, no tenderness. EXTREMITIES: No clubbing, cyanosis or edema. SKIN: No rash. NEUROLOGIC: Nonfocal. PSYCHIATRIC: Calm and cooperative. Assessment and Plan - Plan IMPRESSION: 1. Severe colitis, persistent diarrhea, along with leukocytosis and positive Clostridium difficile antigen, along with colitis on CT scan. Diarrhea not improving. 2. Positive blood culture due to Staphylococcus coagulase negative in 1/4 bottles. I think this is likely contamination and not due to sepsis. 3. Leukocytosis secondary to colitis. White blood cell count improved. 4. Pedal edema from IV fluids. Improved. RECOMMENDATIONS: 1. Continue Dificid 2. Continue vancomycin 500 mg p.o. 4 times daily. 3. Monitor stools. 4. Obtain HIV test.
--- NOTE | 2018-07-24 15:15 | P.PNGI ---
Subjective Interval history: Patient laying supine in bed watching television Denies abdominal pain nausea vomiting States loose stools less frequent <Cynthia Calles - Last Filed: 07/24/18 15:11> Physical Exam Vital signs: Vital Signs 07/23/18 16:00 07/23/18 20:00 07/24/18 08:00 Temperature 97.1 F L 98.1 F 97.7 F Pulse Rate 86 92 H 91 H Respiratory Rate 18 18 16 Blood Pressure 116/71 112/77 120/74 Pulse Oximetry 98 98 96 07/24/18 12:00 Temperature 97.6 F Pulse Rate 101 H Respiratory Rate 18 Blood Pressure 102/66 Pulse Oximetry 97 Intake & Output 07/23/18 07/24/18 07/24/18 18:59 06:59 18:59 Output Total 220 / 220 40 / 40 Balance -220 / -220 -40 / -40 Weight 74.3 kg Output: Urine 100 / 100 Stool 120 / 120 40 / 40 Other: # Voids 6 2 Date of Last Bowel Movement 07/23/18 07/23/18 # Bowel Movements 6 - Constitutional no acute distress - Routine HEENT Exam Head: Present: normocephalic - Routine Respiratory Exam Absent: accessory muscle use - Routine Cardiovascular Exam Present: RRR - Routine Abdominal Exam Present: soft, normoactive bowel sounds. Absent: tenderness, distended, guarding, firm - Routine Skin Exam Present: dry, warm - Routine Neurological Exam Present: alert, oriented X3 <Cynthia Calles - Last Filed: 07/24/18 15:11> Vital signs: Vital Signs 07/23/18 20:00 07/24/18 08:00 07/24/18 12:00 Temperature 98.1 F 97.7 F 97.6 F Pulse Rate 92 H 91 H 101 H Respiratory Rate 18 16 18 Blood Pressure 112/77 120/74 102/66 Pulse Oximetry 98 96 97 07/24/18 16:00 Temperature 97.7 F Pulse Rate 104 H Respiratory Rate 16 Blood Pressure 115/73 Pulse Oximetry 97 Intake & Output 07/23/18 07/24/18 07/24/18 18:59 06:59 18:59 Output Total 220 / 220 40 / 40 Balance -220 / -220 -40 / -40 Weight 74.3 kg Output: Urine 100 / 100 Stool 120 / 120 40 / 40 Other: # Voids 6 2 Date of Last Bowel Movement 07/23/18 07/23/18 # Bowel Movements 6 <Alyx Patrick - Last Filed: 07/24/18 17:08> Results - Labs CBC & Chem 7: 07/24/18 10:24 07/24/18 10:24 Laboratory Results - last 24 hr 07/24/18 07/24/18 10:24 10:24 WBC 7.1 RBC 3.71 L Hgb 12.4 L Hct 35.8 L MCV 96.6 MCH 33.4 MCHC 34.6 RDW 13.7 Plt Count 263 MPV 6.6 L Neut % (Auto) 49.6 Lymph % (Auto) 32.0 [place] % (Auto) 12.0 H Eos % (Auto) 4.6 H Baso % (Auto) 1.8 Neut # (Auto) 3.5 Lymph # (Auto) 2.3 [place] # (Auto) 0.8 Eos # (Auto) 0.3 Baso # (Auto) 0.1 WBC Differential . Differential Comment Auto diff final Sodium 141 Potassium 4.0 Chloride 107 Carbon Dioxide 25.0 Anion Gap 9 BUN 6 L Creatinine 0.89 Estimated GFR 85 L Random Glucose 94 Calcium 8.1 L - Procedures Date of procedure: 07/13/18 Procedure: THANK YOU FOR THE REFERRAL Indication; severe diarrhea, despite treatment for C. difficile Procedure Performed; Colonoscopy with biopsy After informing the patient about procedure and possible complications consent was signed. history and physical were updated. Patient was taken to the procedure room and placed in position. Time out was completed. Adequate sedation was performed by anesthesia provider. Colonoscopy, rectal exam was performed the scope was placed in the rectum advanced under video guide to the cecum which was identifed by ileo-cecal valve and appendiceal orifice, then the scope withdrawal slowly with examination of the mucosa to the rectum and retro-flexion was performed, the scope was withdrawal without any immediate complication Findings; Colon severe colitis throughout the colon typical for C. difficile, very inflamed and congested mucosa biopsy was done from the sigmoid Rectum changes consistent with C. difficile Recommendations; 1- Supportive care 2- ok to transfer to recovery area then discharge per protocol 3- colonoscopy in 3 years 4-full liquid diet 5-Hemoccult on a yearly basis by primary care physician 6-we will add Dificid since the patient does not seem to be responding well to Vanco and Flagyl, will stop the Flagyl Documented By: Hadley Yanes MD <Cynthia Calles - Last Filed: 07/24/18 15:11> - Labs CBC & Chem 7: 07/24/18 10:24 07/24/18 10:24 Laboratory Results - last 24 hr 07/24/18 07/24/18 10:24 10:24 WBC 7.1 RBC 3.71 L Hgb 12.4 L Hct 35.8 L MCV 96.6 MCH 33.4 MCHC 34.6 RDW 13.7 Plt Count 263 MPV 6.6 L Neut % (Auto) 49.6 Lymph % (Auto) 32.0 [place] % (Auto) 12.0 H Eos % (Auto) 4.6 H Baso % (Auto) 1.8 Neut # (Auto) 3.5 Lymph # (Auto) 2.3 [place] # (Auto) 0.8 Eos # (Auto) 0.3 Baso # (Auto) 0.1 WBC Differential . Differential Comment Auto diff final Sodium 141 Potassium 4.0 Chloride 107 Carbon Dioxide 25.0 Anion Gap 9 BUN 6 L Creatinine 0.89 Estimated GFR 85 L Random Glucose 94 Calcium 8.1 L <Alyx Patrick - Last Filed: 07/24/18 17:08> Assessment and Plan - Plan Assessment: C. Diff colitis, epid negative Patient reported a 3-week history of diarrhea associated with fecal urgency and incontinence. Also reports some associated abdominal cramping with bowel movements. Colonoscopy (07/13): Severe colitis throughout the colon typical for C. difficile, very inflamed and congested mucosa, biopsy was done from the sigmoid colon. Rectum changes consistent with C. difficile. Pathology (sigmoid colon) acute colitis with ulceration, pseudomembrane formation and mucosal vascular microthrombi; pseudomembranous colitis versus ischemic colitis. CT abdomen/pelvis with IV contrast (07/10) increased ascitic fluid compared to the recent study 5 days ago. Diffuse mural wall thickening and edema throughout colon consistent with colitis. This is not significantly changed. Multiple stable cystic structures in the liver. Patient is currently on Dificid, oral vancomycin, probiotics and Questran. -Sepsis, present on admissionseems to be resolving. Infectious diseases following 07/23/2018 C. difficile colitis Patient continues to report multiple bouts of loose stools. Reports 4-5 loose stools this a.m. Denies nausea vomiting, abdominal pain. Denies any noted bleeding. 07/24/2018 C. difficile colitis Patient reports to me has frequent stools with increasing form. Denies nausea vomiting or abdominal pain. Hemoglobin 12.4 hematocrit 35.8 WBC 7.1. No fever Plan -Regular diet as tolerated -Vancomycin -Questran/Lactinex -PPI -Asacol -Continue to monitor output -Supportive care -Further recommendations to follow This patient has been seen and examined by myself and Dr. Patrick and this note is written on her behalf - Attending Attestation Dr. Patrick <Cynthia Calles - Last Filed: 07/24/18 15:11> - Attending Attestation agree with above if not better consider vancomycin enemas <Alyx Patrick - Last Filed: 07/24/18 17:08>
[2018-07-24] MEDS: metroNIDAZOLE 500 MG Tablet PO SCH (21:55)
[2018-07-25] MEDS: metroNIDAZOLE 500 MG Tablet PO SCH ×3 (06:04→21:49)
--- NOTE | 2018-07-25 09:03 | P.PNIM ---
Subjective Interval history: f/u; c-diff colitis in no acute distress. still with diarrhea. no fever or abdominal pain. Physical Exam Vital signs: Vital Signs 07/24/18 12:00 07/24/18 16:00 07/24/18 20:00 Temperature 97.6 F 97.7 F 97.3 F L Pulse Rate 101 H 104 H 91 H Respiratory Rate 18 16 18 Blood Pressure 102/66 115/73 110/71 Pulse Oximetry 97 97 98 07/25/18 08:00 Temperature 98.1 F Pulse Rate 97 H Respiratory Rate 16 Blood Pressure 114/62 Pulse Oximetry 98 Intake & Output 07/24/18 07/25/18 07/25/18 18:59 06:59 18:59 Weight 73.8 kg Other: # Voids 4 7 Date of Last Bowel Movement 07/24/18 07/24/18 # Bowel Movements 4 7 - Constitutional no acute distress - Routine Respiratory Exam Present: CTA bilaterally - Routine Cardiovascular Exam Present: RRR - Routine Abdominal Exam Present: soft - Routine Extremities Exam Comments: no pedal edema. - Routine Neurological Exam Present: alert, oriented X3 Results - Labs CBC & Chem 7: 07/24/18 10:24 07/24/18 10:24 Laboratory Results - last 24 hr 07/24/18 07/24/18 07/24/18 10:24 10:24 22:59 WBC 7.1 RBC 3.71 L Hgb 12.4 L Hct 35.8 L MCV 96.6 MCH 33.4 MCHC 34.6 RDW 13.7 Plt Count 263 MPV 6.6 L Neut % (Auto) 49.6 Lymph % (Auto) 32.0 [place] % (Auto) 12.0 H Eos % (Auto) 4.6 H Baso % (Auto) 1.8 Neut # (Auto) 3.5 Lymph # (Auto) 2.3 [place]w # (Auto) 0.8 Eos # (Auto) 0.3 Baso # (Auto) 0.1 WBC Differential . Differential Comment Auto diff final Sodium 141 Potassium 4.0 Chloride 107 Carbon Dioxide 25.0 Anion Gap 9 BUN 6 L Creatinine 0.89 Estimated GFR 85 L Random Glucose 94 Calcium 8.1 L HIV 1&2 Ab/P24 Ag 4thGn Nonreactive - Procedures Date of procedure: 07/13/18 Procedure: THANK YOU FOR THE REFERRAL Indication; severe diarrhea, despite treatment for C. difficile Procedure Performed; Colonoscopy with biopsy After informing the patient about procedure and possible complications consent was signed. history and physical were updated. Patient was taken to the procedure room and placed in position. Time out was completed. Adequate sedation was performed by anesthesia provider. Colonoscopy, rectal exam was performed the scope was placed in the rectum advanced under video guide to the cecum which was identifed by ileo-cecal valve and appendiceal orifice, then the scope withdrawal slowly with examination of the mucosa to the rectum and retro-flexion was performed, the scope was withdrawal without any immediate complication Findings; Colon severe colitis throughout the colon typical for C. difficile, very inflamed and congested mucosa biopsy was done from the sigmoid Rectum changes consistent with C. difficile Recommendations; 1- Supportive care 2- ok to transfer to recovery area then discharge per protocol 3- colonoscopy in 3 years 4-full liquid diet 5-Hemoccult on a yearly basis by primary care physician 6-we will add Dificid since the patient does not seem to be responding well to Vanco and Flagyl, will stop the Flagyl Documented By: Hadley Yanes MD Assessment and Plan - Assessment (1) Colitis Code(s): K52.9 - Noninfective gastroenteritis and colitis, unspecified Status : Acute (2) NEGRITO (acute kidney injury) Code(s): N17.9 - Acute kidney failure, unspecified Status: Acute (3) Hypocalcemia Code(s): E83.51 - Hypocalcemia Status: Acute (4) Hypokalemia Code(s): E87.6 - Hypokalemia Status: Acute - Plan 68-year-old male with no significant PMH who presents the ER with complaints of abdominal pain in addition to diarrhea. States symptoms have been intermittent for the last 1 mo, however now progressively worse w/ increased episodes of diarrhea Severe sepsis present on admission with tachycardia and leukocytosis HR 99, WBC 27, Bandemia 18%, Lactic Acid 2.3, likely due to severe colitis. S/p blood cultures, initially was on Zosyn/Flagyl - blood culture no growth for 5 days -treated with Dificid x 10 days (20 doses), started on 07/13/18 -continue vancomycin p.o. and Flagyl, per ID recommendation -monitor CBC, BMP Severe C. difficile colitis -Status post colonoscopy 07/13/18 -CT Abd/Pelvis w/ diffuse colitis, images reviewed, +diarrhea -Stool C. difficile antigen positive, toxin negative DNA positive. Negative for EPID 027 -Stools for O&P negative -HIV testing negative. -monitor and Replace electrolytes as needed -GI following: Status post colonoscopy, resulted severe C. difficile colitis -treated with Dificid and currently on oral Vanco and Flagyl -continue Lactinex 3 times daily -continue Questran dose -added Asacol and Lomotil- per GI ( previously d/w ) -will consider Vanco enema if no improvement NEGRITO superimposed on chronic kidney disease stage II/hypocalcemia/hypokalemia -creatinine improving, likely due to dehydration and diarrhea and sepsis. -s/p IV fluid hydration - avoid nephrotoxins - Monitor creatinine Hypomagnesemia -replaced. DVT Prophylaxis: SCD/Teds, increase ambulation Discharge Planning: dc home with [facility]- when diarrhea has improved.
[2018-07-25] MEDS: Bismuth Subsalicylate Susp 240 ML Bottle PO SCH ×4 (09:16→21:02)
[2018-07-25] MEDS: Diphenoxylate/Atropine 2.5/0.025 MG Tablet PO PRN ×5 (09:17→22:05)
[2018-07-25] MEDS: Mesalamine 800 MG Tablet DR PO SCH ×3 (09:17→18:30)
[2018-07-25] MEDS: Magnesium Oxide 400 MG Tablet PO SCH ×3 (09:17→18:31)
[2018-07-25] MEDS: Lactobacillus Acidophilus/L. Spores Tablet PO SCH ×3 (09:17→18:30)
--- NOTE | 2018-07-25 14:01 | P.PNGI ---
Subjective Interval history: Still with diarrhea, reports minimal improvement Physical Exam Vital signs: Vital Signs 07/24/18 16:00 07/24/18 20:00 07/25/18 08:00 Temperature 97.7 F 97.3 F L 98.1 F Pulse Rate 104 H 91 H 97 H Respiratory Rate 16 18 16 Blood Pressure 115/73 110/71 114/62 Pulse Oximetry 97 98 98 07/25/18 12:00 Temperature 97.2 F L Pulse Rate 89 Respiratory Rate 16 Blood Pressure 104/69 Pulse Oximetry 95 Intake & Output 07/24/18 07/25/18 07/25/18 18:59 06:59 18:59 Weight 73.8 kg Other: # Voids 4 7 Date of Last Bowel Movement 07/24/18 07/24/18 # Bowel Movements 4 7 - Constitutional no acute distress - Routine HEENT Exam Head: Present: normocephalic Eye: Present: EOMI - Routine Neck Exam Present: supple - Routine Respiratory Exam Present: CTA bilaterally - Routine Cardiovascular Exam Present: RRR - Routine Abdominal Exam Present: soft, normoactive bowel sounds Results - Labs CBC & Chem 7: 07/24/18 10:24 07/24/18 10:24 Laboratory Results - last 24 hr 07/24/18 22:59 HIV 1&2 Ab/P24 Ag 4thGn Nonreactive - Procedures Date of procedure: 07/13/18 Procedure: THANK YOU FOR THE REFERRAL Indication; severe diarrhea, despite treatment for C. difficile Procedure Performed; Colonoscopy with biopsy After informing the patient about procedure and possible complications consent was signed. history and physical were updated. Patient was taken to the procedure room and placed in position. Time out was completed. Adequate sedation was performed by anesthesia provider. Colonoscopy, rectal exam was performed the scope was placed in the rectum advanced under video guide to the cecum which was identifed by ileo-cecal valve and appendiceal orifice, then the scope withdrawal slowly with examination of the mucosa to the rectum and retro-flexion was performed, the scope was withdrawal without any immediate complication Findings; Colon severe colitis throughout the colon typical for C. difficile, very inflamed and congested mucosa biopsy was done from the sigmoid Rectum changes consistent with C. difficile Recommendations; 1- Supportive care 2- ok to transfer to recovery area then discharge per protocol 3- colonoscopy in 3 years 4-full liquid diet 5-Hemoccult on a yearly basis by primary care physician 6-we will add Dificid since the patient does not seem to be responding well to Vanco and Flagyl, will stop the Flagyl Documented By: Hadley Yanes MD Assessment and Plan - Plan Seen and examined, reports no improvement with current antibiotic regimen. Recently completed 10 days of Dificid. Discussed with him possibilty of fecal transfer vs. vancomicin enemas vs. monoclonal antibodies. ? benefit to adding rifaximin 550mg 1 po tid x 10 days. Will discuss with ID.
[2018-07-26] MEDS: metroNIDAZOLE 500 MG Tablet PO SCH ×3 (06:08→21:55)
--- NOTE | 2018-07-26 10:19 | P.PNIM ---
Subjective Interval history: f/u; c-diff colitis in no acute distress. feels better today; BM is improving; less frequent BM's and the stool is getting formed. no fever or abdominal pain. Physical Exam Vital signs: Vital Signs 07/25/18 12:00 07/25/18 16:00 07/25/18 20:00 Temperature 97.2 F L 97.8 F 97.8 F Pulse Rate 89 99 H 88 Respiratory Rate 16 16 18 Blood Pressure 104/69 107/66 102/66 Pulse Oximetry 95 97 97 07/26/18 08:00 Temperature 98.1 F Pulse Rate 105 H Respiratory Rate 18 Blood Pressure 122/65 Pulse Oximetry 95 Intake & Output 07/25/18 07/26/18 07/26/18 18:59 06:59 18:59 Intake Total 860 / 860 Balance 860 / 860 Weight 72.2 kg Intake: Oral 860 / 860 Other: # Voids 8 2 Date of Last Bowel Movement 07/25/18 07/25/18 - Constitutional no acute distress - Routine Respiratory Exam Present: CTA bilaterally - Routine Cardiovascular Exam Present: RRR - Routine Abdominal Exam Present: soft - Routine Extremities Exam Comments: no pedal edema. - Routine Neurological Exam Present: alert, oriented X3 Results - Labs CBC & Chem 7: 07/24/18 10:24 07/24/18 10:24 - Procedures Date of procedure: 07/13/18 Procedure: THANK YOU FOR THE REFERRAL Indication; severe diarrhea, despite treatment for C. difficile Procedure Performed; Colonoscopy with biopsy After informing the patient about procedure and possible complications consent was signed. history and physical were updated. Patient was taken to the procedure room and placed in position. Time out was completed. Adequate sedation was performed by anesthesia provider. Colonoscopy, rectal exam was performed the scope was placed in the rectum advanced under video guide to the cecum which was identifed by ileo-cecal valve and appendiceal orifice, then the scope withdrawal slowly with examination of the mucosa to the rectum and retro-flexion was performed, the scope was withdrawal without any immediate complication Findings; Colon severe colitis throughout the colon typical for C. difficile, very inflamed and congested mucosa biopsy was done from the sigmoid Rectum changes consistent with C. difficile Recommendations; 1- Supportive care 2- ok to transfer to recovery area then discharge per protocol 3- colonoscopy in 3 years 4-full liquid diet 5-Hemoccult on a yearly basis by primary care physician 6-we will add Dificid since the patient does not seem to be responding well to Vanco and Flagyl, will stop the Flagyl Documented By: Hadley Yanes MD Assessment and Plan - Assessment (1) Colitis Code(s): K52.9 - Noninfective gastroenteritis and colitis, unspecified Status : Acute (2) NEGRITO (acute kidney injury) Code(s): N17.9 - Acute kidney failure, unspecified Status: Acute (3) Hypocalcemia Code(s): E83.51 - Hypocalcemia Status: Acute (4) Hypokalemia Code(s): E87.6 - Hypokalemia Status: Acute - Plan 68-year-old male with no significant PMH who presents the ER with complaints of abdominal pain in addition to diarrhea. States symptoms have been intermittent for the last 1 mo, however now progressively worse w/ increased episodes of diarrhea Severe sepsis present on admission with tachycardia and leukocytosis HR 99, WBC 27, Bandemia 18%, Lactic Acid 2.3, likely due to severe colitis. S/p blood cultures, initially was on Zosyn/Flagyl - blood culture no growth for 5 days -treated with Dificid x 10 days (20 doses), started on 07/13/18 -continue vancomycin p.o. tapering dose, per ID recommendation -monitor CBC, BMP Severe C. difficile colitis- now seems to be improving slowly. -Status post colonoscopy 07/13/18 -CT Abd/Pelvis w/ diffuse colitis, images reviewed, +diarrhea -Stool C. difficile antigen positive, toxin negative DNA positive. Negative for EPID 027 -Stools for O&P negative -monitor and Replace electrolytes as needed -GI following: Status post colonoscopy, resulted severe C. difficile colitis -treated with Dificid and currently on oral Vanco -continue Lactinex 3 times daily -continue Questran dose -added Asacol and Lomotil- per GI NEGRITO superimposed on chronic kidney disease stage II/hypocalcemia/hypokalemia -creatinine improving, likely due to dehydration and diarrhea and sepsis. -s/p IV fluid hydration - avoid nephrotoxins - Monitor creatinine Hypomagnesemia -replaced. DVT Prophylaxis: SCD/Teds, increase ambulation Discharge Planning: dc home with [facility]- when diarrhea has improved; possible within the next 48 hrs.
[2018-07-26] MEDS: Bismuth Subsalicylate Susp 240 ML Bottle PO SCH ×4 (10:51→20:54)
[2018-07-26] MEDS: Diphenoxylate/Atropine 2.5/0.025 MG Tablet PO PRN (10:52)
[2018-07-26] MEDS: Magnesium Oxide 400 MG Tablet PO SCH ×3 (10:52→18:04)
[2018-07-26] MEDS: Lactobacillus Acidophilus/L. Spores Tablet PO SCH ×3 (10:53→18:05)
[2018-07-26] MEDS: Mesalamine 800 MG Tablet DR PO SCH ×3 (10:53→18:05)
--- NOTE | 2018-07-26 11:14 | P.PNGI ---
Subjective Interval history: Patient's resting in the bed currently upset over Loender nagy DC'd. States that his only thing effective to help control his diarrhea No abdominal pain <Deborah Simms - Last Filed: 07/26/18 11:15> Physical Exam Vital signs: Vital Signs 07/25/18 12:00 07/25/18 16:00 07/25/18 20:00 Temperature 97.2 F L 97.8 F 97.8 F Pulse Rate 89 99 H 88 Respiratory Rate 16 16 18 Blood Pressure 104/69 107/66 102/66 Pulse Oximetry 95 97 97 07/26/18 08:00 Temperature 98.1 F Pulse Rate 105 H Respiratory Rate 18 Blood Pressure 122/65 Pulse Oximetry 95 Intake & Output 07/25/18 07/26/18 07/26/18 18:59 06:59 18:59 Intake Total 860 / 860 Balance 860 / 860 Weight 72.2 kg Intake: Oral 860 / 860 Other: # Voids 8 2 Date of Last Bowel Movement 07/25/18 07/25/18 - Constitutional moderate distress, cachectic, disheveled, agitated - Routine HEENT Exam Head: Present: normocephalic, atraumatic ENT: Present: mucous membranes moist (Easily) - Routine Respiratory Exam Present: CTA bilaterally - Routine Cardiovascular Exam Present: S1, S2 - Routine Abdominal Exam Present: soft, normoactive bowel sounds (Loose diarrhea stools no obvious bleeding) <Deborah Simms - Last Filed: 07/26/18 11:15> Vital signs: Vital Signs 07/25/18 16:00 07/25/18 20:00 07/26/18 08:00 Temperature 97.8 F 97.8 F 98.1 F Pulse Rate 99 H 88 105 H Respiratory Rate 16 18 18 Blood Pressure 107/66 102/66 122/65 Pulse Oximetry 97 97 95 07/26/18 13:13 Temperature 97.7 F Pulse Rate 97 H Respiratory Rate 18 Blood Pressure 111/72 Pulse Oximetry Intake & Output 07/25/18 07/26/18 07/26/18 18:59 06:59 18:59 Intake Total 860 / 860 Balance 860 / 860 Weight 72.2 kg Intake: Oral 860 / 860 Other: # Voids 8 2 Date of Last Bowel Movement 07/25/18 07/25/18 <Roxanna Bryant - Last Filed: 07/26/18 13:25> Results - Labs CBC & Chem 7: 07/24/18 10:24 07/24/18 10:24 - Procedures Date of procedure: 07/13/18 Procedure: THANK YOU FOR THE REFERRAL Indication; severe diarrhea, despite treatment for C. difficile Procedure Performed; Colonoscopy with biopsy After informing the patient about procedure and possible complications consent was signed. history and physical were updated. Patient was taken to the procedure room and placed in position. Time out was completed. Adequate sedation was performed by anesthesia provider. Colonoscopy, rectal exam was performed the scope was placed in the rectum advanced under video guide to the cecum which was identifed by ileo-cecal valve and appendiceal orifice, then the scope withdrawal slowly with examination of the mucosa to the rectum and retro-flexion was performed, the scope was withdrawal without any immediate complication Findings; Colon severe colitis throughout the colon typical for C. difficile, very inflamed and congested mucosa biopsy was done from the sigmoid Rectum changes consistent with C. difficile Recommendations; 1- Supportive care 2- ok to transfer to recovery area then discharge per protocol 3- colonoscopy in 3 years 4-full liquid diet 5-Hemoccult on a yearly basis by primary care physician 6-we will add Dificid since the patient does not seem to be responding well to Vanco and Flagyl, will stop the Flagyl Documented By: Hadley Yanes MD <Deborha Simms - Last Filed: 07/26/18 11:15> - Labs CBC & Chem 7: 07/24/18 10:24 07/24/18 10:24 <Roxanna Bryant - Last Filed: 07/26/18 13:25> Assessment and Plan - Plan Atypical C. difficile colitis, medications ineffective and controlled including p.o. vancomycin and Dificid Procedure Performed; Colonoscopy with biopsy After informing the patient about procedure and possible complications consent was signed. history and physical were updated. Patient was taken to the procedure room and placed in position. Time out was completed. Adequate sedation was performed by anesthesia provider. Colonoscopy, rectal exam was performed the scope was placed in the rectum advanced under video guide to the cecum which was identifed by ileo-cecal valve and appendiceal orifice, then the scope withdrawal slowly with examination of the mucosa to the rectum and retro-flexion was performed, the scope was withdrawal without any immediate complication Colon severe colitis throughout the colon typical for C. difficile, very inflamed and congested mucosa biopsy was done from the sigmoid Rectum changes consistent with C. difficile 07/26/2018 C. difficile toxin, atypical colitis, currently symptoms have returned over the past 24 hours since patient has not had any Lomotil. Tearful and states that that is only thing that helped control some of his diarrhea. Currently still on p.o. vancomycin and has completed Dificid, 10 days Will check with hospitalist for Lomotil, and consider outpatient workup for fecal transplant. Plan Diet as tolerated per attending, P.o. vancomycin Repeat colonoscopy in 3 years Consider Xifaxan Consider outpatient fecal transplant Okay for low-dose Lomotil if okay with hospitalist Monitor labs Supportive care Was seen per myself and Dr. Mancuso, note was written on his behalf Seen and examined, reports no improvement with current antibiotic regimen. Recently completed 10 days of Dificid. Discussed with him possibilty of fecal transfer vs. vancomicin enemas vs. monoclonal antibodies. ? benefit to adding rifaximin 550mg 1 po tid x 10 days. Will discuss with ID. <Deborah Simms - Last Filed: 07/26/18 11:15> - Plan Seen and examined with RESIDENTIAL ASSISTANT, still with diarrhea. On po vancomicin. Add Rifaximin 550mg 1 po tid x 10 days. Cholestyramine 4 gm po bid. <Roxanna Bryant - Last Filed: 07/26/18 13:25>
[2018-07-27] MEDS: metroNIDAZOLE 500 MG Tablet PO SCH ×2 (06:31→13:58)
--- NOTE | 2018-07-27 09:30 | P.PNIM ---
Subjective Interval history: f/u; c-diff colitis in no acute distress. diarrhea seems to be improving slowly- however still loose. no fever or abdominal pain. Physical Exam Vital signs: Vital Signs 07/26/18 13:13 07/26/18 20:00 07/27/18 08:00 Temperature 97.7 F 98.4 F 97.8 F Pulse Rate 97 H 86 91 H Respiratory Rate 18 Blood Pressure 111/72 120/59 L 92/66 L Pulse Oximetry 94 L 95 Intake & Output 07/26/18 07/27/18 07/27/18 18:59 06:59 18:59 Weight 71.4 kg Other: # Voids 2 Date of Last Bowel Movement 07/26/18 - Constitutional no acute distress - Routine Respiratory Exam Present: CTA bilaterally - Routine Cardiovascular Exam Present: RRR - Routine Abdominal Exam Present: soft - Routine Extremities Exam Comments: no pedal edema. - Routine Neurological Exam Present: alert, oriented X3 Results - Labs CBC & Chem 7: 07/24/18 10:24 07/24/18 10:24 - Procedures Date of procedure: 07/13/18 Procedure: THANK YOU FOR THE REFERRAL Indication; severe diarrhea, despite treatment for C. difficile Procedure Performed; Colonoscopy with biopsy After informing the patient about procedure and possible complications consent was signed. history and physical were updated. Patient was taken to the procedure room and placed in position. Time out was completed. Adequate sedation was performed by anesthesia provider. Colonoscopy, rectal exam was performed the scope was placed in the rectum advanced under video guide to the cecum which was identifed by ileo-cecal valve and appendiceal orifice, then the scope withdrawal slowly with examination of the mucosa to the rectum and retro-flexion was performed, the scope was withdrawal without any immediate complication Findings; Colon severe colitis throughout the colon typical for C. difficile, very inflamed and congested mucosa biopsy was done from the sigmoid Rectum changes consistent with C. difficile Recommendations; 1- Supportive care 2- ok to transfer to recovery area then discharge per protocol 3- colonoscopy in 3 years 4-full liquid diet 5-Hemoccult on a yearly basis by primary care physician 6-we will add Dificid since the patient does not seem to be responding well to Vanco and Flagyl, will stop the Flagyl Documented By: Hadley Yanes MD Assessment and Plan - Assessment (1) Colitis Code(s): K52.9 - Noninfective gastroenteritis and colitis, unspecified Status : Acute (2) NEGRITO (acute kidney injury) Code(s): N17.9 - Acute kidney failure, unspecified Status: Acute (3) Hypocalcemia Code(s): E83.51 - Hypocalcemia Status: Acute (4) Hypokalemia Code(s): E87.6 - Hypokalemia Status: Acute - Plan 68-year-old male with no significant PMH who presents the ER with complaints of abdominal pain in addition to diarrhea. States symptoms have been intermittent for the last 1 mo, however now progressively worse w/ increased episodes of diarrhea Severe sepsis present on admission with tachycardia and leukocytosis HR 99, WBC 27, Bandemia 18%, Lactic Acid 2.3, likely due to severe colitis. S/p blood cultures, initially was on Zosyn/Flagyl - blood culture no growth for 5 days -treated with Dificid x 10 days -continue vancomycin p.o. tapering dose, per ID recommendation -monitor CBC, BMP Severe C. difficile colitis- now seems to be improving slowly. -Status post colonoscopy 07/13/18 -CT Abd/Pelvis w/ diffuse colitis, images reviewed, +diarrhea -Stool C. difficile antigen positive, toxin negative DNA positive. Negative for EPID 027 -Stools for O&P negative -monitor and Replace electrolytes as needed -GI following: Status post colonoscopy, resulted severe C. difficile colitis -treated with Dificid and currently on oral Vanco -continue Lactinex 3 times daily -continue Questran dose/ Asacol -GI following. NEGRITO superimposed on chronic kidney disease stage II/hypocalcemia/hypokalemia -creatinine improving, likely due to dehydration and diarrhea and sepsis. -s/p IV fluid hydration - avoid nephrotoxins - Monitor creatinine Hypomagnesemia -replaced. DVT Prophylaxis: SCD/Teds, increase ambulation Discharge Planning: dc home with [facility]- when diarrhea has improved; possible within the next 48 hrs.
[2018-07-27] MEDS: Magnesium Oxide 400 MG Tablet PO SCH ×3 (10:11→18:07)
[2018-07-27] MEDS: Mesalamine 800 MG Tablet DR PO SCH ×3 (10:11→18:07)
[2018-07-27] MEDS: Lactobacillus Acidophilus/L. Spores Tablet PO SCH ×3 (10:11→18:07)
[2018-07-27] MEDS: Bismuth Subsalicylate Susp 240 ML Bottle PO SCH ×4 (10:12→21:16)
--- NOTE | 2018-07-27 16:28 | P.PNID ---
Subjective Remarks: Patient says he feels a whole lot better. He was put on low material and that the stools had ceased for couple days and then he felt constipated. He notes that he may have taken too many Lomotil tablets. He took 5 tablets in 1 day. He has had 2 bowel movements today which is to be firming up. He notes that he is passing some gas currently. He feels encouraged. No abdominal pain. No fever. No nausea or vomiting. GI procedure noted severe colitis. 68-year-old white male who was admitted to the hospital on 07/07/2018 because of abdominal pain. The patient was complaining of weakness and abdominal pain. He reports having diarrhea over the past 3 weeks. He states to me that he has up to 10 stools a day and that he was taking Imodium and other antidiarrheal medicines, but it was not helping and he continues to have frequent diarrhea. The workup included blood cultures which were drawn on 07/05/2018 and 09/18 bottles are Staph coagulase negative. The patient's white count was up to 27.7 on admission and now is down to 11.2. He is afebrile. He had maximum temperature of 100.1 degrees yesterday. CAT scan of the abdomen on 07/05/2018 showed diffuse mural thickening and edema throughout the colon characteristic of a diffuse colitis. Stool sent for C. difficile testing shows positive C. difficile antigen and C. difficile DNA amplification. C. difficile toxin is negative. The patient also had acute renal insufficiency with estimated GFR of 39 on 07/05/2018. Antibiotics: Vanco PO Flagyl p.o. Allergies/Adverse Reactions: Allergies No Known Allergies Allergy (Verified 07/05/18 18:59) Objective Vital Signs 07/26/18 20:00 07/27/18 08:00 07/27/18 12:00 Temperature 98.4 F 97.8 F 97.3 F L Pulse Rate 86 91 H 99 H Respiratory Rate 18 Blood Pressure 120/59 L 92/66 L 110/76 Pulse Oximetry 94 L 95 96 Intake & Output 07/26/18 07/27/18 07/27/18 18:59 06:59 18:59 Weight 71.4 kg Other: # Voids 2 Date of Last Bowel Movement 07/26/18 Imaging: ITS Impressions Chest X-Ray 07/05/18 19:10 CONCLUSION: No acute findings. Abdomen/Pelvis CT 07/10/18 00:00 CONCLUSION: 1. Increased ascitic fluid compared to the recent study 5 days ago. 2. Diffuse mural wall thickening and edema throughout the colon consistent with colitis. This is not significantly changed. 3. New small bilateral pleural effusions right greater than left. 4. Multiple stable cystic structures in the liver. Physical Exam: PHYSICAL EXAMINATION: GENERAL: No acute distress. HEENT: No icterus. Oropharynx moist; NECK: Supple without adenopathy. LUNGS: Breath sounds clear. HEART: Regular rate and rhythm. No murmurs, rubs or gallops. ABDOMEN: Markedly decreased bowel sounds. Soft, nontender. EXTREMITIES: No clubbing, cyanosis, no edema. SKIN: No rash. NEUROLOGIC: Nonfocal. PSYCHIATRIC: Calm and cooperative. Assessment and Plan - Plan IMPRESSION: 1. Severe colitis, persistent diarrhea, along with leukocytosis and positive Clostridium difficile antigen, along with colitis on CT scan. Stools finally improving. 2. Positive blood culture due to Staphylococcus coagulase negative in 1/4 bottles. I think this is likely contamination and not due to sepsis. 3. Leukocytosis secondary to colitis. White blood cell count improved. 4. Pedal edema from IV fluids. RECOMMENDATIONS: 1. Stop Flagyl. 2. Continue vancomycin 500 mg p.o. 4 times daily to 6 weeks vancomycin taper on discharge. 3. Monitor stools. 4. Monitor response to treatment.
--- NOTE | 2018-07-27 16:43 | P.PNGI ---
Subjective Interval history: Up in the shower and able to increase motility. Patient is nervous about using Lomotil due to any constipation States he may have taken too much the first time he was offered the Lomotil, Afebrile, no nausea no vomiting <Deborah Simms - Last Filed: 07/27/18 16:52> Physical Exam Vital signs: Vital Signs 07/26/18 20:00 07/27/18 08:00 07/27/18 12:00 Temperature 98.4 F 97.8 F 97.3 F L Pulse Rate 86 91 H 99 H Respiratory Rate 20 18 18 Blood Pressure 120/59 L 92/66 L 110/76 Pulse Oximetry 94 L 95 96 07/27/18 16:00 Temperature 97.1 F L Pulse Rate 98 H Respiratory Rate 18 Blood Pressure 101/68 Pulse Oximetry 97 Intake & Output 07/26/18 07/27/18 07/27/18 18:59 06:59 18:59 Weight 71.4 kg Other: # Voids 2 Date of Last Bowel Movement 07/26/18 - Constitutional mild distress, disheveled, cooperative - Routine HEENT Exam Head: Present: normocephalic ENT: Present: mucous membranes moist - Routine Respiratory Exam Present: CTA bilaterally - Routine Abdominal Exam Present: distended (No obvious distention, stools becoming more formed, ) <Deborah Simms - Last Filed: 07/27/18 16:52> Vital signs: Vital Signs 07/26/18 20:00 07/27/18 08:00 07/27/18 12:00 Temperature 98.4 F 97.8 F 97.3 F L Pulse Rate 86 91 H 99 H Respiratory Rate 20 18 18 Blood Pressure 120/59 L 92/66 L 110/76 Pulse Oximetry 94 L 95 96 07/27/18 16:00 Temperature 97.1 F L Pulse Rate 98 H Respiratory Rate 18 Blood Pressure 101/68 Pulse Oximetry 97 Intake & Output 07/27/18 07/27/18 07/28/18 06:59 18:59 06:59 Weight 71.4 kg Other: # Voids 2 2 Date of Last Bowel Movement 07/26/18 # Bowel Movements 2 <Claudy Leigh - Last Filed: 07/27/18 19:55> Results - Labs CBC & Chem 7: 07/24/18 10:24 07/24/18 10:24 - Procedures Date of procedure: 07/13/18 Procedure: THANK YOU FOR THE REFERRAL Indication; severe diarrhea, despite treatment for C. difficile Procedure Performed; Colonoscopy with biopsy After informing the patient about procedure and possible complications consent was signed. history and physical were updated. Patient was taken to the procedure room and placed in position. Time out was completed. Adequate sedation was performed by anesthesia provider. Colonoscopy, rectal exam was performed the scope was placed in the rectum advanced under video guide to the cecum which was identifed by ileo-cecal valve and appendiceal orifice, then the scope withdrawal slowly with examination of the mucosa to the rectum and retro-flexion was performed, the scope was withdrawal without any immediate complication Findings; Colon severe colitis throughout the colon typical for C. difficile, very inflamed and congested mucosa biopsy was done from the sigmoid Rectum changes consistent with C. difficile Recommendations; 1- Supportive care 2- ok to transfer to recovery area then discharge per protocol 3- colonoscopy in 3 years 4-full liquid diet 5-Hemoccult on a yearly basis by primary care physician 6-we will add Dificid since the patient does not seem to be responding well to Vanco and Flagyl, will stop the Flagyl Documented By: Hadley Yanes MD <Deborah Simms M - Last Filed: 07/27/18 16:52> - Labs CBC & Chem 7: 07/24/18 10:24 07/24/18 10:24 <Claudy Leigh - Last Filed: 07/27/18 19:55> Assessment and Plan - Plan Atypical C. difficile colitis, medications ineffective and controlled including p.o. vancomycin and Dificid Procedure Performed; Colonoscopy with biopsy After informing the patient about procedure and possible complications consent was signed. history and physical were updated. Patient was taken to the procedure room and placed in position. Time out was completed. Adequate sedation was performed by anesthesia provider. Colonoscopy, rectal exam was performed the scope was placed in the rectum advanced under video guide to the cecum which was identifed by ileo-cecal valve and appendiceal orifice, then the scope withdrawal slowly with examination of the mucosa to the rectum and retro-flexion was performed, the scope was withdrawal without any immediate complication Colon severe colitis throughout the colon typical for C. difficile, very inflamed and congested mucosa biopsy was done from the sigmoid Rectum changes consistent with C. difficile 07/26/2018 C. difficile toxin, atypical colitis, currently symptoms have returned over the past 24 hours since patient has not had any Lomotil. Tearful and states that that is only thing that helped control some of his diarrhea. Currently still on p.o. vancomycin and has completed Dificid, 10 days Will check with hospitalist for Lomotil, and consider outpatient workup for fecal transplant. 07/27/2018 patient's up taking a shower today still having diarrhea was stools but do appear to be gradually showing some form. Lomotil has been placed back on patient's formulary but he is nervous about taking due to possible constipation. Encourage patient to take but use low-dose to begin with. Rifaximin 550 mg twice daily started with cholestyramine. Monitor for results. If these meds control patient's diarrhea will need to follow-up on an outpatient basis and be considered for fecal transplant if his symptoms continue. Appreciate ID input Plan Diet as tolerated, eat slow good hydration chew food well Continue p.o. vancomycin 250 mg p.o. 4 times daily for now Xifaxan 550 mg p.o. twice daily and add cholestyramine 4 g p.o. twice daily Flagyl DC'd per ID Repeat colonoscopy in 3 years Consider Xifaxan Consider outpatient fecal transplant Supportive care Was seen per myself and Dr. Leigh, note was written on his behalf <Deborah Simms - Last Filed: 07/27/18 16:52> - Plan Patient seen and examined Agree with above Continue with current supportive care Monitor lab Would not recommend Lomotil or any anti-diarrhea medication other than specific treatment for the C. difficile colitis at this point Consider repeat flex sig to reassess for response to treatment Will defer C. difficile treatment to infectious disease <Claudy Leigh - Last Filed: 07/27/18 19:55>
[2018-07-28 06:40] LABS: Calcium 8.1 mg/dL (8.5-10.1); Carbon Dioxide 21.7 meq/L (21.0-32.0); Potassium 4.3 meq/L (3.5-5.1)
[2018-07-28] MEDS: Lactobacillus Acidophilus/L. Spores Tablet PO SCH ×3 (10:28→18:32)
[2018-07-28] MEDS: Mesalamine 800 MG Tablet DR PO SCH ×3 (10:28→18:31)
[2018-07-28] MEDS: Magnesium Oxide 400 MG Tablet PO SCH ×3 (10:28→18:32)
[2018-07-28] MEDS: Bismuth Subsalicylate Susp 240 ML Bottle PO SCH ×4 (10:29→21:58)
--- NOTE | 2018-07-28 10:49 | P.PNGI ---
Subjective Interval history: Patient laying in bed resting soundly with eyes closed. Awakens easily and denies any abdominal pain nausea or vomiting. Reporting less frequency of bowel movements. Physical Exam Vital signs: Vital Signs 07/27/18 12:00 07/27/18 16:00 07/27/18 20:00 Temperature 97.3 F L 97.1 F L 98.0 F Pulse Rate 99 H 98 H 89 Respiratory Rate 18 Blood Pressure 110/76 101/68 114/62 Pulse Oximetry 96 97 96 07/28/18 08:00 Temperature 98.3 F Pulse Rate 91 H Respiratory Rate 20 Blood Pressure 116/77 Pulse Oximetry 97 Intake & Output 07/27/18 07/28/18 07/28/18 18:59 06:59 18:59 Weight 71.3 kg Other: # Voids 2 5 Date of Last Bowel Movement 07/27/18 07/27/18 # Bowel Movements 2 3 - Routine HEENT Exam Head: Present: normocephalic - Routine Respiratory Exam Present: CTA bilaterally. Absent: accessory muscle use - Routine Abdominal Exam Present: soft, normoactive bowel sounds. Absent: tenderness, distended, guarding, firm - Routine Skin Exam Present: dry, warm - Routine Neurological Exam Present: alert - Routine Psychiatric Exam Present: normal affect, cooperative Results - Labs CBC & Chem 7: 07/24/18 10:24 07/28/18 05:01 Laboratory Results - last 24 hr 07/28/18 05:01 Sodium 139 Potassium 4.3 Chloride 107 Carbon Dioxide 21.7 Anion Gap 10 BUN 7 Creatinine 0.91 Estimated GFR 82 L Random Glucose 88 Calcium 8.1 L - Procedures Date of procedure: 07/13/18 Procedure: THANK YOU FOR THE REFERRAL Indication; severe diarrhea, despite treatment for C. difficile Procedure Performed; Colonoscopy with biopsy After informing the patient about procedure and possible complications consent was signed. history and physical were updated. Patient was taken to the procedure room and placed in position. Time out was completed. Adequate sedation was performed by anesthesia provider. Colonoscopy, rectal exam was performed the scope was placed in the rectum advanced under video guide to the cecum which was identifed by ileo-cecal valve and appendiceal orifice, then the scope withdrawal slowly with examination of the mucosa to the rectum and retro-flexion was performed, the scope was withdrawal without any immediate complication Findings; Colon severe colitis throughout the colon typical for C. difficile, very inflamed and congested mucosa biopsy was done from the sigmoid Rectum changes consistent with C. difficile Recommendations; 1- Supportive care 2- ok to transfer to recovery area then discharge per protocol 3- colonoscopy in 3 years 4-full liquid diet 5-Hemoccult on a yearly basis by primary care physician 6-we will add Dificid since the patient does not seem to be responding well to Vanco and Flagyl, will stop the Flagyl Documented By: Haldey Yanes MD Assessment and Plan - Plan 07/28/2018 C. difficile colitis Patient laying supine in bed. Reporting less frequency of bowel movements States total of 4 bowel movements since 7 AM on 07/27/2018 Lomotil held. Plan -Diet as tolerated -Continue vancomycin -Questran -Lactinex -Asacol -PPI -Infectious disease following patient for treatment of C. difficile -Supportive care -Monitor output -Encourage po hydration -Further recommendations to follow This patient has been seen by myself and Dr. Yanes and this note is written on his behalf - Attending Attestation Dr. Yanes
--- NOTE | 2018-07-28 13:21 | P.PN ---
Subjective Interval history: resting comfortably in bed denies any pain, nausea or vomting tolerating po well BM 2x since this am- saw the hat- brown mush liquid stools, no blood Physical Exam Vital signs: Vital Signs 07/27/18 16:00 07/27/18 20:00 07/28/18 08:00 Temperature 97.1 F L 98.0 F 98.3 F Pulse Rate 98 H 89 91 H Respiratory Rate 18 18 20 Blood Pressure 101/68 114/62 116/77 Pulse Oximetry 97 96 97 07/28/18 12:00 Temperature 98.1 F Pulse Rate 88 Respiratory Rate 20 Blood Pressure 118/75 Pulse Oximetry 96 Intake & Output 07/27/18 07/28/18 07/28/18 18:59 06:59 18:59 Weight 71.3 kg Other: # Voids 2 5 Date of Last Bowel Movement 07/27/18 07/27/18 # Bowel Movements 2 3 Narrative: awake and alert, no acute distress HEAD: Atraumatic. Normocephalic. EYES: Pupils equal and round. No scleral icterus. No injection or drainage. ENT: No nasal bleeding or discharge. Mucous membranes pink and moist. NECK: Trachea midline. No JVD. CARDIOVASCULAR: Regular rate and rhythm. RESPIRATORY: Breath sounds equal bilaterally. GASTROINTESTINAL: Abdomen soft, hyperactive bowel sounds MUSCULOSKELETAL: Extremities without clubbing, cyanosis, trace edema. No obvious deformities. NEUROLOGICAL: Awake and alert and oriented x3. No obvious cranial nerve deficits. Motor grossly within normal limits. Five out of 5 muscle strength in the arms and legs. Normal speech. PSYCHIATRIC: blunt affect Results - Labs CBC & Chem 7: 07/24/18 10:24 07/28/18 05:01 Laboratory Results - last 24 hr 07/28/18 05:01 Sodium 139 Potassium 4.3 Chloride 107 Carbon Dioxide 21.7 Anion Gap 10 BUN 7 Creatinine 0.91 Estimated GFR 82 L Random Glucose 88 Calcium 8.1 L - Procedures Date of procedure: 07/13/18 Procedure: THANK YOU FOR THE REFERRAL Indication; severe diarrhea, despite treatment for C. difficile Procedure Performed; Colonoscopy with biopsy After informing the patient about procedure and possible complications consent was signed. history and physical were updated. Patient was taken to the procedure room and placed in position. Time out was completed. Adequate sedation was performed by anesthesia provider. Colonoscopy, rectal exam was performed the scope was placed in the rectum advanced under video guide to the cecum which was identifed by ileo-cecal valve and appendiceal orifice, then the scope withdrawal slowly with examination of the mucosa to the rectum and retro-flexion was performed, the scope was withdrawal without any immediate complication Findings; Colon severe colitis throughout the colon typical for C. difficile, very inflamed and congested mucosa biopsy was done from the sigmoid Rectum changes consistent with C. difficile Recommendations; 1- Supportive care 2- ok to transfer to recovery area then discharge per protocol 3- colonoscopy in 3 years 4-full liquid diet 5-Hemoccult on a yearly basis by primary care physician 6-we will add Dificid since the patient does not seem to be responding well to Vanco and Flagyl, will stop the Flagyl Documented By: Hadley Yanes MD Assessment and Plan - Assessment (1) Colitis Code(s): K52.9 - Noninfective gastroenteritis and colitis, unspecified Status : Acute (2) NEGRITO (acute kidney injury) Code(s): N17.9 - Acute kidney failure, unspecified Status: Acute (3) Hypocalcemia Code(s): E83.51 - Hypocalcemia Status: Acute (4) Hypokalemia Code(s): E87.6 - Hypokalemia Status: Acute - Plan 68-year-old male with no significant PMH who presents the ER with complaints of abdominal pain in addition to diarrhea. States symptoms have been intermittent for the last 1 mo, however now progressively worse w/ increased episodes of diarrhea Severe sepsis present on admission with tachycardia and leukocytosis HR 99, WBC 27, Bandemia 18%, Lactic Acid 2.3, likely due to severe colitis. S/p blood cultures, initially was on Zosyn/Flagyl - blood culture no growth for 5 days -treated with Dificid x 10 days -continue vancomycin p.o. tapering dose, per ID recommendation- currently on 500 mg po qid since 07/09 -monitor CBC, BMP Severe C. difficile colitis- \ -Status post colonoscopy 07/13/18 -CT Abd/Pelvis w/ diffuse colitis, images reviewed, +diarrhea -Stool C. difficile antigen positive, toxin negative DNA positive. Negative for EPID 027 -Stools for O&P negative -monitor and Replace electrolytes as needed -GI following: Status post colonoscopy, resulted severe C. difficile colitis -treated with Dificid and currently on oral Vanco -continue Lactinex 3 times daily -continue Questran dose/ Asacol -GI following. NEGRITO superimposed on chronic kidney disease stage II/hypocalcemia/hypokalemia -creatinine improving, likely due to dehydration and diarrhea and sepsis. -s/p IV fluid hydration - avoid nephrotoxins - Monitor creatinine Hypomagnesemia -replaced. DVT Prophylaxis: SCD/Teds, increase ambulation- patient up and ambulating Discharge Planning: dc home with [facility]- when diarrhea has improved; possible within the next 48 hrs.
[2018-07-29] MEDS: Bismuth Subsalicylate Susp 240 ML Bottle PO SCH ×4 (08:48→21:07)
[2018-07-29] MEDS: Mesalamine 800 MG Tablet DR PO SCH ×3 (08:51→18:12)
[2018-07-29] MEDS: Lactobacillus Acidophilus/L. Spores Tablet PO SCH ×3 (08:51→18:12)
[2018-07-29] MEDS: Magnesium Oxide 400 MG Tablet PO SCH ×3 (08:51→18:13)
--- NOTE | 2018-07-29 12:44 | P.PN ---
Subjective Interval history: awake and alert, no nuasea or vomiting or abdominal pain stools soft since this am so far once yesterday - states had 4 BM Physical Exam Vital signs: Vital Signs 07/28/18 16:00 07/28/18 20:00 07/29/18 08:00 Temperature 98 F 98.3 F 97.8 F Pulse Rate 92 H 94 H 93 H Respiratory Rate 20 18 17 Blood Pressure 112/67 104/72 108/77 Pulse Oximetry 97 97 93 L 07/29/18 12:00 Temperature 98.2 F Pulse Rate 96 H Respiratory Rate 17 Blood Pressure 126/68 Pulse Oximetry 95 Intake & Output 07/28/18 07/29/18 07/29/18 18:59 06:59 18:59 Weight 71.9 kg Other: # Voids 6 Date of Last Bowel Movement 07/28/18 07/28/18 07/29/18 # Bowel Movements 7 Narrative: awake and alert, no acute distress moist oral mucosa CARDIOVASCULAR: Regular rate and rhythm. RESPIRATORY: Breath sounds equal bilaterally. GASTROINTESTINAL: Abdomen soft, hyperactive bowel sounds MUSCULOSKELETAL: Extremities without clubbing, cyanosis, trace edema. No obvious deformities. NEUROLOGICAL: Awake and alert and oriented x3. No obvious cranial nerve deficits. Motor grossly within normal limits. Five out of 5 muscle strength in the arms and legs. Normal speech. PSYCHIATRIC: blunt affect Results - Labs CBC & Chem 7: 07/24/18 10:24 07/28/18 05:01 - Procedures Date of procedure: 07/13/18 Procedure: THANK YOU FOR THE REFERRAL Indication; severe diarrhea, despite treatment for C. difficile Procedure Performed; Colonoscopy with biopsy After informing the patient about procedure and possible complications consent was signed. history and physical were updated. Patient was taken to the procedure room and placed in position. Time out was completed. Adequate sedation was performed by anesthesia provider. Colonoscopy, rectal exam was performed the scope was placed in the rectum advanced under video guide to the cecum which was identifed by ileo-cecal valve and appendiceal orifice, then the scope withdrawal slowly with examination of the mucosa to the rectum and retro-flexion was performed, the scope was withdrawal without any immediate complication Findings; Colon severe colitis throughout the colon typical for C. difficile, very inflamed and congested mucosa biopsy was done from the sigmoid Rectum changes consistent with C. difficile Recommendations; 1- Supportive care 2- ok to transfer to recovery area then discharge per protocol 3- colonoscopy in 3 years 4-full liquid diet 5-Hemoccult on a yearly basis by primary care physician 6-we will add Dificid since the patient does not seem to be responding well to Vanco and Flagyl, will stop the Flagyl Documented By: Hadley Yanes MD Assessment and Plan - Assessment (1) Colitis Code(s): K52.9 - Noninfective gastroenteritis and colitis, unspecified Status : Acute (2) NEGRITO (acute kidney injury) Code(s): N17.9 - Acute kidney failure, unspecified Status: Acute (3) Hypocalcemia Code(s): E83.51 - Hypocalcemia Status: Acute (4) Hypokalemia Code(s): E87.6 - Hypokalemia Status: Acute - Plan 68-year-old male with no significant PMH who presents the ER with complaints of abdominal pain in addition to diarrhea. States symptoms have been intermittent for the last 1 mo, however now progressively worse w/ increased episodes of diarrhea Severe sepsis present on admission with tachycardia and leukocytosis HR 99, WBC 27, Bandemia 18%, Lactic Acid 2.3, likely due to severe colitis. S/p blood cultures, initially was on Zosyn/Flagyl - blood culture no growth for 5 days -treated with Dificid x 10 days -continue vancomycin p.o. tapering dose, per ID recommendation- currently on 500 mg po qid since 07/09 -get another C diff stool study today - d/w ID- - stools so far today once since this am - will give x 1 Lomotil if frequency still a lotd/w ID- dr Bui Severe C. difficile colitis- \ -Status post colonoscopy 07/13/18 -CT Abd/Pelvis w/ diffuse colitis, images reviewed, +diarrhea -Stool C. difficile antigen positive, toxin negative DNA positive. Negative for EPID 027 -Stools for O&P negative -monitor and Replace electrolytes as needed -GI following: Status post colonoscopy, resulted severe C. difficile colitis -treated with Dificid and currently on oral Vanco -continue Lactinex 3 times daily -continue Questran dose/ Asacol -GI following. NEGRITO superimposed on chronic kidney disease stage II/hypocalcemia/hypokalemia -creatinine improving, likely due to dehydration and diarrhea and sepsis. -s/p IV fluid hydration - avoid nephrotoxins - Monitor creatinine Hypomagnesemia -replaced. DVT Prophylaxis: SCD/Teds, increase ambulation- patient up and ambulating Discharge Planning: dc home with [facility]- when diarrhea has improved; possible within the next 48 hrs.
[2018-07-29] MEDS ORDERED: Diphenoxylate/Atropine 2.5/0.025 MG Tablet PO ONE (17:48)
[2018-07-30] MEDS: Bismuth Subsalicylate Susp 240 ML Bottle PO SCH ×4 (09:54→20:48)
[2018-07-30] MEDS: Mesalamine 800 MG Tablet DR PO SCH ×3 (09:59→17:39)
[2018-07-30] MEDS: Lactobacillus Acidophilus/L. Spores Tablet PO SCH ×3 (09:59→17:39)
[2018-07-30] MEDS: Magnesium Oxide 400 MG Tablet PO SCH ×3 (09:59→17:39)
--- NOTE | 2018-07-30 10:19 | P.PN ---
Subjective Interval history: still with frequent stooling and consistency- same mushy,brown dneies any pain tired of his diet== on review was on soft diet- change to regular Physical Exam Vital signs: Vital Signs 07/29/18 12:00 07/29/18 16:00 07/29/18 20:00 Temperature 98.2 F 97.5 F L 98.3 F Pulse Rate 96 H 106 H 99 H Respiratory Rate 17 17 17 Blood Pressure 126/68 113/70 102/74 Pulse Oximetry 95 98 95 07/30/18 00:00 Temperature 97 F L Pulse Rate 90 Respiratory Rate 17 Blood Pressure 118/71 Pulse Oximetry 97 Intake & Output 07/29/18 07/30/18 07/30/18 18:59 06:59 18:59 Intake Total 1200 / 1200 480 / 480 Balance 1200 / 1200 480 / 480 Weight 71.9 kg Intake: Oral 1200 / 1200 480 / 480 Other: # Voids 4 2 Date of Last Bowel Movement 07/29/18 07/30/18 Narrative: awake and alert, no acute distress moist oral mucosa CARDIOVASCULAR: Regular rate and rhythm. RESPIRATORY: Breath sounds equal bilaterally. GASTROINTESTINAL: Abdomen soft, hyperactive bowel sounds MUSCULOSKELETAL: Extremities without clubbing, cyanosis, trace edema. No obvious deformities. NEUROLOGICAL: non focal PSYCHIATRIC: blunt affect but more interactive- with his complains Results - Labs CBC & Chem 7: 07/24/18 10:24 07/28/18 05:01 Laboratory Results - last 24 hr 07/30/18 02:00 Stl C.difficile DNA Amp Cdiffinv St C. diff Tox Epid 027 Not Reportable - Procedures Date of procedure: 07/13/18 Procedure: Procedure Performed; Colonoscopy with biopsy Findings; Colon severe colitis throughout the colon typical for C. difficile, very inflamed and congested mucosa biopsy was done from the sigmoid Rectum changes consistent with C. difficile Assessment and Plan - Assessment (1) Colitis Code(s): K52.9 - Noninfective gastroenteritis and colitis, unspecified Status : Acute (2) NEGRITO (acute kidney injury) Code(s): N17.9 - Acute kidney failure, unspecified Status: Acute (3) Hypocalcemia Code(s): E83.51 - Hypocalcemia Status: Acute (4) Hypokalemia Code(s): E87.6 - Hypokalemia Status: Acute - Plan 68-year-old male with no significant PMH who presents the ER with complaints of abdominal pain in addition to diarrhea. States symptoms have been intermittent for the last 1 mo, however now progressively worse w/ increased episodes of diarrhea Severe sepsis present on admission with tachycardia and leukocytosis HR 99, WBC 27, Bandemia 18%, Lactic Acid 2.3, likely due to severe colitis. S/p blood cultures, initially was on Zosyn/Flagyl - blood culture no growth for 5 days -treated with Dificid x 10 days -continue vancomycin p.o. tapering dose, per ID recommendation- currently on 500 mg po qid since 07/09 -get another C diff stool study - d/w ID- 07/29 - start on standing Imodium 1 cap tid Severe C. difficile colitis- \ -Status post colonoscopy 07/13/18 -CT Abd/Pelvis w/ diffuse colitis, images reviewed, +diarrhea -Stool C. difficile antigen positive, toxin negative DNA positive. Negative for EPID 027 -Stools for O&P negative -monitor and Replace electrolytes as needed -GI following: Status post colonoscopy, resulted severe C. difficile colitis -treated with Dificid and currently on oral Vanco -continue Lactinex 3 times daily -continue Questran dose/ Asacol -GI following. NEGRITO superimposed on chronic kidney disease stage II/hypocalcemia/hypokalemia -creatinine improving, likely due to dehydration and diarrhea and sepsis. -s/p IV fluid hydration - avoid nephrotoxins - Monitor creatinine Hypomagnesemia -replaced. DVT Prophylaxis: SCD/Teds, increase ambulation- patient up and ambulating Discharge Planning: dc home with [facility]- when diarrhea has improved; possible within the next 48 hrs.
[2018-07-30] MEDS: Loperamide 2 MG Capsule PO SCH ×2 (13:03→17:39)
[2018-07-30] MEDS: Diphenoxylate/Atropine 2.5/0.025 MG Tablet PO PRN (22:07)
[2018-07-31] MEDS: Diphenoxylate/Atropine 2.5/0.025 MG Tablet PO PRN ×3 (06:12→22:45)
[2018-07-31] MEDS: Mesalamine 800 MG Tablet DR PO SCH ×3 (10:15→18:41)
[2018-07-31] MEDS: Lactobacillus Acidophilus/L. Spores Tablet PO SCH ×3 (10:15→18:41)
[2018-07-31] MEDS: Magnesium Oxide 400 MG Tablet PO SCH ×3 (10:16→18:41)
--- NOTE | 2018-07-31 12:05 | P.PN ---
Subjective Interval history: feeling better stools semi formeds- less frequent good po no abdominal pain repeat c diff negative 07/30 states he wont leave until he sees a formed stools Physical Exam Vital signs: Vital Signs 07/30/18 20:00 07/31/18 08:00 Temperature 97.6 F 97.6 F Pulse Rate 93 H 102 H Respiratory Rate 14 15 Blood Pressure 104/65 98/55 L Pulse Oximetry 99 95 Intake & Output 07/30/18 07/31/18 07/31/18 18:59 06:59 18:59 Intake Total 650 / 650 960 / 960 Balance 650 / 650 960 / 960 Weight 72.9 kg Intake: Oral 650 / 650 960 / 960 Other: # Voids 5 4 Date of Last Bowel Movement 07/30/18 07/30/18 # Bowel Movements 2 1 Narrative: awake and alert, no acute distress moist oral mucosa CARDIOVASCULAR: Regular rate and rhythm. RESPIRATORY: Breath sounds equal bilaterally. GASTROINTESTINAL: Abdomen soft, hyperactive bowel sounds MUSCULOSKELETAL: Extremities without clubbing, cyanosis, no edema. No obvious deformities. NEUROLOGICAL: non focal PSYCHIATRIC: blunt affect but more interactive- with his complains Results - Labs CBC & Chem 7: 07/24/18 10:24 07/28/18 05:01 Laboratory Results - last 24 hr 07/30/18 17:40 Stl C.difficile DNA Amp Negative St C. diff Tox Epid 027 Negative - Procedures Date of procedure: 07/13/18 Procedure: Procedure Performed; Colonoscopy with biopsy Findings; Colon severe colitis throughout the colon typical for C. difficile, very inflamed and congested mucosa biopsy was done from the sigmoid Rectum changes consistent with C. difficile Assessment and Plan - Assessment (1) Colitis Code(s): K52.9 - Noninfective gastroenteritis and colitis, unspecified Status : Acute (2) NEGRITO (acute kidney injury) Code(s): N17.9 - Acute kidney failure, unspecified Status: Acute (3) Hypocalcemia Code(s): E83.51 - Hypocalcemia Status: Acute (4) Hypokalemia Code(s): E87.6 - Hypokalemia Status: Acute - Plan 68-year-old male with no significant PMH who presents the ER with complaints of abdominal pain in addition to diarrhea. States symptoms have been intermittent for the last 1 mo, however now progressively worse w/ increased episodes of diarrhea Severe sepsis present on admission with tachycardia and leukocytosis HR 99, WBC 27, Bandemia 18%, Lactic Acid 2.3, likely due to severe colitis. S/p blood cultures, initially was on Zosyn/Flagyl - blood culture no growth for 5 days -continue vancomycin p.o. tapering dose, per ID recommendation- currently on 500 mg po qid since 07/09 - repeat C diff stool study 07/30- negative - Lomotil tid - [id number] mg po qid x 7 dyas 07/31 then 125 mg po bid 7 days, 125 mg daily x 7 days, then 125 mg every other day for 7 days then 125 mg every 3 days for 14 days then DC Severe C. difficile colitis- \ -Status post colonoscopy 07/13/18 -CT Abd/Pelvis w/ diffuse colitis, images reviewed, +diarrhea -Stool C. difficile antigen positive, toxin negative DNA positive. Negative for EPID 027 -Stools for O&P negative -monitor and Replace electrolytes as needed -GI following: Status post colonoscopy, resulted severe C. difficile colitis -treated with Dificid and currently on oral Vanco -continue Lactinex 3 times daily -continue Questran dose/ Asacol -GI following. NEGRITO superimposed on chronic kidney disease stage II/hypocalcemia/hypokalemia -creatinine improving, likely due to dehydration and diarrhea and sepsis. -s/p IV fluid hydration - avoid nephrotoxins - Monitor creatinine Hypomagnesemia -replaced. DVT Prophylaxis: SCD/Teds, increase ambulation- patient up and ambulating Discharge Planning: dc home with [facility]- when diarrhea has improved; possible within the next 48 hrs.
[2018-07-31] MEDS: Bismuth Subsalicylate Susp 240 ML Bottle PO SCH ×3 (14:39→20:45)
[2018-08-01] MEDS: Diphenoxylate/Atropine 2.5/0.025 MG Tablet PO PRN ×2 (09:39→18:14)
[2018-08-01] MEDS: Magnesium Oxide 400 MG Tablet PO SCH ×3 (09:40→18:14)
[2018-08-01] MEDS: Lactobacillus Acidophilus/L. Spores Tablet PO SCH ×3 (09:40→18:14)
[2018-08-01] MEDS: Mesalamine 800 MG Tablet DR PO SCH ×3 (09:40→18:14)
[2018-08-01] MEDS: Bismuth Subsalicylate Susp 240 ML Bottle PO SCH ×4 (09:41→20:46)
--- NOTE | 2018-08-01 11:07 | P.PN ---
Subjective Interval history: feels better and states stools better stools- -commode-definitely more formed, soft, formed, no water, no blood, brown he is wanting to go up on the LOmotil q 6 d/w him that we will observe on current dose at one time was taking 6-8 tablets- adn got impacted Physical Exam Vital signs: Vital Signs 07/31/18 12:00 07/31/18 20:00 08/01/18 08:00 Temperature 97.8 F 97.6 F 97.4 F L Pulse Rate 96 H 97 H 104 H Respiratory Rate 17 20 16 Blood Pressure 105/67 110/69 99/64 L Pulse Oximetry 92 L 95 97 Intake & Output 07/31/18 08/01/18 08/01/18 18:59 06:59 18:59 Intake Total 540 / 540 380 / 380 Output Total 1000 / 1000 Balance -460 / -460 380 / 380 Intake: Oral 540 / 540 380 / 380 Output: Urine 600 / 600 Stool 400 / 400 Other: # Voids 3 Date of Last Bowel Movement 07/31/18 08/01/18 # Bowel Movements 1 Narrative: awake and alert, no acute distress moist oral mucosa CARDIOVASCULAR: Regular rate and rhythm. RESPIRATORY: Breath sounds equal bilaterally. GASTROINTESTINAL: Abdomen soft, good bowel sounds MUSCULOSKELETAL: Extremities without clubbing, cyanosis, no edema. No obvious deformities. NEUROLOGICAL: non focal PSYCHIATRIC: blunt affect but very nteractive - with his complains Results - Labs CBC & Chem 7: 07/24/18 10:24 07/28/18 05:01 - Procedures Date of procedure: 07/13/18 Procedure: Procedure Performed; Colonoscopy with biopsy Findings; Colon severe colitis throughout the colon typical for C. difficile, very inflamed and congested mucosa biopsy was done from the sigmoid Rectum changes consistent with C. difficile Assessment and Plan - Assessment (1) Colitis Code(s): K52.9 - Noninfective gastroenteritis and colitis, unspecified Status : Acute (2) NEGRITO (acute kidney injury) Code(s): N17.9 - Acute kidney failure, unspecified Status: Acute (3) Hypocalcemia Code(s): E83.51 - Hypocalcemia Status: Acute (4) Hypokalemia Code(s): E87.6 - Hypokalemia Status: Acute - Plan 68-year-old male with no significant PMH who presents the ER with complaints of abdominal pain in addition to diarrhea. States symptoms have been intermittent for the last 1 mo, however now progressively worse w/ increased episodes of diarrhea Severe sepsis present on admission with tachycardia and leukocytosis HR 99, WBC 27, Bandemia 18%, Lactic Acid 2.3, likely due to severe colitis. S/p blood cultures, initially was on Zosyn/Flagyl - blood culture no growth for 5 days -continue vancomycin p.o. tapering dose, per ID recommendation- currently on 500 mg po qid since 07/09 - repeat C diff stool study 07/30- negative - Lomotil tid - [id number] mg po qid x 7 dyas 07/31 then 125 mg po bid 7 days, 125 mg daily x 7 days, then 125 mg every other day for 7 days then 125 mg every 3 days for 14 days then DC Severe C. difficile colitis- \ -Status post colonoscopy 07/13/18 -CT Abd/Pelvis w/ diffuse colitis, images reviewed, +diarrhea -Stool C. difficile antigen positive, toxin negative DNA positive. Negative for EPID 027 -Stools for O&P negative -monitor and Replace electrolytes as needed -GI following: Status post colonoscopy, resulted severe C. difficile colitis -treated with Dificid and currently on oral Vanco -continue Lactinex 3 times daily -continue Questran dose/ Asacol -GI following. NEGRITO superimposed on chronic kidney disease stage II/hypocalcemia/hypokalemia -creatinine improving, likely due to dehydration and diarrhea and sepsis. -s/p IV fluid hydration - avoid nephrotoxins - Monitor creatinine Hypomagnesemia -replaced. DVT Prophylaxis: SCD/Teds, increase ambulation- patient up and ambulating Discharge Planning: dc home with [facility]- when diarrhea has improved; possible within the next 48 hrs.
[2018-08-02] MEDS: Diphenoxylate/Atropine 2.5/0.025 MG Tablet PO PRN ×3 (02:15→18:14)
[2018-08-02 05:56] LABS: Calcium 8.3 mg/dL (8.5-10.1); Carbon Dioxide 24.4 meq/L (21.0-32.0); Potassium 4.3 meq/L (3.5-5.1)
[2018-08-02] MEDS: Mesalamine 800 MG Tablet DR PO SCH ×3 (09:01→17:30)
[2018-08-02] MEDS: Lactobacillus Acidophilus/L. Spores Tablet PO SCH ×3 (09:01→17:30)
[2018-08-02] MEDS: Bismuth Subsalicylate Susp 240 ML Bottle PO SCH ×4 (09:01→21:47)
[2018-08-02] MEDS: Magnesium Oxide 400 MG Tablet PO SCH ×3 (09:01→17:30)
--- NOTE | 2018-08-02 09:10 | P.PN ---
Subjective Interval history: This is a pleasant 68 y/o male who was admitted with abdominal pain and Diarrhea , C Diff Positive on titrated dosages of Vancomycin by mouth, has NEGRITO on CKD II. awaiting to improve Diarrhea for discharge. 08/02: patient with Improved condition, he was already recommended for discharge by Doctor Kemal and he called Medicare and as per his own words refuse to leave the hospital states he is not feeling ready, he is not on IV fluids, eating well, formed bowel movements, and will need to continue by mouth antibiotics for six weeks. no nausea, vomit or diarrhea. Physical Exam Vital signs: Vital Signs 08/01/18 12:00 08/01/18 16:00 08/01/18 20:00 Temperature 97.6 F 97.5 F L 97.8 F Pulse Rate 85 85 92 H Respiratory Rate 17 Blood Pressure 99/67 L 100/68 108/65 Pulse Oximetry 96 96 96 08/02/18 00:00 08/02/18 08:00 Temperature 98 F 98.0 F Pulse Rate 87 89 Respiratory Rate Blood Pressure 122/74 107/66 Pulse Oximetry 96 98 Intake & Output 08/01/18 08/02/18 08/02/18 18:59 06:59 18:59 Intake Total 480 / 480 Output Total 1050 / 1050 Balance -1050 / -1050 480 / 480 Weight 72.9 kg Intake: Oral 480 / 480 Output: Urine 800 / 800 Stool 250 / 250 Other: # Voids 3 2 Date of Last Bowel Movement 08/01/18 08/01/18 # Bowel Movements 1 Narrative: awake and alert, no acute distress moist oral mucosa CARDIOVASCULAR: Regular rate and rhythm. RESPIRATORY: Breath sounds equal bilaterally. GASTROINTESTINAL: Abdomen soft, good bowel sounds MUSCULOSKELETAL: Extremities without clubbing, cyanosis, no edema. No obvious deformities. NEUROLOGICAL: non focal PSYCHIATRIC: blunt affect. Results - Labs CBC & Chem 7: 07/24/18 10:24 08/02/18 04:50 Laboratory Results - last 24 hr 08/02/18 04:50 Sodium 139 Potassium 4.3 Chloride 106 Carbon Dioxide 24.4 Anion Gap 9 BUN 13 Creatinine 1.20 Estimated GFR 60 L Random Glucose 102 Calcium 8.3 L - Imaging Chest X-Ray 07/05/18 19:10 CONCLUSION: No acute findings. Abdomen/Pelvis CT 07/10/18 00:00 CONCLUSION: 1. Increased ascitic fluid compared to the recent study 5 days ago. 2. Diffuse mural wall thickening and edema throughout the colon consistent with colitis. This is not significantly changed. 3. New small bilateral pleural effusions right greater than left. 4. Multiple stable cystic structures in the liver. - Procedures Date of procedure: 07/13/18 Procedure: Procedure Performed; Colonoscopy with biopsy Findings; Colon severe colitis throughout the colon typical for C. difficile, very inflamed and congested mucosa biopsy was done from the sigmoid Rectum changes consistent with C. difficile Assessment and Plan - Assessment (1) Colitis Code(s): K52.9 - Noninfective gastroenteritis and colitis, unspecified Status : Acute (2) NEGRITO (acute kidney injury) Code(s): N17.9 - Acute kidney failure, unspecified Status: Acute (3) Hypocalcemia Code(s): E83.51 - Hypocalcemia Status: Acute (4) Hypokalemia Code(s): E87.6 - Hypokalemia Status: Acute - Plan 68-year-old male with no significant PMH who presents the ER with complaints of abdominal pain in addition to diarrhea. States symptoms have been intermittent for the last 1 mo, however now progressively worse w/ increased episodes of diarrhea Severe sepsis present on admission with tachycardia and leukocytosis HR 99, WBC 27, Bandemia 18%, Lactic Acid 2.3, likely due to severe colitis. S/p blood cultures, initially was on Zosyn/Flagyl - blood culture no growth for 5 days -continue vancomycin p.o. tapering dose, per ID recommendation- currently on 500 mg po qid since 07/09 - repeat C diff stool study 07/30- negative - Lomotil tid - mg po qid x 7 dyas 07/31 then 125 mg po bid 7 days, 125 mg daily x 7 days, then 125 mg every other day for 7 days then 125 mg every 3 days for 14 days then DC Severe C. difficile colitis- \ -Status post colonoscopy 07/13/18 -CT Abd/Pelvis w/ diffuse colitis, images reviewed, +diarrhea -Stool C. difficile antigen positive, toxin negative DNA positive. Negative for EPID 027 -Stools for O&P negative -monitor and Replace electrolytes as needed -GI following: Status post colonoscopy, resulted severe C. difficile colitis -treated with Dificid and currently on oral Vanco -continue Lactinex 3 times daily -continue Questran dose/ Asacol -GI following. NEGRITO Improved. Hypomagnesemia -replaced. DVT Prophylaxis: SCD/Teds, increase ambulation- patient up and ambulating Code Status: Full code. Discussed Condition With: patient and Nurse Miss Cabrera and History Faculty Member. Discharge Planning: Discharge Home now.
[2018-08-02 21:11] VITALS: RESP 17; O2SAT 97
[2018-08-03] MEDS: Diphenoxylate/Atropine 2.5/0.025 MG Tablet PO PRN ×2 (02:43→10:09)
[2018-08-03 08:30] VITALS: BP 128/82; PULSE 100; TEMP 98.4
[2018-08-03] MEDS: Lactobacillus Acidophilus/L. Spores Tablet PO SCH (08:45)
[2018-08-03] MEDS: Bismuth Subsalicylate Susp 240 ML Bottle PO SCH (08:45)
[2018-08-03] MEDS: Mesalamine 800 MG Tablet DR PO SCH (08:46)
[2018-08-03] MEDS: Magnesium Oxide 400 MG Tablet PO SCH (08:47)
--- NOTE | 2018-08-03 09:37 | P.DS ---
Date of admission: 07/05/18 21:24 Primary care physician: No Primary Care Physician Attending physician on discharge: Reji Manning Anticipated date of discharge: 08/02/18 Brief History from admission: This is a 68-year-old male with no significant PMH who presents the ER with complaints of abdominal pain in addition to diarrhea. States symptoms have been intermittent for the last 1mo, however now progressively worse w/ increased episodes of diarrhea today. Pain is generalized, cramping, intermittent, 7/10, non-radiating. Denies fever, chills, sick contacts or recent travel. Today reports approx 20 episodes of loose stool/diarrhea. No recent antibiotic use. On arrival, BP 92/56, HR 99, O2 sat 96% on RA, Afebrile. WBC 27.7, bands 18%. INR 1.4. K+ 3.1. Creatinine 1.75, no previous labs for comparison. Lactic Acid 2.3. Calcium 6.8. Troponin negative. Lipase 48. UA negative for UTI. C. difficile pending. CT Abdomen/ Pelvis diffuse mural thickening and edema throughout the colon consistent with colitis, associated mild ascites. CXR with no acute findings. S/p Zosyn/ Flagyl in ER. DS: Diagnosis - Discharge Diagnosis (1) Colitis Status: Acute (2) NEGRITO (acute kidney injury) Status: Acute (3) Hypocalcemia Status: Acute (4) Hypokalemia Status: Acute DS: Medications - Discharge Medications Prescriptions: acidophilus-sporogenes [Acidophilus Ex Str (L. sporog)] 1 tab PO TID #21 tab cholestyramine-aspartame [Questran Light] 4 g PO TID #60 g metronidazole 500 mg PO Q8HR #42 tab vancomycin 125 mg PO QID #56 ea DS: Summary Hospital Course: This is a pleasant 68 y/o male who was admitted with abdominal pain and Diarrhea , C Diff Positive on titrated dosages of Vancomycin by mouth, has NEGRITO on CKD II. awaiting to improve Diarrhea for discharge. 08/02: patient with Improved condition, he was already recommended for discharge by Doctor Sommer and he called Medicare and as per his own words refuse to leave the hospital states he is not feeling ready, he is not on IV fluids, eating well, formed bowel movements, and will need to continue by mouth antibiotics for six weeks. no nausea, vomit or diarrhea. The patient refuse to leave the Hospital on Friday but he does not need special care at this time in this facility will Leave this to Administration to solve the patient's complaint about that he does not feel like he is ready for discharge. Assessment and Plan - Assessment (1) Colitis Code(s): K52.9 - Noninfective gastroenteritis and colitis, unspecified Status : Acute (2) NEGRITO (acute kidney injury) Code(s): N17.9 - Acute kidney failure, unspecified Status: Acute (3) Hypocalcemia Code(s): E83.51 - Hypocalcemia Status: Acute (4) Hypokalemia Code(s): E87.6 - Hypokalemia Status: Acute - Plan 68-year-old male with no significant PMH who presents the ER with complaints of abdominal pain in addition to diarrhea. States symptoms have been intermittent for the last 1 mo, however now progressively worse w/ increased episodes of diarrhea Severe sepsis present on admission with tachycardia and leukocytosis HR 99, WBC 27, Bandemia 18%, Lactic Acid 2.3, likely due to severe colitis. S/p blood cultures, initially was on Zosyn/Flagyl - blood culture no growth for 5 days -continue vancomycin p.o. tapering dose, per ID recommendation- currently on 500 mg po qid since 07/09 - repeat C diff stool study 07/30- negative - Lomotil tid - [id number] mg po qid x 7 dyas 07/31 then 125 mg po bid 7 days, 125 mg daily x 7 days, then 125 mg every other day for 7 days then 125 mg every 3 days for 14 days then DC Severe C. difficile colitis- \ -Status post colonoscopy 07/13/18 -CT Abd/Pelvis w/ diffuse colitis, images reviewed, +diarrhea -Stool C. difficile antigen positive, toxin negative DNA positive. Negative for EPID 027 -Stools for O&P negative -monitor and Replace electrolytes as needed -GI following: Status post colonoscopy, resulted severe C. difficile colitis -treated with Dificid and currently on oral Vanco -continue Lactinex 3 times daily -continue Questran dose/ Asacol -GI following. NEGRITO Improved. Hypomagnesemia -replaced. DVT Prophylaxis: SCD/Teds, increase ambulation- patient up and ambulating Code Status: Full code. Discussed Condition With: patient and Nurse Miss Cabrera and [employer]. Discharge Planning: Discharge Home now. - Time Spent with Patient Total time spent providing and/or coordinating discharge services: Greater than 30 minutes - Quality: VTE Deep Vein Thrombosis/Pulmonary Embolism Present on Admission: No Exam Vital signs: Vital Signs 08/02/18 12:00 08/02/18 16:00 08/02/18 20:00 Temperature 98.2 F 98.5 F 98.0 F Pulse Rate 90 100 H 97 H Respiratory Rate 16 18 17 Blood Pressure 98/63 L 101/68 103/67 Pulse Oximetry 96 99 97 08/03/18 08:00 Temperature 98.4 F Pulse Rate 100 H Respiratory Rate 17 Blood Pressure 128/82 Pulse Oximetry 97 Intake & Output 08/02/18 08/03/18 08/03/18 18:59 06:59 18:59 Intake Total 1800 / 1800 480 / 480 Balance 1800 / 1800 480 / 480 Weight 72.9 kg Intake: Oral 1800 / 1800 480 / 480 Other: # Voids 5 2 # Bowel Movements 4 Narrative: awake and alert, no acute distress moist oral mucosa CARDIOVASCULAR: Regular rate and rhythm. RESPIRATORY: Breath sounds equal bilaterally. GASTROINTESTINAL: Abdomen soft, good bowel sounds MUSCULOSKELETAL: Extremities without clubbing, cyanosis, no edema. No obvious deformities. NEUROLOGICAL: non focal PSYCHIATRIC: blunt affect. Results Procedures completed during hospitalization: Date of procedure: 07/13/18 Procedure: Procedure Performed; Colonoscopy with biopsy Findings; Colon severe colitis throughout the colon typical for C. difficile, very inflamed and congested mucosa biopsy was done from the sigmoid Rectum changes consistent with C. difficile Completed studies during hospitalization: Pending at discharge 07/13/18 12:24 Surgical [PTH] Routine - Impressions Chest X-Ray 07/05/18 19:10 CONCLUSION: No acute findings. Abdomen/Pelvis CT 07/10/18 00:00 CONCLUSION: 1. Increased ascitic fluid compared to the recent study 5 days ago. 2. Diffuse mural wall thickening and edema throughout the colon consistent with colitis. This is not significantly changed. 3. New small bilateral pleural effusions right greater than left. 4. Multiple stable cystic structures in the liver. Discharge Plan - Discharge Disposition Patient Disposition: 01 Discharge Home - Discharge Condition Condition: Good - Discharge Order Discharge Orders: Discharge Order (Routine); Ordered 08/02/18 Ordered By: Reji Manning - Discharge Details Anticipated Discharge Date: 08/02/18 Discharge Comment: Follow with PCP in three days. - Physicians Team Primary Care Provider: Primary Care Rhondai,Kathrine Attending Provider: Reji Manning Other Providers: John Paul Coker ; Clarence Bui MD ; Claudy Leigh MD
== END 2018-08-03 10:56 | disposition home or self-care (01) ==
LOC: NEPE 18:50 → NEDA 21:24 → N07 22:44
PROVIDERS: ADMIT Internal Medicine; ATTEND Internal Medicine
PROC: COLONOS (2018-07-13 09:05)